=== PATIENT | male | born 1940 | race Caucasian/White ===

== ENCOUNTER 2016-04-08 10:52 | Day surgery (SDC) | payer MEDICARE ==
[2016-04-07 09:04] VITALS: BMI 27.1
[2016-04-08] MEDS: SODIUM CHLORIDE 0.9% 1,000 ML IV SCH (11:17)
[2016-04-08 11:42] LABS: Anion Gap 12 mmol/L; Blood Urea Nitrogen 20 mg/dL (9-20); Calcium 9.4 mg/dL (8.4-10.2); Carbon Dioxide 27 mmol/L (22-30); Chloride 107 mmol/L (98-107); Glucose 91 mg/dL (74-99); Non-African American GFR(MDRD) >60 (>60 ml/min/1.73 sqM); Potassium 3.7 mmol/L (3.5-5.1); Sodium 146 mmol/L (137-145)
[2016-04-08] MEDS ORDERED: BENZOCAINE SPRAY 100 APPLIC/CAN MUCOUS MEM ONE ×2 (12:12→12:15)
[2016-04-08] MEDS ORDERED: PROPOFOL 10 MG/ML 20 ML VIAL IV ONE (12:16)
[2016-04-08] MEDS ORDERED: LIDOCAINE 1% INJ 10MG/ML (20 ML MDV) ONE (12:16)
[2016-04-08] MEDS ORDERED: FLECAINIDE 50 MG TAB PO STA (12:31)
[2016-04-08 12:41] VITALS: RESP 16
--- NOTE | 2016-04-08 12:54 | ECHOT ---
DATE OF SERVICE: PREOPERATIVE DIAGNOSIS: Persistent atrial fibrillation. POSTOPERATIVE DIAGNOSIS: Persistent atrial fibrillation. Patient was given intravenous sedation with propofol by nurse hotel maintenance engineer and transesophageal echocardiogram was performed without any complications. FINDINGS: Left ventricular chamber is normal in size with normal left ventricular systolic function. Left atrium is mildly enlarged. There is evidence of smoke in the left ventricle and left atrium. There is no evidence of thrombus in the left atrial appendage. Mitral and tricuspid valve morphology was normal. Aortic valve is tricuspid. There is some mild mitral and tricuspid regurgitation noted. Left ventricular systolic function is normal. Interatrial septum is intact. There is no evidence of any PFO. There is mild atherosclerotic plaque noted in the descending thoracic aorta. FINAL IMPRESSION: 1. There is no evidence of thrombus in the left atrium or atrial appendage. There is evidence of smoke in the left atrium. 2. Left ventricular systolic function is normal. 3. Mitral, aortic and tricuspid valve morphology is normal. 4. There is a mild degree of mitral, tricuspid and aortic regurgitation. 5. Interatrial septum is intact. 6. There is evidence of mild atherosclerotic plaque noted in the descending thoracic aorta. RECOMMENDATIONS: Proceed with cardioversion.
--- NOTE | 2016-04-08 12:58 | CE ---
DATE OF SERVICE: CARDIOVERSION PREOPERATIVE DIAGNOSIS: Persistent atrial fibrillation. POSTOPERATIVE DIAGNOSIS: Persistent atrial fibrillation. Patient was given intravenous sedation with propofol. Initially transesophageal echocardiogram was performed and there was no evidence of any clot and subsequently patient initial attempt was made to cardiovert the patient with 200 joules, which was unsuccessful. Subsequently patient was cardioverted with 300 joules to the normal sinus rhythm. Patient tolerated the procedure well. We will start the patient on flecainide to prevent the reoccurrence of the atrial fibrillation and patient will be observed on the telemetry unit for 24 overnight and will be discharged home tomorrow.
[2016-04-08] MEDS: CEVIMELINE 30 MG CAP PO SCH ×2 (19:06→21:00)
[2016-04-08] MEDS: POTASSIUM CHLORIDE ER 10 MEQ TAB.ER.PRT PO SCH ×2 (19:06→21:00)
[2016-04-08] MEDS ORDERED: FLECAINIDE 50 MG TAB PO SCH (21:00)
[2016-04-08] MEDS ORDERED: TAMSULOSIN 0.4 MG CAP.ER.24H PO SCH (21:00)
[2016-04-08] MEDS ORDERED: ATENOLOL 50 MG TAB PO SCH (21:00)
[2016-04-08] MEDS: FLECAINIDE 50 MG TAB PO SCH (21:00)
[2016-04-08] MEDS: amLODIPine 5 MG TAB PO SCH (21:00)
[2016-04-08] MEDS: APIXABAN 5 MG TAB PO SCH (21:01)
[2016-04-09] MEDS: SODIUM CHLORIDE 0.9% 1,000 ML IV SCH (06:26)
[2016-04-09] MEDS: amLODIPine 5 MG TAB PO SCH (08:10)
[2016-04-09] MEDS: POTASSIUM CHLORIDE ER 10 MEQ TAB.ER.PRT PO SCH (08:10)
[2016-04-09] MEDS: CEVIMELINE 30 MG CAP PO SCH (08:10)
[2016-04-09] MEDS: FLECAINIDE 50 MG TAB PO SCH (08:10)
[2016-04-09] MEDS: APIXABAN 5 MG TAB PO SCH (08:10)
[2016-04-09 08:35] VITALS: BP 159/98; PULSE 65; TEMP 98
[2016-04-09] MEDS ORDERED: LOSARTAN 50 MG TAB PO SCH (09:00)
[2016-04-09] MEDS ORDERED: HYDROCHLOROTHIAZIDE 25 MG TAB PO SCH (09:00)
[2016-04-09] MEDS ORDERED: NON-FORMULARY DRUG (Olmesartan/Hydrochlorothiazide [Benicar Hct 40-25 Mg Tablet] 1 TAB) PO SCH (09:00)
[2016-04-09] MEDS ORDERED: APIXABAN 5 MG TAB PO SCH (09:00)
--- NOTE | 2016-04-09 10:27 | PN ---
This patient underwent cardioversion yesterday. It required 360 joules to convert to the normal sinus rhythm. Patient tolerated the procedure well. Patient was started on flecainide. Patient tolerating the medications well. Monitor strips are reviewed. Patient has occasional block PACs. We will discharge the patient on flecainide 50 mg b.i.d. He is advised to take atenolol only 50 mg daily and continue Eliquis 5 mg b.i.d. and the rest of the medications. I will see the patient in 2 weeks.
== END 2016-04-09 10:49 | disposition home or self-care (01) ==
LOC: CATHCVL 10:52 → 3OBS 12:30 → CATHCVL 04-09 10:49
PROVIDERS: ATTEND Internal Medicine Cardiovascular Disease
DX: I48.1 Persistent atrial fibrillation (principal); I08.3 Combined rheumatic disorders of mitral, aortic and tricuspid valves; I70.0 Atherosclerosis of aorta; I49.1 Atrial premature depolarization; I10 Essential (primary) hypertension; Z79.02 Long term (current) use of antithrombotics/antiplatelets; Z79.82 Long term (current) use of aspirin; Z79.899 Other long term (current) drug therapy
CPT/HCPCS: 93312; 93320; 93325; 92960; 80048; J2001; J2704

== ENCOUNTER 2017-03-02 11:21 | Day surgery (SDC) | payer MEDICARE ==
[2017-03-01 09:38] VITALS: BMI 25.7
[~2017-03-02 11:21] MED LIST: LACTATED RINGERS 1,000 ML IV SCH; LIDOCAINE 1% 20 ML VIAL (10MG/ML) FOR IV START INTRADERMA PRN; ONDANSETRON 4 MG/2 ML VIAL IVP ONE
[2017-03-02 12:59] VITALS: RESP 18
[2017-03-02] MEDS: FLURBIPROFEN 0.03% OPHTH DROPS 2.5 ML BTL OP ONE ×3 (13:06→13:26)
[2017-03-02] MEDS: PHENYLEPHRINE 10% OPHTH DROPS 5 ML BTL OP ONE ×3 (13:09→13:29)
[2017-03-02] MEDS ORDERED: BALANCED SALT IRRIG SOLN COMB2 15 ML IRRIG.SOLN INTRAOCULA ONE ×3 (13:21)
[2017-03-02] MEDS ORDERED: HYALURONATE SODIUM INTRAOCULAR 1 EACH SYRINGE (10MG/ML) INTRAOCULA ONE (13:22)
[2017-03-02] MEDS ORDERED: PROPOFOL 10 MG/ML 20 ML VIAL IV ONE (13:29)
[2017-03-02] MEDS ORDERED: EPINEPHrine (PF) 0.5 ML in BALANCED SALT IRRIG SOLN COMB2 500 ML IRRIGATION ONE (13:38)
--- NOTE | 2017-03-02 13:50 | P.OP ---
Date of Procedure: 03/02/17 Procedure(s) Performed: PREOPERATIVE DIAGNOSIS: Cataract, right eye. POSTOPERATIVE DIAGNOSIS: Cataract, right eye. OPERATION: Phacoemulsification cataract, right eye. DESCRIPTION OF PROCEDURE: The patient was taken to the preoperative holding area. Intravenous Propofol was given so as to bring about adequate sedation. The following mixture was given for local anesthesia: 5 mL of 2% lidocaine, 5 mL of 0.75% Marcaine, and 1 mL of Wydase. Approximately 4 mL was injected in the retrobulbar space of the surgical eye. Additional 1 mL was then directed to the temporal area of the surgical eye. This was performed to allow adequate neurological block of the facial muscles. The patient was revived and then taken into the operative room. The patient was prepped and draped in the usual sterile manner for the operative eye. A lid speculum was put into position. The conjunctiva was resected back from the limbus in the 12 o'clock position. Bleeding was controlled with electrocautery. A #69 blade was then used and a half-thickness scleral incision approximately 1-mm posterior to the limbus was made on bare sclera. This was shelved in the clear cornea using a crescent knife. Next a 15-degree blade was used to make a stab incision at the 3 o' clock position at the corneolimbal interface. Keratome blade was then used and the superior wound was extended into the anterior chamber. Viscoelastic was injected into the anterior chamber and to maintain its form. Next, a cystotome was used and a continuous anterior capsulotomy was made without difficulty. Hydrodissection using a blunt cannula and BSS was performed. Phaco probe was then employed and a groove extending from 12 to 6 o'clock in the lens was created. A Denis wand was used through the stab incision so as to perform a divide and conquer technique. Next an irrigation aspiration probe was utilized and any residual cortex was removed from the eye. Again, viscoelastic was injected into the anterior chamber. An Alex posterior chamber lens implant was placed in the cartridge and injected into the anterior chamber without difficulty. The SinCheckpoint Surgicaley hook was utilized to spin the lens into position and this was again performed without any difficulty. The irrigation and aspiration probe was again employed and any residual viscoelastic was removed from the eye. Then BSS was injected into the limbal stab incision and the anterior chamber re-inflated. The conjunctiva was reapproximated using electrocautery. One drop of 0.25% Timoptic was placed over the corneal along with TobraDex ophthalmic ointment. Two sterile patches and a Ramsay eye shield were taped into position. The patient was transported to the recovery room in stable condition. Pathology: none sent Condition: stable Disposition: same day
[2017-03-02 14:12] VITALS: BP 155/98; PULSE 65
[2017-03-02] MEDS ORDERED: GENTAMICIN/PREDNISOL AC OPHTH OINT 3.5GM OPHTHALMIC ONE (23:00)
[2017-03-02] MEDS ORDERED: CYCLOPENTOLATE 1% OPHTH SOLN 2 ML BTL OP ONE (23:00)
[2017-03-02] MEDS ORDERED: TIMOLOL 0.5% OPHTH SOLN (PF) 0.2 ML DROPERETTE OP ONE (23:00)
[2017-03-02] MEDS ORDERED: BUPIVACAINE (PF) 0.75% 5 ML, HYALURONIDASE, HUMAN RECOMB 150 UNIT, LIDOCAINE 2% (PF) 10... MISCELLANE ONE ×3 (23:00)
== END 2017-03-02 14:36 | disposition home or self-care (01) ==
LOC: OR 11:21
PROVIDERS: ATTEND Ophthalmology
DX: H26.9 Unspecified cataract (principal); I10 Essential (primary) hypertension; M35.00 Sjogren syndrome, unspecified; I48.91 Unspecified atrial fibrillation; Z79.01 Long term (current) use of anticoagulants; E78.5 Hyperlipidemia, unspecified; Z79.899 Other long term (current) drug therapy
CPT/HCPCS: 66984; V2632; J3470; J2001; J2405; J0171; J2704

== ENCOUNTER 2020-07-15 17:03 | Emergency (ER) | payer MEDICARE ==
[2020-07-15] MEDS ORDERED: SODIUM CHLORIDE 0.9% 1,000 ML IV ONE (17:11)
[2020-07-15] MEDS ORDERED: SODIUM CHLORIDE 0.9% 1,000 ML IV STA (17:13)
[2020-07-15 17:27] LABS: Glucose,Whole Blood 118 mg/dL (75-99)
[2020-07-15 17:32] LABS: Basophils # (A) 0.1 k/uL (0-0.2); Basophils % (A) 1 %; Eosinophils # (A) 0.3 k/uL (0-0.7); Eosinophils % (A) 6 %; HCT 37.1 % (39.0-53.0); HGB 13.4 gm/dL (13.0-17.5); Lymphocytes # (A) 1.1 k/uL (1.0-4.8); Lymphocytes % (A) 21 %; MCH 33.3 pg (25.0-35.0); MCV 92.4 fL (80.0-100.0); Mean Platelet Volume 7.7; Monocytes # (A) 0.5 k/uL (0-1.0); Monocytes % (A) 9 %; Neutrophils # (A) 3.4 k/uL (1.3-7.7); Neutrophils % (A) 62 %; Platelet Count 206 k/uL (150-450); RBC 4.02 m/uL (4.30-5.90); RDW 13.3 % (11.5-15.5); WBC 5.4 k/uL (3.8-10.6)
--- NOTE | 2020-07-15 17:32 | CT ---
EXAMINATION TYPE: CT brain wo con for TPA DATE OF EXAM: 07/15/2020 COMPARISON: None HISTORY: Aphasia. CT DLP: 1079.8 mGycm Automated exposure control for dose reduction was used. There is cerebral cortical atrophy. There is no mass effect nor midline shift. There is no sign of in tracranial hemorrhage. There is atherosclerotic vascular calcification. Calvarium is intact. IMPRESSION: Mild atrophy. No acute intracranial abnormality.
[2020-07-15] MEDS ORDERED: ASPIRIN 300 MG SUPP RECTAL STA (17:36)
[2020-07-15 17:42] LABS: Albumin 4.1 g/dL (3.5-5.0); Calcium 9.1 mg/dL (8.4-10.2); Potassium 4.2 mmol/L (3.5-5.1); Total Bilirubin 0.2 mg/dL (0.2-1.3); Total Protein 7.7 g/dL (6.3-8.2)
--- NOTE | 2020-07-15 17:47 | ED ---
General Adult HPI - General Chief complaint: Neuro Symptoms/Deficit Stated complaint: possible stroke Time Seen by Provider: 07/15/20 17:10 Source: patient, RN notes reviewed, old records reviewed Mode of arrival: ambulatory Limitations: no limitations - History of Present Illness Initial comments: 79-year-old male history of A. fib on Eliquis presenting with sudden onset slurred speech which began approximately 1600. History is obtained from the pat chacha's . During transport to the emergency department he became weak on the right. The time of arrival he has an NIH of 20. Taken immediately to computed tomography scan. - Related Data Home Medications Medication Instructions Recorded Confirmed Olmesartan/Hydrochlorothiazide 1 tab PO QAM 01/11/14 03/01/17 [Benicar Hct 40-25 mg Tablet] Potassium Chloride [Klor-Con M10] 20 meq PO BID 01/11/14 03/01/17 amLODIPine [Norvasc] 5 mg PO QAM 01/11/14 03/02/17 atenoloL [Atenolol] 50 mg PO QAM 01/11/14 03/01/17 Apixaban [Eliquis] 5 mg PO BID 04/07/16 03/01/17 Cevimeline [Evoxac] 30 mg PO TID 04/07/16 03/01/17 Tamsulosin [Flomax] 0.4 mg PO HS 04/07/16 03/01/17 Flecainide [Tambocor] 75 mg PO BID 04/09/16 03/01/17 Allergies Allergy/AdvReac Type Severity Reaction Status Date / Time No Known Allergies Allergy Verified 03/02/17 13:01 Review of Systems ROS Statement: Those systems with pertinent positive or pertinent negative responses have been documented in the HPI. ROS Other: All systems not noted in ROS Statement are negative. 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 History of Any Multi-Drug Resistant Organisms: None Reported Past Surgical History: Hernia Repair Past Anesthesia/Blood Transfusion Reactions: No Reported Reaction Past Psychological History: No Psychological Hx Reported Smoking Status: Never smoker Past Alcohol Use History: None Reported Past Drug Use History: None Reported - Past Family History Sister(s) Family Medical History: Cancer General Exam Limitations: no limitations General appearance: alert, in no apparent distress Head exam: Present: atraumatic, normocephalic Eye exam: Present: normal appearance, PERRL ENT exam: Present: normal exam Neck exam: Present: normal inspection. Absent: tenderness, meningismus Respiratory exam: Present: normal lung sounds bilaterally. Absent: respiratory distress, wheezes Cardiovascular Exam: Present: regular rate, normal rhythm GI/Abdominal exam: Present: soft. Absent: distended, tenderness Extremities exam: Present: normal inspection, normal capillary refill. Absent: pedal edema Neurological exam: Present: alert, motor sensory deficit (Initial NIH, right- sided hemiplegia, right facial droop, neglect, dysarthria, NIH of 20.). Absent: oriented X3, CN II-XII intact Psychiatric exam: Present: normal affect, normal mood Skin exam: Present: warm, dry, intact. Absent: cyanosis, diaphoretic Course Vital Signs 07/15/20 17:05 Temperature 98.0 F Pulse Rate 66 Respiratory 18 Rate Blood Pressure 122/80 O2 Sat by Pulse 98 Oximetry - Reevaluation(s) Reevaluation #1: 07/15/20 17:48 Repeat NIH is 13 EKG Findings - EKG Comments: EKG Findings:: EKG: Sinus rhythm with first-degree AV block, rate of 68, VA interval 278, QRS duration 106, QTC [address] segment elevation. Medical Decision Making - Medical Decision Making 79-year-old male who had presented with signs concerning for CVA. 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 He is currently anticoagulated with a history of atrial fibrillation. His care was coordinated with the stroke neurologist Dr. Benitez. He will be transferred to [facility] for urgent thrombectomy. Laboratory studies are pending. - Lab Data Result diagrams: 07/15/20 17:22 07/15/20 17:22 Lab Results 07/15/20 07/15/20 07/15/20 Range/Units 17: 17:22 17:22 WBC 5.4 (3.8-10.6) k/uL RBC 4.02 L (4.30-5.90) m/uL Hgb 13.4 (13.0-17.5) gm/dL Hct 37.1 L (39.0-53.0) % MCV 92.4 (80.0-100.0) fL MCH 33.3 (25.0-35.0) pg MCHC 36.0 (31.0-37.0) g/dL RDW 13.3 (11.5-15.5) % Plt Count 206 (150-450) k/uL MPV 7.7 Neutrophils % 62 % Lymphocytes % 21 % Monocytes % 9 % Eosinophils % 6 % Basophils % 1 % Neutrophils # 3.4 (1.3-7.7) k/uL Lymphocytes # 1.1 (1.0-4.8) k/uL Monocytes # 0.5 (0-1.0) k/uL Eosinophils # 0.3 (0-0.7) k/uL Basophils # 0.1 (0-0.2) k/uL Sodium 141 (137-145) mmol/L Potassium 4.2 (3.5-5.1) mmol/L Chloride 106 (98-107) mmol/L Carbon Dioxide 26 (22-30) mmol/L Anion Gap 9 mmol/L BUN 26 H (9-20) mg/dL Creatinine 1.21 (0.66-1.25) mg/dL Est GFR (CKD-EPI)AfAm 67 (>60 ml/min/1.73 sqM) Est GFR (CKD-EPI)NonAf 58 (>60 ml/min/1.73 sqM) Glucose 98 (74-99) mg/dL POC Glucose (mg/dL) 118 H (75-99) mg/dL POC Glu Game Operator ID Jose Gupta Calcium 9.1 (8.4-10.2) mg/dL Total Bilirubin 0.2 (0.2-1.3) mg/dL AST 26 (17-59) U/L ALT 13 (4-49) U/L Alkaline Phosphatase 66 (38-126) U/L Total Protein 7.7 (6.3-8.2) g/dL Albumin 4.1 (3.5-5.0) g/dL Critical Care Time Critical Care Time: Yes Total Critical Care Time: 35 Disposition Clinical Impression: Cerebrovascular accident (CVA) Disposition: OTHER INSTITUTION NOT DEFINED Condition: Serious Is patient prescribed a controlled substance at d/c from ED?: No Referrals: Get Wright DO [Primary Care Provider] - 1-2 days Time of Disposition: 17:43 - Out of Hospital Transfer - Req. Specs Out of Hospital Transfer - Requested Specifics: Neurological ICU (Vinod Cornelius)
--- NOTE | 2020-07-15 17:59 | XR ---
EXAMINATION TYPE: XR chest 1V portable DATE OF EXAM: 07/15/2020 COMPARISON: NONE HISTORY: Weakness TECHNIQUE: Single view FINDINGS: There is some interstitial infiltrates and atelectasis at the lung bases. There is no defin ite heart failure. Thoracic aorta is atheromatous. There are chest leads. IMPRESSION: Atheromatous aorta. Interstitial pulmonary fibrotic changes and mild atelectasis at the l gisella bases.
--- NOTE | 2020-07-15 18:05 | CT ---
EXAMINATION TYPE: CT angio head neck DATE OF EXAM: 07/15/2020 COMPARISON: None HISTORY: Aphasia. CT DLP: 556.6 mGycm Automated exposure control for dose reduction was used. CONTRAST: Performed with IV Contrast, patient injected with 65 mL of Isovue 370. Images obtained from the aortic arch to the vertex of the brain with IV contrast. There are 3-D post processed images. There is normal branching pattern of the great vessels on the aortic arch. There is bilateral arteria l flow in the subclavian arteries. There is arterial flow in the common internal and external carotid arteries bilaterally. There is mild plaque formation at the carotid artery bifurcations. There is le ss than 10% stenosis. There is plaque at the origin of the right external carotid artery with 25% elizabeth rowing. There is arterial flow in both vertebral arteries. Left vertebral artery is larger than the r ight. There is arterial flow in the vertebrobasilar artery system. The basilar artery fills mostly fr om the left side. There is no evidence of carotid or vertebral artery aneurysm or dissection. There is arterial flow in the anterior middle and posterior cerebral arteries. There is no mass effec t. There is significant truncation of the proximal left middle cerebral artery. There are distal left middle cerebral artery branches opacified in the sylvian fissure. This could be collateral flow. There is no mass effect. There is no evidence of intracranial aneurysm. There is no neovascularity. T here is normal enhancement of the venous sinuses. IMPRESSION: No significant angiographic abnormality of the neck. There is occlusion of the proximal left middle cerebral artery with apparent collateral vessels filli ng the distal branches of the left middle cerebral artery. There is relative decreased vascular enhan cement in the left posterior temporal lobe compared to the right.
[2020-07-15 18:17] LABS: Prothrombin Time 10.4 sec (9.0-12.0)
[2020-07-15 19:15] VITALS: BP 140/89; PULSE 78; RESP 17; TEMP 98.6
== END 2020-07-15 18:09 | disposition other institution (70) ==
LOC: EC 17:03
DX: I63.9 Cerebral infarction, unspecified (principal); I10 Essential (primary) hypertension; I48.91 Unspecified atrial fibrillation; Z79.01 Long term (current) use of anticoagulants
CPT/HCPCS: 99291 ×2; 36415; 93005; 80053; 84484; 85025; 85610; 85730; 71045; 70496; 70450; 70498; Q9967

== ENCOUNTER → 2021-09-05 | Outpatient (CLI) | payer MEDICARE ==
--- NOTE | 2021-09-05 13:44 | US ---
EXAMINATION TYPE: US pelvic limited DATE OF EXAM: 09/05/2021 COMPARISON: EXAMINATION TYPE: US pelvic limited DATE OF EXAM: 09/05/2021 COMPARISON: NONE CLINICAL HISTORY: N40.1 PROSTATIC HYPERPLASIA WITH LOWER URINARY TRACT SYMPTOM. BPH post void. Bladder: 6.6 x 8.4 x 8.6 cm =Vol 249.64 ml Post Void: 5.6 x 7.4 x 8.0 cm = Vol 173.58 ml Didn't empty bladder. IMPRESSION: 1. Prominent postvoid residual. 2. Prostate hypertrophy
== END | disposition home or self-care (01) ==
LOC: RADUSWWP 12:06
PROVIDERS: ATTEND Family Medicine
DX: N40.1 Benign prostatic hyperplasia with lower urinary tract symptoms (principal)
CPT/HCPCS: 76857

== ENCOUNTER 2022-08-26 23:39 | Emergency (ER) | payer MEDICARE ==
[2022-08-26] MEDS ORDERED: SODIUM CHLORIDE 0.9% 500 ML 500 ML IV STA (23:50)
[2022-08-26 23:52] VITALS: TEMP 99.7
--- NOTE | 2022-08-26 23:52 | ED ---
General Adult HPI - General Stated complaint: Stroke Symptoms Time Seen by Provider: 08/26/22 23:41 - History of Present Illness Initial comments: Dictation was produced using [employer] dictation software. please excuse any grammatical, word or spelling errors. Chief Complaint: 81-year-old male presents to the emergency department for al tered mental status History of Present Illness: Is a 81-year-old male who has past medical history of A. fib and hypertension. Presents to emergency Department from home via EMS for altered mental status. Patient was allegedly last on normal at 7:00 PM. Patient denies any complaints. According to nurse her sit report from EMS patient had episodes of bizarre behavior. His bizarre behavior were described as urinating in the sink and having hallucinations. Patient denies any of those symptoms. Patient has no pain complaints he feels at baseline currently. The ROS documented in this emergency department record has been reviewed and confirmed by me. Those systems with pertinent positive or negative responses have been documented in the HPI. All other systems are other negative and/or noncontributory. - Related Data Home Medications Medication Instructions Recorded Confirmed Olmesartan/Hydrochlorothiazide 1 tab PO QAM 01/11/14 03/01/17 [Benicar Hct 40-25 mg Tablet] Potassium Chloride [Klor-Con M10] 20 meq PO BID 01/11/14 03/01/17 amLODIPine [Norvasc] 5 mg PO QAM 01/11/14 03/02/17 atenoloL 50 mg PO QAM 01/11/14 03/01/17 Apixaban [Eliquis] 5 mg PO BID 04/07/16 03/01/17 Cevimeline [Evoxac] 30 mg PO TID 04/07/16 03/01/17 Tamsulosin [Flomax] 0.4 mg PO HS 04/07/16 03/01/17 Flecainide [Tambocor] 75 mg PO BID 04/09/16 03/01/17 Allergies Allergy/AdvReac Type Severity Reaction Status Date / Time No Known Allergies Allergy Verified 09/28/21 23:34 Review of Systems ROS Statement: Those systems with pertinent positive or pertinent negative responses have been documented in the HPI. ROS Other: All systems not noted in ROS Statement are negative. 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 History of Any Multi-Drug Resistant Organisms: None Reported Past Surgical History: Hernia Repair Past Anesthesia/Blood Transfusion Reactions: No Reported Reaction Past Psychological History: No Psychological Hx Reported Smoking Status: Never smoker Past Alcohol Use History: None Reported Past Drug Use History: None Reported - Past Family History Sister(s) Family Medical History: Cancer General Exam - General Exam Comments Initial Comments: PHYSICAL EXAM: General Impression: Alert and oriented x3, not in acute distress HEENT: Normocephalic atraumatic, extra-ocular movements intact, pupils equal and reactive to light bilaterally, mucous membranes moist. Cardiovascular: Heart regular rate and rhythm Chest: Able to complete full sentences, no retractions, no tachypnea Abdomen: abdomen soft, non-tender, non-distended, no organomegaly Musculoskeletal: Pulses present and equal in all extremities, no peripheral edema Motor: no focal deficits noted Neurological: CN II-XII grossly intact, mild right lower extremity drift, mild dysarthria. NIH score of 2 Skin: Intact with no visualized rashes Psych: Normal affect and mood Course Vital Signs 08/26/22 08/27/22 08/27/22 23:42 00:05 00:35 Temperature 99.7 F H Pulse Rate 84 80 78 Respiratory 18 16 16 Rate Blood Pressure 150/102 146/110 149/101 O2 Sat by Pulse 94 L 94 L 94 L Oximetry 08/27/22 08/27/22 01:05 01:20 Temperature Pulse Rate 77 76 Respiratory 18 18 Rate Blood Pressure 144/99 156/103 O2 Sat by Pulse 94 L 96 Oximetry - Reevaluation(s) Reevaluation #1: 08/26/22 23:52 Patient 81-year-old male presents to the emergency part for acute mental status changes. According to EMS last low-normal 7:00 PM. He is outside of the window alteplase. Patient not a candidate for aggressive treatment due to low NIH score and risk outweighed the benefits. EKG Findings - EKG Comments: EKG Findings:: My EKG interpretation: Ventricular rate 82, sinus rhythm,. Interval to 32, QRS 114, QTc 435. No [place] prolongation, no QTC prolongation, no ST or T-wave changes noted. Overall, this EKG is unremarkable Medical Decision Making - Medical Decision Making Was pt. sent in by a medical professional or institution (, [facility], [facility] [employer]ADER, urgent care, hospital, or halfway...) When possible be specific @ -No Did you speak to anyone other than the patient for history (EMS, parent, family, police, friend...)? What history was obtained from this source @ -No Did you review nursing and triage notes (agree or disagree)? Why? @ -I reviewed and agree with nursing and triage notes Were old charts reviewed (outside hosp., previous admission, EMS record, old EKG, old radiological studies, urgent care reports/EKG's, halfway records)? Report findings @ -No old charts were reviewed Differential Diagnosis (chest pain, altered mental status, abdominal pain women, abdominal pain men, vaginal bleeding, musculoskeletal, weakness, fever, dyspnea, syncope, headache, dizziness, GI bleed, back pain, seizure, CVA, palpatations, mental health)? @ - Differential CVA: Ischemic stroke, hemorrhagic stroke, brain tumor, atypical migraine, Wernicke's encephalopathy, seizure, multiple sclerosis, meningitis, encephalitis, hypoglycemia, Guillain-Hatch, electrolytes disturbance, myasthenia gravis.... This is not meant to be an all-inclusive list EKG interpreted by me (3pts min.). @ -See above X-rays interpreted by me (1pt min.). @ -Chest x-ray is nonacute CT interpreted by me (1pt min.). @ -T scan of brain and CT angiography head and neck shows no acute processes U/S interpreted by me (1pt. min.). @ -None done What testing was considered but not performed or refused? (CT, X-rays, U/S, labs)? Why? @ -None What meds were considered but not given or refused? Why? @ -None Did you discuss the management of the patient with other professionals (professionals i.e. USMAN Cartwright, [employer]ADER, lab, RT, psych nurse, professor of social work, edge roller, teacher, textile technical officer, patient case coordinator)? Give summary @ -No Was smoking cessation discussed for >3mins.? @ -No Was critical care preformed (if so, how long)? @ -No Were there social determinants of health that impacted care today? How? (Homelessness, low income, unemployed, alcoholism, drug addiction, transportation, low edu. Level, literacy, decrease access to med. care, half-way, rehab)? @ -No Was there de-escalation of care discussed even if they declined (Discuss DNR or withdrawal of care, Hospice)? DNR status @ -No What co-morbidities impacted this encounter? (DM, HTN, Smoking, COPD, CAD, Cancer, CVA, ARF, Chemo, Hep., AIDS, mental health diagnosis, sleep apnea, morbid obesity)? @ -None Was patient admitted / discharged? Hospital course, mention meds given and route, prescriptions, significant lab abnormalities, going to OR and other pertinent info. @ -81-year-old male presents emergency department for altered mental status. He does have a appreciable NIH score. Vital signs are stable. Labs all within acceptable limits. Imaging is nonacute. Recommended the patient to be admitted for concerns of CVA patient refused. He is told that his symptoms get worse leading to permanent neurologic disability and possibly even . Patient understands the risk and still prefer to be discharge. Repeat neurologic exam is NIH of 0. Patient given aspirin. Patient dc'd AGAINST MEDICAL ADVICE Risks, Benefits, and Treatment alternatives were discussed in detail with the patient. The patient is alert and oriented X 3 and has the capacity to make an informed decision. The risks of increased morbidity including the possibly of were explained to and understood by the patient who is choosing to leave against medical advice. The patient is encouraged to return any time should they want further treatment and diagnostic investigation. Undiagnosed new problem with uncertain prognosis? @ -No Drug Therapy requiring intensive monitoring for toxicity (Heparin, Nitro, Insulin, Cardizem)? @ -No Were any procedures done? @ -No Diagnosis/symptom? Acute, or Chronic, or Acute on Chronic? Uncomplicated (without systemic symptoms) or Complicated (systemic symptoms)? @ -1. TIA Side effects of treatment? @ -No Exacerbation, Progression, or Severe Exacerbation? @ -No Poses a threat to life or bodily function? How? (Chest pain, [place], PR, pneumonia, PE, COPD, DKA, ARF, appy, cholecystitis, CVA, Diverticulitis, Homicidal, Suicidal, threat to staff... and all critical care pts) @ -yes - Lab Data Result diagrams: 08/26/22 23:50 08/26/22 23:50 Lab Results 08/26/22 08/26/22 08/26/22 Range/Units 23:50 23:50 23:50 WBC 9.2 (3.8-10.6) k/uL RBC 3.88 L (4.30-5.90) m/uL Hgb 12.4 L (13.0-17.5) gm/dL Hct 36.9 L (39.0-53.0) % MCV 95.1 (80.0-100.0) fL MCH 31.9 (25.0-35.0) pg MCHC 33.6 (31.0-37.0) g/dL RDW 13.6 (11.5-15.5) % Plt Count 183 (150-450) k/uL MPV 8.5 Neutrophils % 86 % Lymphocytes % 7 % Monocytes % 4 % Eosinophils % 2 % Basophils % 0 % Neutrophils # 7.9 H (1.3-7.7) k/uL Lymphocytes # 0.6 L (1.0-4.8) k/uL Monocytes # 0.4 (0-1.0) k/uL Eosinophils # 0.2 (0-0.7) k/uL Basophils # 0.0 (0-0.2) k/uL PT 10.8 (9.0-12.0) sec INR 1.0 (<1.2) APTT 24.4 (22.0-30.0) sec Sodium 137 (137-145) mmol/L Potassium 3.3 L (3.5-5.1) mmol/L Chloride 105 (98-107) mmol/L Carbon Dioxide 23 (22-30) mmol/L Anion Gap 9 mmol/L BUN 21 H (9-20) mg/dL Creatinine 0.92 (0.66-1.25) mg/dL Est GFR (CKD-EPI)AfAm >90 (>60 ml/min/1.73 sqM) Est GFR (CKD-EPI)NonAf 79 (>60 ml/min/1.73 sqM) Glucose 113 H (74-99) mg/dL Calcium 8.3 L (8.4-10.2) mg/dL Total Bilirubin 0.9 (0.2-1.3) mg/dL AST 28 (17-59) U/L ALT 21 (4-49) U/L Alkaline Phosphatase 63 (38-126) U/L Creatine Kinase 151 (55-170) U/L Troponin I (0.000-0.034) ng/mL Total Protein 7.9 (6.3-8.2) g/dL Albumin 3.9 (3.5-5.0) g/dL 08/26/22 Range/Units 23:50 WBC (3.8-10.6) k/uL RBC (4.30-5.90) m/uL Hgb (13.0-17.5) gm/dL Hct (39.0-53.0) % MCV (80.0-100.0) fL MCH (25.0-35.0) pg MCHC (31.0-37.0) g/dL RDW (11.5-15.5) % Plt Count (150-450) k/uL MPV Neutrophils % % Lymphocytes % % Monocytes % % Eosinophils % % Basophils % % Neutrophils # (1.3-7.7) k/uL Lymphocytes # (1.0-4.8) k/uL Monocytes # (0-1.0) k/uL Eosinophils # (0-0.7) k/uL Basophils # (0-0.2) k/uL PT (9.0-12.0) sec INR (<1.2) APTT (22.0-30.0) sec Sodium (137-145) mmol/L Potassium (3.5-5.1) mmol/L Chloride (98-107) mmol/L Carbon Dioxide (22-30) mmol/L Anion Gap mmol/L BUN (9-20) mg/dL Creatinine (0.66-1.25) mg/dL Est GFR (CKD-EPI)AfAm (>60 ml/min/1.73 sqM) Est GFR (CKD-EPI)NonAf (>60 ml/min/1.73 sqM) Glucose (74-99) mg/dL Calcium (8.4-10.2) mg/dL Total Bilirubin (0.2-1.3) mg/dL AST (17-59) U/L ALT (4-49) U/L Alkaline Phosphatase (38-126) U/L Creatine Kinase (55-170) U/L Troponin I <0.012 (0.000-0.034) ng/mL Total Protein (6.3-8.2) g/dL Albumin (3.5-5.0) g/dL Disposition Clinical Impression: CVA (cerebral vascular accident) Disposition: LEFT AGAINST MEDICAL ADVICE Condition: Fair Instructions (If sedation given, give patient instructions): Altered Mental Status (ED) Referrals: Get Wright DO [Primary Care Provider] - 1-2 days Time of Disposition: 01:36
[2022-08-27 00:11] LABS: Basophils % (A) 0 %; Eosinophils # (A) 0.2 k/uL (0-0.7); Eosinophils % (A) 2 %; HCT 36.9 % (39.0-53.0); HGB 12.4 gm/dL (13.0-17.5); Lymphocytes # (A) 0.6 k/uL (1.0-4.8); Lymphocytes % (A) 7 %; MCH 31.9 pg (25.0-35.0); MCHC 33.6 g/dL (31.0-37.0); MCV 95.1 fL (80.0-100.0); Mean Platelet Volume 8.5; Monocytes # (A) 0.4 k/uL (0-1.0); Monocytes % (A) 4 %; Neutrophils # (A) 7.9 k/uL (1.3-7.7); Neutrophils % (A) 86 %; Platelet Count 183 k/uL (150-450); RBC 3.88 m/uL (4.30-5.90); RDW 13.6 % (11.5-15.5); WBC 9.2 k/uL (3.8-10.6)
[2022-08-27 00:22] LABS: Partial Thromboplastin Time 24.4 sec (22.0-30.0); Prothrombin Time 10.8 sec (9.0-12.0)
[2022-08-27 00:36] LABS: ALT 21 U/L (4-49); AST 28 U/L (17-59); African American GFR (CKD) >90 (>60 ml/min/1.73 sqM); Albumin 3.9 g/dL (3.5-5.0); Alkaline Phosphatase 63 U/L (38-126); Anion Gap 9 mmol/L; Blood Urea Nitrogen 21 mg/dL (9-20); Calcium 8.3 mg/dL (8.4-10.2); Carbon Dioxide 23 mmol/L (22-30); Chloride 105 mmol/L (98-107); Creatine Kinase 151 U/L (55-170); Glucose 113 mg/dL (74-99); Non-African American GFR(CKD) 79 (>60 ml/min/1.73 sqM); Potassium 3.3 mmol/L (3.5-5.1); Sodium 137 mmol/L (137-145); Total Bilirubin 0.9 mg/dL (0.2-1.3); Total Protein 7.9 g/dL (6.3-8.2)
--- NOTE | 2022-08-27 00:48 | XR ---
EXAMINATION TYPE: XR chest 2V DATE OF EXAM: 08/27/2022 COMPARISON: 07/15/2020 INDICATION: Altered mental status TECHNIQUE: Frontal and lateral views of the chest are obtained. FINDINGS: The heart size is normal. There appears to be some prominence of the aortic arch, similar to compari son. The pulmonary vasculature is normal. No suspicious focal consolidation is evident.. IMPRESSION: 1. No acute pulmonary process.
--- NOTE | 2022-08-27 00:57 | CT ---
EXAMINATION TYPE: CT angio head neck DATE OF EXAM: 08/27/2022 HISTORY: STROKE LIKE SYMPTOMS COMPARISON: 07/15/2020 CT DLP: 1658.4 mGycm. Automated Exposure Control for Dose Reduction was Utilized. TECHNIQUE: CTA scan of the neck is performed with IV Contrast, patient injected with 65 mL of Isovue 370, axial images are obtained, coronal and sagittal reformatted images are reviewed. Three-D recons tructed images are created on an independent workstation and reviewed. Source images are reviewed. FINDINGS: Carotid/Vascular Structures: There is a three-vessel arch. Left vertebral artery is dominant. Common carotid arteries bifurcate into internal and external carotid arteries without focal stenosis. There is tortuosity of the bilateral internal carotid arteries. Internal carotid arteries are patent to the skull base. Cervical of [place]: Vertebral basilar system appears normal. Posterior cerebral vasculature is unrema rkable. Internal carotid arteries bifurcate normally into A1 and M1 segments. The A2 segments is visu alized appear normal. Middle cerebral artery branches appear normal and may be some narrowing of the distal left M1 segment. However, no occlusion is evident. The right M1 segment appears normal. The an terior communicating artery is patent. Small posterior communicating arteries may be patent. IMPRESSION: 1. No flow-limiting stenosis bilateral carotid bifurcations. 2. The superior curvature of the left M1 segment appears somewhat smaller caliber than elsewhere appr oximately and distally on the left side. Some narrowing through this region without occlusion could b e considered. 3. [place] otherwise appears within normal limits. NASCET criteria was used in interpretation of this exam?
--- NOTE | 2022-08-27 00:59 | CT ---
EXAMINATION TYPE: CT brain wo con DATE OF EXAM: 08/27/2022 COMPARISON: 07/15/2020 INDICATION: STROKE LIKE SYMPTOMS DLP: 1658.4 mGycm, Automated exposure control for dose reduction was used. CONTRAST: None CT of the brain is performed utilizing 3 mm thick sections through the posterior fossa and 3 mm thick sections through the remaining calvarium. Study is performed within 24 hours of arrival to the hosp ital. No abnormal hyperdensity is present to suggest an acute intracranial hemorrhage. No mass lesion is evident. No acute infarcts are evident. Periventricular white matter hypodensity is present, likely on the bas is of chronic white matter ischemic changes. Note is made of vascular calcification within the distal internal carotid arteries and within the bilateral M1 segments. Ventricles and sulci are prominent for the patient age. Paranasal sinuses and mastoid air cells within the oowpy-de-hhar are clear. IMPRESSIONS: 1. Periventricular white matter hypodensity likely on the basis of chronic white matter ischemic ch anges. Findings are similar to comparison. 2. No acute intracranial process. Follow-up MRI can be performed as clinically indicated.
[2022-08-27 01:12] VITALS: RESP 18
[2022-08-27 01:28] VITALS: BP 156/103; PULSE 76
[2022-08-27] MEDS ORDERED: ASPIRIN 81 MG PO STA (01:35)
== END 2022-08-27 01:30 | disposition left against medical advice (07) ==
LOC: EC 23:39
DX: I63.9 Cerebral infarction, unspecified (principal); I10 Essential (primary) hypertension; I48.91 Unspecified atrial fibrillation; Z79.01 Long term (current) use of anticoagulants
CPT/HCPCS: 36415; 70450; 70496; 70498; 71046; 80053; 82550; 84484; 85025; 85610; 85730; 93005; 96360; 99285

== ENCOUNTER 2022-09-14 17:15 | Inpatient (IN) | payer MEDICARE ==
--- NOTE | 2022-09-14 17:29 | ED ---
General Adult HPI - General Chief complaint: Neuro Symptoms/Deficit Stated complaint: Neuro deficits Time Seen by Provider: 09/14/22 17:20 Source: patient, EMS Mode of arrival: EMS Limitations: altered mental status - History of Present Illness Initial comments: Patient is an 82-year-old man who reportedly had a ground-level fall last night when he had gotten up to urinate. This morning he told his about the fall. Reportedly not acting like his usual self since that time. When I interview the patient, he states he is here because "my thinks I'm going loonie." Patient denies pain anywhere. He does not have any complaints. Onset/Timin -: hour(s) Location: head Improves with: none Worsens with: none Associated Symptoms: confusion Treatments Prior to Arrival: none - Related Data Home Medications Medication Instructions Recorded Confirmed Olmesartan/Hydrochlorothiazide 1 tab PO DAILY 01/11/14 09/14/22 [Benicar Hct 40-25 mg Tablet] Potassium Chloride [Klor-Con M10] 20 meq PO BID 01/11/14 09/14/22 amLODIPine [Norvasc] 5 mg PO DAILY PRN 01/11/14 09/14/22 Apixaban [Eliquis] 5 mg PO BID 04/07/16 09/14/22 Cevimeline [Evoxac] 30 mg PO TID 04/07/16 09/14/22 Aspirin EC [Ecotrin Low Dose] 81 mg PO DAILY 09/14/22 09/14/22 Atorvastatin [Lipitor] 10 mg PO HS 09/14/22 09/14/22 Flecainide Acetate [Tambocor] 100 mg PO BID 09/14/22 09/14/22 Triamcinolone 0.1% Cream [Kenalog 1 applicatio TOPICAL BID PRN 09/14/22 09/14/22 0.1% Cream] atenoloL [Tenormin] 50 mg PO HS 09/14/22 09/14/22 Allergies Allergy/AdvReac Type Severity Reaction Status Date / Time No Known Allergies Allergy Verified 09/14/22 18:50 Review of Systems ROS Statement: Those systems with pertinent positive or pertinent negative responses have been documented in the HPI. ROS Other: All systems not noted in ROS Statement are negative. 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 Absent: scleral icterus, conjunctival injection ENT exam: Present: normal oropharynx Neck exam: Present: normal inspection, full ROM Respiratory exam: Present: normal lung sounds bilaterally. Absent: respiratory distress, wheezes, rales, rhonchi, stridor Cardiovascular Exam: Present: normal rhythm, irregular rhythm, normal heart sounds. Absent: systolic murmur, diastolic murmur, rubs, gallop GI/Abdominal exam: Present: soft. Absent: distended, tenderness, guarding, rebound, rigid, mass Extremities exam: Present: normal inspection, normal capillary refill. Absent: pedal edema, calf tenderness Back exam: Present: normal inspection. Absent: CVA tenderness (R), CVA tenderness (L), vertebral tenderness Neurological exam: Present: alert, CN II-XII intact. Absent: oriented X3 (Patient oriented only to person), motor sensory deficit Expanded Neurological exam: Present: memory loss-remote event, expressive aphasia Patient oriented to: Present: person Speech: Present: expressive aphasia Cranial nerves: EOM's Intact: Normal, Gag Reflex: Normal, Facial Palsy with Forehead Movement: Normal Cerebellar function: Finger to Nose: Normal Upper motor neuron: Rodrigo Neglect: Normal Sensory exam: Upper Extremity Light Touch: Normal, Lower Extremity Light Touch: Normal Motor strength exam: RUE: 5, LUE: 5, RLE: 5, LLE: 5 Eye Response: (4) open spontaneously Motor Response: (6) obeys commands Verbal Response: (4) confused conversation Skin exam: Present: warm, dry, intact, normal color. Absent: rash Course Vital Signs 09/14/22 09/14/22 09/14/22 17:16 18:34 22:00 Temperature 99.2 F Pulse Rate 82 73 73 Respiratory 18 18 16 Rate Blood Pressure 140/94 135/99 133/93 O2 Sat by Pulse 97 Oximetry 09/14/22 09/15/22 09/15/22 23:00 01:42 06:00 Temperature Pulse Rate 69 68 62 Respiratory 16 16 18 Rate Blood Pressure 115/91 129/72 134/81 O2 Sat by Pulse 98 94 L 95 Oximetry 09/15/22 09/15/22 09/15/22 08:57 10:00 11:47 Temperature 97.8 F Pulse Rate 60 70 72 Respiratory 18 18 18 Rate Blood Pressure 131/90 129/81 123/88 O2 Sat by Pulse 94 L 94 L 97 Oximetry 09/15/22 11:50 Temperature 98.7 F Pulse Rate Respiratory Rate Blood Pressure O2 Sat by Pulse Oximetry EKG Findings - EKG Results: EKG: interpreted by ERMD, normal axis EKG shows: atrial fibrillation (Rate 85 bpm) Medical Decision Making - Medical Decision Making This patient is an 82-year-old man here to have evaluation for altered mental status. The patient is subsequently arrived and related that he had had a ground-level fall sometime during the night last night. On reevaluation after the patient's workup, his orientation seems to have improved and his speech is somewhat better. He does appear to have possible delirium versus dementia, although TIA affecting language and speech also considered. Review of the records reveals similar presentation in August, and at that time they wanted to go home, given the second episode of this will admit to have neurology consultation. This patient is an 82-year-old man presenting to have evaluation related to change in mental status, possible stroke or possible head injury based on fall. The patient has workup which shows what appears to be critical area of stenosis in the M1 MCA. Patient is outside of the TPA window with symptoms starting in the morning or last night. The patient admitted to have further urology workup. Case was discussed with vascular surgery and they state no acute intervention The patient had chest x-ray which I interpreted as negative for acute infilt rate, pneumothorax, congestive heart failure Was pt. sent in by a medical professional or institution (, PA, HR SPECIALIST, urgent care, hospital, or intermediate...) When possible be specific @ -[No] Did you speak to anyone other than the patient for history (EMS, parent, family, police, friend...)? What history was obtained from this source @ -[The patient's did provide some history after the initial evaluation Did you review nursing and triage notes (agree or disagree)? Why? @ -[I reviewed and agree with nursing and triage notes] Were old charts reviewed (outside hosp., previous admission, EMS record, old EKG, old radiological studies, urgent care reports/EKG's, intermediate records)? Report findings @ -old charts were reviewed] Differential Diagnosis (chest pain, altered mental status, abdominal pain women, abdominal pain men, vaginal bleeding, weakness, fever, dyspnea, syncope, headache, dizziness, GI bleed, back pain, seizure, CVA, palpatations, mental health, musculoskeletal)? @ -[Differential CVA Ischemic stroke, hemorrhagic stroke, brain tumor, atypical migraine, Wernicke's encephalopathy, seizure, multiple sclerosis, meningitis, encephalitis, hypoglycemia, Guillain-Hatch, electrolytes disturbance, myasthenia gravis.... This is not meant to be an all-inclusive list EKG interpreted by me (3pts min.). @ -[As above] X-rays interpreted by me (1pt min.). @ -[As above CT interpreted by me (1pt min.). @ -[Plain CT scan interpreted myself as not showing acute bony injury or acute intracranial hemorrhage. CT angiogram interpreted by radiologist U/S interpreted by me (1pt. min.). @ -[None done] What testing was considered but not performed or refused? (CT, X-rays, U/S, labs)? Why? @ -[None] What meds were considered but not given or refused? Why? @ -[None] Did you discuss the management of the patient with other professionals (belle hankins i.e. , PA, HR SPECIALIST, lab, RT, psych nurse, outreach and education social worker, club room attendant, teacher, airfield services officer, telephonic case manager)? Give summary @ -[Case is discussed with admitting physician and with vascular surgery Was smoking cessation discussed for >3mins.? @ -[No] Was critical care preformed (if so, how long)? @ -[Yes 35 minutes Were there social determinants of health that impacted care today? How? (Homelessness, low income, unemployed, alcoholism, drug addiction, transportation, low edu. Level, literacy, decrease access to med. care, residential, rehab)? @ -[No] Was there de-escalation of care discussed even if they declined (Discuss DNR or withdrawal of care, Hospice)? DNR status @ -[No] What co-morbidities impacted this encounter? (DM, HTN, Smoking, COPD, CAD, Cancer, CVA, ARF, Chemo, Hep., AIDS, mental health diagnosis, sleep apnea, morbid obesity)? @ -[None] Was patient admitted / discharged? Hospital course, mention meds given and route, prescriptions, significant lab abnormalities, going to OR and other pertinent info. @ -[The patient will be admitted for further neurology evaluation and treatment. Undiagnosed new problem with uncertain prognosis? @ -[No] Drug Therapy requiring intensive monitoring for toxicity (Heparin, Nitro, Insulin, Cardizem)? @ -[No] Were any procedures done? @ -[No] Diagnosis/symptom? @ -[Acute ischemic stroke/TIA Stenosis of the M1 branch MCA Acute, or Chronic, or Acute on Chronic? @ -[Acute Uncomplicated (without systemic symptoms) or Complicated (systemic symptoms)? @ -[Uncomplicated Side effects of treatment? @ -[No] Exacerbation, Progression, or Severe Exacerbation? @ -[No] Poses a threat to life or bodily function? How? (Chest pain, USA, PA, pneumonia, PE, COPD, DKA, ARF, appy, cholecystitis, CVA, Diverticulitis, Homicidal, Suicidal, threat to staff... and all critical care pts) @ -[Yes with acute stroke there is work risk of progression and - Lab Data Result diagrams: 09/23/22 06:42 09/23/22 06:42 Lab Results 09/14/22 09/14/22 09/14/22 Range/Units 17:44 17:44 17:44 WBC 7.2 (3.8-10.6) k/uL RBC 3.96 L (4.30-5.90) m/uL Hgb 13.1 (13.0-17.5) gm/dL Hct 37.6 L (39.0-53.0) % MCV 95.0 (80.0-100.0) fL MCH 33.2 (25.0-35.0) pg MCHC 34.9 (31.0-37.0) g/dL RDW 13.1 (11.5-15.5) % Plt Count 174 (150-450) k/uL MPV 8.5 Neutrophils % 75 % Lymphocytes % 14 % Monocytes % 9 % Eosinophils % 1 % Basophils % 1 % Neutrophils # 5.4 (1.3-7.7) k/uL Lymphocytes # 1.0 (1.0-4.8) k/uL Monocytes # 0.7 (0-1.0) k/uL Eosinophils # 0.0 (0-0.7) k/uL Basophils # 0.0 (0-0.2) k/uL PT 10.9 (9.0-12.0) sec INR 1.0 (<1.2) APTT 27.2 (22.0-30.0) sec Sodium 134 L (137-145) mmol/L Potassium 3.8 (3.5-5.1) mmol/L Chloride 100 (98-107) mmol/L Carbon Dioxide 23 (22-30) mmol/L Anion Gap 11 mmol/L BUN 17 (9-20) mg/dL Creatinine 0.96 (0.66-1.25) mg/dL Est GFR (CKD-EPI)AfAm 87 (>60 ml/min/1.73 sqM) Est GFR (CKD-EPI)NonAf 75 (>60 ml/min/1.73 sqM) Glucose 108 H (74-99) mg/dL Estimated Ave Glu mg/dL mg/dL Hemoglobin A1c (<=6.0) % Calcium 8.8 (8.4-10.2) mg/dL Total Bilirubin 0.8 (0.2-1.3) mg/dL AST 24 (17-59) U/L ALT 19 (4-49) U/L Alkaline Phosphatase 68 (38-126) U/L Creatine Kinase 68 (55-170) U/L Troponin I (0.000-0.034) ng/mL Total Protein 8.2 (6.3-8.2) g/dL Albumin 4.1 (3.5-5.0) g/dL Serum Alcohol <10 mg/dL 09/14/22 09/14/22 Range/Units 17:44 17:48 WBC (3.8-10.6) k/uL RBC (4.30-5.90) m/uL Hgb (13.0-17.5) gm/dL Hct (39.0-53.0) % MCV (80.0-100.0) fL MCH (25.0-35.0) pg MCHC (31.0-37.0) g/dL RDW (11.5-15.5) % Plt Count (150-450) k/uL MPV Neutrophils % % Lymphocytes % % Monocytes % % Eosinophils % % Basophils % % Neutrophils # (1.3-7.7) k/uL Lymphocytes # (1.0-4.8) k/uL Monocytes # (0-1.0) k/uL Eosinophils # (0-0.7) k/uL Basophils # (0-0.2) k/uL PT (9.0-12.0) sec INR (<1.2) APTT (22.0-30.0) sec Sodium (137-145) mmol/L Potassium (3.5-5.1) mmol/L Chloride (98-107) mmol/L Carbon Dioxide (22-30) mmol/L Anion Gap mmol/L BUN (9-20) mg/dL Creatinine (0.66-1.25) mg/dL Est GFR (CKD-EPI)AfAm (>60 ml/min/1.73 sqM) Est GFR (CKD-EPI)NonAf (>60 ml/min/1.73 sqM) Glucose (74-99) mg/dL Estimated Ave Glu mg/dL 120 mg/dL Hemoglobin A1c 5.8 (<=6.0) % Calcium (8.4-10.2) mg/dL Total Bilirubin (0.2-1.3) mg/dL AST (17-59) U/L ALT (4-49) U/L Alkaline Phosphatase (38-126) U/L Creatine Kinase (55-170) U/L Troponin I <0.012 (0.000-0.034) ng/mL Total Protein (6.3-8.2) g/dL Albumin (3.5-5.0) g/dL Serum Alcohol mg/dL Disposition Clinical Impression: Aphasia Disposition: ADMITTED IP TO THIS HOSP Condition: Fair Is patient prescribed a controlled substance at d/c from ED?: No
[2022-09-14 17:53] LABS: Basophils % (A) 1 %; Eosinophils % (A) 1 %; HCT 37.6 % (39.0-53.0); HGB 13.1 gm/dL (13.0-17.5); Lymphocytes % (A) 14 %; MCH 33.2 pg (25.0-35.0); MCHC 34.9 g/dL (31.0-37.0); Mean Platelet Volume 8.5; Monocytes # (A) 0.7 k/uL (0-1.0); Monocytes % (A) 9 %; Neutrophils # (A) 5.4 k/uL (1.3-7.7); Neutrophils % (A) 75 %; Platelet Count 174 k/uL (150-450); RBC 3.96 m/uL (4.30-5.90); RDW 13.1 % (11.5-15.5); WBC 7.2 k/uL (3.8-10.6)
[2022-09-14 18:02] LABS: Partial Thromboplastin Time 27.2 sec (22.0-30.0); Prothrombin Time 10.9 sec (9.0-12.0)
[2022-09-14 18:07] LABS: ALT 19 U/L (4-49); AST 24 U/L (17-59); African American GFR (CKD) 87 (>60 ml/min/1.73 sqM); Albumin 4.1 g/dL (3.5-5.0); Alcohol <10 mg/dL; Alkaline Phosphatase 68 U/L (38-126); Anion Gap 11 mmol/L; Blood Urea Nitrogen 17 mg/dL (9-20); Calcium 8.8 mg/dL (8.4-10.2); Carbon Dioxide 23 mmol/L (22-30); Chloride 100 mmol/L (98-107); Creatine Kinase 68 U/L (55-170); Glucose 108 mg/dL (74-99); Non-African American GFR(CKD) 75 (>60 ml/min/1.73 sqM); Potassium 3.8 mmol/L (3.5-5.1); Sodium 134 mmol/L (137-145); Total Bilirubin 0.8 mg/dL (0.2-1.3); Total Protein 8.2 g/dL (6.3-8.2)
--- NOTE | 2022-09-14 18:17 | CT ---
EXAMINATION TYPE: CT brain wo con for TPA CT DLP: 1072.8 mGycm, Automated exposure control for dose reduction was used. DATE OF EXAM: 09/14/2022 6:00 PM COMPARISON: 08/27/2022. CLINICAL INDICATION:Male, 82 years old with history of Neuro deficit, acute, stroke suspected, cva, a ms TECHNIQUE: Brain: Axial CT images of the brain were obtained with coronal and sagittal reformats created and rev iewed. Contrast used: None. Oral contrast used: None. FINDINGS: Brain: Extra-axial spaces: No abnormal extra-axial fluid collections. Ventricular system: Within normal limits Cerebral parenchyma: No acute intraparenchymal hemorrhage or mass effect. The jara-white junction is well differentiated. Scattered hypoattenuating areas are seen within the white matter. Cerebellum: Unremarkable. Mass effect: No evidence of midline shift. Intracranial vasculature: Atherosclerotic calcifications of the intracranial vessels. Soft tissues: Normal. Calvarium/osseous structures: No depressed skull fracture. Paranasal sinuses and mastoid air cells: Mild scattered paranasal sinus disease. Visualized orbits: Right aphakia. IMPRESSION: 1. No acute intracranial process. 2. Nonspecific white matter changes, likely secondary to chronic small vessel ischemic disease.
--- NOTE | 2022-09-14 19:19 | CT ---
EXAMINATION TYPE: CT angio head neck CT DLP: 576 mGycm, Automated exposure control for dose reduction was used. DATE OF EXAM: 09/14/2022 7:13 PM COMPARISON: CT head same day.. CLINICAL INDICATION:Male, 82 years old with history of Neuro deficit, acute, stroke suspected; PHH, c va TECHNIQUE: Axially acquired helical CT angiogram of the head and neck was obtained with contrast. Axi al images are supplemented with 3D reconstructions which were [facility] NASCET criteria used. Contrast used:65cc mL of Isovue 370 with IV Contrast, Oral contrast used: None. FINDINGS: CTA HEAD: No evidence of acute intracranial hemorrhage, mass effect, or midline shift. The ventricles, sulci, a nd cisterns are unremarkable. There is a short segment of high-grade stenosis of the left M1 segment measuring at least 6 mm in jailene gth. Series 4010 image 33 The visualized portions of the internal carotid arteries, middle cerebral arteries, anterior cerebral arteries, and posterior cerebral arteries are patent. Diminutive A1 segment on the left. The basilar and vertebral arteries are patent. CTA NECK: Right Carotid System: The common carotid and external carotid arteries are patent. There is less than 25% stenosis at the c arotid bifurcation secondary to calcified/noncalcified plaque. The rest of the internal carotid arter y is patent. Left Carotid System: The common carotid and external carotid arteries are patent. There is less than 25% stenosis at the c arotid bifurcation secondary to calcified/noncalcified plaque. The rest of the internal carotid arter y is patent. Calcifications at the origin of the left vertebral artery with less than 25% stenosis. This left denisa nant vertebral artery the right vertebral artery is more smaller in caliber. There is a three-vessel aortic arch. The origins of the great vessels are patent. No evidence of hemo dynamically significant stenosis. Upper thorax: IMPRESSION: 1. 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 2. No evidence of dissection of the cervical internal carotid arteries or vertebral arteries or any evidence of significant stenosis at the carotid bifurcations. 3. No evidence of intracranial aneurysm. 4. Dominant left vertebral artery.
--- NOTE | 2022-09-14 20:04 | XR ---
EXAMINATION TYPE: XR chest 2V DATE OF EXAM: 09/14/2022 7:54 PM COMPARISON: Chest radiographs from 08/27/2022 TECHNIQUE: XR chest 2V Frontal and lateral views of the chest. CLINICAL INDICATION:Male, 82 years old with history of altered mental status; FINDINGS: Lungs/Pleura: There is no evidence of pleural effusion, focal consolidation, or pneumothorax. Pulmonary vascularity: Unremarkable. Heart/mediastinum: Cardiomediastinal silhouette is unremarkable. Musculoskeletal: No acute osseous pathology. IMPRESSION: Low lung volumes with a generalized hazy appearance which could represent atelectasis versus pulmonar y edema correlate with serum BNP.
[2022-09-14] MEDS ORDERED: NALOXONE 0.4 MG/ML 1 ML VIAL IV PRN (20:39)
[2022-09-14] MEDS ORDERED: ACETAMINOPHEN TAB 325 MG TAB PO PRN (20:39)
[2022-09-14] MEDS ORDERED: ATORVASTATIN 10 MG TAB PO SCH (21:00)
[2022-09-14] MEDS: SODIUM CHLORIDE 0.9% 1,000 ML IV SCH (21:03)
[2022-09-14] MEDS: APIXABAN 5 MG TAB PO SCH (21:26)
[2022-09-14] MEDS: FLECAINIDE 50 MG TAB PO SCH (21:26)
[2022-09-14] MEDS: atenoloL 50 MG TAB PO SCH (21:26)
[2022-09-14] MEDS: POTASSIUM CHLORIDE ER 10 MEQ TAB.ER.PRT PO SCH (21:28)
[2022-09-14] MEDS: CEVIMELINE 30 MG CAP PO SCH (21:29)
[2022-09-14 23:25] LABS: Appearance,Urine Clear (Clear); Bilirubin,Urine Negative (Negative); Blood,Urine Negative (Negative); Color,Urine Light Yellow; Glucose,Urine (UA) Negative (Negative); Ketones,Urine Negative (Negative); Leukocyte Esterase,Urine Negative (Negative); Nitrite,Urine Negative (Negative); Protein,Urine Negative (Negative); Specific Gravity,Urine 1.035 (1.001-1.035); Urobilinogen,Urine <2.0 mg/dL (<2.0)
[2022-09-15] MEDS: hydroCHLOROthiazide 25 MG TAB PO SCH ×2 (08:59→09:00)
[2022-09-15] MEDS: APIXABAN 5 MG TAB PO SCH ×2 (08:59→20:50)
[2022-09-15] MEDS: POTASSIUM CHLORIDE ER 10 MEQ TAB.ER.PRT PO SCH ×2 (09:00→20:50)
[2022-09-15] MEDS: LOSARTAN 50 MG TAB PO SCH (09:00)
[2022-09-15] MEDS: ASPIRIN 81 MG PO SCH (09:00)
[2022-09-15] MEDS: FLECAINIDE 50 MG TAB PO SCH ×2 (09:01→20:50)
[2022-09-15] MEDS: CEVIMELINE 30 MG CAP PO SCH ×3 (09:01→20:50)
--- NOTE | 2022-09-15 14:24 | P.HPIM ---
History of Present Illness H&P Date: 09/15/22 Chief Complaint: Acute confusion Pleasant 82-year-old patient, follows Dr. Wright. Patient was doing well up to yesterday morning when he woke up. As the day went along he started getting confused. Feeling weak. Started walking with support. Holding onto the kitchen table for example. When he went to urinate he did miss the band. He was finding it difficult to finishing sentences. He stated that Her most of the day. Which is very unusual as the patient is very active. No change in vision. No change in swallowing. Does feel better this morning. Patient had a similar episode about 3 weeks ago that was short-lived. Patient did have a stroke about 3 years ago with no residual. Underlying history of atrial flutter fibrillation. Review of systems: GEN.: None EYES: None HEENT: None NECK: None RESPIRATORY: None CARDIOVASCULAR: None GASTROINTESTINAL: None GENITOURINARY: None MUSCULOSKELETAL: Some joint pains LYMPHATICS: None HEMATOLOGICAL: None PSYCHIATRY: None NEUROLOGICAL: As above Past medical history to include: Atrial flutter fibrillation, stroke, hypertension, Sjogren's, cardioversion Social history: . No smoking and no alcohol. Crop carroll Physical examination: VITAL SIGNS: 97.8, 60, 18, 131/90, 94% room air GENERAL: BMI 22.7, sitting up, eating. EYES: Pupils equal. Conjunctiva normal. HEENT: External appearance of nose and ears normal, oral cavity grossly normal. NECK: JVD not raised; masses not palpable. HEART: First and second heart sounds are normal; no edema. LUNGS: Respiratory rate normal; clear to auscultation. ABDOMEN: Soft, nontender, liver spleen not palpable, no masses palpable. PSYCH: Alert and oriented x3; mood and affect normal. MUSCULOSKELETAL:No Clubbing/cyanosis;muscles-grossly intact. OA NEUROLOGICAL: Cranial nerves grossly intact; no facial asymmetry, power and sensation grossly intact. LYMPHATICS: No lymph nodes palpable in the axilla and neck INVESTIGATIONS, reviewed in the clinical context: White count 7.2 hemoglobin 13.1 platelets 174 sodium 134 potassium 3.8 creatinine 0.96 UA: Negative EKG tracing personally reviewed by me-sahra hopkins. Conduction rate 3:1. Chest x-ray film personally reviewed by me-lung kenney clear. Some unfolding of the aorta Computed tomography scan of the brain: Nonspecific white matter changes. CT of the angiogram of the head and neck: Short segment of high-grade stenosis of the left MCA M1 segment about 6 mm in length with at least 90% stenosis. Assessment and plan: -Episode of patient getting progressively confused yesterday. Unsteady gait. Some trouble finding words. No change in vision or speech. Possible TIA. Patient had a similar episode 3 weeks ago. MRI of the brain with and without contrast. EEG. 2-D echo. Neurology consulted Aspirin. Lipitor. Patient eliquis. -Persistent atrial flutter with controlled rate conduction 3:1. Continue on eliquis. Tenormin. Flecainide. -Essential hypertension Cozaar. Hydrochlorothiazide. Tenormin. -Primary osteoarthritis Tylenol as needed -Sjogren's syndrome. -Full code Discussed with patient and . Follow with neurology. 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 History of Any Multi-Drug Resistant Organisms: None Reported Past Surgical History: Hernia Repair Past Anesthesia/Blood Transfusion Reactions: No Reported Reaction Past Psychological History: No Psychological Hx Reported Smoking Status: Never smoker Past Alcohol Use History: None Reported Past Drug Use History: None Reported - Past Family History Sister(s) Family Medical History: Cancer Medications and Allergies Home Medications Medication Instructions Recorded Confirmed Type Olmesartan/Hydrochlorothiazide 1 tab PO DAILY 01/11/14 09/14/22 History [Benicar Hct 40-25 mg Tablet] Potassium Chloride [Klor-Con M10] 20 meq PO BID 01/11/14 09/14/22 History amLODIPine [Norvasc] 5 mg PO DAILY PRN 01/11/14 09/14/22 History Apixaban [Eliquis] 5 mg PO BID 04/07/16 09/14/22 History Cevimeline [Evoxac] 30 mg PO TID 04/07/16 09/14/22 History Aspirin EC [Ecotrin Low Dose] 81 mg PO DAILY 09/14/22 09/14/22 History Atorvastatin [Lipitor] 10 mg PO HS 09/14/22 09/14/22 History Flecainide Acetate [Tambocor] 100 mg PO BID 09/14/22 09/14/22 History Triamcinolone 0.1% Cream [Kenalog 1 applicatio TOPICAL BID PRN 09/14/22 09/14/22 History 0.1% Cream] atenoloL [Tenormin] 50 mg PO HS 09/14/22 09/14/22 History Allergies Allergy/AdvReac Type Severity Reaction Status Date / Time No Known Allergies Allergy Verified 09/14/22 18:50 Physical Exam Vitals: Vital Signs Temp Pulse Resp BP Pulse Ox 09/15/22 08:57 97.8 F 60 18 131/90 94 L 09/15/22 06:00 62 18 134/81 95 09/15/22 01:42 68 16 129/72 94 L 09/14/22 23:00 69 16 115/91 98 09/14/22 22:00 73 16 133/93 09/14/22 18:34 73 18 135/99 09/14/22 17:16 99.2 F 82 18 140/94 97 Intake and Output 09/14/22 09/15/22 09/15/22 22:59 06:59 14:59 Other: Weight 81.647 kg Results CBC & Chem 7: 09/14/22 17:44 09/14/22 17:44 Labs: Abnormal Lab Results - Last 24 Hours (Table) 09/14/22 09/14/22 Range/Units 17:44 17:44 RBC 3.96 L (4.30-5.90) m/uL Hct 37.6 L (39.0-53.0) % Sodium 134 L (137-145) mmol/L Glucose 108 H (74-99) mg/dL
[2022-09-15] MEDS: SODIUM CHLORIDE 0.9% 1,000 ML IV SCH (14:25)
--- NOTE | 2022-09-15 14:51 | P.CNNES ---
History of Present Illness Consult date: 09/15/22 Requesting physician: Fam Danielle Reason for Consult: Altered mental status. Possible TIA. History of Present Illness: Patient is a 82-year-old right-handed male with history of hypertension, atrial fibrillation, came to the hospital by ambulance yesterday at 5:15 PM for episode of confusion. Patient states that he came to the hospital because he will could not talk right and had blurred vision. I spoke to patient's , who provided with more detailed history. She says that he was acting confused, generalized weak, doing things around home not like himself. He had trouble walking, couldn't move his legs. In the afternoon she prepared the dinner and he tried to get up from the recliner and he fell back 5 times. He needed help and he was not steady on his feet. This episode lasted for about 45-60 minutes. They called the ambulance and was brought to the hospital. As per EMS flow sheet, when they arrived, patient was alert and oriented. Family mentioned that patient fell last night and is currently taking blood thinners. Assessment of the head revealed no obvious injuries. Pupils are equal, reactive. Patient was alert and oriented 4, blood sugar was 419. Stroke assessment showed slurred speech, negative facial droop or arm drift. Patient also had unsteady gait when attempted to stand. Patient was last seen normal was 8 AM earlier in the morning. Cardiac monitoring showed atrial fibrillation. Patient's blood pressure was 146/86, pulse rate 86, respirations 16, saturation 93%. Blood test shows normal CBC, PT/PTT, CMP with borderline sodium 134. Troponin negative, CK normal, UA negative, blood alcohol level negative. CT of the head was negative for any acute process. Nonspecific white matter changes, likely secondary to chronic small vessel ischemic disease. I personally reviewed CT head, agree with the findings. EKG shows atrial flutter/tachycardia. Chest x- ray revealed low lung volumes with a generalized hazy appearance which could represent atelectasis versus pulmonary edema. Correlate with serum BNP. Patient's mentions that on 08/26/2022 he had another episode of "awful confusion". She states that he came from work, took bath and as usual, she c hecked his blood pressure, was 178/114. After some time she rechecked it was further up to 187. He started shivering for about an hour and he put heating pad for an hour. Right after he became confused, as he wanted to put the blood pressure cuff around the coffee cup instead of his arm. She wanted to give him some his usual medication supplements and he picked up the cup of coffee, and went to the oven instead of refrigerator to get the water from the dispenser. Then he started stacking up all the bottles and was somewhat agitated, and this whole episode lasted for an hour. She notices that he wanted to use the urine in the sink instead of the commode. They brought him to the hospital but he did not want to stay. Patient's denies any slurred speech, facial droop, any numbness or tingling or any focal weakness although he just felt generalized weak with this current episode. Patient has history of a stroke 2 years ago on 07/15/2020, which affected right side of the body. He was found to have left MCA occlusion. He was not a candidate for TPA because he was on Eliquis at that time. He was urgently transferred to [facility], but did not require any thrombectomy. He recovered very well, although has slight word finding problem at times. Patient states he has never smoked, does not drink alcohol. Has hypertension but no diabetes. He has suffered from injury to the right shoulder from a steel beam about 15 years ago. Home medications include amlodipine 5 mg, potassium, Benicar/HCTZ, Eliquis 5 mg twice a day, atenolol, aspirin 81 mg, Lipitor 10 mg, Tambocor and Evoxac. Review of Systems Constitutional: Reports chills, Denies fever (felt cold) Eyes: denies blurred vision, denies diplopia, denies pain Ears: bilateral: decreased hearing, deny: earache, tinnitus Ears, nose, mouth and throat: Reports headache (Occasional brief headache), Denies sore throat Cardiovascular: Denies chest pain, Denies shortness of breath Respiratory: Denies cough, Denies excessive sputum Gastrointestinal: Denies abdominal pain, Denies diarrhea, Denies nausea, Denies vomiting Genitourinary: Denies dysuria, Denies incontinence Musculoskeletal: Denies low back pain, Denies myalgias, Denies neck pain Integumentary: Denies pruritus, Denies rash Neurological: Reports as per HPI Psychiatric: Denies anxiety, Denies depression Endocrine: Denies fatigue, Denies weight change Hematologic/Lymphatic: Reports easy bruising, Denies easy bleeding 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 History of Any Multi-Drug Resistant Organisms: None Reported Past Surgical History: Hernia Repair Past Anesthesia/Blood Transfusion Reactions: No Reported Reaction Past Psychological History: No Psychological Hx Reported Smoking Status: Never smoker Past Alcohol Use History: None Reported Past Drug Use History: None Reported - Past Family History Sister(s) Family Medical History: Cancer Medications and Allergies Home Medications Medication Instructions Recorded Confirmed Type Olmesartan/Hydrochlorothiazide 1 tab PO DAILY 01/11/14 09/14/22 History [Benicar Hct 40-25 mg Tablet] RX: Potassium Chloride [Klor-Con 20 meq PO BID 01/11/14 09/14/22 History M10] amLODIPine [Norvasc] 5 mg PO DAILY PRN 01/11/14 09/14/22 History Apixaban [Eliquis] 5 mg PO BID 04/07/16 09/14/22 History Cevimeline [Evoxac] 30 mg PO TID 04/07/16 09/14/22 History Aspirin EC [Ecotrin Low Dose] 81 mg PO DAILY 09/14/22 09/14/22 History Atorvastatin [Lipitor] 10 mg PO HS 09/14/22 09/14/22 History Flecainide Acetate [Tambocor] 100 mg PO BID 09/14/22 09/14/22 History Triamcinolone 0.1% Cream [Kenalog 1 applicatio TOPICAL BID PRN 09/14/22 09/14/22 History 0.1% Cream] atenoloL [Tenormin] 50 mg PO HS 09/14/22 09/14/22 History Allergies Allergy/AdvReac Type Severity Reaction Status Date / Time No Known Allergies Allergy Verified 09/14/22 18:50 Physical Examination - Vital Signs Vital Signs: Vital Signs Temp Pulse Pulse Resp BP BP Pulse Ox 09/15/22 12:02 98.2 F 71 131/81 95 09/15/22 11:50 98.7 F 09/15/22 11:47 72 18 123/88 97 09/15/22 10:00 70 18 129/81 94 L 09/15/22 08:57 97.8 F 60 18 131/90 94 L 09/15/22 06:00 62 18 134/81 95 09/15/22 01:42 68 16 129/72 94 L 09/14/22 23:00 69 16 115/91 98 09/14/22 22:00 73 16 133/93 09/14/22 18:34 73 18 135/99 09/14/22 17:16 99.2 F 82 18 140/94 97 Intake and Output 09/14/22 09/15/22 09/15/22 22:59 06:59 14:59 Other: Weight 81.647 kg Patient is an elderly male, very pleasant, in no acute distress. Patient is alert awake oriented to time place and person. He knows it is September and states the year is 1922 and that he is in [facility] and knows name of the current president. Speech and language functions are normal. Patient can name and repeat very well. No aphasia or dysarthria. Patient was able to name ink pen, knuckles, ear lobe without difficulty. Attention, concentration and fund of knowledge is adequate. Detail cognitive function testing deferred. On cranial nerve examination, pupils are equal, round and reacting to light, visual kenney are full on confrontation, with no neglect on double simultaneous stimulation. Extraocular muscles are intact with no nystagmus. Face is symmetric, tongue protrudes to the midline. Palatal elevation and sensation normal, hearing is moderately decreased and shoulder shrug normal, facial sensation normal. On muscle strength testing, there is right pronator drift and the strength is normal in arms and legs distally and proximally except shoulders, which is weak bilaterally, 3 on the right, 5-left. He has chronic right shoulder injury 15 years ago. Deep tendon reflexes are symmetric 1+ at the biceps, 1+ brachioradialis, trace at the knees, plantars are flat bilaterally. Sensory to touch is equal with no neglect on double simultaneous stimulation. Cerebellar function showed no ataxia for [id number] testing. No dysdiadochokinesia. No ataxia for npxr-mq-[id number] testing on either side. Tone and bulk of muscles normal. Gait deferred.. On general examination, there is no carotid bruit or murmur, S1-S2 audible. Chest is clear on consultation. Abdomen is soft nontender. No organomegaly, bowel sounds present. Peripheral pulses are present. No edema. Results - Laboratory Findings CBC and BMP: 09/14/22 17:44 09/14/22 17:44 Abnormal Lab Findings: Abnormal Labs 09/14/22 09/14/22 17:44 17:44 RBC 3.96 L Hct 37.6 L Sodium 134 L Glucose 108 H Assessment and Plan Assessment: * Altered mental status, rule out TIA, rule out focal seizure. * Left MCA stenosis * History of CVA, with left MCA occlusion 07/15/2020, did not require thrombectomy. Patient has very minimal residual deficits with some word finding problems at times. * Atrial fibrillation, on long-term treatment with Eliquis * Hypertension Plan: * Patient has presented with possible TIA, versus seizure. Need further workup. * Agree with checking MRI of the brain to evaluate for an acute stroke. We will also check MRA of the brain to follow up on left MCA stenosis * 2-D echo, evaluate for embolic source. * EEG rule out epileptiform activity. * CTA of head and neck reveals short segment of high-grade stenosis of the left MCA M1 segment measuring approximately 6 mm in length with at least 90% st enosis. No evidence of dissection of the cervical internal carotid arteries or vertebral arteries or any evidence of significant stenosis of the carotid bifurcation. No evidence of intracranial aneurysm. Dominant left vertebral artery. * Patient may need outpatient follow-up with neuro intervention for left MCA stenosis. * Continue Eliquis 5 mg twice a day for atrial fibrillation. * Continue aspirin 81 mg daily. * Hemoglobin A1c, fasting lipid panel. * Telemetry monitoring. * Neurology will follow. Thank you for the consult.
[2022-09-15] MEDS: ATORVASTATIN 40 MG TAB PO SCH (20:50)
[2022-09-15] MEDS: atenoloL 50 MG TAB PO SCH (20:50)
[2022-09-16] MEDS: LOSARTAN 50 MG TAB PO SCH (08:23)
[2022-09-16] MEDS: ASPIRIN 81 MG PO SCH (08:23)
[2022-09-16] MEDS: POTASSIUM CHLORIDE ER 10 MEQ TAB.ER.PRT PO SCH ×2 (08:24→23:06)
[2022-09-16] MEDS: APIXABAN 5 MG TAB PO SCH ×2 (08:24→23:06)
[2022-09-16] MEDS: hydroCHLOROthiazide 25 MG TAB PO SCH (08:24)
[2022-09-16] MEDS: CEVIMELINE 30 MG CAP PO SCH ×3 (08:24→23:15)
[2022-09-16] MEDS: FLECAINIDE 50 MG TAB PO SCH ×2 (08:24→23:06)
--- NOTE | 2022-09-16 09:49 | CA ---
Transthoracic Echo Report Name: Feliberto Milner Age: 82 Gender: M : 1940 Exam Date: 09/15/2022 14:17 Exam Location: [facility] Ht (in): 73 Wt (lb): 180 Ordering Physician: Deshaun Earl MD Attending/Referring Phys: [employer] Willy Freeman Procedure CPT: Indications: Rule out thrombus, Cardiac Hx: Technical Quality: Fair Contrast 1: Total Dose (mL): Contrast 2: Total Dose (mL): MEASUREMENTS (Male / Female) Normal Values 2D ECHO LV Diastolic Diameter PLAX 4.9 cm 4.2 - 5.9 / 3.9 - 5.3 cm LV Systolic Diameter PLAX 3.8 cm IVS Diastolic Thickness 1.3 cm 0.6 - 1.0 / 0.6 - 0.9 cm LVPW Diastolic Thickness 1.2 cm 0.6 - 1.0 / 0.6 - 0.9 cm LV Relative Wall Thickness 0.5 RV Internal Dim ED PLAX 3.9 cm LVOT Diameter 2.8 cm Aortic Root Diameter 4.5 cm LV Diastolic Volume MOD BP 84.9 cm??? 67 - 155 / 56 - 104 cm??? LV Systolic Volume MOD BP 32.2 cm??? 22 - 58 / 19 - 49 cm??? LV Ejection Fraction MOD BP 62.0 % >= 55 % LV Diastolic Volume MOD 4C 102.4 cm??? LV Systolic Volume MOD 4C 35.2 cm??? LV Ejection Fraction MOD 4C 65.6 % LV Diastolic Length 4C 8.1 cm LV Systolic Length 4C 6.3 cm LV Diastolic Volume MOD 2C 68.9 cm??? LV Systolic Volume MOD 2C 28.3 cm??? LV Ejection Fraction MOD 2C 58.9 % LV Diastolic Length 2C 7.9 cm LV Systolic Length 2C 6.5 cm Ascending Aorta Diameter 3.7 cm DOPPLER AV Peak Velocity 131.2 cm/s AV Peak Gradient 6.9 mmHg AI Peak Velocity 407.8 cm/s AI Peak Gradient 66.5 mmHg AI Pressure Half Time 912.8 ms LVOT Peak Velocity 85.2 cm/s LVOT Peak Gradient 2.9 mmHg AV Area Cont Eq pk 3.9 cm??? MV Peak Velocity 88.1 cm/s MV Peak Gradient 3.1 mmHg MV Mean Velocity 45.3 cm/s MV Mean Gradient 1.0 mmHg MV Velocity Time Integral 18.5 cm MR Peak Velocity 267.5 cm/s MR Peak Gradient 28.6 mmHg Mitral E Point Velocity 84.7 cm/s Mitral A Point Velocity 40.3 cm/s Mitral E to A Ratio 2.1 MV Deceleration Time 231.0 ms MV E' Velocity 6.7 cm/s Mitral E to MV E' Ratio 12.7 TR Peak Velocity 219.4 cm/s TR Peak Gradient 19.2 mmHg Right Ventricular Systolic Press 24.3 mmHg PV Peak Velocity 116.5 cm/s PV Peak Gradient 5.4 mmHg FINDINGS Left Ventricle Normal LV size. Mild concentric LVH. Left ventricular ejection fraction is estimated at 55 %. Right Ventricle Mild right ventricular dilatation. VSP= 26mmhg. Right Atrium Normal right atrial size. Left Atrium Normal left atrial size. Mitral Valve Structurally normal mitral valve. Mild MR. Aortic Valve Trileaflet aortic valve. Moderate AI. Tricuspid Valve Tricuspid valve not well visualized. Pulmonic Valve Pulmonic valve not well visualized. Mild PI. Pericardium Normal pericardium. Aorta AO root puneet= 4.6cm. CONCLUSIONS Normal LV size and systolic function with mild concentric LVH. Mild mitral and tricuspid regurgitation. Moderate aortic insufficiency enlarged aortic root of 4.6 cm. No pericardial effusion. Right-sided pressures are in the normal range Previewed by: Dr. Manju Vora MD (Electronically Signed) Final Date: 16 September 2022 09:48
--- NOTE | 2022-09-16 11:13 | MR ---
EXAMINATION TYPE: MR angio head wo con, MR brain wo/w con DATE OF EXAM: 09/16/2022 10:56 AM COMPARISON: CTA 09/14/2022 HISTORY: Episode of confusion, difficulty walking. FINDINGS: The ventricles, basal cisterns and sulci overlying the cerebral convexities are mildly enlarged. There is evidence of mild periventricular white matter ischemic demyelination. Remote deep white matter insults are also noted. 1 cm focus of increased signal within the posterior right parietal cortical region on diffusion weigh bhavik data set felt to reflect acute embolic process. No evidence of pathologic enhancement or mass enh ancement. There is no evidence for midline shift or mass effect. Acute intracranial hemorrhage or extra-axial collection is not evident. The paranasal sinuses and mastoid air cells are well-aerated. IMPRESSION: 1. Acute 1 cm focus of increased signal within the posterior right parietal cortical region on diffus ion weighted data set felt to reflect acute embolic process. 2. Age-related atrophic and chronic small vessel ischemic change. EXAMINATION TYPE: MR angio head wo con, MR brain wo/w con DATE OF EXAM: 09/16/2022 10:56 AM COMPARISON: NONE HISTORY: Episode of confusion, difficulty walking. Three-dimensional [id number] intracranial MRA was performed with multiple intensity projection im ages submitted and source data reviewed at the workstation. The vertebrobasilar system as well as intracranial portions of the internal carotid arteries are sargent nt. There is high-grade stenosis noted left MCA M1 segment measuring approximately 5.4 mm in length. Estimated stenosis at its most critical point is greater than 95%. Right MCA, ZHEN branches and SIGN [employer]ER b ranches are patent. I do not see evidence for sizable aneurysm or vascular malformation. IMPRESSION: There is high-grade stenosis noted left MCA M1 segment measuring approximately 5.4 mm in length. Madalyn mated stenosis at its most critical point is greater than 95%.
[2022-09-16] MEDS ORDERED: VANCOMYCIN IV PER PHARMACY 1 EACH MISC MISCELLANE PRN (13:10)
[2022-09-16 13:40] LABS: Chol/HDL Ratio 2.48 Ratio; LDL Cholesterol,Calculated 37.3 mg/dL (0.0-131.0); VLDL Calculation 12.22 mg/dL (5.00-40.00)
[2022-09-16 13:47] LABS: Basophils % (A) 0 %; Eosinophils # (A) 0.1 k/uL (0-0.7); Eosinophils % (A) 2 %; HCT 35.1 % (39.0-53.0); Lymphocytes # (A) 0.9 k/uL (1.0-4.8); Lymphocytes % (A) 13 %; MCHC 34.1 g/dL (31.0-37.0); MCV 96.8 fL (80.0-100.0); Mean Platelet Volume 8.9; Monocytes # (A) 0.5 k/uL (0-1.0); Monocytes % (A) 8 %; Neutrophils # (A) 4.9 k/uL (1.3-7.7); Neutrophils % (A) 76 %; Platelet Count 138 k/uL (150-450); RBC 3.63 m/uL (4.30-5.90); WBC 6.4 k/uL (3.8-10.6)
[2022-09-16] MEDS ORDERED: CEFEPIME 2 GM in SODIUM CHLORIDE 0.9% 100 ML IVPB SCH (14:00)
[2022-09-16 14:01] LABS: ALT 17 U/L (4-49); AST 23 U/L (17-59); African American GFR (CKD) >90 (>60 ml/min/1.73 sqM); Albumin 3.4 g/dL (3.5-5.0); Albumin/Globulin Ratio 0.9; Alkaline Phosphatase 45 U/L (38-126); Anion Gap 11 mmol/L; Blood Urea Nitrogen 16 mg/dL (9-20); C Reactive Protein 8.5 mg/dL (<1.0); Calcium 7.9 mg/dL (8.4-10.2); Carbon Dioxide 20 mmol/L (22-30); Chloride 102 mmol/L (98-107); Glucose 91 mg/dL (74-99); Non-African American GFR(CKD) 85 (>60 ml/min/1.73 sqM); Potassium 3.7 mmol/L (3.5-5.1); Sodium 133 mmol/L (137-145); Total Bilirubin 0.7 mg/dL (0.2-1.3); Total Protein 7.4 g/dL (6.3-8.2)
[2022-09-16 14:48] LABS: Erythrocyte Sedimentation Rate 80 mm/hr (0-15)
[2022-09-16] MEDS: VANCOMYCIN 1,500 MG in SODIUM CHLORIDE 0.9% 500 ML 500 ML IVPB SCH (14:52)
--- NOTE | 2022-09-16 17:15 | P.PN ---
Subjective Progress Note Date: 09/16/22 Patient was seen for a follow-up. Patient's and their daughter was present today. Patient's and patient's daughter were present today. Patient apparently had high grade temperature last night. Blood cultures has been done. White cells are normal. Exact cause of fever is uncertain. Patient denies any focal symptoms. He still off balance. Objective - Vital Signs Vital signs: Vital Signs Temp 99.8 F H 09/16/22 15:00 Pulse 71 09/16/22 15:00 Resp 18 09/16/22 15:00 BP 152/87 09/16/22 15:00 Pulse Ox 94 L 09/16/22 15:00 FiO2 Intake & Output 09/15/22 09/16/22 09/16/22 18:59 06:59 18:59 Intake Total 120 Output Total 100 750 400 Balance -100 -750 -280 Weight 81.647 kg Intake: Oral 120 Output: Urine 100 750 400 Stool 0 Other: Voiding Method External Catheter Toilet Urinal # Voids 200 - Exam Patient's mental status, speech and language functions are normal. Cranial nerves are normal. On muscle strength testing, there is left upward pronation drift. The strength is normal in the arms. In the legs, the strength is normal in the ankle dorsiflexion, but hip flexion is weak 5-on the left. Sensations are equal. No ataxia. - Labs CBC & Chem 7: 09/16/22 13:31 09/16/22 13:31 Labs: Abnormal Lab Results - Last 24 Hours (Table) 09/16/22 09/16/22 09/16/22 Range/Units 07:16 13:31 13:31 RBC 3.63 L (4.30-5.90) m/uL Hgb 12.0 L (13.0-17.5) gm/dL Hct 35.1 L (39.0-53.0) % Plt Count 138 L (150-450) k/uL Lymphocytes # 0.9 L (1.0-4.8) k/uL ESR 80 H (0-15) mm/hr Sodium 133 L (137-145) mmol/L Carbon Dioxide 20 L (22-30) mmol/L Calcium 7.9 L (8.4-10.2) mg/dL C-Reactive Protein 8.5 H (<1.0) mg/dL Albumin 3.4 L (3.5-5.0) g/dL HDL Cholesterol 33.50 L (40.00-60.00) mg/dL Assessment and Plan Assessment: * Acute ischemic CVA, right parietal cortical region, small size. CVA is embolic in nature. * Left MCA stenosis, severe, but asymptomatic, as the stroke is on the contralateral side. 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 Patient has very minimal residual deficits with some word finding problems at times. * Atrial fibrillation, on long-term treatment with Eliquis * Hypertension Plan: * Patient has presented with an acute stroke, involving the right parietal cortical region. However MRA of the brain revealed left MCA stenosis, which is asymptomatic at this time. * Patient is already on Eliquis 5 mg twice a day and aspirin 81 mg daily. * Patient has developed new onset fever. Patient undergoing transesophageal echocardiogram to rule out bacterial endocarditis. Blood cultures pending. ID consult on board. * MRI of the brain revealed acute 1 cm focus of increased signal within the posterior right parietal cortical region on diffusion-weighted images suggestive of acute embolic process. I personally reviewed MRI, agree with the findings. * MRA of the brain revealed high-grade stenosis noted left MCA M1 segment measuring approximately 5.4 mm in length. Estimated stenosis at its most critical point is greater than 95%. I personally reviewed MRA agree with the findings. * 2-D echo revealed normal left-ventricular size and systolic function with mild concentric LVH. EF is 55%. Left atrial size is normal. Moderate aortic insufficiency, enlarged aortic root of 4.6 cm. * EEG was abnormal due to the ground slowing of mild degree, suggestive of encephalopathy. No epileptiform activity was seen. * CTA of head and neck reveals short segment of high-grade stenosis of the left MCA M1 segment measuring approximately 6 mm in length with at least 90% stenosis. No evidence of dissection of the cervical internal carotid arteries or vertebral arteries or any evidence of significant stenosis of the carotid bifurcation. No evidence of intracranial aneurysm. Dominant left vertebral artery. * Patient may need outpatient follow-up with neuro intervention for left MCA stenosis. * Hemoglobin A1c 5.8, fasting lipid panel cholesterol 83, LDL 37, HDL 33 and triglycerides 61. Continue Lipitor 40 mg daily. * Telemetry monitoring. * Discussed with patient's family in detail, reviewed MRI results. Also discussed with primary physician.
--- NOTE | 2022-09-16 20:59 | EEG ---
DATE OF SERVICE: 09/16/2022 ELECTROENCEPHALOGRAM REPORT DATE OF SERVICE: 09/16/2022. PREAMBLE: This is an 82-year-old male with episode of confusion, fall, rule out any seizure activity. EEG FINDINGS: This is a 21-channel digital EEG recorded with video component, utilizing 10/20 international system with referential and bipolar montages. Background consists of well-developed, moderately well-regulated, predominantly 7 hertz theta seen in the posterior head region, which is reactive to eye opening and closing. Intermittent delta slowing was also seen. Different stages of sleep were not seen. Photic driving response was not seen. No focal or generalized epileptiform activity was seen. IMPRESSION: This is an abnormal EEG due to background slowing of mild degree, suggestive of encephalopathy. No epileptiform activity was seen. MMODL / IJN: [id number] / MTDD
--- NOTE | 2022-09-16 22:23 | P.CONS ---
History of Present Illness - Reason for Consult Consult date: 09/16/22 Fever Requesting physician: Deshaun Earl - Chief Complaint Fall and mental status changes x one day - History of Present Illness Patient is a 82-year-old male with a past medical history significant for hypertension atrial fibrillation CVA TIA who was brought into the hospital for evaluation of ground-level fall and the patient that he was not acting like his usual self since that time patient presented to the hospital denies having any headache or URI symptoms no chest pain shortness of the cough and abdominal pain or any diarrhea patient on presentation to hospital did have a low-grade fever of 99.2 and subsequently he did spike a fever last night of 102.9 F and had at least 400 this morning that has prompted this infection at this consultation patient is currently not tachycardic hypotensive or hypoxic patient did have a normal white count with no left shift kidney function has been normal liver enzymes are normal urine has been negative serum alcohol was less than 10 patient did have a chest x-ray low lung volumes with generalized hazy appearance could represent atelectasis versus pulmonary edema patient did have a MRI of the brain 1 cm focus of increased signal within the posterior right parietal cortical lesion concerning for acute embolic process with a fever and concern for possible septic emboli infectious he was consulted for further management of antibiotic therapy patient did have an echocardiogram moderate aortic insufficiency enlarged aortic root of 4.6 cm no effusion Review of Systems Positive point and negatives has been mentioned in the HPI, complete review of systems was performed and all other systems are negative 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 History of Any Multi-Drug Resistant Organisms: None Reported Past Surgical History: Hernia Repair Past Anesthesia/Blood Transfusion Reactions: No Reported Reaction Past Psychological History: No Psychological Hx Reported Smoking Status: Never smoker Past Alcohol Use History: None Reported Past Drug Use History: None Reported - Past Family History Sister(s) Family Medical History: Cancer Medications and Allergies Home Medications Medication Instructions Recorded Confirmed Type Olmesartan/Hydrochlorothiazide 1 tab PO DAILY 01/11/14 09/14/22 History [Benicar Hct 40-25 mg Tablet] Potassium Chloride [Klor-Con M10] 20 meq PO BID 01/11/14 09/14/22 History amLODIPine [Norvasc] 5 mg PO DAILY PRN 01/11/14 09/14/22 History Apixaban [Eliquis] 5 mg PO BID 04/07/16 09/14/22 History Cevimeline [Evoxac] 30 mg PO TID 04/07/16 09/14/22 History Flecainide Acetate [Tambocor] 100 mg PO BID 09/14/22 09/14/22 History Triamcinolone 0.1% Cream [Kenalog 1 applicatio TOPICAL BID PRN 09/14/22 09/14/22 History 0.1% Cream] atenoloL [Tenormin] 50 mg PO HS 09/14/22 09/14/22 History Atorvastatin [Lipitor] 40 mg PO HS #30 tab 09/26/22 Rx Clopidogrel [Plavix] 75 mg PO DAILY #30 tab 09/26/22 Rx Doxycycline Hyclate 100 mg PO BID 14 Days #28 tab 09/26/22 Rx Allergies Allergy/AdvReac Type Severity Reaction Status Date / Time No Known Allergies Allergy Verified 09/14/22 18:50 Physical Exam Vitals: Vital Signs Temp Pulse Pulse Resp BP Pulse Ox 09/16/22 07:00 100 F H 68 18 153/90 94 L 09/16/22 00:40 98.2 F 63 17 146/87 97 09/15/22 20:50 99.5 F 09/15/22 19:25 102.9 F H 76 17 141/88 93 L 09/15/22 14:40 97.7 F 74 16 125/70 98 Intake and Output 09/15/22 09/16/22 09/16/22 22:59 06:59 14:59 Output Total 350 400 Balance -350 -400 Output: Urine 350 400 Other: Voiding Method Toilet Urinal GENERAL DESCRIPTION: Elderly male lying in bed, no distress. No tachypnea or accessory muscle of respiration use. HEENT: Shows Pallor , no scleral icterus. Oral mucous membrane is dry. No pharyngeal erythema or thrush NECK: Trachea central, no thyromegaly. LUNGS: Unlabored breathing. Clear to auscultation anteriorly. No wheeze or crackle. HEART: S1, S2, regular rate and rhythm. No loud murmur ABDOMEN: Soft, no tenderness , guarding or rigidity, no organomegaly EXTREMITIES: No edema of feet. SKIN: No rash, no masses palpable. NEUROLOGICAL: The patient is awake, alert, oriented x3, mood and affect normal. Results CBC & Chem 7: 09/26/22 08:57 09/26/22 08:57 Assessment and Plan (1) Fever Status: Acute Code(s): R50.9 - FEVER, UNSPECIFIED SNOMED Code(s): 798002197 Plan: 1patient with a fever and this patient presented to hospital with a fall now with evidence of abnormal MRI head with 1 cm focus of cortical lesion embolic phenomena with question of possible septic versus nonseptic emboli and also have abnormality of the aorta on echocardiogram 2-we will repeat a blood culture check a CRP and procalcitonin 3-we will check COVID PCR to complete the workup 4-await DON 5-empirically on cefepime and vancomycin while waiting for the workup to be comp leted at the bedside multiple question concern answered We will follow on clinical condition and cultures to further adjust medication if needed Thank you for this consultation we will follow the patient along with you Dictation was produced using [employer] dictation software. please excuse any gr ammatical, word or spelling errors. Time with Patient: Greater than 30
--- NOTE | 2022-09-16 22:40 | P.PN ---
Progress Note - Text Progress Note Date: 09/16/22 Chief Complaint: Acute confusion Pleasant 82-year-old patient, follows Dr. Wright. Patient was doing well up to yesterday morning when he woke up. As the day went along he started getting confused. Feeling weak. Started walking with support. Holding onto the kitchen table for example. When he went to urinate he did miss the band. He was finding it difficult to finishing sentences. He stated that Her most of the day. Which is very unusual as the patient is very active. No change in vision. No change in swallowing. Does feel better this morning. Patient had a similar episode about 3 weeks ago that was short-lived. Patient did have a stroke about 3 years ago with no residual. Underlying history of atrial flutter fibrillation. 09/26/2022: Patient spiked a fever of 102 last admin including rectal. Blood cultures were done. Concerns about infective endocarditis. ID and neurology on the case. Discussed with ID concern for infective endocarditis. Started on IV vancomycin and cefepime. MRI of the brain is showing the lesion on the right parietal. Patient's symptoms were rather generalized when she came in. Not focal. Hence D has been ordered to rule out endocarditis. This was discussed the patient and in the morning. Also discussed with ID and Dr. Pearl from neurology. Patient is being changed to inpatient. Active Medications Acetaminophen (Acetaminophen Tab 500 Mg Tab) 500 mg PO Q4HR PRN PRN Reason: Fever and/ or Pain Amlodipine Besylate (Amlodipine 5 Mg Tab) 5 mg PO DAILY PRN PRN Reason: Blood Pressure - High Apixaban (Apixaban 5 Mg Tab) 5 mg PO BID [facility]; Protocol Last Admin: 09/16/22 08:24 Dose: 5 mg Aspirin (Aspirin 81 Mg) 81 mg PO DAILY [facility] Last Admin: 09/16/22 08:23 Dose: 81 mg Atenolol (Atenolol 50 Mg Tab) 50 mg PO [facility] Last Admin: 09/15/22 20:50 Dose: 50 mg Atorvastatin Calcium (Atorvastatin 40 Mg Tab) 40 mg PO HS [facility] Last Admin: 09/15/22 20:50 Dose: 40 mg Cevimeline HCl (Cevimeline 30 Mg Cap) 30 mg PO TID [facility] Last Admin: 09/16/22 14:51 Dose: 30 mg Flecainide Acetate (Flecainide 50 Mg Tab) 100 mg PO BID [facility] Last Admin: 09/16/22 08:24 Dose: 100 mg Hydrochlorothiazide (Hydrochlorothiazide 25 Mg Tab) 25 mg PO DAILY [facility] Last Admin: 09/16/22 08:24 Dose: 25 mg Vancomycin HCl 1,500 mg/ (Sodium Chloride) 500 mls @ 167 mls/hr IVPB Q12H [facility] Last Admin: 09/16/22 14:52 Dose: 167 mls/hr Cefepime HCl 2 gm/ Sodium (Chloride) 100 mls @ 25 mls/hr IVPB Q8HR [facility]; Protocol Losartan Potassium (Losartan 50 Mg Tab) 150 mg PO DAILY [facility] Last Admin: 09/16/22 08:23 Dose: 150 mg Naloxone HCl (Naloxone 0.4 Mg/Ml 1 Ml Vial) 0.2 mg IV Q2M PRN PRN Reason: Opioid Reversal Potassium Chloride (Potassium Chloride Er 10 Meq Tab.Er.Prt) 20 meq PO BID [facility] Last Admin: 09/16/22 08:24 Dose: 20 meq Past medical history to include: Atrial flutter fibrillation, stroke, hypertension, Sjogren's, cardioversion Social history: . No smoking and no alcohol. Crop carroll Physical examination: VITAL SIGNS: T-max 102.9, 68, 18, 153.90, 94% room air GENERAL: Up in a recliner. EYES: Pupils equal. Conjunctiva normal. HEENT: External appearance of nose and ears normal, oral cavity grossly normal. NECK: JVD not raised; masses not palpable. HEART: First and second heart sounds are normal; no edema. LUNGS: Respiratory rate normal; clear to auscultation. ABDOMEN: Soft, nontender, liver spleen not palpable, no masses palpable. PSYCH: Alert and oriented x3; mood and affect normal. MUSCULOSKELETAL:No Clubbing/cyanosis;muscles-grossly intact. OA NEUROLOGICAL: Cranial nerves grossly intact; no facial asymmetry, power and sensation grossly intact. INVESTIGATIONS, reviewed in the clinical context: MR angiogram without contrast, MRA brain with and without contrast: 1 cm focus of increased signal within the posterior right parietal cortical region felt to reflect acute embolic process. Age related changes. 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 S2 is stenosis at the most critical point is greater than 95%. 2-D echocardiogram: Mild mitral and tricuspid regurgitation. Moderate aortic insufficiency, enlarged aortic root of 4.6 cm. EEG: Findings suggestive of encephalopathy. No epileptiform activity. White count 7.2 hemoglobin 13.1 platelets 174 sodium 134 potassium 3.8 creatinine 0.96 UA: Negative EKG tracing personally reviewed by me-atrial flutter. Conduction rate 3:1. Chest x-ray film personally reviewed by me-lung kenney clear. Some unfolding of the aorta Computed tomography scan of the brain: Nonspecific white matter changes. CT of the angiogram of the head and neck: Short segment of high-grade stenosis of the left MCA M1 segment about 6 mm in length with at least 90% stenosis. Assessment and plan: -Episode of patient getting progressively confused yesterday. Unsteady gait. Some trouble finding words. No change in vision or speech. Patient spiked a fever 102 yesterday evening. This could be from infective endocarditis.: Acute metabolic encephalopathy. MRI of the brain -showing embolic stroke in the right parietal area. DON ordered. His started on IV vancomycin and cefepime by ID. -Possible acute infective pneumonitis. Patient has underlying aortic regurgitation. Dilated aortic root. DON ordered. Blood cultures pending. -Acute stroke in the right parietal area on the right side. Could be septic emboli. -Persistent atrial flutter with controlled rate conduction 3:1. Continue on eliquis. Tenormin. Flecainide. -Essential hypertension Cozaar. Hydrochlorothiazide. Tenormin. -Primary osteoarthritis Tylenol as needed -Sjogren's syndrome. -Full code Discussed with ID and neurology. IV vancomycin and IV cefepime. Discussed with patient and . Time spent about an hour today with over 35 minutes of discussion.
[2022-09-16] MEDS: atenoloL 50 MG TAB PO SCH (23:05)
[2022-09-16] MEDS: ATORVASTATIN 40 MG TAB PO SCH (23:06)
[2022-09-17] MEDS: CEFEPIME 2 GM in SODIUM CHLORIDE 0.9% 100 ML IVPB SCH ×3 (00:29→16:51)
[2022-09-17] MEDS: ACETAMINOPHEN TAB 500 MG TAB PO PRN ×4 (00:45→21:55)
[2022-09-17] MEDS: VANCOMYCIN 1,500 MG in SODIUM CHLORIDE 0.9% 500 ML 500 ML IVPB SCH ×2 (01:10→14:54)
[2022-09-17 08:31] LABS: Basophils % (A) 1 %; Eosinophils # (A) 0.1 k/uL (0-0.7); Eosinophils % (A) 1 %; HCT 34.1 % (39.0-53.0); HGB 11.8 gm/dL (13.0-17.5); Lymphocytes # (A) 0.9 k/uL (1.0-4.8); Lymphocytes % (A) 15 %; MCH 32.7 pg (25.0-35.0); MCHC 34.7 g/dL (31.0-37.0); MCV 94.4 fL (80.0-100.0); Mean Platelet Volume 9.8; Monocytes # (A) 0.7 k/uL (0-1.0); Monocytes % (A) 12 %; Neutrophils % (A) 68 %; Platelet Count 133 k/uL (150-450); RBC 3.61 m/uL (4.30-5.90); RDW 13.1 % (11.5-15.5); WBC 5.8 k/uL (3.8-10.6)
[2022-09-17 08:43] LABS: ALT 16 U/L (4-49); AST 33 U/L (17-59); African American GFR (CKD) >90 (>60 ml/min/1.73 sqM); Albumin 3.2 g/dL (3.5-5.0); Alkaline Phosphatase 42 U/L (38-126); Anion Gap 9 mmol/L; Blood Urea Nitrogen 13 mg/dL (9-20); Calcium 7.7 mg/dL (8.4-10.2); Carbon Dioxide 18 mmol/L (22-30); Chloride 106 mmol/L (98-107); Glucose 99 mg/dL (74-99); Non-African American GFR(CKD) 90 (>60 ml/min/1.73 sqM); Potassium 4.3 mmol/L (3.5-5.1); Sodium 133 mmol/L (137-145); Total Bilirubin 1.2 mg/dL (0.2-1.3)
[2022-09-17] MEDS: APIXABAN 5 MG TAB PO SCH ×2 (09:45→21:55)
[2022-09-17] MEDS: ASPIRIN 81 MG PO SCH (09:45)
[2022-09-17] MEDS: POTASSIUM CHLORIDE ER 10 MEQ TAB.ER.PRT PO SCH ×2 (09:45→21:55)
[2022-09-17] MEDS: LOSARTAN 50 MG TAB PO SCH (09:45)
[2022-09-17] MEDS: FLECAINIDE 50 MG TAB PO SCH ×2 (09:45→21:55)
[2022-09-17] MEDS: CEVIMELINE 30 MG CAP PO SCH ×3 (09:51→22:03)
--- NOTE | 2022-09-17 11:46 | P.CRDCN ---
History of Present Illness History of present illness: HISTORY OF PRESENT ILLNESS: This is a 82-year-old male with a past medical history significant for paroxysmal atrial fibrillation, hypertension, hyperlipidemia, and valvular heart disease. Patient follows in the office with Dr. Medley. We have been asked to see the patient in consultation for DON. Patient examined at the bedside. Patient presented to the hospital with a chief complaint of weakness and confusion. Patient has been febrile during hospitalization. He has been receiving antibiotics per infectious disease. DON was requested to rule out infective e ndocarditis. * EKG reveals atrial fibrillation with controlled ventricular rate * Chest xray low lung volumes with generalized hazy appearance which could represent atelectasis versus pulmonary edema * Laboratory data: WBC 5.8. Hemoglobin 11.8. Platelet count 133. Sodium 133. Potassium 4.3. BUN 13. Creatinine 0.69. * Current home cardiac medications include atenolol 50 mg at night, amlodipine 5 mg daily as needed, aspirin 81 mg daily, Lipitor 10 mg at night, flecainide 100 mg twice a day, and Eliquis 5mg BID * Echocardiogram obtained revealing ejection fraction 55%, mild mitral and tricuspid regurgitation, moderate aortic insufficiency. Enlarged aortic root measuring 4.6 cm. REVIEW OF SYSTEMS: At the time of my exam: CONSTITUTIONAL: Denies fever or chills. HEENT: Denies blurred vision, vision changes, or eye pain. Denies hemoptysis CARDIOVASCULAR: Denies chest pain. Denies orthopnea. Denies PND. Denies palpitations RESPIRATORY: Denies shortness of breath. GASTROINTESTINAL: Denies abdominal pain. Denies nausea or vomiting. HEMATOLOGIC: Denies bleeding disorders. GENITOURINARY: Denies any blood in urine. SKIN: Denies pruitis. Denies rash. PHYSICAL EXAM: VITAL SIGNS: Reviewed. GENERAL: Well-developed in no acute distress. HEENT: Head is normocephalic. Pupils are equal, round. Sclerae anicteric. Mucous membranes of the mouth are moist. Neck supple. No JVD or thyromegaly LUNGS: Respirations even and unlabored. Lungs essentially clear to auscultation bilaterally. HEART: Irregular rate and rhythm. S1 and S2 heard. Systolic murmur noted. ABDOMEN: Soft. Nondistended. Nontender. EXTREMITIES: Normal range of motion. No clubbing or cyanosis. Peripheral pulses intact. No lower extremity edema NEUROLOGIC: Awake and alert. Oriented x 3. ASSESSMENT: Altered mental status Febrile illness, rule out infective endocarditis Acute CVA right parietal lobe Paroxysmal atrial fibrillation Hypertension Hyperlipidemia Valvular heart disease PLAN: Continue current cardiac medications Nothing by mouth midnight Patient to undergo DON tomorrow with Dr. Medley Further recommendations pending patient's course Nurse practitioner note has been reviewed by physician. Signing provider agrees with the documented findings, assessment, and plan of care. Past Medical History Past Medical History: Atrial Fibrillation, CVA/TIA, Hypertension Additional Past Medical History / Comment(s): ANA LUISA SYN. 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 History of Any Multi-Drug Resistant Organisms: None Reported Past Surgical History: Hernia Repair Past Anesthesia/Blood Transfusion Reactions: No Reported Reaction Past Psychological History: No Psychological Hx Reported Smoking Status: Never smoker Past Alcohol Use History: None Reported Past Drug Use History: None Reported - Past Family History Sister(s) Family Medical History: Cancer Medications and Allergies Home Medications Medication Instructions Recorded Confirmed Type Olmesartan/Hydrochlorothiazide 1 tab PO DAILY 01/11/14 09/14/22 History [Benicar Hct 40-25 mg Tablet] Potassium Chloride [Klor-Con M10] 20 meq PO BID 01/11/14 09/14/22 History amLODIPine [Norvasc] 5 mg PO DAILY PRN 01/11/14 09/14/22 History Apixaban [Eliquis] 5 mg PO BID 04/07/16 09/14/22 History Cevimeline [Evoxac] 30 mg PO TID 04/07/16 09/14/22 History Aspirin EC [Ecotrin Low Dose] 81 mg PO DAILY 09/14/22 09/14/22 History Atorvastatin [Lipitor] 10 mg PO HS 09/14/22 09/14/22 History Flecainide Acetate [Tambocor] 100 mg PO BID 09/14/22 09/14/22 History Triamcinolone 0.1% Cream [Kenalog 1 applicatio TOPICAL BID PRN 09/14/22 09/14/22 History 0.1% Cream] atenoloL [Tenormin] 50 mg PO HS 09/14/22 09/14/22 History Allergies Allergy/AdvReac Type Severity Reaction Status Date / Time No Known Allergies Allergy Verified 09/14/22 18:50 Physical Exam Vitals: Vital Signs Temp Pulse Resp BP Pulse Ox 09/17/22 10:52 67 16 09/17/22 09:40 99.7 F H 67 16 144/83 92 L 09/17/22 04:26 98.1 F 68 16 120/80 96 09/17/22 02:00 82 16 09/17/22 00:40 100.3 F H 82 16 145/86 93 L 09/16/22 21:00 99.6 F 86 18 170/93 97 09/16/22 20:30 18 09/16/22 15:00 99.8 F H 71 18 152/87 94 L Intake and Output 09/16/22 09/17/22 09/17/22 22:59 06:59 14:59 Intake Total 120 Output Total 200 0 Balance -80 0 Intake: Oral 120 Output: Urine 200 0 Stool 0 0 Other: Voiding Method Urinal Urinal Urinal # Voids 3 Results 09/17/22 07:53 09/17/22 07:53 Cardiac Enzymes 09/16/22 09/17/22 Range/Units 13:31 07:53 AST 23 33 (17-59) U/L Lipids 09/16/22 Range/Units 07:16 Triglycerides 61.10 (0.00-149.00) mg/dL Cholesterol 83.00 (0.00-200.00) mg/dL HDL Cholesterol 33.50 L (40.00-60.00) mg/dL Cholesterol/HDL Ratio 2.48 Ratio CBC 09/16/22 09/17/22 Range/Units 13:31 07:53 WBC 6.4 5.8 (3.8-10.6) k/uL RBC 3.63 L 3.61 L (4.30-5.90) m/uL Hgb 12.0 L 11.8 L (13.0-17.5) gm/dL Hct 35.1 L 34.1 L (39.0-53.0) % Plt Count 138 L 133 L (150-450) k/uL Comprehensive Metabolic Panel 09/16/22 09/17/22 Range/Units 13:31 07:53 Sodium 133 L 133 L (137-145) mmol/L Potassium 3.7 4.3 (3.5-5.1) mmol/L Chloride 102 106 (98-107) mmol/L Carbon Dioxide 20 L 18 L (22-30) mmol/L BUN 16 13 (9-20) mg/dL Creatinine 0.79 0.69 (0.66-1.25) mg/dL Glucose 91 99 (74-99) mg/dL Calcium 7.9 L 7.7 L (8.4-10.2) mg/dL AST 23 33 (17-59) U/L ALT 17 16 (4-49) U/L Alkaline Phosphatase 45 42 (38-126) U/L Total Protein 7.4 7.0 (6.3-8.2) g/dL Albumin 3.4 L 3.2 L (3.5-5.0) g/dL Current Medications Generic Name Dose Route Start Last Admin Trade Name Freq PRN Reason Stop Dose Admin Acetaminophen 500 mg 09/15/22 19:54 09/17/22 00:45 Acetaminophen Tab 500 Mg Tab PO 500 mg Q4HR PRN Administration Fever and/ or Pain Amlodipine Besylate 5 mg 09/14/22 20:42 Amlodipine 5 Mg Tab PO DAILY PRN Blood Pressure - High Apixaban 5 mg 09/14/22 21:00 09/17/22 09:45 Apixaban 5 Mg Tab PO 5 mg BID [facility] Administration Protocol Aspirin 81 mg 09/15/22 09:00 09/17/22 09:45 Aspirin 81 Mg PO 81 mg DAILY [facility] Administration Atenolol 50 mg 09/14/22 21:00 09/16/22 23:05 Atenolol 50 Mg Tab PO 50 mg HS [facility] Administration Atorvastatin Calcium 40 mg 09/15/22 21:00 09/16/22 23:06 Atorvastatin 40 Mg Tab PO 40 mg HS [facility] Administration Cevimeline HCl 30 mg 09/14/22 22:00 09/17/22 09:51 Cevimeline 30 Mg Cap PO 30 mg TID [facility] Administration Flecainide Acetate 100 mg 09/14/22 21:00 09/17/22 09:45 Flecainide 50 Mg Tab PO 100 mg BID [facility] Administration Hydrochlorothiazide 25 mg 09/15/22 09:00 09/16/22 08:24 Hydrochlorothiazide 25 Mg Tab PO 25 mg DAILY [facility] Administration Vancomycin HCl 1,500 mg/ 500 mls @ 167 mls/hr 09/16/22 14:00 09/17/22 01:10 Sodium Chloride IVPB 167 mls/hr Q12H [facility] Administration Cefepime HCl 2 gm/ Sodium 100 mls @ 25 mls/hr 09/17/22 00:00 09/17/22 09:46 Chloride IVPB 25 mls/hr Q8HR [facility] Administration Protocol Losartan Potassium 150 mg 09/15/22 09:00 09/17/22 09:45 Losartan 50 Mg Tab PO 150 mg DAILY [facility] Administration Miscellaneous Information 1 each 09/18/22 13:00 Vancomycin Trough Due 1 Each Misc MISCELLANE 09/18/22 13:01 ONCE ONE Naloxone HCl 0.2 mg 09/14/22 20:39 Naloxone 0.4 Mg/Ml 1 Ml Vial IV Q2M PRN Opioid Reversal Potassium Chloride 20 meq 09/14/22 21:00 09/17/22 09:45 Potassium Chloride Er 10 Meq Tab.Er.Prt PO 20 meq BID [facility] Administration Intake and Output 09/16/22 09/17/22 09/17/22 22:59 06:59 14:59 Intake Total 120 Output Total 200 0 Balance -80 0 Intake: Oral 120 Output: Urine 200 0 Stool 0 0 Other: Voiding Method Urinal Urinal Urinal # Voids 3 09/17/22 07:53 09/17/22 07:53
[2022-09-17] MEDS: IOPAMIDOL CONTRAST (ORAL USE) VIAL PO PRN ×2 (13:09→14:30)
--- NOTE | 2022-09-17 14:58 | P.PN ---
Subjective Progress Note Date: 09/17/22 Principal diagnosis: Fever Patient is a 82-year-old male with a past medical history significant for hypertension atrial fibrillation CVA TIA who was brought into the hospital for evaluation of ground-level fall and the patient that he was not acting like his usual self, patient did have a fever and abnormalities seen on the echocardiogram as well as MRI of the brain concerning for embolic phenomena. On today's evaluation that is 09/17/2022, the patient is spike a fever of 102.4F this morning, patient is currently breathing comfortably on room air, patient denies having any chest pain or shortness of breath or cough. Denies any abdominal pain no nausea no vomiting no diarrhea Patient did have a white count of 5.8 hemoglobin is 11.8 creatinine 0.69, CRP was 8.5, pro-calcitonin is 0.05, calabrese virus was negative Objective - Vital Signs Vital signs: Vital Signs Temp 99.7 F H 09/17/22 09:40 Pulse 67 09/17/22 10:52 Resp 16 09/17/22 10:52 BP 144/83 09/17/22 09:40 Pulse Ox 92 L 09/17/22 09:40 FiO2 Intake & Output 09/16/22 09/17/22 09/17/22 18:59 06:59 18:59 Intake Total 240 Output Total 600 0 Balance -360 0 Intake: Oral 240 Output: Urine 600 0 Stool 0 0 Other: Voiding Method Urinal Urinal # Voids 200 3 - Exam GENERAL DESCRIPTION: An elderly male lying in bed in no distress RESPIRATORY SYSTEM: Unlabored breathing , decreased breath sounds at bases HEART: S1 S2 regular rate and rhythm , ABDOMEN: Soft , no tenderness EXTREMITIES: No edema feet - Labs CBC & Chem 7: 09/17/22 07:53 09/17/22 07:53 Labs: Abnormal Lab Results - Last 24 Hours (Table) 09/16/22 09/16/22 09/16/22 Range/Units 07:16 13:31 13:31 RBC 3.63 L (4.30-5.90) m/uL Hgb 12.0 L (13.0-17.5) gm/dL Hct 35.1 L (39.0-53.0) % Plt Count 138 L (150-450) k/uL Lymphocytes # 0.9 L (1.0-4.8) k/uL ESR 80 H (0-15) mm/hr Sodium 133 L (137-145) mmol/L Carbon Dioxide 20 L (22-30) mmol/L Calcium 7.9 L (8.4-10.2) mg/dL C-Reactive Protein 8.5 H (<1.0) mg/dL Albumin 3.4 L (3.5-5.0) g/dL HDL Cholesterol 33.50 L (40.00-60.00) mg/dL 09/17/22 09/17/22 Range/Units 07:53 07:53 RBC 3.61 L (4.30-5.90) m/uL Hgb 11.8 L (13.0-17.5) gm/dL Hct 34.1 L (39.0-53.0) % Plt Count 133 L (150-450) k/uL Lymphocytes # 0.9 L (1.0-4.8) k/uL ESR (0-15) mm/hr Sodium 133 L (137-145) mmol/L Carbon Dioxide 18 L (22-30) mmol/L Calcium 7.7 L (8.4-10.2) mg/dL C-Reactive Protein (<1.0) mg/dL Albumin 3.2 L (3.5-5.0) g/dL HDL Cholesterol (40.00-60.00) mg/dL Microbiology - Last 24 Hours (Table) 09/15/22 20:35 Blood Culture - Preliminary Blood 09/15/22 20:36 Blood Culture - Preliminary Blood Assessment and Plan (1) Fever Current Visit: Yes Status: Acute Code(s): R50.9 - FEVER, UNSPECIFIED SNOMED Code(s): 796391605 Plan: 1patient with a fever and this patient presented to hospital with a fall now with evidence of abnormal MRI head with 1 cm focus of cortical lesion embolic phenomena with question of possible septic versus nonseptic emboli and also have abnormality of the aorta on echocardiogram 2- blood culture are currently pending, patient did have elevated CRP however procalcitonin is normal, COVID PCR is negative 4- cardiology has been consulted for DON, we will check a CT of abdominal pelvis to complete the workup 5Patient to continue with cefepime and vancomycin while waiting for the workup to be completed at the bedside multiple question concern answered Dictation was produced using [employer] software. please excuse any grammatical, word or spelling errors. Time with Patient: Less than 30
--- NOTE | 2022-09-17 16:04 | CT ---
EXAMINATION TYPE: CT abdomen pelvis w con DATE OF EXAM: 09/17/2022 COMPARISON: None INDICATION: fever DLP: 1436.4 mGycm, Automated exposure control for dose reduction was used. CONTRAST: 100 mL of Isovue 300. Study performed with Oral Contrast TECHNIQUE: Axial images were obtained from above the diaphragm to the pubic rami in the axial plane a t 5 mm thick sections. Reconstructed images are reviewed on the computer in the coronal plane. FINDINGS: Limited CT sections are obtained the lung bases. Some minimal compressive atelectasis within the dep endent portions of the lung bases bilaterally.. CT ABDOMEN: Liver: Normal Spleen: Normal Pancreas: Normal Adrenal glands: The adrenal glands are normal. Gallbladder: Normal Kidneys: No masses are evident. No hydronephrosis is present. There is a 5.5 cm cyst at the superio r pole right kidney. There is a 1.0 cm cyst at the mid right kidney. There is a cortical renal cyst left kidney measuring 1.2 cm. Delayed images were obtained through the kidneys, which remain unrema rkable. Aorta: Vascular calcification is within the aorta. Inferior vena cava: Normal. CT PELVIS: Loops of bowel within the abdomen and pelvis are normal. There are loops of bowel which are incom pletely distended or lack oral contrast limiting their evaluation. Appendix: Not identified. No dilated tubular structure or inflammatory changes are evident. Urinary bladder: Normal. Genitourinary structures: Prostate is prominent Osseous structures: No suspicious lytic or sclerotic lesions. IMPRESSIONS: 1. Minimal compressive atelectasis bilateral lung bases. 2. Prostate hypertrophy 3. Cortical renal cysts
[2022-09-17] MEDS: metroNIDAZOLE 500 MG TAB PO SCH ×2 (16:52→21:55)
--- NOTE | 2022-09-17 19:34 | P.PN ---
Progress Note - Text Progress Note Date: 09/17/22 Chief Complaint: Acute confusion Pleasant 82-year-old patient, follows Dr. Wright. Patient was doing well up to yesterday morning when he woke up. As the day went along he started getting confused. Feeling weak. Started walking with support. Holding onto the kitchen table for example. When he went to urinate he did miss the band. He was finding it difficult to finishing sentences. He stated that Her most of the day. Which is very unusual as the patient is very active. No change in vision. No change in swallowing. Does feel better this morning. Patient had a similar episode about 3 weeks ago that was short-lived. Patient did have a stroke about 3 years ago with no residual. Underlying history of atrial flutter fibrillation. 09/16/2022: Patient spiked a fever of 102 last admin including rectal. Blood cultures were done. Concerns about infective endocarditis. ID and neurology on the case. Discussed with ID concern for infective endocarditis. Started on IV vancomycin and cefepime. MRI of the brain is showing the lesion on the right parietal. Patient's symptoms were rather generalized when she came in. Not focal. Hence D has been ordered to rule out endocarditis. This was discussed the patient and in the morning. Also discussed with ID and Dr. Pearl from neurology. Patient is being changed to inpatient. 09/17/2022: In his recliner. Patient was spending DON, tomorrow. Remains on IV cefepime and vancomycin. Cultures be negative to now. Discussed with cardiology Dr. Boubacar Sosa-concern about septic emboli from cardiac vegetation.. CT abdomen pelvis unremarkable. Spiked fever this afternoon. Active Medications Acetaminophen (Acetaminophen Tab 500 Mg Tab) 500 mg PO Q4HR PRN PRN Reason: Fever and/ or Pain Last Admin: 09/17/22 17:31 Dose: 500 mg Amlodipine Besylate (Amlodipine 5 Mg Tab) 5 mg PO DAILY PRN PRN Reason: Blood Pressure - High Apixaban (Apixaban 5 Mg Tab) 5 mg PO BID [facility]; Protocol Last Admin: 09/17/22 09:45 Dose: 5 mg Aspirin (Aspirin 81 Mg) 81 mg PO DAILY [facility] Last Admin: 09/17/22 09:45 Dose: 81 mg Atenolol (Atenolol 50 Mg Tab) 50 mg PO HS [facility] Last Admin: 09/16/22 23:05 Dose: 50 mg Atorvastatin Calcium (Atorvastatin 40 Mg Tab) 40 mg PO HS [facility] Last Admin: 09/16/22 23:06 Dose: 40 mg Cevimeline HCl (Cevimeline 30 Mg Cap) 30 mg PO TID [facility] Last Admin: 09/17/22 16:54 Dose: 30 mg Flecainide Acetate (Flecainide 50 Mg Tab) 100 mg PO BID [facility] Last Admin: 09/17/22 09:45 Dose: 100 mg Hydrochlorothiazide (Hydrochlorothiazide 25 Mg Tab) 25 mg PO DAILY [facility] Last Admin: 09/16/22 08:24 Dose: 25 mg Vancomycin HCl 1,500 mg/ (Sodium Chloride) 500 mls @ 167 mls/hr IVPB Q12H [facility] Last Admin: 09/17/22 14:54 Dose: 167 mls/hr Cefepime HCl 2 gm/ Sodium (Chloride) 100 mls @ 25 mls/hr IVPB Q8HR [facility]; Protocol Last Admin: 09/17/22 16:51 Dose: 25 mls/hr Losartan Potassium (Losartan 50 Mg Tab) 150 mg PO DAILY [facility] Last Admin: 09/17/22 09:45 Dose: 150 mg Metronidazole (Metronidazole 500 Mg Tab) 500 mg PO TID [facility]; Protocol Last Admin: 09/17/22 16:52 Dose: 500 mg Miscellaneous Information (Vancomycin Trough Due 1 Each Misc) 1 each MISCELLANE ONCE ONE Stop: 09/18/22 13:01 Naloxone HCl (Naloxone 0.4 Mg/Ml 1 Ml Vial) 0.2 mg IV Q2M PRN PRN Reason: Opioid Reversal Potassium Chloride (Potassium Chloride Er 10 Meq Tab.Er.Prt) 20 meq PO BID [facility] Last Admin: 09/17/22 09:45 Dose: 20 meq Past medical history to include: Atrial flutter fibrillation, stroke, hypertension, Sjogren's, cardioversion Social history: . 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 EYES: Pupils equal. Conjunctiva normal. HEENT: External appearance of nose and ears normal, oral cavity grossly normal. NECK: JVD not raised; masses not palpable. HEART: First and second heart sounds are normal; no edema. LUNGS: Respiratory rate normal; clear to auscultation. ABDOMEN: Soft, nontender, liver spleen not palpable, no masses palpable. PSYCH: Alert and oriented x3; mood and affect normal. MUSCULOSKELETAL:No Clubbing/cyanosis;muscles-grossly intact. OA NEUROLOGICAL: Cranial nerves grossly intact; no facial asymmetry, power and sensation grossly intact. INVESTIGATIONS, reviewed in the clinical context: CT abdomen pelvis: Unremarkable MR angiogram without contrast, MRA brain with and without contrast: 1 cm focus of increased signal within the posterior right parietal cortical region felt to reflect acute embolic process. Age related changes. 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 S2 is stenosis at the most critical point is greater than 95%. 2-D echocardiogram: Mild mitral and tricuspid regurgitation. Moderate aortic insufficiency, enlarged aortic root of 4.6 cm. EEG: Findings suggestive of encephalopathy. No epileptiform activity. White count 7.2 hemoglobin 13.1 platelets 174 sodium 134 potassium 3.8 creatinine 0.96 UA: Negative EKG tracing personally reviewed by me-atrial flutter. Conduction rate 3:1. Chest x-ray film personally reviewed by me-lung kenney clear. Some unfolding of the aorta Computed tomography scan of the brain: Nonspecific white matter changes. CT of the angiogram of the head and neck: Short segment of high-grade stenosis of the left MCA M1 segment about 6 mm in length with at least 90% stenosis. Assessment and plan: -Episode of patient getting progressively confused the day prior to presentation.. Unsteady gait. Some trouble finding words. No change in vision or speech. Spiking fevers.. Possible infective endocarditis.: Acute metabolic encephalopathy. MRI of the brain -showing embolic stroke in the right parietal area. DON ordered. IV vancomycin and cefepime by ID. -Possible acute infective endocarditis. Patient has underlying aortic regurgitation. Dilated aortic root.: Slow to respond DON ordered. Blood cultures pending. -Sepsis IV antibiotics. Fluids -Acute stroke in the right parietal area on the right side. Could be septic emboli. -Persistent atrial flutter with controlled rate conduction 3:1. Continue on eliquis. Tenormin. Flecainide. -Essential hypertension Cozaar. Hydrochlorothiazide. Tenormin. -Primary osteoarthritis Tylenol as needed -Sjogren's syndrome. -Full code Discussed with cardiology. IV vancomycin and IV cefepime. Continue to spike fevers. Pending DON.
[2022-09-17] MEDS: ATORVASTATIN 40 MG TAB PO SCH (21:55)
[2022-09-17] MEDS: atenoloL 50 MG TAB PO SCH (21:55)
[2022-09-17] MEDS: SODIUM CHLORIDE 0.9% 1,000 ML IV SCH (21:56)
[2022-09-18] MEDS: CEFEPIME 2 GM in SODIUM CHLORIDE 0.9% 100 ML IVPB SCH ×4 (00:18→23:47)
[2022-09-18] MEDS: VANCOMYCIN 1,500 MG in SODIUM CHLORIDE 0.9% 500 ML 500 ML IVPB SCH (03:03)
[2022-09-18] MEDS: SODIUM CHLORIDE 0.9% 1,000 ML IV SCH ×2 (06:24→19:47)
[2022-09-18] MEDS: ACETAMINOPHEN TAB 500 MG TAB PO PRN (06:29)
[2022-09-18] MEDS: BENZOCAINE SPRAY 1 CAN MUCOUS MEM ONE ×2 (07:40→09:44)
[2022-09-18] MEDS ORDERED: IV FLUID CONTINUATION 1,000 ML IV ONE (07:40)
[2022-09-18] MEDS ORDERED: fentaNYL (PF) 50 MCG/1 ML VIAL IVP ONE (07:44)
[2022-09-18] MEDS ORDERED: MIDAZOLAM 2 MG/2 ML VIAL IVP ONE (07:44)
[2022-09-18] MEDS: metroNIDAZOLE 500 MG TAB PO SCH ×3 (08:30→20:13)
[2022-09-18] MEDS: POTASSIUM CHLORIDE ER 10 MEQ TAB.ER.PRT PO SCH ×2 (08:30→20:13)
[2022-09-18] MEDS: ASPIRIN 81 MG PO SCH (08:30)
[2022-09-18] MEDS: APIXABAN 5 MG TAB PO SCH ×2 (08:30→20:13)
[2022-09-18] MEDS: FLECAINIDE 50 MG TAB PO SCH ×2 (08:30→20:13)
[2022-09-18] MEDS: CEVIMELINE 30 MG CAP PO SCH ×3 (08:30→20:13)
[2022-09-18] MEDS: LOSARTAN 50 MG TAB PO SCH (08:30)
[2022-09-18] MEDS: hydroCHLOROthiazide 25 MG TAB PO SCH (08:31)
[2022-09-18] MEDS ORDERED: fentaNYL (PF) 50 MCG/ML 2 ML AMP ONE (09:30)
--- NOTE | 2022-09-18 09:55 | P.PCN ---
Date of Procedure: 09/18/22 Operative Findings: TRANSESOPHAGEAL ECHOCARDIOGRAM OTOLARYNGOLOGIST: YONATHAN PIZANO MD, RPVI INDICATION: Rule out infective endocarditis SEDATION: Conscious sedation COMPLICATION: None LEVEL OF SEDATION Moderate to sedation length of 15 minutes PROCEDURE DESCRIPTION: After obtaining an informed consent, the patient was brought to transesophageal echocardiogram room. Pulse oximetry and heart monitors were attached to the patient. The patient throat was sprayed using lidocaine. The patient was turned into left lateral position. After that a bite guard was placed. After an appropriate conscious sedation was initiated, the transesophageal echocardiogram was advanced through a bite guard into the mid esophagus. A 2-D echocardiogram images, color Doppler images, continuous wave images, pulse-wave images, of various cardiac structure were performed. After that the transesophageal echocardiogram probe was advanced into the stomach and fixed to obtain transgastric view was. The probe was brought into the mid esophagus. Inter-atrial septum was interrogated using 2D images, color Doppler images, and then contrast study. After that transesophageal echocardiogram was withdrawn out and upon withdrawing the descending thoracic aorta all the way up to the arch was evaluated. FINDING: The left ventricular dimension appeared to be within normal limits. The left ventricular ejection fraction appears to be within normal limits. The right ventricle appeared to be within normal limits as well. The left atrium and right atrium are dilated. The aortic root is dilated. The aortic valve is trileaflet valve with no stenosis with mild insufficiency. The mitral valve appeared to be mildly thickened with mild MR only. Poorly visualized tricuspid valve and pulmonic valve. No evidence of any infective endocarditis identified on the right or left valves. There is a small circumferential pericardial effusion was identified. CONCLUSION: 1. No evidence of infective endocarditis identified 2. Normal LV systolic function 3. Dilated aortic root 4. Small circumferential pericardial effusion
[2022-09-18] MEDS ORDERED: VANCOMYCIN TROUGH DUE 1 EACH MISC MISCELLANE ONE (13:00)
[2022-09-18 13:56] LABS: African American GFR (CKD) >90 (>60 ml/min/1.73 sqM); Non-African American GFR(CKD) >90 (>60 ml/min/1.73 sqM)
--- NOTE | 2022-09-18 16:00 | P.PN ---
Subjective Progress Note Date: 09/18/22 Principal diagnosis: Fever Patient is a 82-year-old male with a past medical history significant for hypertension atrial fibrillation CVA TIA who was brought into the hospital for evaluation of ground-level fall and the patient that he was not acting like his usual self, patient did have a fever and abnormalities seen on the echocardiogram as well as MRI of the brain concerning for embolic phenomena. Patient did have a DON completed on 09/18/2022 didn't mention any vegetation On today's evaluation that is 09/18/2022, the patient is spike a fever of 101 degrees Fahrenheit around 6 AM, the patient is afebrile since then, patient is breathing comfortably on 2 L nasal cannula oxygen, patient denies having any chest pain or shortness of breath or cough. Denies any abdominal pain no nausea no vomiting no diarrhea Patient did have a white count of 5.8 hemoglobin is 11.8 as of yesterday, no CBC was done today, the patient creatinine is 0.67 , CRP was 8.5, pro-calcitonin is 0.05, calabrese virus was negative Objective - Vital Signs Vital signs: Vital Signs Temp 100.3 F H 09/18/22 08:00 Pulse 74 09/18/22 09:48 Resp 16 09/18/22 09:50 BP 124/80 09/18/22 09:50 Pulse Ox 93 L 09/18/22 09:50 FiO2 Intake & Output 09/17/22 09/18/22 09/18/22 18:59 06:59 18:59 Intake Total 50 Output Total 650 1200 500 Balance -650 -1200 -450 Intake: IV 50 Output: Urine 650 1200 500 Stool 0 Other: Voiding Method Urinal Urinal External Catheter - Exam GENERAL DESCRIPTION: An elderly male lying in bed in no distress RESPIRATORY SYSTEM: Unlabored breathing , decreased breath sounds at bases HEART: S1 S2 regular rate and rhythm , ABDOMEN: Soft , no tenderness EXTREMITIES: No edema feet - Labs CBC & Chem 7: 09/17/22 07:53 09/18/22 13:03 Labs: Microbiology - Last 24 Hours (Table) 09/15/22 20:35 Blood Culture - Preliminary Blood 09/15/22 20:36 Blood Culture - Preliminary Blood 09/16/22 13:31 Blood Culture - Preliminary Blood Assessment and Plan (1) Fever Current Visit: Yes Status: Acute Code(s): R50.9 - FEVER, UNSPECIFIED SNOMED Code(s): 851904893 Plan: 1patient with a fever and this patient presented to hospital with a fall now w ith evidence of abnormal MRI head with 1 cm focus of cortical lesion embolic phenomena with question of possible septic versus nonseptic emboli and also have abnormality of the aorta on echocardiogram 2- blood culture are so far negative, patient did have elevated CRP however procalcitonin is normal, COVID PCR is negative 3-patient did have DON that was negative for any vegetation, the patient CT of abdominal pelvis was negative for any acute intra-abdominal process 4-we will obtain a WBC scan to complete the workup 5Patient to continue with cefepime and vancomycin while waiting for the workup to be completed at the bedside multiple question concern answered in Layman terms Dictation was produced using [employer] dictation software. please excuse any grammatical, word or spelling errors. Time with Patient: Less than 30
[2022-09-18] MEDS: VANCOMYCIN 1,750 MG in SODIUM CHLORIDE 0.9% 500 ML 500 ML IVPB SCH (17:16)
--- NOTE | 2022-09-18 19:03 | P.PN ---
Progress Note - Text Progress Note Date: 09/18/22 Chief Complaint: Acute confusion Pleasant 82-year-old patient, follows Dr. Wright. Patient was doing well up to yesterday morning when he woke up. As the day went along he started getting confused. Feeling weak. Started walking with support. Holding onto the kitchen table for example. When he went to urinate he did miss the band. He was finding it difficult to finishing sentences. He stated that Her most of the day. Which is very unusual as the patient is very active. No change in vision. No change in swallowing. Does feel better this morning. Patient had a similar episode about 3 weeks ago that was short-lived. Patient did have a stroke about 3 years ago with no residual. Underlying history of atrial flutter fibrillation. 09/16/2022: Patient spiked a fever of 102 last admin including rectal. Blood cultures were done. Concerns about infective endocarditis. ID and neurology on the case. Discussed with ID concern for infective endocarditis. Started on IV vancomycin and cefepime. MRI of the brain is showing the lesion on the right parietal. Patient's symptoms were rather generalized when she came in. Not focal. Hence D has been ordered to rule out endocarditis. This was discussed the patient and in the morning. Also discussed with ID and Dr. Pearl from neurology. Patient is being changed to inpatient. 09/17/2022: In his recliner. Patient was spending DON, tomorrow. Remains on IV cefepime and vancomycin. Cultures be negative to now. Discussed with cardiology Dr. Boubacar Sosa-concern about septic emboli from cardiac vegetation.. CT abdomen pelvis unremarkable. Spiked fever this afternoon. 09/18/2022: Still spiking fevers. DON revealed no vegetation. Blood cultures remain negative to low. CT abdomen pelvis unremarkable. Patient tired. Discussed with at the bedside. WBC scan ordered. Active Medications Acetaminophen (Acetaminophen Tab 500 Mg Tab) 500 mg PO Q4HR PRN PRN Reason: Fever and/ or Pain Last Admin: 09/18/22 06:29 Dose: 500 mg Amlodipine Besylate (Amlodipine 5 Mg Tab) 5 mg PO DAILY PRN PRN Reason: Blood Pressure - High Apixaban (Apixaban 5 Mg Tab) 5 mg PO BID [facility]; Protocol Last Admin: 09/18/22 08:30 Dose: 5 mg Aspirin (Aspirin 81 Mg) 81 mg PO DAILY [facility] Last Admin: 09/18/22 08:30 Dose: 81 mg Atenolol (Atenolol 50 Mg Tab) 50 mg PO [facility] Last Admin: 09/17/22 21:55 Dose: 50 mg Atorvastatin Calcium (Atorvastatin 40 Mg Tab) 40 mg PO HS [facility] Last Admin: 09/17/22 21:55 Dose: 40 mg Cevimeline HCl (Cevimeline 30 Mg Cap) 30 mg PO TID [facility] Last Admin: 09/18/22 17:16 Dose: 30 mg Flecainide Acetate (Flecainide 50 Mg Tab) 100 mg PO BID [facility] Last Admin: 09/18/22 08:30 Dose: 100 mg Hydrochlorothiazide (Hydrochlorothiazide 25 Mg Tab) 25 mg PO DAILY [facility] Last Admin: 09/18/22 08:31 Dose: 25 mg Cefepime HCl 2 gm/ Sodium (Chloride) 100 mls @ 25 mls/hr IVPB Q8HR [facility]; Protocol Last Admin: 09/18/22 17:16 Dose: 25 mls/hr Sodium Chloride (Saline 0.9%) 1,000 mls @ 100 mls/hr IV .Q10H [facility] Last Admin: 09/18/22 06:24 Dose: 100 mls/hr Vancomycin HCl 1,750 mg/ (Sodium Chloride) 500 mls @ 167 mls/hr IVPB Q12H [facility] Last Admin: 09/18/22 17:16 Dose: 167 mls/hr Losartan Potassium (Losartan 50 Mg Tab) 150 mg PO DAILY [facility] Last Admin: 09/18/22 08:30 Dose: 150 mg Metronidazole (Metronidazole 500 Mg Tab) 500 mg PO TID [facility]; Protocol Last Admin: 09/18/22 17:16 Dose: 500 mg Naloxone HCl (Naloxone 0.4 Mg/Ml 1 Ml Vial) 0.2 mg IV Q2M PRN PRN Reason: Opioid Reversal Potassium Chloride (Potassium Chloride Er 10 Meq Tab.Er.Prt) 20 meq PO BID [facility] Last Admin: 09/18/22 08:30 Dose: 20 meq Past medical history to include: Atrial flutter fibrillation, stroke, hypertension, Sjogren's, cardioversion Social history: . 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 Conjunctiva normal. HEENT: External appearance of nose and ears normal, oral cavity grossly normal. NECK: JVD not raised; masses not palpable. HEART: First and second heart sounds are normal; no edema. LUNGS: Respiratory rate normal; clear to auscultation. ABDOMEN: Soft, nontender, liver spleen not palpable, no masses palpable. PSYCH: Alert and oriented x3; mood and affect normal. MUSCULOSKELETAL:No Clubbing/cyanosis;muscles-grossly intact. OA NEUROLOGICAL: Cranial nerves grossly intact; no facial asymmetry, power and sensation grossly intact. INVESTIGATIONS, reviewed in the clinical context: DON: Dilated aortic root. No evidence of infective endocarditis. Normal LV function. September 18: Creatinine 0.67 CT abdomen pelvis: Unremarkable MR angiogram without contrast, MRA brain with and without contrast: 1 cm focus of increased signal within the posterior right parietal cortical region felt to reflect acute embolic process. Age related changes. 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 S2 is stenosis at the most critical point is greater than 95%. 2-D echocardiogram: Mild mitral and tricuspid regurgitation. Moderate aortic insufficiency, enlarged aortic root of 4.6 cm. EEG: Findings suggestive of encephalopathy. No epileptiform activity. White count 7.2 hemoglobin 13.1 platelets 174 sodium 134 potassium 3.8 creatinine 0.96 UA: Negative EKG tracing personally reviewed by me-atrial flutter. Conduction rate 3:1. Chest x-ray film personally reviewed by me-lung kenney clear. Some unfolding of the aorta Computed tomography scan of the brain: Nonspecific white matter changes. CT of the angiogram of the head and neck: Short segment of high-grade stenosis of the left MCA M1 segment about 6 mm in length with at least 90% stenosis. Assessment and plan: -Episode of patient getting progressively confused the day prior to presentation.. Unsteady gait. Some trouble finding words. No change in vision or speech. Spiking fevers.. Possible infective endocarditis.: Acute metabolic encephalopathy. MRI of the brain -showing embolic stroke in the right parietal area. DON - unremarkable. Computed tomography scan abdomen pelvis: Unremarkable. Blood cultures negative to now. IV vancomycin and cefepime by ID. -Possible acute infective endocarditis. Patient has underlying aortic regurgitation. Dilated aortic root.: Slow to respond DON unremarkable. Blood cultures pending. -Sepsis: Slow to respond IV cefepime and vancomycin. Fluids -Acute stroke in the right parietal area on the right side. Could be septic emboli. -Persistent atrial flutter with controlled rate conduction 3:1. Continue on eliquis. Tenormin. Flecainide. -Essential hypertension Cozaar. Hydrochlorothiazide. Tenormin. -Primary osteoarthritis Tylenol as needed -Sjogren's syndrome. -Full code IV vancomycin and IV cefepime. WBC scan ordered. Discussed with .
[2022-09-18] MEDS: atenoloL 50 MG TAB PO SCH (20:13)
[2022-09-18] MEDS: ATORVASTATIN 40 MG TAB PO SCH (20:13)
[2022-09-18] MEDS ORDERED: HALOPERIDOL LACTATE 5 MG/ML 1 ML VIAL IM STA (20:36)
[2022-09-18] MEDS: amLODIPine 5 MG TAB PO PRN (23:53)
--- NOTE | 2022-09-19 02:20 | P.PN ---
Subjective Progress Note Date: 09/17/22 Patient was seen for a follow-up. Patient's was present today. Patient clinically unchanged. Patient denies headache. Patient states he feels better. No new symptoms. Patient continues to have high fever. Telemetry monitoring showing atrial flutter, with heart rate of 120 with some PVC. Objective - Vital Signs Vital signs: Vital Signs Temp 101.5 F H 09/17/22 16:45 Pulse 69 09/17/22 16:45 Resp 18 09/17/22 16:45 BP 157/99 09/17/22 16:45 Pulse Ox 97 09/17/22 16:45 FiO2 Intake & Output 09/16/22 09/17/22 09/17/22 18:59 06:59 18:59 Intake Total 240 Output Total 600 0 Balance -360 0 Intake: Oral 240 Output: Urine 600 0 Stool 0 0 Other: Voiding Method Urinal Urinal # Voids 200 3 - Exam Patient's mental status, speech and language functions are normal. Cranial nerves are normal. On muscle strength testing, there is left upward pronation drift. The strength is normal in the arms. In the legs, the strength is normal in the ankle dorsiflexion, but hip flexion is weak 5-on the left. Sensations a re equal. No ataxia. - Labs CBC & Chem 7: 09/17/22 07:53 09/18/22 13:03 Labs: Abnormal Lab Results - Last 24 Hours (Table) 09/17/22 09/17/22 Range/Units 07:53 07:53 RBC 3.61 L (4.30-5.90) m/uL Hgb 11.8 L (13.0-17.5) gm/dL Hct 34.1 L (39.0-53.0) % Plt Count 133 L (150-450) k/uL Lymphocytes # 0.9 L (1.0-4.8) k/uL Sodium 133 L (137-145) mmol/L Carbon Dioxide 18 L (22-30) mmol/L Calcium 7.7 L (8.4-10.2) mg/dL Albumin 3.2 L (3.5-5.0) g/dL Microbiology - Last 24 Hours (Table) 09/15/22 20:35 Blood Culture - Preliminary Blood 09/15/22 20:36 Blood Culture - Preliminary Blood Assessment and Plan Assessment: * Acute ischemic CVA, right parietal cortical region, small size. CVA is em bolic in nature. * Left MCA stenosis, severe, but asymptomatic, as the stroke is on the contralateral side. 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 Patient has very minimal residual deficits with some word finding problems at times. * Atrial fibrillation, on long-term treatment with Eliquis * Hypertension * New onset fevers, unclear cause. No obvious source identified. Plan: * Patient has presented with an acute stroke, involving the right parietal cortical region. However MRA of the brain revealed left MCA stenosis, which is asymptomatic at this time. * Patient is already on Eliquis 5 mg twice a day and aspirin 81 mg daily. * Patient has developed new onset fever. Patient to undergo transesophageal echocardiogram in the morning to rule out bacterial endocarditis. Blood cultures so far negative. ID consult on board. * CT abdomen and pelvis showed minimal compressive atelectasis, bilateral lung bases. Prostate hypertrophy. * MRI of the brain revealed acute 1 cm focus of increased signal within the posterior right parietal cortical region on diffusion-weighted images suggestive of acute embolic process. I personally reviewed MRI, agree with the findings. * MRA of the brain revealed high-grade stenosis noted left MCA M1 segment measuring approximately 5.4 mm in length. Estimated stenosis at its most critical point is greater than 95%. I personally reviewed MRA agree with the findings. * 2-D echo revealed normal left-ventricular size and systolic function with mild concentric LVH. EF is 55%. Left atrial size is normal. Moderate aortic insufficiency, enlarged aortic root of 4.6 cm. * EEG was abnormal due to the ground slowing of mild degree, suggestive of encephalopathy. No epileptiform activity was seen. * CTA of head and neck reveals short segment of high-grade stenosis of the left MCA M1 segment measuring approximately 6 mm in length with at least 90% stenosis. No evidence of dissection of the cervical internal carotid arteries or vertebral arteries or any evidence of significant stenosis of the carotid bifurcation. No evidence of intracranial aneurysm. Dominant left vertebral artery. * Patient may need outpatient follow-up with neuro intervention for left MCA stenosis. * Hemoglobin A1c 5.8, fasting lipid panel cholesterol 83, LDL 37, HDL 33 and triglycerides 61. Continue Lipitor 40 mg daily. * Telemetry monitoring showing atrial flutter in 120 with PVCs.
--- NOTE | 2022-09-19 02:25 | P.PN ---
Subjective Progress Note Date: 09/18/22 Patient was seen for a follow-up. Patient's was present today. Patient denies headache at all. Denies any focal symptoms. Patient continues to have fever. Objective - Vital Signs Vital signs: Vital Signs Temp 100.3 F H 09/18/22 08:00 Pulse 74 09/18/22 09:48 Resp 16 09/18/22 09:50 BP 124/80 09/18/22 09:50 Pulse Ox 93 L 09/18/22 09:50 FiO2 Intake & Output 09/17/22 09/18/22 09/18/22 18:59 06:59 18:59 Intake Total 50 Output Total 650 1200 500 Balance -650 -1200 -450 Intake: IV 50 Output: Urine 650 1200 500 Stool 0 Other: Voiding Method Urinal Urinal External Catheter - Exam Patient's mental status, speech and language functions are normal. Patient knows that he is in [facility] in [place] and name of the current president. He knows it is September, but could not tell the year. Cranial nerves are normal. On muscle strength testing, there is left upward pronation drift. The strength is normal in the arms. In the legs, the strength is normal in the ankle dorsiflexion, but hip flexion is weak 5-on the left. Sensations are equal. No ataxia. - Labs CBC & Chem 7: 09/17/22 07:53 09/18/22 13:03 Labs: Microbiology - Last 24 Hours (Table) 09/15/22 20:35 Blood Culture - Preliminary Blood 09/15/22 20:36 Blood Culture - Preliminary Blood 09/16/22 13:31 Blood Culture - Preliminary Blood Assessment and Plan Assessment: * Acute ischemic CVA, small size, right parietal cortical region. CVA is embolic in nature. * Left MCA stenosis, severe, but asymptomatic, as the stroke is on the contralateral side. 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 Patient has very minimal residual deficits with some word finding problems at times. * Atrial fibrillation, on long-term treatment with Eliquis * Hypertension * New onset fevers, unclear cause. No obvious source identified. Plan: * Patient has presented with an acute stroke, involving the right parietal cortical region. However MRA of the brain revealed left MCA stenosis, which is asymptomatic at this time. * Patient is already on Eliquis 5 mg twice a day and aspirin 81 mg daily. * Patient has developed new onset fever. Patient to undergo transesophageal echocardiogram in the morning to rule out bacterial endocarditis. Blood cult ures so far negative. ID consult on board. * CT abdomen and pelvis showed minimal compressive atelectasis, bilateral lung bases. Prostate hypertrophy. * DON 09/18/2022 showed no evidence of infective endocarditis identified. Normal left-ventricular systolic function. Dilated aortic root. Small ci rcumferential pericardial effusion. * Patient to undergo WBC scan. ID following. * MRI of the brain revealed acute 1 cm focus of increased signal within the posterior right parietal cortical region on diffusion-weighted images suggestive of acute embolic process. I personally reviewed MRI, agree with the findings. * MRA of the brain revealed high-grade stenosis noted left MCA M1 segment measuring approximately 5.4 mm in length. Estimated stenosis at its most critical point is greater than 95%. I personally reviewed MRA agree with the findings. * 2-D echo revealed normal left-ventricular size and systolic function with mild concentric LVH. EF is 55%. Left atrial size is normal. Moderate aortic insufficiency, enlarged aortic root of 4.6 cm. * EEG was abnormal due to background slowing of mild degree, suggestive of encephalopathy. No epileptiform activity was seen. * CTA of head and neck reveals short segment of high-grade stenosis of the left MCA M1 segment measuring approximately 6 mm in length with at least 90% stenosis. No evidence of dissection of the cervical internal carotid arteries or vertebral arteries or any evidence of significant stenosis of the carotid bifurcation. No evidence of intracranial aneurysm. Dominant left vertebral artery. * Recommend patient follow up outpatient follow-up with neuro intervention for left MCA stenosis. * Hemoglobin A1c 5.8, fasting lipid panel cholesterol 83, LDL 37, HDL 33 and triglycerides 61. Continue Lipitor 40 mg daily. * Telemetry monitoring showing atrial flutter in 120 with PVCs. * Dr. Khan to cover neurology service over the weekend, Dr. Toñito Blount starting on Wednesday.
[2022-09-19] MEDS: SODIUM CHLORIDE 0.9% 1,000 ML IV SCH ×3 (05:11→23:50)
[2022-09-19] MEDS: VANCOMYCIN 1,750 MG in SODIUM CHLORIDE 0.9% 500 ML 500 ML IVPB SCH ×2 (05:20→15:36)
[2022-09-19 08:54] LABS: African American GFR (CKD) >90 (>60 ml/min/1.73 sqM); Non-African American GFR(CKD) >90 (>60 ml/min/1.73 sqM)
[2022-09-19] MEDS: metroNIDAZOLE 500 MG TAB PO SCH ×3 (08:57→20:52)
[2022-09-19] MEDS: hydroCHLOROthiazide 25 MG TAB PO SCH (08:57)
[2022-09-19] MEDS: LOSARTAN 50 MG TAB PO SCH (08:57)
[2022-09-19] MEDS: ASPIRIN 81 MG PO SCH (08:57)
[2022-09-19] MEDS: APIXABAN 5 MG TAB PO SCH ×2 (08:57→20:52)
[2022-09-19] MEDS: POTASSIUM CHLORIDE ER 10 MEQ TAB.ER.PRT PO SCH ×2 (08:57→20:53)
[2022-09-19] MEDS: FLECAINIDE 50 MG TAB PO SCH ×2 (08:57→20:53)
[2022-09-19] MEDS: CEVIMELINE 30 MG CAP PO SCH ×3 (08:58→20:57)
[2022-09-19] MEDS: CEFEPIME 2 GM in SODIUM CHLORIDE 0.9% 100 ML IVPB SCH ×2 (08:58→15:35)
[2022-09-19] MEDS: ACETAMINOPHEN TAB 500 MG TAB PO PRN (09:48)
--- NOTE | 2022-09-19 13:32 | P.PN ---
Subjective Progress Note Date: 09/19/22 The patient is an 82-year-old male who is seen in neurologic follow-up on September 19, 2022, in collaboration with Juliet Alcala, via teleneurology. The patient's chart has been reviewed. According to the nurse, who is present at the bedside. She reports that the patient continues to have episodes of fever. His white blood cell count is normal. He is scheduled for a WBC scan on Wednesday. The patient's workup for infection as an etiology of fever, has been negative to this point. The patient's is present at the bedside at the time of the evaluation. She reports that her was very confused yesterday. He was apparently agitated and angry. The patient is unable to tell me why he came into the hospital. He denies pain. He reports that he slept "off and on" through the night. Objective - Vital Signs Vital signs: Vital Signs Temp 98.0 F 09/19/22 11:16 Pulse 70 09/19/22 11:16 Resp 18 09/19/22 11:16 BP 129/84 09/19/22 11:16 Pulse Ox 96 09/19/22 11:16 FiO2 Intake & Output 09/18/22 09/19/22 09/19/22 18:59 06:59 18:59 Intake Total 410 118 Output Total 1000 1700 Balance -590 -1700 118 Intake: IV 50 Oral 360 118 Output: Urine 1000 1700 Stool 0 Other: Voiding Method Indwelling Catheter Indwelling Catheter External Catheter External Catheter # Bowel Movements 1 1 2 - Exam Gen.: The patient is reclining in the bed. He is in no acute distress. He appears somewhat restless, with frequent repositioning of himself in the bed. The patient is in no acute distress. He is a thin man. HEENT: Head is atraumatic, normocephalic. Fundus not visualized. There is no scleral icterus. Mucous membranes are moist. Neurological examination Mental status: The patient is awake, alert and oriented to his name, date of , current month and Pres. of [place]. When asked to report the year, the patient repeats "September". There is no right/left confusion. The patient is able to accurately follow two-step commands. Cranial nerves: 2-12 grossly intact Motor: Strength is 5/5 throughout Sensation: Reported decreased sensation to light touch involving the left leg. - Labs CBC & Chem 7: 09/17/22 07:53 09/19/22 08:16 Labs: Microbiology - Last 24 Hours (Table) 09/15/22 20:35 Blood Culture - Preliminary Blood 09/15/22 20:36 Blood Culture - Preliminary Blood 09/16/22 13:31 Blood Culture - Preliminary Blood Assessment and Plan Assessment: * Acute ischemic CVA, small size, right parietal cortical region. CVA is embolic in nature. * Left MCA stenosis, severe, but asymptomatic, as the stroke is on the contralateral side. 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 Patient has very minimal residual deficits with some word finding problems at times. * Atrial fibrillation, on long-term treatment with Eliquis * Hypertension * New onset fevers, unclear cause. No obvious source identified. Plan: 1. Continue to investigate cause of fevers-ID is on the case, WBC scan scheduled for Wednesday 2. Outpatient follow-up regarding left MCA stenosis 3. Continue Eliquis and aspirin 4. Consider lumbar puncture if WBC scan is negative and ID agrees Time with Patient: Less than 30 (20 minutes were spent caring for this patient today including obtaining a history, examining the patient, reviewing imaging, chart documentation, labs and creating this note)
--- NOTE | 2022-09-19 17:05 | P.PN ---
Progress Note - Text Progress Note Date: 09/19/22 Chief Complaint: Acute confusion Pleasant 82-year-old patient, follows Dr. Wright. Patient was doing well up to yesterday morning when he woke up. As the day went along he started getting confused. Feeling weak. Started walking with support. Holding onto the kitchen table for example. When he went to urinate he did miss the band. He was finding it difficult to finishing sentences. He stated that Her most of the day. Which is very unusual as the patient is very active. No change in vision. No change in swallowing. Does feel better this morning. Patient had a similar episode about 3 weeks ago that was short-lived. Patient did have a stroke about 3 years ago with no residual. Underlying history of atrial flutter fibrillation. 09/16/2022: Patient spiked a fever of 102 last admin including rectal. Blood cultures were done. Concerns about infective endocarditis. ID and neurology on the case. Discussed with ID concern for infective endocarditis. Started on IV vancomycin and cefepime. MRI of the brain is showing the lesion on the right parietal. Patient's symptoms were rather generalized when she came in. Not focal. Hence D has been ordered to rule out endocarditis. This was discussed the patient and in the morning. Also discussed with ID and Dr. Pearl from neurology. Patient is being changed to inpatient. 09/17/2022: In his recliner. Patient was spending DON, tomorrow. Remains on IV cefepime and vancomycin. Cultures be negative to now. Discussed with cardiology Dr. Boubacar Sosa-concern about septic emboli from cardiac vegetation.. CT abdomen pelvis unremarkable. Spiked fever this afternoon. 09/18/2022: Still spiking fevers. DON revealed no vegetation. Blood cultures remain negative to low. CT abdomen pelvis unremarkable. Patient tired. Discussed with at the bedside. WBC scan ordered. 09/19/2022: Patient has been spiking fevers. Blood cultures have been negative. DON was negative. Discussed ID. He will check intoHACEK organisms. We will also order MRI of the chest to look into the aortic root received is an abscess present there. Patient does feel rather tired. Discussed with the at the bedside. Antibiotic changed to IV Unasyn per ID. And by mouth Flagyl. Active Medications Acetaminophen (Acetaminophen Tab 500 Mg Tab) 500 mg PO Q4HR PRN PRN Reason: Fever and/ or Pain Last Admin: 09/19/22 09:48 Dose: 500 mg Amlodipine Besylate (Amlodipine 5 Mg Tab) 5 mg PO DAILY PRN PRN Reason: Blood Pressure - High Last Admin: 09/18/22 23:53 Dose: 5 mg Apixaban (Apixaban 5 Mg Tab) 5 mg PO BID [facility]; Protocol Last Admin: 09/19/22 08:57 Dose: 5 mg Aspirin (Aspirin 81 Mg) 81 mg PO DAILY [facility] Last Admin: 09/19/22 08:57 Dose: 81 mg Atenolol (Atenolol 50 Mg Tab) 50 mg PO HS [facility] Last Admin: 09/18/22 20:13 Dose: 50 mg Atorvastatin Calcium (Atorvastatin 40 Mg Tab) 40 mg PO HS [facility] Last Admin: 09/18/22 20:13 Dose: 40 mg Cevimeline HCl (Cevimeline 30 Mg Cap) 30 mg PO TID [facility] Last Admin: 09/19/22 15:36 Dose: 30 mg Flecainide Acetate (Flecainide 50 Mg Tab) 100 mg PO BID [facility] Last Admin: 09/19/22 08:57 Dose: 100 mg Hydrochlorothiazide (Hydrochlorothiazide 25 Mg Tab) 25 mg PO DAILY [facility] Last Admin: 09/19/22 08:57 Dose: 25 mg Sodium Chloride (Saline 0.9%) 1,000 mls @ 100 mls/hr IV .Q10H [facility] Last Admin: 09/19/22 15:44 Dose: 100 mls/hr Ampicillin Sodium/Sulbactam (Sodium 3 gm/ Sodium Chloride) 100 mls @ 200 mls/hr IVPB Q6HR [facility]; Protocol Losartan Potassium (Losartan 50 Mg Tab) 150 mg PO DAILY [facility] Last Admin: 09/19/22 08:57 Dose: 150 mg Metronidazole (Metronidazole 500 Mg Tab) 500 mg PO TID [facility]; Protocol Last Admin: 09/19/22 15:36 Dose: 500 mg Miscellaneous Information (Vancomycin Trough Due 1 Each Misc) 1 each MISCELLANE ONCE ONE Stop: 09/20/22 15:01 Naloxone HCl (Naloxone 0.4 Mg/Ml 1 Ml Vial) 0.2 mg IV Q2M PRN PRN Reason: Opioid Reversal Potassium Chloride (Potassium Chloride Er 10 Meq Tab.Er.Prt) 20 meq PO BID [facility] Last Admin: 09/19/22 08:57 Dose: 20 meq Past medical history to include: Atrial flutter fibrillation, stroke, hypertension, Sjogren's, cardioversion Social history: . No smoking and no alcohol. Crop carroll Physical examination: VITAL SIGNS: 100.5, 73, 18, 133 with 84, 96% on room air GENERAL: Laying in bed, awake, tired EYES: Pupils equal. Conjunctiva normal. HEENT: External appearance of nose and ears normal, oral cavity grossly normal. NECK: JVD not raised; masses not palpable. HEART: First and second heart sounds are normal; no edema. LUNGS: Respiratory rate normal; clear to auscultation. ABDOMEN: Soft, nontender, liver spleen not palpable, no masses palpable. PSYCH: Alert and oriented x3; mood and affect tired MUSCULOSKELETAL:No Clubbing/cyanosis;muscles-grossly intact. OA NEUROLOGICAL: Cranial nerves grossly intact; no facial asymmetry, power and sensation grossly intact. INVESTIGATIONS, reviewed in the clinical context: DON: Dilated aortic root. No evidence of infective endocarditis. Normal LV function. September 18: Creatinine 0.67 CT abdomen pelvis: Unremarkable MR angiogram without contrast, MRA brain with and without contrast: 1 cm focus of increased signal within the posterior right parietal cortical region felt to reflect acute embolic process. Age related changes. 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 S2 is stenosis at the most critical point is greater than 95%. 2-D echocardiogram: Mild mitral and tricuspid regurgitation. Moderate aortic insufficiency, enlarged aortic root of 4.6 cm. EEG: Findings suggestive of encephalopathy. No epileptiform activity. White count 7.2 hemoglobin 13.1 platelets 174 sodium 134 potassium 3.8 creatinine 0.96 UA: Negative EKG tracing personally reviewed by me-atrial flutter. Conduction rate 3:1. Chest x-ray film personally reviewed by me-lung kenney clear. Some unfolding of the aorta Computed tomography scan of the brain: Nonspecific white matter changes. CT of the angiogram of the head and neck: Short segment of high-grade stenosis of the left MCA M1 segment about 6 mm in length with at least 90% stenosis. Assessment and plan: -Episode of patient getting progressively confused the day prior to pres entation.. Unsteady gait. Some trouble finding words. No change in vision or speech. Spiking fevers.. Possible infective endocarditis.: Acute metabolic encephalopathy. MRI of the brain -showing embolic stroke in the right parietal area. DON - unremarkable. Computed tomography scan abdomen pelvis: Unremarkable. Blood cultures negative to now. IV vancomycin and cefepime changed over to IV Unasyn per ID. -Sepsis: Slow to respond IV cefepime and vancomycin. -Changed over to IV Unasyn. -Acute stroke in the right parietal area on the right side. Could be septic emboli. -Persistent atrial flutter with controlled rate conduction 3:1. Continue on eliquis. Tenormin. Flecainide. -Essential hypertension Cozaar. Hydrochlorothiazide. Tenormin. -Primary osteoarthritis Tylenol as needed -Sjogren's syndrome. -Full code IV Unasyn.. WBC scan ordered. MRI of the chest to look at aortic root rule out abscess. Discussed with ID. Discussed with .
[2022-09-19] MEDS: AMPICILLIN-SULBACTAM 3 GM in SODIUM CHLORIDE 0.9% 100 ML IVPB SCH ×2 (17:36→23:51)
[2022-09-19] MEDS: atenoloL 50 MG TAB PO SCH (20:53)
[2022-09-19] MEDS: ATORVASTATIN 40 MG TAB PO SCH (20:53)
[2022-09-20] MEDS: AMPICILLIN-SULBACTAM 3 GM in SODIUM CHLORIDE 0.9% 100 ML IVPB SCH ×3 (06:14→17:46)
[2022-09-20] MEDS: SODIUM CHLORIDE 0.9% 1,000 ML IV SCH ×2 (08:29→18:03)
[2022-09-20] MEDS: FLECAINIDE 50 MG TAB PO SCH ×2 (08:40→21:25)
[2022-09-20] MEDS: CEVIMELINE 30 MG CAP PO SCH ×3 (08:40→22:30)
[2022-09-20] MEDS: hydroCHLOROthiazide 25 MG TAB PO SCH (08:40)
[2022-09-20] MEDS: POTASSIUM CHLORIDE ER 10 MEQ TAB.ER.PRT PO SCH ×2 (08:40→21:25)
[2022-09-20] MEDS: ASPIRIN 81 MG PO SCH (08:41)
[2022-09-20] MEDS: LOSARTAN 50 MG TAB PO SCH (08:41)
[2022-09-20] MEDS: APIXABAN 5 MG TAB PO SCH ×2 (08:41→21:25)
[2022-09-20] MEDS: metroNIDAZOLE 500 MG TAB PO SCH ×3 (08:41→21:25)
--- NOTE | 2022-09-20 09:56 | P.PN ---
Subjective Progress Note Date: 09/19/22 Principal diagnosis: Fever Patient is a 82-year-old male with a past medical history significant for hypertension atrial fibrillation CVA TIA who was brought into the hospital for evaluation of ground-level fall and the patient that he was not acting like his usual self, patient did have a fever and abnormalities seen on the echocardiogram as well as MRI of the brain concerning for embolic phenomena. Patient did have a DON completed on 09/18/2022 didn't mention any vegetation On today's evaluation that is 09/19/2022 patient did spike a low-grade fever 100.5 this morning the patient is afebrile since then patient is breathing comfortably on room air the patient is feeling better today denies any headache no chest pain no shortness of breath or cough no abdominal pain no diarrhea. Patient did have a normal creatinine 0.68 no CBC was done today Vanco trough was 12 multiple blood culture has been negative so far Objective - Vital Signs Vital signs: Vital Signs Temp 100.5 F H 09/19/22 08:55 Pulse 73 09/19/22 08:55 Resp 18 09/19/22 08:55 BP 133/84 09/19/22 08:55 Pulse Ox 98 09/19/22 08:55 FiO2 Intake & Output 09/18/22 09/19/22 09/19/22 18:59 06:59 18:59 Intake Total 410 118 Output Total 1000 1700 Balance -590 -1700 118 Intake: IV 50 Oral 360 118 Output: Urine 1000 1700 Stool 0 Other: Voiding Method Indwelling Catheter Indwelling Catheter External Catheter External Catheter # Bowel Movements 1 1 2 - Exam GENERAL DESCRIPTION: An elderly male lying in bed in no distress RESPIRATORY SYSTEM: Unlabored breathing , decreased breath sounds at bases HEART: S1 S2 regular rate and rhythm , ABDOMEN: Soft , no tenderness EXTREMITIES: No edema feet - Labs CBC & Chem 7: 09/17/22 07:53 09/19/22 08:16 Labs: Microbiology - Last 24 Hours (Table) 09/15/22 20:35 Blood Culture - Preliminary Blood 09/15/22 20:36 Blood Culture - Preliminary Blood 09/16/22 13:31 Blood Culture - Preliminary Blood Assessment and Plan (1) Fever Current Visit: Yes Status: Acute Code(s): R50.9 - FEVER, UNSPECIFIED SNOMED Code(s): 958200413 Plan: 1patient with a fever and this patient presented to hospital with a fall now with evidence of abnormal MRI head with 1 cm focus of cortical lesion embolic phenomena with question of possible septic versus nonseptic emboli and also have abnormality of the aorta on echocardiogram 2- blood culture are so far negative, patient did have elevated CRP however procalcitonin is normal, COVID PCR is negative 3-patient did have DON that was negative for any vegetation, the patient CT of a bdominal pelvis was negative for any acute intra-abdominal process 4WBC scan is currently pending. Micro lab has been instructed to keep the blood cultures for longer time to rule out infection with HASEk pathogen 5with a culture negative for any resistant pathogen and no evidence of any vegetation we will discontinue vancomycin and cefepime start the patient on Unasyn. at the bedside she did have multiple questions concerns those has been answered in layman term. Dictation was produced using [employer] dictation software. please excuse any grammatical, word or spelling errors. Time with Patient: Less than 30
--- NOTE | 2022-09-20 14:14 | P.PN ---
Progress Note - Text Progress Note Date: 09/20/22 Chief Complaint: Acute confusion Pleasant 82-year-old patient, follows Dr. Wright. Patient was doing well up to yesterday morning when he woke up. As the day went along he started getting confused. Feeling weak. Started walking with support. Holding onto the kitchen table for example. When he went to urinate he did miss the band. He was finding it difficult to finishing sentences. He stated that Her most of the day. Which is very unusual as the patient is very active. No change in vision. No change in swallowing. Does feel better this morning. Patient had a similar episode about 3 weeks ago that was short-lived. Patient did have a stroke about 3 years ago with no residual. Underlying history of atrial flutter fibrillation. 09/16/2022: Patient spiked a fever of 102 last admin including rectal. Blood cultures were done. Concerns about infective endocarditis. ID and neurology on the case. Discussed with ID concern for infective endocarditis. Started on IV vancomycin and cefepime. MRI of the brain is showing the lesion on the right parietal. Patient's symptoms were rather generalized when she came in. Not focal. Hence D has been ordered to rule out endocarditis. This was discussed the patient and in the morning. Also discussed with ID and Dr. Pearl from neurology. Patient is being changed to inpatient. 09/17/2022: In his recliner. Patient was spending DON, tomorrow. Remains on IV cefepime and vancomycin. Cultures be negative to now. Discussed with cardiology Dr. Boubacar Sosa-concern about septic emboli from cardiac vegetation.. CT abdomen pelvis unremarkable. Spiked fever this afternoon. 09/18/2022: Still spiking fevers. DON revealed no vegetation. Blood cultures remain negative to low. CT abdomen pelvis unremarkable. Patient tired. Discussed with at the bedside. WBC scan ordered. 09/19/2022: Patient has been spiking fevers. Blood cultures have been negative. DON was negative. Discussed ID. He will check intoHACEK organisms. We will also order MRI of the chest to look into the aortic root received is an abscess present there. Patient does feel rather tired. Discussed with the at the bedside. Antibiotic changed to IV Unasyn per ID. And by mouth Flagyl. 09/20/2022: Continues with low-grade fever. On IV Unasyn and Flagyl. Sitting up in chair. Eating. Discussed with . Pending WBC whole body scan and MRI angiogram chest with and without contrast to rule out any aortic valve abscess. Active Medications Acetaminophen (Acetaminophen Tab 500 Mg Tab) 500 mg PO Q4HR PRN PRN Reason: Fever and/ or Pain Last Admin: 09/19/22 09:48 Dose: 500 mg Amlodipine Besylate (Amlodipine 5 Mg Tab) 5 mg PO DAILY PRN PRN Reason: Blood Pressure - High Last Admin: 09/18/22 23:53 Dose: 5 mg Apixaban (Apixaban 5 Mg Tab) 5 mg PO BID [facility]; Protocol Last Admin: 09/20/22 08:41 Dose: 5 mg Aspirin (Aspirin 81 Mg) 81 mg PO DAILY [facility] Last Admin: 09/20/22 08:41 Dose: 81 mg Atenolol (Atenolol 50 Mg Tab) 50 mg PO HS [facility] Last Admin: 09/19/22 20:53 Dose: 50 mg Atorvastatin Calcium (Atorvastatin 40 Mg Tab) 40 mg PO HS [facility] Last Admin: 09/19/22 20:53 Dose: 40 mg Cevimeline HCl (Cevimeline 30 Mg Cap) 30 mg PO TID [facility] Last Admin: 09/20/22 08:40 Dose: 30 mg Flecainide Acetate (Flecainide 50 Mg Tab) 100 mg PO BID [facility] Last Admin: 09/20/22 08:40 Dose: 100 mg Hydrochlorothiazide (Hydrochlorothiazide 25 Mg Tab) 25 mg PO DAILY [facility] Last Admin: 09/20/22 08:40 Dose: 25 mg Sodium Chloride (Saline 0.9%) 1,000 mls @ 100 mls/hr IV .Q10H [facility] Last Admin: 09/20/22 08:29 Dose: Not Given Ampicillin Sodium/Sulbactam (Sodium 3 gm/ Sodium Chloride) 100 mls @ 200 mls/hr IVPB Q6HR [facility]; Protocol Last Admin: 09/20/22 11:50 Dose: 200 mls/hr Losartan Potassium (Losartan 50 Mg Tab) 150 mg PO DAILY [facility] Last Admin: 09/20/22 08:41 Dose: 150 mg Metronidazole (Metronidazole 500 Mg Tab) 500 mg PO TID [facility]; Protocol Last Admin: 09/20/22 08:41 Dose: 500 mg Naloxone HCl (Naloxone 0.4 Mg/Ml 1 Ml Vial) 0.2 mg IV Q2M PRN PRN Reason: Opioid Reversal Potassium Chloride (Potassium Chloride Er 10 Meq Tab.Er.Prt) 20 meq PO BID [facility] Last Admin: 09/20/22 08:40 Dose: 20 meq Past medical history to include: Atrial flutter fibrillation, stroke, hypertension, Sjogren's, cardioversion Social history: . No smoking and no alcohol. Crop carroll Physical examination: VITAL SIGNS: 100.9, 72, 18, 1 3786, 95% room air GENERAL: Up in chair, eating lunch EYES: Pupils equal. Conjunctiva normal. HEENT: External appearance of nose and ears normal, oral cavity grossly normal. NECK: JVD not raised; masses not palpable. HEART: First and second heart sounds are normal; no edema. LUNGS: Respiratory rate normal; clear to auscultation. ABDOMEN: Soft, nontender, liver spleen not palpable, no masses palpable. PSYCH: Alert and oriented x3; mood and affect tired MUSCULOSKELETAL:No Clubbing/cyanosis;muscles-grossly intact. OA NEUROLOGICAL: Cranial nerves grossly intact; no facial asymmetry, power and sensation grossly intact. INVESTIGATIONS, reviewed in the clinical context: DON: Dilated aortic root. No evidence of infective endocarditis. Normal LV function. September 18: Creatinine 0.67 CT abdomen pelvis: Unremarkable MR angiogram without contrast, MRA brain with and without contrast: 1 cm focus of increased signal within the posterior right parietal cortical region felt to reflect acute embolic process. Age related changes. 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 S2 is stenosis at the most critical point is greater than 95%. 2-D echocardiogram: Mild mitral and tricuspid regurgitation. Moderate aortic insufficiency, enlarged aortic root of 4.6 cm. EEG: Findings suggestive of encephalopathy. No epileptiform activity. White count 7.2 hemoglobin 13.1 platelets 174 sodium 134 potassium 3.8 creatinine 0.96 UA: Negative EKG tracing personally reviewed by me-atrial fluttalvarez. Conduction rate 3:1. Chest x-ray film personally reviewed by me-lung kenney clear. Some unfolding of the aorta Computed tomography scan of the brain: Nonspecific white matter changes. CT of the angiogram of the head and neck: Short segment of high-grade stenosis of the left MCA M1 segment about 6 mm in length with at least 90% stenosis. Assessment and plan: -Episode of patient getting progressively confused the day prior to presentation.. Unsteady gait. Some trouble finding words. No change in vision or speech. Spiking fevers.. : Acute metabolic encephalopathy. MRI of the brain -showing embolic stroke in the right parietal area. DON - unremarkable. Computed tomography scan abdomen pelvis: Unremarkable. Blood cultures negative to now. IV Unasyn per ID. -Sepsis: Slow to respond IV Unasyn. Pending whole-body DrShashi VC scan and MRA of the chest to rule out aortic valve abscess. -Acute stroke in the right parietal area on the right side. -Persistent atrial flutter with controlled rate conduction 3:1. Continue on eliquis. Tenormin. Flecainide. -Essential hypertension Cozaar. Hydrochlorothiazide. Tenormin. -Primary osteoarthritis Tylenol as needed -Sjogren's syndrome. -Full code Pending WBC scan and MRI of the chest to look at aortic root rule out abscess. Also pendingHACEK, SOME BEING FOLLOWED BY DR. MOURA FROM ID. Discussed
[2022-09-20] MEDS ORDERED: VANCOMYCIN TROUGH DUE 1 EACH MISC MISCELLANE ONE (15:00)
[2022-09-20 15:55] LABS: African American GFR (CKD) >90 (>60 ml/min/1.73 sqM); Non-African American GFR(CKD) 84 (>60 ml/min/1.73 sqM)
--- NOTE | 2022-09-20 16:06 | P.PN ---
Subjective Progress Note Date: 09/20/22 Principal diagnosis: Fever Patient is a 82-year-old male with a past medical history significant for hypertension atrial fibrillation CVA TIA who was brought into the hospital for evaluation of ground-level fall and the patient that he was not acting like his usual self, patient did have a fever and abnormalities seen on the echocardiogram as well as MRI of the brain concerning for embolic phenomena. Patient did have a DON completed on 09/18/2022 didn't mention any vegetation On today's evaluation that is 09/20/2022 patient did spike a low-grade fever 100.9 degrees Fahrenheit at midnight, the patient is afebrile since then patient is breathing comfortably on room air the patient denies any headache no chest pain no shortness of breath or cough no abdominal pain no diarrhea. Patient did have a normal creatinine 0.81 no CBC was done today , multiple blood culture has been negative so far Objective - Vital Signs Vital signs: Vital Signs Temp 98.4 F 09/20/22 12:00 Pulse 72 09/20/22 14:00 Resp 18 09/20/22 14:00 BP 137/86 09/20/22 12:00 Pulse Ox 95 09/20/22 12:00 FiO2 Intake & Output 09/19/22 09/20/22 09/20/22 18:59 06:59 18:59 Intake Total 236 1300 Output Total 2150 1600 700 Balance -1914 -300 -700 Intake: Intake, IV Titration 1300 Amount Ampicillin-Sulbactam 3 gm 200 In Sodium Chloride 0.9% 100 ml @ 200 mls/hr IVPB Q6HR [facility] Rx#:[id number] Sodium Chloride 0.9% 1, 1100 000 ml @ 100 mls/hr IV . Q10H [facility] Rx#:[id number] Oral 236 Output: Urine 2150 1600 700 Stool 0 Other: Voiding Method Indwelling Catheter Indwelling Catheter Indwelling Catheter External Catheter # Bowel Movements 2 - Exam GENERAL DESCRIPTION: An elderly male lying in bed in no distress RESPIRATORY SYSTEM: Unlabored breathing , decreased breath sounds at bases HEART: S1 S2 regular rate and rhythm , ABDOMEN: Soft , no tenderness EXTREMITIES: No edema feet - Labs CBC & Chem 7: 09/17/22 07:53 09/20/22 15:28 Labs: Microbiology - Last 24 Hours (Table) 09/16/22 13:31 Blood Culture - Preliminary Blood Assessment and Plan (1) Fever Current Visit: Yes Status: Acute Code(s): R50.9 - FEVER, UNSPECIFIED SNOMED Code(s): 280518816 Plan: 1patient with a fever and this patient presented to hospital with a fall now with evidence of abnormal MRI head with 1 cm focus of cortical lesion embolic phenomena with question of possible septic versus nonseptic emboli and also have abnormality of the aorta on echocardiogram 2- patient did have elevated CRP however procalcitonin is normal, COVID PCR is negative 3-patient did have DON that was negative for any vegetation, the patient CT of abdominal pelvis was negative for any acute intra-abdominal process 4blood culture has been negative so far. Micro lab has been instructed to keep the blood cultures for longer time to rule out infection with HASEk pathogen 5we will can do the patient on Unasyn patient seemed to have show some clinical improvement, we will wait for the WBC scan to be finalized tomorrow further workup on the basis of results of the WBC scan at the bedside she did have multiple questions concerns those has been answered in layman term. Dictation was produced using [employer] dictation software. please excuse any grammatical, word or spelling errors. Time with Patient: Less than 30
[2022-09-20] MEDS: ACETAMINOPHEN TAB 500 MG TAB PO PRN (16:48)
[2022-09-20] MEDS: ATORVASTATIN 40 MG TAB PO SCH (21:25)
[2022-09-20] MEDS: atenoloL 50 MG TAB PO SCH (21:25)
[2022-09-21] MEDS: AMPICILLIN-SULBACTAM 3 GM in SODIUM CHLORIDE 0.9% 100 ML IVPB SCH ×4 (00:15→17:13)
[2022-09-21 08:33] LABS: Basophils % (A) 0 %; Eosinophils # (A) 0.3 k/uL (0-0.7); Eosinophils % (A) 5 %; HCT 28.7 % (39.0-53.0); Lymphocytes # (A) 0.7 k/uL (1.0-4.8); Lymphocytes % (A) 11 %; MCHC 34.5 g/dL (31.0-37.0); MCV 95.7 fL (80.0-100.0); Mean Platelet Volume 9.5; Monocytes # (A) 0.6 k/uL (0-1.0); Monocytes % (A) 10 %; Neutrophils # (A) 4.2 k/uL (1.3-7.7); Neutrophils % (A) 73 %; Platelet Count 168 k/uL (150-450); RDW 13.1 % (11.5-15.5); WBC 5.8 k/uL (3.8-10.6)
[2022-09-21 08:39] LABS: ALT 18 U/L (4-49); AST 24 U/L (17-59); African American GFR (CKD) >90 (>60 ml/min/1.73 sqM); Albumin 2.7 g/dL (3.5-5.0); Alkaline Phosphatase 42 U/L (38-126); Anion Gap 5 mmol/L; Blood Urea Nitrogen 11 mg/dL (9-20); Calcium 7.2 mg/dL (8.4-10.2); Carbon Dioxide 22 mmol/L (22-30); Chloride 108 mmol/L (98-107); Glucose 91 mg/dL (74-99); Non-African American GFR(CKD) >90 (>60 ml/min/1.73 sqM); Potassium 3.4 mmol/L (3.5-5.1); Sodium 135 mmol/L (137-145); Total Bilirubin 0.4 mg/dL (0.2-1.3)
[2022-09-21] MEDS: SODIUM CHLORIDE 0.9% 1,000 ML IV SCH ×2 (08:41→08:50)
[2022-09-21 08:42] LABS: HGB 9.9 gm/dL (13.0-17.5)
[2022-09-21] MEDS: POTASSIUM CHLORIDE ER 10 MEQ TAB.ER.PRT PO SCH ×2 (08:49→20:27)
[2022-09-21] MEDS: ASPIRIN 81 MG PO SCH (08:49)
[2022-09-21] MEDS: metroNIDAZOLE 500 MG TAB PO SCH ×3 (08:49→20:23)
[2022-09-21] MEDS: FLECAINIDE 50 MG TAB PO SCH ×2 (08:49→20:23)
[2022-09-21] MEDS: hydroCHLOROthiazide 25 MG TAB PO SCH (08:49)
[2022-09-21] MEDS: APIXABAN 5 MG TAB PO SCH ×2 (08:49→20:23)
[2022-09-21] MEDS: LOSARTAN 50 MG TAB PO SCH (08:49)
[2022-09-21] MEDS: CEVIMELINE 30 MG CAP PO SCH ×3 (08:50→20:23)
[2022-09-21 11:56] VITALS: BMI 23.7
--- NOTE | 2022-09-21 14:31 | P.PN ---
Subjective Progress Note Date: 09/21/22 Patient was doing well up to yesterday morning when he woke up. As the day went along he started getting confused. Feeling weak. Started walking with support. Holding onto the kitchen table for example. When he went to urinate he did miss the band. He was finding it difficult to finishing sentences. He stated that Her most of the day. Which is very unusual as the patient is very active. No change in vision. No change in swallowing. Does feel better this morning. Patient had a similar episode about 3 weeks ago that was short-lived. Patient did have a stroke about 3 years ago with no residual. Underlying history of atrial flutter fibrillation. 09/16/2022: Patient spiked a fever of 102 last admin including rectal. Blood cultures were done. Concerns about infective endocarditis. ID and neurology on the case. Discussed with ID concern for infective endocarditis. Started on IV vancomycin and cefepime. MRI of the brain is showing the lesion on the right parietal. Patient's symptoms were rather generalized when she came in. Not focal. Hence D has been ordered to rule out endocarditis. This was discussed the patient and in the morning. Also discussed with ID and Dr. Pearl from neurology. Patient is being changed to inpatient. 09/17/2022: In his recliner. Patient was spending DON, tomorrow. Remains on IV cefepime and vancomycin. Cultures be negative to now. Discussed with cardiology Dr. Boubacar Sosa-concern about septic emboli from cardiac vegetation.. CT abdomen pelvis unremarkable. Spiked fever this afternoon. 09/18/2022: Still spiking fevers. DON revealed no vegetation. Blood cultures remain negative to low. CT abdomen pelvis unremarkable. Patient tired. Discussed with at the bedside. WBC scan ordered. 09/19/2022: Patient has been spiking fevers. Blood cultures have been negative. DON was negative. Discussed ID. He will check intoHACEK organisms. We will also order MRI of the chest to look into the aortic root received is an abscess present there. Patient does feel rather tired. Discussed with the at the bedside. Antibiotic changed to IV Unasyn per ID. And by mouth Flagyl. 09/20/2022: Continues with low-grade fever. On IV Unasyn and Flagyl. Sitting up in chair. Eating. Discussed with . Pending WBC whole body scan and MRI angiogram chest with and without contrast to rule out any aortic valve abscess. 09/21. Patient seen and examined. Patient had fever overnight of 100.3 to 100.5. at the bedside REVIEW OF SYSTEMS: CONSTITUTIONAL: Fevers overnight. CARDIOVASCULAR: No chest pain, no palpitations, no syncope. PULMONARY: No shortness of breath, no cough, GASTROINTESTINAL: No diarrhea, no nausea, no vomiting, no abdominal pain. NEUROLOGICAL: No headaches, no weakness, PHYSICAL EXAMINATION: GENERAL: The patient is alert and oriented x3, not in any acute distress. Well developed, well nourished. HEENT: Pupils are round and equally reacting to light. EOMI. No scleral icterus. No conjunctival pallor. Normocephalic, atraumatic. No pharyngeal erythema. No thyromegaly. CARDIOVASCULAR: S1 and S2 present. No murmurs, rubs, or gallops. PULMONARY: Chest is clear to auscultation, no wheezing or crackles. ABDOMEN: Soft, nontender, nondistended, normoactive bowel sounds. No palpable organomegaly. MUSCULOSKELETAL: No joint swelling or deformity. EXTREMITIES: No cyanosis, clubbing, or pedal edema. NEUROLOGICAL: Gross neurological examination did not reveal any focal deficits. SKIN: No rashes. Assessment and plan Acute metabolic encephalopathy. MRI of the brain -showing embolic stroke in the right parietal area. DON - unremarkable. Computed tomography scan abdomen pelvis: Unremarkable. Blood cultures negative to now. Whole body WBC scan ordered MRA chest ordered IV Unasyn per ID. -Sepsis: Slow to respond IV Unasyn. Pending whole-body DrShashi VC scan and MRA of the chest to rule out aortic valve abscess. -Acute stroke in the right parietal area on the right side. -Persistent atrial flutter with controlled rate conduction 3:1. Continue on eliquis. Tenormin. Flecainide. -Essential hypertension Cozaar. Hydrochlorothiazide. Tenormin. -Primary osteoarthritis Tylenol as needed -Sjogren's syndrome. Labs and medication were reviewed.. Continue same treatment. Continue with symptomatic treatment. Resume home medication. Monitor labs and vitals. DVT and GI prophylaxis. Further recommendations as per clinical course of the patient Dictation was produced using [employer] dictation software. please excuse any grammatical, word or spelling errors. Objective - Vital Signs Vital signs: Vital Signs Temp 100.3 F H 09/21/22 08:42 Pulse 70 09/21/22 08:42 Resp 18 09/21/22 08:42 BP 157/93 09/21/22 08:42 Pulse Ox 95 09/21/22 08:42 FiO2 Intake & Output 09/20/22 09/21/22 09/21/22 18:59 06:59 18:59 Intake Total 240 Output Total 1200 1900 1200 Balance -960 -1900 -1200 Intake: Oral 240 Output: Urine 1200 1900 1200 Stool 0 0 Other: Voiding Method Indwelling Catheter Indwelling Catheter - Labs CBC & Chem 7: 09/21/22 07:19 09/21/22 07:19 Labs: Abnormal Lab Results - Last 24 Hours (Table) 09/21/22 09/21/22 Range/Units 07:19 07:19 RBC 3.00 L (4.30-5.90) m/uL Hgb 9.9 L D (13.0-17.5) gm/dL Hct 28.7 L (39.0-53.0) % Lymphocytes # 0.7 L (1.0-4.8) k/uL Sodium 135 L (137-145) mmol/L Potassium 3.4 L (3.5-5.1) mmol/L Chloride 108 H (98-107) mmol/L Calcium 7.2 L (8.4-10.2) mg/dL Total Protein 6.0 L (6.3-8.2) g/dL Albumin 2.7 L (3.5-5.0) g/dL Microbiology - Last 24 Hours (Table) 09/15/22 20:35 Blood Culture - Final Blood 09/15/22 20:36 Blood Culture - Final Blood
[2022-09-21] MEDS: amLODIPine 5 MG TAB PO PRN (15:10)
--- NOTE | 2022-09-21 16:01 | US ---
EXAMINATION TYPE: US scrotum with doppler. Grayscale and color Doppler Duplex imaging performed of t he scrotum. Exam done portable DATE OF EXAM: 09/21/2022 COMPARISON: CT 2022 CLINICAL INDICATION: Male, 82 years old with history of abnormal CT right scrotum; EXAM MEASUREMENTS: TESTICLES: Right Testicle: 4.3 x 2.1 x 3.6 cm Left Testicle: 4.4 x 2.0 x 3.1 cm EPIDIDYMIS HEAD: Right Epididymis: 1.4 cm Left Epididymis: 1.3 cm Doppler performed to assess for testicular vascularity; good bilateral color flow and waveforms are s een. There is no evidence of testicular torsion. Both testicles are within normal position within t he scrotal sac. Presence of hydroceles: right - 3.7cm, left 3.3cm Presence of varicoceles: no IMPRESSION: 1. No evidence for testicular torsion or intratesticular mass. 2. Small bilateral hydroceles with right greater than left.
--- NOTE | 2022-09-21 17:38 | NM ---
EXAMINATION TYPE: NM WBC whole body DATE OF EXAM: 09/21/2022 COMPARISON: 09/17/2022 CLINICAL INDICATION: Male, 82 years old with history of bacteremia , source; TECHNIQUE: Following administration of 16.3 mCi Tc99m Ceretec. Images obtained 4 hours post injecti on. FINDINGS: Normal physiological tracer activity is noted in the liver and spleen and in the bone marrow of the a xial and appendicular skeleton. IMPRESSION: Normal white blood cell scan. No evidence for abnormal tracer activity.
[2022-09-21] MEDS: ACETAMINOPHEN TAB 500 MG TAB PO PRN (20:22)
[2022-09-21] MEDS: ATORVASTATIN 40 MG TAB PO SCH (20:23)
[2022-09-21] MEDS: atenoloL 50 MG TAB PO SCH (20:23)
[2022-09-21 23:20] LABS: Appearance,Urine Clear (Clear); Bilirubin,Urine Negative (Negative); Blood,Urine Small (Negative); Color,Urine Light Yellow; Glucose,Urine (UA) Negative (Negative); Ketones,Urine Negative (Negative); Leukocyte Esterase,Urine Negative (Negative); Nitrite,Urine Negative (Negative); Protein,Urine Negative (Negative); RBC,Urine 23 /hpf (0-5); Specific Gravity,Urine 1.009 (1.001-1.035); WBC,Urine 1 /hpf (0-5)
[2022-09-22] MEDS: AMPICILLIN-SULBACTAM 3 GM in SODIUM CHLORIDE 0.9% 100 ML IVPB SCH ×3 (02:19→11:05)
[2022-09-22] MEDS: ACETAMINOPHEN TAB 500 MG TAB PO PRN ×2 (03:28→20:58)
[2022-09-22] MEDS: SODIUM CHLORIDE 0.9% 1,000 ML IV SCH ×2 (05:09→10:06)
[2022-09-22] MEDS: metroNIDAZOLE 500 MG TAB PO SCH ×3 (09:20→20:58)
[2022-09-22] MEDS: CEVIMELINE 30 MG CAP PO SCH ×3 (09:20→21:01)
[2022-09-22] MEDS: LOSARTAN 50 MG TAB PO SCH (09:20)
[2022-09-22] MEDS: FLECAINIDE 50 MG TAB PO SCH ×2 (09:20→20:58)
[2022-09-22] MEDS: APIXABAN 5 MG TAB PO SCH (09:20)
[2022-09-22] MEDS: hydroCHLOROthiazide 25 MG TAB PO SCH (09:20)
[2022-09-22] MEDS: POTASSIUM CHLORIDE ER 10 MEQ TAB.ER.PRT PO SCH ×2 (09:20→20:58)
[2022-09-22] MEDS: ASPIRIN 81 MG PO SCH (09:22)
[2022-09-22 09:24] LABS: Basophils % (A) 0 %; Eosinophils # (A) 0.3 k/uL (0-0.7); Eosinophils % (A) 4 %; HCT 33.7 % (39.0-53.0); HGB 11.3 gm/dL (13.0-17.5); Lymphocytes # (A) 0.7 k/uL (1.0-4.8); Lymphocytes % (A) 11 %; MCH 32.1 pg (25.0-35.0); MCHC 33.5 g/dL (31.0-37.0); MCV 95.8 fL (80.0-100.0); Monocytes # (A) 0.5 k/uL (0-1.0); Monocytes % (A) 7 %; Neutrophils # (A) 4.9 k/uL (1.3-7.7); Neutrophils % (A) 76 %; Platelet Count 222 k/uL (150-450); RBC 3.52 m/uL (4.30-5.90); WBC 6.5 k/uL (3.8-10.6)
[2022-09-22 09:57] LABS: ALT 23 U/L (4-49); AST 35 U/L (17-59); African American GFR (CKD) >90 (>60 ml/min/1.73 sqM); Albumin 3.1 g/dL (3.5-5.0); Alkaline Phosphatase 49 U/L (38-126); Anion Gap 9 mmol/L; Blood Urea Nitrogen 9 mg/dL (9-20); C Reactive Protein 5.8 mg/dL (<1.0); Carbon Dioxide 25 mmol/L (22-30); Chloride 104 mmol/L (98-107); Glucose 100 mg/dL (74-99); Non-African American GFR(CKD) >90 (>60 ml/min/1.73 sqM); Potassium 3.3 mmol/L (3.5-5.1); Sodium 138 mmol/L (137-145); Total Bilirubin 0.5 mg/dL (0.2-1.3); Total Protein 6.8 g/dL (6.3-8.2)
[2022-09-22] MEDS ORDERED: RX INFO: IV CONTRAST WAS GIVEN 1 EACH MISC MISCELLANE PRN (11:15)
[2022-09-22] MEDS: POTASSIUM CHLORIDE ER 20 MEQ TAB.ER PO SCH ×2 (12:59→15:14)
[2022-09-22] MEDS: DOXYCYCLINE 100 MG CAP PO SCH ×2 (12:59→21:00)
--- NOTE | 2022-09-22 13:10 | CT ---
EXAMINATION TYPE: CT chest w con CT DLP: 419 mGycm, Automated exposure control for dose reduction was used. DATE OF EXAM: 09/22/2022 12:50 PM COMPARISON: White blood cell count 09/21/2022, CT chest 09/22/2022. CLINICAL INDICATION:Male, 82 years old with history of fever , abnormal aortic root on echo; PHH, fev er, abnormal aortic root on echo TECHNIQUE: Multiple axial images were obtained through the chest. Sagittal and coronal reformats were created for review. Contrast used:100 mL of Isovue 300 with IV Contrast (None if empty) Oral contrast used: (None if empty) FINDINGS: LUNGS/ PLEURA: Trace pleural effusions bilaterally. No evidence for focal consolidation, pneumothorax or pleural effusion. No suspicious pulmonary nodules. AIRWAY: Patent and unremarkable. HEART: The heart is mildly enlarged for size.. Simple fluid density seen around the aortic root and i n the pericardial recesses. Trace pericardial effusion. There is no evidence for abscess. Coronary ar brenda cusp patient's are present. Aortic trunk measures up to 3.9 cm. MEDIASTINUM: No gross evidence of adenopathy. VASCULATURE: The ascending thoracic aorta is ectatic measuring up to 4.3 cm. MUSCULOSKELETAL: Remote injury to the sternum which is not fused. On. SOFT TISSUES/LYMPH NODES: Unremarkable. LOWER NECK: No significant findings. UPPER ABDOMEN: Bilateral renal cysts appear present and similar prior. Gallstone present in the gallb ladder lumen. IMPRESSION: 1. Small amount of fluid in the pericardial recesses and a trace pericardial effusion which are simp le fluid density. No evidence for abscess within the mediastinum. 2. Standing thoracic aorta ectasia up to 4.3 cm. 3. No evidence for pneumonia or other source of infection compatible with nuclear medicine white blo od cell scan. 4. Pulmonary hypertension. 5. Cholelithiasis. 6. Trace bilateral pleural effusions.
--- NOTE | 2022-09-22 13:58 | P.PN ---
Subjective Progress Note Date: 09/22/22 Patient was doing well up to yesterday morning when he woke up. As the day went along he started getting confused. Feeling weak. Started walking with support. Holding onto the kitchen table for example. When he went to urinate he did miss the band. He was finding it difficult to finishing sentences. He stated that Her most of the day. Which is very unusual as the patient is very active. No change in vision. No change in swallowing. Does feel better this morning. Patient had a similar episode about 3 weeks ago that was short-lived. Patient did have a stroke about 3 years ago with no residual. Underlying history of atrial flutter fibrillation. 09/16/2022: Patient spiked a fever of 102 last admin including rectal. Blood cultures were done. Concerns about infective endocarditis. ID and neurology on the case. Discussed with ID concern for infective endocarditis. Started on IV vancomycin and cefepime. MRI of the brain is showing the lesion on the right parietal. Patient's symptoms were rather generalized when she came in. Not focal. Hence D has been ordered to rule out endocarditis. This was discussed the patient and in the morning. Also discussed with ID and Dr. Pearl from neurology. Patient is being changed to inpatient. 09/17/2022: In his recliner. Patient was spending DON, tomorrow. Remains on IV cefepime and vancomycin. Cultures be negative to now. Discussed with cardiology Dr. Boubacar Sosa-concern about septic emboli from cardiac vegetation.. CT abdomen pelvis unremarkable. Spiked fever this afternoon. 09/18/2022: Still spiking fevers. DON revealed no vegetation. Blood cultures remain negative to low. CT abdomen pelvis unremarkable. Patient tired. Discussed with at the bedside. WBC scan ordered. 09/19/2022: Patient has been spiking fevers. Blood cultures have been negative. DON was negative. Discussed ID. He will check intoHACEK organisms. We will also order MRI of the chest to look into the aortic root received is an abscess present there. Patient does feel rather tired. Discussed with the at the bedside. Antibiotic changed to IV Unasyn per ID. And by mouth Flagyl. 09/20/2022: Continues with low-grade fever. On IV Unasyn and Flagyl. Sitting up in chair. Eating. Discussed with . Pending WBC whole body scan and MRI angiogram chest with and without contrast to rule out any aortic valve abscess. 09/21. Patient seen and examined. Patient had fever overnight of 100.3 to 100.5. at the bedside 09/22. Patient seen and examined. Still having low-grade fevers. Discussed with ID, they recommended doing a repeat CT chest REVIEW OF SYSTEMS: CONSTITUTIONAL: Fevers overnight. CARDIOVASCULAR: No chest pain, no palpitations, no syncope. PULMONARY: No shortness of breath, no cough, GASTROINTESTINAL: No diarrhea, no nausea, no vomiting, no abdominal pain. NEUROLOGICAL: No headaches, no weakness, PHYSICAL EXAMINATION: GENERAL: The patient is alert and oriented x3, not in any acute distress. Well developed, well nourished. HEENT: Pupils are round and equally reacting to light. EOMI. No scleral icterus. No conjunctival pallor. Normocephalic, atraumatic. No pharyngeal erythema. No thyromegaly. CARDIOVASCULAR: S1 and S2 present. No murmurs, rubs, or gallops. PULMONARY: Chest is clear to auscultation, no wheezing or crackles. ABDOMEN: Soft, nontender, nondistended, normoactive bowel sounds. No palpable organomegaly. MUSCULOSKELETAL: No joint swelling or deformity. EXTREMITIES: No cyanosis, clubbing, or pedal edema. NEUROLOGICAL: Gross neurological examination did not reveal any focal deficits. SKIN: No rashes. Assessment and plan Acute metabolic encephalopathy. Sepsis MRI of the brain -showing embolic stroke in the right parietal area. DON - unremarkable. Computed tomography scan abdomen pelvis: Unremarkable. Blood cultures negative to now. Whole body WBC scan ordered CT chest ordered Continue IV antibiotics in the form of Rocephin Follow-up in ID recommendations -Acute stroke in the right parietal area on the right side. Continue aspirin and Eliquis Continue Lipitor Neurology following -Persistent atrial flutter with controlled rate conduction 3:1. Continue on eliquis. Tenormin. Flecainide. -Essential hypertension Cozaar. Hydrochlorothiazide. Tenormin. -Primary osteoarthritis Tylenol as needed -Sjogren's syndrome. Labs and medication were reviewed.. Continue same treatment. Continue with symptomatic treatment. Resume home medication. Monitor labs and vitals. DVT and GI prophylaxis. Further recommendations as per clinical course of the patient Dictation was produced using [id number] software. please excuse any grammatical, word or spelling errors. Objective - Vital Signs Vital signs: Vital Signs Temp 100.6 F H 09/22/22 11:01 Pulse 71 09/22/22 13:34 Resp 20 09/22/22 11:01 BP 143/87 09/22/22 11:01 Pulse Ox 93 L 09/22/22 11:01 FiO2 Intake & Output 09/21/22 09/22/22 09/22/22 18:59 06:59 18:59 Intake Total 120 300 Output Total 3050 2500 1050 Balance -2930 2500 -750 Weight 81.647 kg Intake: Oral 120 300 Output: Urine 3050 2500 1050 Other: Voiding Method Indwelling Catheter Indwelling Catheter Indwelling Catheter - Labs CBC & Chem 7: 09/22/22 08:35 09/22/22 08:35 Labs: Abnormal Lab Results - Last 24 Hours (Table) 09/21/22 09/22/22 09/22/22 Range/Units 22:43 08:35 08:35 RBC 3.52 L (4.30-5.90) m/uL Hgb 11.3 L (13.0-17.5) gm/dL Hct 33.7 L (39.0-53.0) % Lymphocytes # 0.7 L (1.0-4.8) k/uL Potassium 3.3 L (3.5-5.1) mmol/L Glucose 100 H (74-99) mg/dL Calcium 8.0 L (8.4-10.2) mg/dL C-Reactive Protein 5.8 H (<1.0) mg/dL Albumin 3.1 L (3.5-5.0) g/dL Urine Blood Small H (Negative) Urine RBC 23 H (0-5) /hpf Microbiology - Last 24 Hours (Table) 09/16/22 13:31 Blood Culture - Final Blood
--- NOTE | 2022-09-22 15:28 | P.PN ---
Subjective Progress Note Date: 09/21/22 Principal diagnosis: Fever Patient is a 82-year-old male with a past medical history significant for hypertension atrial fibrillation CVA TIA who was brought into the hospital for evaluation of ground-level fall and the patient that he was not acting like his usual self, patient did have a fever and abnormalities seen on the echocardiogram as well as MRI of the brain concerning for embolic phenomena. Patient did have a DON completed on 09/18/2022 didn't mention any vegetation On today's evaluation that is 09/21/2022 patient did spike a low-grade fever 100.3 degrees Fahrenheit this morning, the patient is breathing comfortably on room air the patient denies any headache no chest pain no shortness of breath or cough no abdominal pain no diarrhea. Patient did have a hemoglobin of 9.9, white count is 5.8 and creatinine is 0.68 Objective - Vital Signs Vital signs: Vital Signs Temp 100.3 F H 09/21/22 08:42 Pulse 70 09/21/22 08:42 Resp 18 09/21/22 08:42 BP 157/93 09/21/22 08:42 Pulse Ox 95 09/21/22 08:42 FiO2 Intake & Output 09/20/22 09/21/22 09/21/22 18:59 06:59 18:59 Intake Total 240 Output Total 1200 1900 1200 Balance -960 -1900 -1200 Intake: Oral 240 Output: Urine 1200 1900 1200 Stool 0 0 Other: Voiding Method Indwelling Catheter Indwelling Catheter Indwelling Catheter - Exam GENERAL DESCRIPTION: An elderly male lying in bed in no distress RESPIRATORY SYSTEM: Unlabored breathing , decreased breath sounds at bases HEART: S1 S2 regular rate and rhythm , ABDOMEN: Soft , no tenderness : No scrotal erythema or tenderness was noticed EXTREMITIES: No edema feet - Labs CBC & Chem 7: 09/22/22 08:35 09/22/22 08:35 Labs: Abnormal Lab Results - Last 24 Hours (Table) 09/21/22 09/21/22 Range/Units 07:19 07:19 RBC 3.00 L (4.30-5.90) m/uL Hgb 9.9 L D (13.0-17.5) gm/dL Hct 28.7 L (39.0-53.0) % Lymphocytes # 0.7 L (1.0-4.8) k/uL Sodium 135 L (137-145) mmol/L Potassium 3.4 L (3.5-5.1) mmol/L Chloride 108 H (98-107) mmol/L Calcium 7.2 L (8.4-10.2) mg/dL Total Protein 6.0 L (6.3-8.2) g/dL Albumin 2.7 L (3.5-5.0) g/dL Microbiology - Last 24 Hours (Table) 09/15/22 20:35 Blood Culture - Final Blood 09/15/22 20:36 Blood Culture - Final Blood Assessment and Plan (1) Fever Current Visit: Yes Status: Acute Code(s): R50.9 - FEVER, UNSPECIFIED SNOMED Code(s): 148249047 Plan: 1patient with a fever and this patient presented to hospital with a fall now with evidence of abnormal MRI head with 1 cm focus of cortical lesion embolic phenomena with question of possible septic versus nonseptic emboli and also have abnormality of the aorta on echocardiogram 2- patient did have elevated CRP however procalcitonin is normal, COVID PCR is negative 3-patient did have DON that was negative for any vegetation, the patient CT of abdominal pelvis was negative for any acute intra-abdominal process, CT was reviewed with the radiologist and he was concern for possible right-sided hydrocele and some inflammatory changes 4blood culture has been negative so far. Micro lab has been instructed to keep the blood cultures for longer time to rule out infection with HASEk pathogen 5patient WBC scan came back negative as per discussion with the radiologist will order ultrasound of the scrotal area, would also repeat his UA and repeat his Covid testing and check influenza PCR at the bedside and multiple questions concerned Dictation was produced using [employer] dictation software. please excuse any grammatical, word or spelling errors. Time with Patient: Greater than 30
--- NOTE | 2022-09-22 15:31 | P.PN ---
Subjective Progress Note Date: 09/22/22 Principal diagnosis: Fever Patient is a 82-year-old male with a past medical history significant for hypertension atrial fibrillation CVA TIA who was brought into the hospital for evaluation of ground-level fall and the patient that he was not acting like his usual self, patient did have a fever and abnormalities seen on the echocardiogram as well as MRI of the brain concerning for embolic phenomena. Patient did have a DON completed on 09/18/2022 didn't mention any vegetation On today's evaluation that is 09/22/2022 patient has been febrile, he did have a fever 100.6 this morning patient overall is feeling better he denies any headache patient is aware that he is in the hospital and is breathing comfortably on room air no chest pain or shortness of breath or cough no abdominal pain and no diarrhea Patient did have a hemoglobin of 11.3, white count is 6.5 and creatinine is 0.68 Objective - Vital Signs Vital signs: Vital Signs Temp 99.1 F 09/22/22 09:13 Pulse 70 09/22/22 09:13 Resp 20 09/22/22 09:13 BP 120/77 09/22/22 09:13 Pulse Ox 97 09/22/22 09:13 FiO2 Intake & Output 09/21/22 09/22/22 09/22/22 18:59 06:59 18:59 Intake Total 120 180 Output Total 3050 2500 Balance -2930 -2500 180 Weight 81.647 kg Intake: Oral 120 180 Output: Urine 3050 2500 Other: Voiding Method Indwelling Catheter Indwelling Catheter Indwelling Catheter - Exam GENERAL DESCRIPTION: An elderly male lying in bed in no distress RESPIRATORY SYSTEM: Unlabored breathing , decreased breath sounds at bases HEART: S1 S2 regular rate and rhythm , ABDOMEN: Soft , no tenderness : No scrotal erythema or tenderness was noticed EXTREMITIES: No edema feet - Labs CBC & Chem 7: 09/22/22 08:35 09/22/22 08:35 Labs: Abnormal Lab Results - Last 24 Hours (Table) 09/21/22 09/22/22 09/22/22 Range/Units 22:43 08:35 08:35 RBC 3.52 L (4.30-5.90) m/uL Hgb 11.3 L (13.0-17.5) gm/dL Hct 33.7 L (39.0-53.0) % Lymphocytes # 0.7 L (1.0-4.8) k/uL Potassium 3.3 L (3.5-5.1) mmol/L Glucose 100 H (74-99) mg/dL Calcium 8.0 L (8.4-10.2) mg/dL C-Reactive Protein 5.8 H (<1.0) mg/dL Albumin 3.1 L (3.5-5.0) g/dL Urine Blood Small H (Negative) Urine RBC 23 H (0-5) /hpf Microbiology - Last 24 Hours (Table) 09/16/22 13:31 Blood Culture - Final Blood Assessment and Plan (1) Fever Current Visit: Yes Status: Acute Code(s): R50.9 - FEVER, UNSPECIFIED SNOMED Code(s): 910761126 Plan: 1patient with a fever and this patient presented to hospital with a fall now with evidence of abnormal MRI head with 1 cm focus of cortical lesion embolic phenomena with question of possible septic however did have DON that was negative for any vegetation, the patient CT of abdominal pelvis was negative for any acute intra-abdominal process, CT was reviewed with the radiologist and he was concern for possible right-sided hydrocele and some inflammatory changes, ultrasound reported negative patient did have multiple blood culture those has been negative, patient did have a normal white count throughout his hospital stay concerning for possible noninfectious source for this fever possible central this was discussed with the neurologist to reevaluate the patient, CT of the chest will be done for better definition of aortic root to complete the workup and may need an LP to rule out possible encephalitis if neurologist agrees this has been explained to the patient in Layman terms 2-we will adjust his antibiotic to Rocephin and doxycycline and see clinical response Dictation was produced using [employer] dictation software. please excuse any grammatical, word or spelling errors. Time with Patient: Greater than 30
[2022-09-22] MEDS: amLODIPine 5 MG TAB PO PRN (20:58)
[2022-09-22] MEDS: atenoloL 50 MG TAB PO SCH (20:58)
[2022-09-22] MEDS: ATORVASTATIN 40 MG TAB PO SCH (20:58)
[2022-09-23 06:59] LABS: HCT 32.2 % (39.0-53.0); HGB 10.9 gm/dL (13.0-17.5); MCH 32.4 pg (25.0-35.0); MCV 95.4 fL (80.0-100.0); Mean Platelet Volume 8.8; Platelet Count 244 k/uL (150-450); RBC 3.38 m/uL (4.30-5.90); RDW 12.8 % (11.5-15.5); WBC 5.3 k/uL (3.8-10.6)
[2022-09-23 07:36] LABS: Albumin 3.1 g/dL (3.5-5.0); Glucose 95 mg/dL (74-99); Potassium 3.8 mmol/L (3.5-5.1); Sodium 138 mmol/L (137-145); Total Protein 6.8 g/dL (6.3-8.2)
[2022-09-23 07:38] LABS: ALT 35 U/L (4-49); AST 50 U/L (17-59); African American GFR (CKD) >90 (>60 ml/min/1.73 sqM); Alkaline Phosphatase 50 U/L (38-126); Blood Urea Nitrogen 10 mg/dL (9-20); Calcium 8.2 mg/dL (8.4-10.2); Carbon Dioxide 26 mmol/L (22-30); Non-African American GFR(CKD) 87 (>60 ml/min/1.73 sqM); Total Bilirubin 0.4 mg/dL (0.2-1.3)
[2022-09-23] MEDS: POTASSIUM CHLORIDE ER 10 MEQ TAB.ER.PRT PO SCH ×2 (08:28→20:41)
[2022-09-23] MEDS: LOSARTAN 50 MG TAB PO SCH (08:29)
[2022-09-23] MEDS: FLECAINIDE 50 MG TAB PO SCH ×2 (08:29→20:40)
[2022-09-23] MEDS: hydroCHLOROthiazide 25 MG TAB PO SCH (08:29)
[2022-09-23] MEDS: ASPIRIN 81 MG PO SCH (08:29)
[2022-09-23] MEDS: DOXYCYCLINE 100 MG CAP PO SCH ×2 (08:34→20:41)
[2022-09-23] MEDS: CEVIMELINE 30 MG CAP PO SCH ×3 (08:34→22:06)
[2022-09-23 08:41] LABS: Anion Gap 6 mmol/L; Chloride 106 mmol/L (98-107)
[2022-09-23 14:10] LABS: HSV I IgG Interp POSITIVE; HSV II IgG Interp Negative (Negative)
--- NOTE | 2022-09-23 14:22 | P.PN ---
Subjective Progress Note Date: 09/23/22 Patient was doing well up to yesterday morning when he woke up. As the day went along he started getting confused. Feeling weak. Started walking with support. Holding onto the kitchen table for example. When he went to urinate he did miss the band. He was finding it difficult to finishing sentences. He stated that Her most of the day. Which is very unusual as the patient is very active. No change in vision. No change in swallowing. Does feel better this morning. Patient had a similar episode about 3 weeks ago that was short-lived. Patient did have a stroke about 3 years ago with no residual. Underlying history of atrial flutter fibrillation. 09/16/2022: Patient spiked a fever of 102 last admin including rectal. Blood cultures were done. Concerns about infective endocarditis. ID and neurology on the case. Discussed with ID concern for infective endocarditis. Started on IV vancomycin and cefepime. MRI of the brain is showing the lesion on the right parietal. Patient's symptoms were rather generalized when she came in. Not focal. Hence D has been ordered to rule out endocarditis. This was discussed the patient and in the morning. Also discussed with ID and Dr. Pearl from neurology. Patient is being changed to inpatient. 09/17/2022: In his recliner. Patient was spending DON, tomorrow. Remains on IV cefepime and vancomycin. Cultures be negative to now. Discussed with cardiology Dr. Boubacar Sosa-concern about septic emboli from cardiac vegetation.. CT abdomen pelvis unremarkable. Spiked fever this afternoon. 09/18/2022: Still spiking fevers. DON revealed no vegetation. Blood cultures remain negative to low. CT abdomen pelvis unremarkable. Patient tired. Discussed with at the bedside. WBC scan ordered. 09/19/2022: Patient has been spiking fevers. Blood cultures have been negative. DON was negative. Discussed ID. He will check intoHACEK organisms. We will also order MRI of the chest to look into the aortic root received is an abscess present there. Patient does feel rather tired. Discussed with the at the bedside. Antibiotic changed to IV Unasyn per ID. And by mouth Flagyl. 09/20/2022: Continues with low-grade fever. On IV Unasyn and Flagyl. Sitting up in chair. Eating. Discussed with . Pending WBC whole body scan and MRI angiogram chest with and without contrast to rule out any aortic valve abscess. 09/21. Patient seen and examined. Patient had fever overnight of 100.3 to 100.5. at the bedside 09/22. Patient seen and examined. Still having low-grade fevers. Discussed with ID, they recommended doing a repeat CT chest 09/23. Patient seen and examined. No fevers overnight. ID recommended doing LP REVIEW OF SYSTEMS: CONSTITUTIONAL: Fevers overnight. CARDIOVASCULAR: No chest pain, no palpitations, no syncope. PULMONARY: No shortness of breath, no cough, GASTROINTESTINAL: No diarrhea, no nausea, no vomiting, no abdominal pain. NEUROLOGICAL: No headaches, no weakness, PHYSICAL EXAMINATION: GENERAL: The patient is alert and oriented x3, not in any acute distress. Well developed, well nourished. HEENT: Pupils are round and equally reacting to light. EOMI. No scleral icterus. No conjunctival pallor. Normocephalic, atraumatic. No pharyngeal erythema. No thyromegaly. CARDIOVASCULAR: S1 and S2 present. No murmurs, rubs, or gallops. PULMONARY: Chest is clear to auscultation, no wheezing or crackles. ABDOMEN: Soft, nontender, nondistended, normoactive bowel sounds. No palpable organomegaly. MUSCULOSKELETAL: No joint swelling or deformity. EXTREMITIES: No cyanosis, clubbing, or pedal edema. NEUROLOGICAL: Gross neurological examination did not reveal any focal deficits. SKIN: No rashes. Assessment and plan Acute metabolic encephalopathy. Sepsis MRI of the brain -showing embolic stroke in the right parietal area. DON - unremarkable. Computed tomography scan abdomen pelvis: Unremarkable. Blood cultures negative to now. CT chest done showed small amount of fluid in the pericardial recess and a trace pericardial effusion, no evidence for abscess within the mediastinum . No evidence OF pneumonia or the source of infection Continue IV antibiotics in the form of Rocephin and doxycycline LP ordered Follow-up in ID recommendations -Acute stroke in the right parietal area on the right side. Continue aspirin and Eliquis Continue Lipitor Neurology following -Persistent atrial flutter with controlled rate conduction 3:1. Continue on eliquis. Tenormin. Flecainide. -Essential hypertension Cozaar. Hydrochlorothiazide. Tenormin. -Primary osteoarthritis Tylenol as needed -Sjogren's syndrome. Labs and medication were reviewed.. Continue same treatment. Continue with symptomatic treatment. Resume home medication. Monitor labs and vitals. DVT and GI prophylaxis. Further recommendations as per clinical course of the patient Dictation was produced using [employer] dictation software. please excuse any grammatical, word or spelling errors. Objective - Vital Signs Vital signs: Vital Signs Temp 98.3 F 09/23/22 12:00 Pulse 59 L 09/23/22 12:00 Resp 16 09/23/22 12:00 BP 167/86 09/23/22 12:00 Pulse Ox 94 L 09/23/22 04:00 FiO2 Intake & Output 09/22/22 09/23/22 09/23/22 18:59 06:59 18:59 Intake Total 420 170 Output Total 1650 2375 700 Balance -1230 -2205 -700 Intake: Oral 420 170 Output: Urine 1650 2375 700 Uretheral (Peters) 1800 Stool 0 Other: Voiding Method Indwelling Catheter Indwelling Catheter Indwelling Catheter # Bowel Movements 1 - Labs CBC & Chem 7: 09/23/22 06:42 09/23/22 06:42 Labs: Abnormal Lab Results - Last 24 Hours (Table) 09/23/22 09/23/22 Range/Units 06:42 06:42 RBC 3.38 L (4.30-5.90) m/uL Hgb 10.9 L (13.0-17.5) gm/dL Hct 32.2 L (39.0-53.0) % Calcium 8.2 L (8.4-10.2) mg/dL Albumin 3.1 L (3.5-5.0) g/dL
--- NOTE | 2022-09-23 15:24 | FL ---
EXAMINATION TYPE: FL guided lumbar puncture LP DATE OF EXAM: 09/23/2022 COMPARISON: NONE HISTORY: Fever TECHNIQUE: Fluoroscopy. FINDINGS: Fluoroscopic guidance was provided during procedure performed by Dr. Carrera. A total of 59 seconds of fluoroscopic time was utilized during the procedure and 1 spot images was acquired. To yeni dose area product (DAP) in uGy*m?, mGy*cm? (or similar): . IMPRESSION: As Above.
[2022-09-23] MEDS: ACYCLOVIR SODIUM 800 MG in SODIUM CHLORIDE 0.9% 100 ML IVPB SCH ×2 (16:23→23:04)
--- NOTE | 2022-09-23 17:18 | P.PN ---
Subjective Progress Note Date: 09/23/22 The patient for the first time during this admission. Please refer to Dr. Dailey and Dr. Khan's note for further details. Per the patient she stated that the patient had the episode of confusion on 09/14/2022 as well as he had an episode of the confusion on 08/26/2022 but at on August he refused to get a detailed the neurologist workup and did not follow up with a neurologist as an outpatient. Per the patient's and he had a stroke about 2 years ago so this time around he had a confusion on 09/14/2022 he doesn't have any confusion. Patient denies of any headache currently, nausea vomiting. Patient no fevers recently that she recalls that. He is a former and the he has a rash dealing with plans but nothing unusual. Unsure if he had any tick bite animal bites at. No recent travel a. Patient denies of any focal weakness, numbness, visual disturbance, difficulty swallowing. Per the patient his mentation has improved. According to the and as stated earlier the patient is a former and was working on machines repairing them. No recent sick contacts. She had the stroke workup and it shows that he has a left MCA significant stenosis as well as as small stroke that's very small in size over the right parietal region. It seems that the patient continues to have fevers during this admission and the T-max during this admission of 102.9 no fever since midnight. He is on ceftriaxone 2 g every 24 hours. ID is on board and she had a lumbar puncture and pending results Objective - Vital Signs Vital signs: Vital Signs Temp 98.3 F 09/23/22 12:00 Pulse 67 09/23/22 15:05 Resp 16 09/23/22 14:45 BP 162/96 09/23/22 15:05 Pulse Ox 96 09/23/22 15:05 FiO2 Intake & Output 09/22/22 09/23/22 09/23/22 18:59 06:59 18:59 Intake Total 420 170 Output Total 1650 2375 700 Balance -9283 -5161 -700 Intake: Oral 420 170 Output: Urine 1650 2375 700 Uretheral (Peters) 1800 Stool 0 Other: Voiding Method Indwelling Catheter Indwelling Catheter Indwelling Catheter # Bowel Movements 1 - Exam General: Is lying in bed and is not in acute distress. Neuro: He is awake alert oriented to self place and time. The patient is following simple commands. No aphasia and no neglect. Pupils are round equal reactive to light. Visual kenney are full to consultation. Intraocular movement is intact. No facial weakness. No dysarthria. Motor strength is limited as since the patient's just had a lumbar puncture but is moving all upper extremity above gravity without any focality. Sensation is normal to touch throughout. 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 According to the he also had a similar episode of confusion on 08/26/2022 but refused detailed neurological evaluation. It seems that he had a small right parietal stroke but continues to have fever * Pyrexia with encephalopathy and elevated ESR: possible due to underlying meningoencephalitis. On MRI I felt the patient has a right meningeal enhancement--confusion resolved * Acute ischemic CVA, small size, right parietal cortical region. * Left MCA stenosis, severe, but asymptomatic, as the stroke is on the contralateral side. 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 Patient has very minimal residual deficits with some word finding problems at times. * Atrial fibrillation, on long-term treatment with Eliquis * Hypertension * New onset fevers, unclear cause. No obvious source identified. Plan: * Patient has developed new onset fever. Blood cultures so far negative. She had extensive workup and so far negative. I personally reviewed the MRI and I felt the patient had right meningeal enhancement. I attempted to contact radiology further second opinion no response and we'll attempt more. Patient had a lumbar puncture today and pending result. Patient is on ceftriaxone 2 g every 24 hours and I changed it to every 12 hours. I also started the patient on acyclovir 10mcg/kg every 8 hours. ID consult on board and has him on Doxycylcine 100mg bid. Defer medication modification to the ID team. * I ordered a repeat ESR, CRP. Ordered Herpes HSV1/2 IgM PCR, Lyme testing, [place], syphilis. * Patient has presented with an acute stroke, involving the right parietal cortical region. However MRA of the brain revealed left MCA stenosis, which is asymptomatic at this time. * Patient is already on Eliquis 5 mg twice a day and aspirin 81 mg daily. Eliquis held for LP. Please resume Eliquis once its safe. * CT abdomen and pelvis showed minimal compressive atelectasis, bilateral lung bases. Prostate hypertrophy. * Herpes HSV 2 IgG is negative. 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 Segura virus is not detected * DON 09/18/2022 showed no evidence of infective endocarditis identified. Normal left-ventricular systolic function. Dilated aortic root. Small circumferential pericardial effusion. * MRI of the brain revealed acute 1 cm focus of increased signal within the posterior right parietal cortical region on diffusion-weighted images suggestive of acute embolic process. * MRA of the brain revealed high-grade stenosis noted left MCA M1 segment alondra uring approximately 5.4 mm in length. Estimated stenosis at its most critical point is greater than 95%. * 2-D echo revealed normal left-ventricular size and systolic function with mild concentric LVH. EF is 55%. Left atrial size is normal. Moderate aortic insufficiency, enlarged aortic root of 4.6 cm. * EEG was abnormal due to background slowing of mild degree, suggestive of encephalopathy. No epileptiform activity was seen. * CTA of head and neck reveals short segment of high-grade stenosis of the left MCA M1 segment measuring approximately 6 mm in length with at least 90% stenosis. No evidence of dissection of the cervical internal carotid arteries or vertebral arteries or any evidence of significant stenosis of the carotid bifurcation. No evidence of intracranial aneurysm. Dominant left vertebral artery. * Agree with Dr. Dailey, to follow up outpatient with neuro intervention for left MCA stenosis. * Hemoglobin A1c 5.8, fasting lipid panel cholesterol 83, LDL 37, HDL 33 and triglycerides 61. Continue Lipitor 40 mg daily. The plan is discussed with patient, his who is at bedside, I.D. team and primary team. Time with Patient: Less than 30
[2022-09-23 18:40] LABS: Glucose,CSF 44 mg/dL (40-70); Total Protein,CSF 114 mg/dL (12-60)
[2022-09-23] MEDS: atenoloL 50 MG TAB PO SCH (20:40)
[2022-09-23] MEDS: ATORVASTATIN 40 MG TAB PO SCH (20:40)
--- NOTE | 2022-09-23 22:02 | P.PN ---
Subjective Progress Note Date: 09/23/22 Principal diagnosis: Fever Patient is a 82-year-old male with a past medical history significant for hypertension atrial fibrillation CVA TIA who was brought into the hospital for evaluation of ground-level fall and the patient that he was not acting like his usual self, patient did have a fever and abnormalities seen on the echocardiogram as well as MRI of the brain concerning for embolic phenomena. Patient did have a DON completed on 09/18/2022 didn't mention any vegetation On today's evaluation that is 09/23/2022 the patient is afebrile today last temperature was 100 degrees forearm height 8 PM last night no fever since then had the patient is breathing comfortably on room air denies any chest pain shortness of breath or cough no abdominal pain or diarrhea. 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 currently waiting for the LP Objective - Vital Signs Vital signs: Vital Signs Temp 98.2 F 09/23/22 08:00 Pulse 60 09/23/22 08:00 Resp 16 09/23/22 08:00 BP 169/92 09/23/22 08:00 Pulse Ox 94 L 09/23/22 04:00 FiO2 Intake & Output 09/22/22 09/23/22 09/23/22 18:59 06:59 18:59 Intake Total 420 170 Output Total 1650 2375 Balance -1230 -2205 Intake: Oral 420 170 Output: Urine 1650 2375 Uretheral (Peters) 1800 Other: Voiding Method Indwelling Catheter Indwelling Catheter # Bowel Movements 1 - Exam GENERAL DESCRIPTION: An elderly male lying in bed in no distress RESPIRATORY SYSTEM: Unlabored breathing , decreased breath sounds at bases HEART: S1 S2 regular rate and rhythm , ABDOMEN: Soft , no tenderness : No scrotal erythema or tenderness was noticed EXTREMITIES: No edema feet - Labs CBC & Chem 7: 09/23/22 06:42 09/23/22 06:42 Labs: Abnormal Lab Results - Last 24 Hours (Table) 09/23/22 09/23/22 Range/Units 06:42 06:42 RBC 3.38 L (4.30-5.90) m/uL Hgb 10.9 L (13.0-17.5) gm/dL Hct 32.2 L (39.0-53.0) % Calcium 8.2 L (8.4-10.2) mg/dL Albumin 3.1 L (3.5-5.0) g/dL Assessment and Plan (1) Fever Current Visit: Yes Status: Acute Code(s): R50.9 - FEVER, UNSPECIFIED SNOMED Code(s): 506384730 Plan: 1patient with a fever and this patient presented to hospital with a fall now with evidence of abnormal MRI head with 1 cm focus of cortical lesion embolic phenomena with question of possible septic however did have DON that was negative for any vegetation, the patient CT of abdominal pelvis was negative for any acute intra-abdominal process, CT was reviewed with the radiologist and he was concern for possible right-sided hydrocele and some inflammatory changes, ultrasound reported negative patient did have multiple blood culture those has been negative, patient did have a normal white count throughout his hospital stay concerning for possible noninfectious source for this fever possible central , the patient, CT of the chest Did not show any pneumonia or mycotic aneurysm to the aortic root patient is currently waiting for the LP. 2continue patient on Rocephin and doxycycline and monitor clinical response at the bedside multiple questions were answered Dictation was produced using [employer] dictation software. please excuse any grammatical, word or spelling errors. Time with Patient: Greater than 30
[2022-09-23 22:27] LABS: Appearance,CSF Clear; CSF Tube Number 4; Nucleated Cells, CSF 1 u/L (0-5); Red Blood Cell,CSF 1 u/L (0-10)
[2022-09-24] MEDS: ACYCLOVIR SODIUM 800 MG in SODIUM CHLORIDE 0.9% 100 ML IVPB SCH ×3 (08:33→23:29)
[2022-09-24] MEDS: LOSARTAN 50 MG TAB PO SCH (08:34)
[2022-09-24] MEDS: ASPIRIN 81 MG PO SCH (08:34)
[2022-09-24] MEDS: hydroCHLOROthiazide 25 MG TAB PO SCH (08:35)
[2022-09-24] MEDS: FLECAINIDE 50 MG TAB PO SCH ×2 (08:35→20:54)
[2022-09-24] MEDS: POTASSIUM CHLORIDE ER 10 MEQ TAB.ER.PRT PO SCH ×2 (08:35→20:54)
[2022-09-24] MEDS: DOXYCYCLINE 100 MG CAP PO SCH ×2 (08:36→20:55)
[2022-09-24] MEDS: CEVIMELINE 30 MG CAP PO SCH ×3 (08:36→20:55)
--- NOTE | 2022-09-24 14:09 | P.PN ---
Subjective Progress Note Date: 09/24/22 Patient was doing well up to yesterday morning when he woke up. As the day went along he started getting confused. Feeling weak. Started walking with support. Holding onto the kitchen table for example. When he went to urinate he did miss the band. He was finding it difficult to finishing sentences. He stated that Her most of the day. Which is very unusual as the patient is very active. No change in vision. No change in swallowing. Does feel better this morning. Patient had a similar episode about 3 weeks ago that was short-lived. Patient did have a stroke about 3 years ago with no residual. Underlying history of atrial flutter fibrillation. 09/16/2022: Patient spiked a fever of 102 last admin including rectal. Blood cultures were done. Concerns about infective endocarditis. ID and neurology on the case. Discussed with ID concern for infective endocarditis. Started on IV vancomycin and cefepime. MRI of the brain is showing the lesion on the right parietal. Patient's symptoms were rather generalized when she came in. Not focal. Hence D has been ordered to rule out endocarditis. This was discussed the patient and in the morning. Also discussed with ID and Dr. Pearl from neurology. Patient is being changed to inpatient. 09/17/2022: In his recliner. Patient was spending DON, tomorrow. Remains on IV cefepime and vancomycin. Cultures be negative to now. Discussed with cardiology Dr. Boubacar Sosa-concern about septic emboli from cardiac vegetation.. CT abdomen pelvis unremarkable. Spiked fever this afternoon. 09/18/2022: Still spiking fevers. DON revealed no vegetation. Blood cultures remain negative to low. CT abdomen pelvis unremarkable. Patient tired. Discussed with at the bedside. WBC scan ordered. 09/19/2022: Patient has been spiking fevers. Blood cultures have been negative. DON was negative. Discussed ID. He will check intoHACEK organisms. We will also order MRI of the chest to look into the aortic root received is an abscess present there. Patient does feel rather tired. Discussed with the at the bedside. Antibiotic changed to IV Unasyn per ID. And by mouth Flagyl. 09/20/2022: Continues with low-grade fever. On IV Unasyn and Flagyl. Sitting up in chair. Eating. Discussed with . Pending WBC whole body scan and MRI angiogram chest with and without contrast to rule out any aortic valve abscess. 09/21. Patient seen and examined. Patient had fever overnight of 100.3 to 100.5. at the bedside 09/22. Patient seen and examined. Still having low-grade fevers. Discussed with ID, they recommended doing a repeat CT chest 09/23. Patient seen and examined. No fevers overnight. ID recommended doing LP 09/24. Patient seen and examined. Fevers have improved REVIEW OF SYSTEMS: CONSTITUTIONAL: As mentioned above CARDIOVASCULAR: No chest pain, no palpitations, no syncope. PULMONARY: No shortness of breath, no cough, GASTROINTESTINAL: No diarrhea, no nausea, no vomiting, no abdominal pain. NEUROLOGICAL: No headaches, no weakness, PHYSICAL EXAMINATION: GENERAL: The patient is alert and oriented x3, not in any acute distress. Well developed, well nourished. HEENT: Pupils are round and equally reacting to light. EOMI. No scleral icterus. No conjunctival pallor. Normocephalic, atraumatic. No pharyngeal erythema. No thyromegaly. CARDIOVASCULAR: S1 and S2 present. No murmurs, rubs, or gallops. PULMONARY: Chest is clear to auscultation, no wheezing or crackles. ABDOMEN: Soft, nontender, nondistended, normoactive bowel sounds. No palpable organomegaly. MUSCULOSKELETAL: No joint swelling or deformity. EXTREMITIES: No cyanosis, clubbing, or pedal edema. NEUROLOGICAL: Gross neurological examination did not reveal any focal deficits. SKIN: No rashes. Assessment and plan Acute metabolic encephalopathy. Sepsis MRI of the brain -showing embolic stroke in the right parietal area. DON - unremarkable. Computed tomography scan abdomen pelvis: Unremarkable. Blood cultures negative to now. CT chest done showed small amount of fluid in the pericardial recess and a trace pericardial effusion, no evidence for abscess within the mediastinum . No evidence OF pneumonia or the source of infection Continue IV antibiotics in the form of Rocephin and doxycycline LP results reviewed, no evidence of any meningitis Neurology Ordered Herpes HSV1/2 IgM PCR, Lyme testing, [place], syphilis. Follow-up in ID recommendations -Acute stroke in the right parietal area on the right side. Continue aspirin and Eliquis Continue Lipitor Neurology following -Persistent atrial flutter with controlled rate conduction 3:1. Continue on eliquis. Tenormin. Flecainide. -Essential hypertension Cozaar. Hydrochlorothiazide. Tenormin. -Primary osteoarthritis Tylenol as needed -Sjogren's syndrome. Labs and medication were reviewed.. Continue same treatment. Continue with symptomatic treatment. Resume home medication. Monitor labs and vitals. DVT and GI prophylaxis. Further recommendations as per clinical course of the patient Dictation was produced using [employer] dictation software. please excuse any grammatical, word or spelling errors. Objective - Vital Signs Vital signs: Vital Signs Temp 98.4 F 09/24/22 12:00 Pulse 67 09/24/22 12:00 Resp 16 09/24/22 12:00 BP 146/81 09/24/22 12:00 Pulse Ox 95 09/24/22 08:00 FiO2 Intake & Output 09/23/22 09/24/22 09/24/22 18:59 06:59 18:59 Intake Total 0 740 Output Total 700 1550 0 Balance -700 -1550 740 Intake: Intake, IV Titration 150 Amount Acyclovir Sodium 800 mg 100 In Sodium Chloride 0.9% 100 ml @ 100 mls/hr IVPB Q8HR [facility] Rx#:[id number] cefTRIAXone 2 gm In 50 Sodium Chloride 0.9% 50 ml @ 100 mls/hr IVPB Q24HR [facility] Rx#:[id number] Oral 0 590 Output: Urine 700 1550 Stool 0 0 0 Other: Voiding Method Indwelling Catheter Indwelling Catheter Indwelling Catheter # Bowel Movements 1 - Labs CBC & Chem 7: 09/23/22 06:42 09/23/22 06:42 Labs: Abnormal Lab Results - Last 24 Hours (Table) 09/22/22 09/23/22 09/23/22 Range/Units 15:01 06:42 07:00 ESR 97 H (0-15) mm/hr C-Reactive Protein 5.5 H (<1.0) mg/dL CSF Total Protein 114 H (12-60) mg/dL Microbiology - Last 24 Hours (Table) 09/22/22 08:35 Blood Culture - Preliminary Blood
--- NOTE | 2022-09-24 15:01 | P.PN ---
Subjective Progress Note Date: 09/24/22 Patient seen at bedside and he is accompanied with his . The patient states he is doing well and denies of any headache, nausea, neck pain any focal weakness or numbness or any difficulty swallowing. No further confusion. Patient continues not to have any further fevers Objective - Vital Signs Vital signs: Vital Signs Temp 98.4 F 09/24/22 12:00 Pulse 67 09/24/22 12:00 Resp 16 09/24/22 12:00 BP 146/81 09/24/22 12:00 Pulse Ox 95 09/24/22 08:00 FiO2 Intake & Output 09/23/22 09/24/22 09/24/22 18:59 06:59 18:59 Intake Total 0 740 Output Total 700 1550 0 Balance -700 -1550 740 Intake: Intake, IV Titration 150 Amount Acyclovir Sodium 800 mg 100 In Sodium Chloride 0.9% 100 ml @ 100 mls/hr IVPB Q8HR [facility] Rx#:[id number] cefTRIAXone 2 gm In 50 Sodium Chloride 0.9% 50 ml @ 100 mls/hr IVPB Q24HR [facility] Rx#:[id number] Oral 0 590 Output: Urine 700 1550 Stool 0 0 0 Other: Voiding Method Indwelling Catheter Indwelling Catheter Indwelling Catheter # Bowel Movements 1 - Exam General: Is lying in bed and is not in acute distress. Neuro: He is awake alert oriented to self place and time. The patient is following simple commands. No aphasia and no neglect. Pupils are round equal reactive to light. Visual kenney are full to consultation. Intraocular movement is intact. No facial weakness. No dysarthria. Motor strength is less than all extremities above gravity and no focality. Sensation is normal to touch throughout. Cerebellar: Is normal finger to nose and there is no ataxia or dysmetria. 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 According to the he also had a similar episode of confusion on 08/26/2022 but refused detailed neurological evaluation. It seems that he had a small right parietal stroke but continues to have fever * Pyrexia with encephalopathy and elevated ESR: ?encephalitis. Does not appear meningitis. On MRI I felt the patient has a right meningeal enhancement--confusion resolved. CSF study is nulceated cells is 1, clear, colorless. Clinically no further confusion, headaches or any focal deficits. * Acute ischemic CVA, small size, right parietal cortical region. * Left MCA stenosis, severe, but asymptomatic, as the stroke is on the contralateral side. 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 Patient has very minimal residual deficits with some word finding problems at times. * Atrial fibrillation, on long-term treatment with Eliquis * Hypertension * New onset fevers, unclear cause. No obvious source identified. Plan: * Patient has developed new onset fever. Blood cultures so far negative. She had extensive workup and so far negative. I personally reviewed the MRI and I felt the patient had right meningeal enhancement. I attempted to contact radiology today again and no response. Patient is on ceftriaxone 2 g every 24 hours aand acyclovir 10mcg/kg every 8 hours. ID consult on board and has him on Doxycylcine 100mg bid. Defer medication modification to the ID team. * Pending Herpes HSV1/2 IgM PCR, Lyme testing, [place], syphilis. * ESR is trending up from 80 to 97. CRP is 5.5--5.8. Recommend in a couple days to trend ESR and CRP. * Patient has presented with an acute stroke, involving the right parietal cortical region. However MRA of the brain revealed left MCA stenosis, which is asymptomatic at this time. * Patient home Eliquis 5 mg twice a day for his A-fib was resumed by primary. Per , other neurologist on our team recommended switching his home ASA to Plavix. I stopped his home ASA and will start Plavix 75mg daily since had stroke while on ASA and Eliquis. * CT abdomen and pelvis showed minimal compressive atelectasis, bilateral lung bases. Prostate hypertrophy. * Herpes HSV 2 IgG is negative. 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 Segura virus is not detected * DON 09/18/2022 showed no evidence of infective endocarditis identified. Normal left-ventricular systolic function. Dilated aortic root. Small circumferential pericardial effusion. * MRI of the brain revealed acute 1 cm focus of increased signal within the posterior right parietal cortical region on diffusion-weighted images suggestive of acute embolic process. * MRA of the brain revealed high-grade stenosis noted left MCA M1 segment measuring approximately 5.4 mm in length. Estimated stenosis at its most critical point is greater than 95%. * 2-D echo revealed normal left-ventricular size and systolic function with mild concentric LVH. EF is 55%. Left atrial size is normal. Moderate aortic insufficiency, enlarged aortic root of 4.6 cm. * EEG was abnormal due to background slowing of mild degree, suggestive of encephalopathy. No epileptiform activity was seen. * CTA of head and neck reveals short segment of high-grade stenosis of the left MCA M1 segment measuring approximately 6 mm in length with at least 90% stenosis. No evidence of dissection of the cervical internal carotid arteries or vertebral arteries or any evidence of significant stenosis of the carotid bifurcation. No evidence of intracranial aneurysm. Dominant left vertebral artery. * Agree with Dr. Dailey, to follow up outpatient with neuro intervention for left MCA stenosis. * Hemoglobin A1c 5.8, fasting lipid panel cholesterol 83, LDL 37, HDL 33 and triglycerides 61. Continue Lipitor 40 mg daily. * For DVT prophylaxis: On eliquis. The plan is discussed with patient, his who is at bedside, I.D. team and primary team. Time with Patient: Less than 30
[2022-09-24] MEDS: ATORVASTATIN 40 MG TAB PO SCH (20:54)
[2022-09-24] MEDS: APIXABAN 5 MG TAB PO SCH (20:54)
[2022-09-24] MEDS: atenoloL 50 MG TAB PO SCH (20:54)
[2022-09-25] MEDS: ACYCLOVIR SODIUM 800 MG in SODIUM CHLORIDE 0.9% 100 ML IVPB SCH (08:22)
[2022-09-25] MEDS: CLOPIDOGREL 75 MG TAB PO SCH (08:23)
[2022-09-25] MEDS: LOSARTAN 50 MG TAB PO SCH (08:23)
[2022-09-25] MEDS: APIXABAN 5 MG TAB PO SCH ×2 (08:24→20:50)
[2022-09-25] MEDS: hydroCHLOROthiazide 25 MG TAB PO SCH (08:24)
[2022-09-25] MEDS: CEVIMELINE 30 MG CAP PO SCH ×3 (08:24→20:51)
[2022-09-25] MEDS: DOXYCYCLINE 100 MG CAP PO SCH ×2 (08:24→20:51)
[2022-09-25] MEDS: FLECAINIDE 50 MG TAB PO SCH ×2 (08:24→20:50)
[2022-09-25] MEDS: POTASSIUM CHLORIDE ER 10 MEQ TAB.ER.PRT PO SCH ×2 (08:24→20:50)
--- NOTE | 2022-09-25 08:51 | P.PN ---
Subjective Progress Note Date: 09/24/22 Principal diagnosis: Fever Patient is a 82-year-old male with a past medical history significant for hypertension atrial fibrillation CVA TIA who was brought into the hospital for evaluation of ground-level fall and the patient that he was not acting like his usual self, patient did have a fever and abnormalities seen on the echocardiogram as well as MRI of the brain concerning for embolic phenomena. Patient did have a DON completed on 09/18/2022 didn't mention any vegetation On today's evaluation that is 09/24/2022, the patient remains to be afebrile, the patient is breathing comfortably no chest pain no shortness of breath or cough no abdominal pain no diarrhea. No blood work has been done today CBC was completed yesterday did have a normal white count glucose was 44 protein was mild elevated 114 rest of the CSF studies are currently pending Objective - Vital Signs Vital signs: Vital Signs Temp 98.4 F 09/24/22 08:00 Pulse 65 09/24/22 08:00 Resp 16 09/24/22 08:00 BP 143/91 09/24/22 08:00 Pulse Ox 95 09/24/22 08:00 FiO2 Intake & Output 09/23/22 09/24/22 09/24/22 18:59 06:59 18:59 Intake Total 0 110 Output Total 700 1550 Balance -700 -1550 110 Intake: Oral 0 110 Output: Urine 700 1550 Stool 0 0 Other: Voiding Method Indwelling Catheter Indwelling Catheter # Bowel Movements 1 - Exam GENERAL DESCRIPTION: An elderly male lying in bed in no distress RESPIRATORY SYSTEM: Unlabored breathing , decreased breath sounds at bases HEART: S1 S2 regular rate and rhythm , ABDOMEN: Soft , no tenderness : No scrotal erythema or tenderness was noticed EXTREMITIES: No edema feet - Labs CBC & Chem 7: 09/23/22 06:42 09/23/22 06:42 Labs: Abnormal Lab Results - Last 24 Hours (Table) 09/22/22 09/23/22 09/23/22 Range/Units 15:01 06:42 07:00 ESR 97 H (0-15) mm/hr C-Reactive Protein 5.5 H (<1.0) mg/dL CSF Total Protein 114 H (12-60) mg/dL Microbiology - Last 24 Hours (Table) 09/22/22 08:35 Blood Culture - Preliminary Blood Assessment and Plan (1) Fever Current Visit: Yes Status: Acute Code(s): R50.9 - FEVER, UNSPECIFIED SNOMED Code(s): 464186620 Plan: 1patient with a fever and this patient presented to hospital with a fall now with evidence of abnormal MRI head with 1 cm focus of cortical lesion embolic phenomena with question of possible septic however did have DON that was negative for any vegetation, the patient CT of abdominal pelvis was negative for any acute intra-abdominal process, CT was reviewed with the radiologist and he was concern for possible right-sided hydrocele and some inflammatory changes, ultrasound reported negative patient did have multiple blood culture those has been negative, patient did have a normal white count throughout his hospital stay concerning for possible noninfectious source for this fever possible central , the patient, CT of the chest Did not show any pneumonia or mycotic aneurysm to the aortic root , Patient did have LP only mild elevated protein rest of the studies has been normal some of the studies are currently pending. 2we will continue patient on Rocephin and doxycycline acyclovir added by neurology to continue while waiting for the work-up to be completed and monitor clinical course closely Dictation was produced using [employer] dictation software. please excuse any grammatical, word or spelling errors. Time with Patient: Less than 30
[2022-09-25] MEDS: ACETAMINOPHEN TAB 500 MG TAB PO PRN (12:28)
[2022-09-25 12:41] LABS: VDRL, Qualitative CSF Nonreactive (Nonreactive)
--- NOTE | 2022-09-25 13:02 | P.PN ---
Subjective Progress Note Date: 09/25/22 Patient was doing well up to yesterday morning when he woke up. As the day went along he started getting confused. Feeling weak. Started walking with support. Holding onto the kitchen table for example. When he went to urinate he did miss the band. He was finding it difficult to finishing sentences. He stated that Her most of the day. Which is very unusual as the patient is very active. No change in vision. No change in swallowing. Does feel better this morning. Patient had a similar episode about 3 weeks ago that was short-lived. Patient did have a stroke about 3 years ago with no residual. Underlying history of atrial flutter fibrillation. 09/16/2022: Patient spiked a fever of 102 last admin including rectal. Blood cultures were done. Concerns about infective endocarditis. ID and neurology on the case. Discussed with ID concern for infective endocarditis. Started on IV vancomycin and cefepime. MRI of the brain is showing the lesion on the right parietal. Patient's symptoms were rather generalized when she came in. Not focal. Hence D has been ordered to rule out endocarditis. This was discussed the patient and in the morning. Also discussed with ID and Dr. Pearl from neurology. Patient is being changed to inpatient. 09/17/2022: In his recliner. Patient was spending DON, tomorrow. Remains on IV cefepime and vancomycin. Cultures be negative to now. Discussed with cardiology Dr. Boubacar Sosa-concern about septic emboli from cardiac vegetation.. CT abdomen pelvis unremarkable. Spiked fever this afternoon. 09/18/2022: Still spiking fevers. DON revealed no vegetation. Blood cultures remain negative to low. CT abdomen pelvis unremarkable. Patient tired. Discussed with at the bedside. WBC scan ordered. 09/19/2022: Patient has been spiking fevers. Blood cultures have been negative. DON was negative. Discussed ID. He will check intoHACEK organisms. We will also order MRI of the chest to look into the aortic root received is an abscess present there. Patient does feel rather tired. Discussed with the at the bedside. Antibiotic changed to IV Unasyn per ID. And by mouth Flagyl. 09/20/2022: Continues with low-grade fever. On IV Unasyn and Flagyl. Sitting up in chair. Eating. Discussed with . Pending WBC whole body scan and MRI angiogram chest with and without contrast to rule out any aortic valve abscess. 09/21. Patient seen and examined. Patient had fever overnight of 100.3 to 100.5. at the bedside 09/22. Patient seen and examined. Still having low-grade fevers. Discussed with ID, they recommended doing a repeat CT chest 09/23. Patient seen and examined. No fevers overnight. ID recommended doing LP 09/24. Patient seen and examined. Fevers have improved 09/25. Patient seen and examined. No acute issues overnight. Vital signs stable REVIEW OF SYSTEMS: CONSTITUTIONAL: As mentioned above CARDIOVASCULAR: No chest pain, no palpitations, no syncope. PULMONARY: No shortness of breath, no cough, GASTROINTESTINAL: No diarrhea, no nausea, no vomiting, no abdominal pain. NEUROLOGICAL: No headaches, no weakness, PHYSICAL EXAMINATION: GENERAL: The patient is alert and oriented x3, not in any acute distress. Well developed, well nourished. HEENT: Pupils are round and equally reacting to light. EOMI. No scleral icterus. No conjunctival pallor. Normocephalic, atraumatic. No pharyngeal erythema. No thyromegaly. CARDIOVASCULAR: S1 and S2 present. No murmurs, rubs, or gallops. PULMONARY: Chest is clear to auscultation, no wheezing or crackles. ABDOMEN: Soft, nontender, nondistended, normoactive bowel sounds. No palpable organomegaly. MUSCULOSKELETAL: No joint swelling or deformity. EXTREMITIES: No cyanosis, clubbing, or pedal edema. NEUROLOGICAL: Gross neurological examination did not reveal any focal deficits. SKIN: No rashes. Assessment and plan Acute metabolic encephalopathy. Sepsis MRI of the brain -showing embolic stroke in the right parietal area. DON - unremarkable. Computed tomography scan abdomen pelvis: Unremarkable. Blood cultures negative to now. CT chest done showed small amount of fluid in the pericardial recess and a trace pericardial effusion, no evidence for abscess within the mediastinum . No evidence OF pneumonia or the source of infection Continue IV antibiotics in the form of Rocephin and doxycycline, acyclovir LP results reviewed, no evidence of any meningitis Neurology Ordered Herpes HSV1/2 IgM PCR, Lyme testing, [place], syphilis. Follow-up in ID recommendations -Acute stroke in the right parietal area on the right side. Continue Plavix and Eliquis Continue Lipitor Neurology following -Persistent atrial flutter with controlled rate conduction 3:1. Continue on eliquis. Tenormin. Flecainide. -Essential hypertension Cozaar. Hydrochlorothiazide. Tenormin. -Primary osteoarthritis Tylenol as needed -Sjogren's syndrome. Labs and medication were reviewed.. Continue same treatment. Continue with symptomatic treatment. Resume home medication. Monitor labs and vitals. DVT and GI prophylaxis. Further recommendations as per clinical course of the patient Dictation was produced using [employer] dictation software. please excuse any grammatical, word or spelling errors. Objective - Vital Signs Vital signs: Vital Signs Temp 98.1 F 09/24/22 20:00 Pulse 78 09/25/22 12:00 Resp 16 09/25/22 12:00 BP 159/98 09/25/22 12:00 Pulse Ox 97 09/25/22 12:00 FiO2 Intake & Output 09/24/22 09/25/22 09/25/22 18:59 06:59 18:59 Intake Total 850 780 360 Output Total 0 2075 0 Balance 850 -1295 360 Intake: Intake, IV Titration 150 Amount Acyclovir Sodium 800 mg 100 In Sodium Chloride 0.9% 100 ml @ 100 mls/hr IVPB Q8HR [facility] Rx#:[id number] cefTRIAXone 2 gm In 50 Sodium Chloride 0.9% 50 ml @ 100 mls/hr IVPB Q24HR [facility] Rx#:[id number] Oral 700 780 360 Output: Urine 2075 Stool 0 0 Other: Voiding Method Indwelling Catheter Indwelling Catheter Indwelling Catheter # Bowel Movements 1 - Labs CBC & Chem 7: 09/23/22 06:42 09/23/22 06:42 Labs: Microbiology - Last 24 Hours (Table) 09/22/22 15:01 CSF Gram Stain - Preliminary Cerebral Spinal Fluid CSF Culture - Preliminary 09/22/22 08:35 Blood Culture - Preliminary Blood
--- NOTE | 2022-09-25 15:56 | P.PN ---
Subjective Progress Note Date: 09/25/22 Principal diagnosis: Fever Patient is a 82-year-old male with a past medical history significant for hypertension atrial fibrillation CVA TIA who was brought into the hospital for evaluation of ground-level fall and the patient that he was not acting like his usual self, patient did have a fever and abnormalities seen on the echocardiogram as well as MRI of the brain concerning for embolic phenomena. Patient did have a DON completed on 09/18/2022 didn't mention any vegetation On today's evaluation that is 09/25/2022, the patient remains to be afebrile, the patient is breathing comfortably on room air. Denies having any headache no chest pain or shortness of breath or cough no abdominal pain and no diarrhea. Patient did not have any blood draw today, culture has been negative, CSF PCR came back negative for viruses Objective - Vital Signs Vital signs: Vital Signs Temp 98.1 F 09/24/22 20:00 Pulse 78 09/25/22 12:00 Resp 16 09/25/22 12:00 BP 159/98 09/25/22 12:00 Pulse Ox 97 09/25/22 12:00 FiO2 Intake & Output 09/24/22 09/25/22 09/25/22 18:59 06:59 18:59 Intake Total 850 780 360 Output Total 0 2075 0 Balance 850 -1295 360 Intake: Intake, IV Titration 150 Amount Acyclovir Sodium 800 mg 100 In Sodium Chloride 0.9% 100 ml @ 100 mls/hr IVPB Q8HR [facility] Rx#:[id number] cefTRIAXone 2 gm In 50 Sodium Chloride 0.9% 50 ml @ 100 mls/hr IVPB Q24HR [facility] Rx#:[id number] Oral 700 780 360 Output: Urine 2075 Stool 0 0 Other: Voiding Method Indwelling Catheter Indwelling Catheter Indwelling Catheter # Bowel Movements 1 - Exam GENERAL DESCRIPTION: An elderly male lying in bed in no distress RESPIRATORY SYSTEM: Unlabored breathing , decreased breath sounds at bases HEART: S1 S2 regular rate and rhythm , ABDOMEN: Soft , no tenderness : No scrotal erythema or tenderness was noticed EXTREMITIES: No edema feet - Labs CBC & Chem 7: 09/23/22 06:42 09/23/22 06:42 Labs: Microbiology - Last 24 Hours (Table) 09/22/22 15:01 CSF Gram Stain - Preliminary Cerebral Spinal Fluid CSF Culture - Preliminary 09/22/22 08:35 Blood Culture - Preliminary Blood Assessment and Plan (1) Fever Current Visit: Yes Status: Acute Code(s): R50.9 - FEVER, UNSPECIFIED SNOMED Code(s): 670499994 Plan: 1patient with a fever and this patient presented to hospital with a fall now with evidence of abnormal MRI head with 1 cm focus of cortical lesion embolic phenomena with question of possible septic however did have DON that was negative for any vegetation, the patient CT of abdominal pelvis was negative for any acute intra-abdominal process, CT was reviewed with the radiologist and he was concern for possible right-sided hydrocele and some inflammatory changes, ultrasound reported negative patient did have multiple blood culture those has been negative, patient did have a normal white count throughout his hospital stay concerning for possible noninfectious source for this fever possible central , the patient, CT of the chest Did not show any pneumonia or mycotic an eurysm to the aortic root , Patient did have LP only mild elevated protein rest of the studies has been normal , CSF PCR came back negative for viruses 2we will continue patient on Rocephin and doxycycline however we'll discontinue acyclovir, possible plan for oral doxycycline on discharge and close out patient follow-up Dictation was produced using [employer] dictation software. please excuse any gr ammatical, word or spelling errors. Time with Patient: Less than 30
--- NOTE | 2022-09-25 17:27 | P.PN ---
Subjective Progress Note Date: 09/25/22 The patient seen at bedside in he's in a recliner chair a computer with his he is having these states very mild headache but would not localize them but stated mild and improved with Tylenol. Otherwise denies of any new neurological issues. Objective - Vital Signs Vital signs: Vital Signs Temp 98.9 F 09/25/22 16:00 Pulse 69 09/25/22 16:00 Resp 16 09/25/22 16:00 BP 152/91 09/25/22 16:00 Pulse Ox 97 09/25/22 12:00 FiO2 Intake & Output 09/24/22 09/25/22 09/25/22 18:59 06:59 18:59 Intake Total 850 780 600 Output Total 0 2075 0 Balance 850 -1295 600 Intake: Intake, IV Titration 150 Amount Acyclovir Sodium 800 mg 100 In Sodium Chloride 0.9% 100 ml @ 100 mls/hr IVPB Q8HR [facility] Rx#:[id number] cefTRIAXone 2 gm In 50 Sodium Chloride 0.9% 50 ml @ 100 mls/hr IVPB Q24HR [facility] Rx#:[id number] Oral 700 780 600 Output: Urine 2075 Stool 0 0 Other: Voiding Method Indwelling Catheter Indwelling Catheter Indwelling Catheter # Bowel Movements 1 - Exam General: Is sitting in a recliner chair and is not in acute distress. Neuro: He is awake alert oriented to self place and time. The patient is following simple commands. No aphasia and no neglect. Pupils are round equal reactive to light. Visual kenney are full to consultation. Intraocular movement is intact. No facial weakness. No dysarthria. Motor strength is less than all extremities above gravity and no focality. Sensation is normal to touch throughout. Cerebellar: Is normal finger to nose and there is no ataxia or dysmetria. 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 According to the he also had a similar episode of confusion on 08/26/2022 but refused detailed neurological evaluation. It seems that he had a small right parietal stroke but continues to have fever * Pyrexia with encephalopathy and elevated ESR: ?encephalitis. Cannot rule out ?vasculitis. Does not appear meningitis. On MRI I felt the patient has a right meningeal enhancement--confusion resolved. CSF study is nulceated cells is 1, clear, colorless. Clinically no further confusion or any focal deficits. Fevers has resolved for the past two days. * Acute ischemic CVA, small size, right parietal cortical region. * Left MCA stenosis, severe, but asymptomatic, as the stroke is on the contralateral side. 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 Patient has very minimal residual deficits with some word finding problems at times. * Atrial fibrillation, on long-term treatment with Eliquis * Hypertension * New onset fevers, unclear cause. No obvious source identified. Plan: * Patient has developed new onset fever. Blood cultures so far negative. She had extensive workup and so far negative. I personally reviewed the MRI and I felt the patient had right meningeal enhancement. I spoke with reading radiologist today and initially he felt no then later stated he was unsure and had to get his colleagues opinoin and if they do feel there is enhancement will make an addendum. * CSF: Clear, colorless, glucose is 44, protein is 144, 1 nucleated cells. The protein slightly elevated and that can happen from underlying infection or inflammation. * Patient is on ceftriaxone 2 g every 24 hours and doscycline 100mg bid. Acycl ovir 10mcg/kg every 8 hours was discontinued by I.D. team. Defer medication modification to the ID team. * Herpes HSV1/2 IgM PCR is negative, Lyme testing: negative. [place] is pending, syphilis is negative. Viral test CSF is negative. * ESR is trending up from 80 to 97. CRP is 5.5--5.8. I will get repeat ESR and CRP. * Patient has presented with an acute stroke, involving the right parietal cortical region. However MRA of the brain revealed left MCA stenosis, which is asymptomatic at this time. * Patient home Eliquis 5 mg twice a day for his A-fib was resumed by primary. Per , other neurologist on our team recommended switching his home ASA to Plavix. I stopped his home ASA and will start Plavix 75mg daily since had stroke while on ASA and Eliquis. * CT abdomen and pelvis showed minimal compressive atelectasis, bilateral lung bases. Prostate hypertrophy. * Herpes HSV 2 IgG is negative. 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 Segura virus is not detected * DON 09/18/2022 showed no evidence of infective endocarditis identified. Normal left-ventricular systolic function. Dilated aortic root. Small cir cumferential pericardial effusion. * MRI of the brain revealed acute 1 cm focus of increased signal within the posterior right parietal cortical region on diffusion-weighted images suggestive of acute embolic process. * MRA of the brain revealed high-grade stenosis noted left MCA M1 segment measuring approximately 5.4 mm in length. Estimated stenosis at its most critical point is greater than 95%. * 2-D echo revealed normal left-ventricular size and systolic function with mild concentric LVH. EF is 55%. Left atrial size is normal. Moderate aortic insufficiency, enlarged aortic root of 4.6 cm. * EEG was abnormal due to background slowing of mild degree, suggestive of encephalopathy. No epileptiform activity was seen. * CTA of head and neck reveals short segment of high-grade stenosis of the left MCA M1 segment measuring approximately 6 mm in length with at least 90% stenosis. No evidence of dissection of the cervical internal carotid arteries or vertebral arteries or any evidence of significant stenosis of the carotid bifurcation. No evidence of intracranial aneurysm. Dominant left vertebral artery. * Agree with Dr. Dailey, to follow up outpatient with neuro intervention for left MCA stenosis. I placed Dr. Mark (neuro-interventionalist) on discharge order. * Hemoglobin A1c 5.8, fasting lipid panel cholesterol 83, LDL 37, HDL 33 and triglycerides 61. Continue Lipitor 40 mg daily. * For DVT prophylaxis: On eliquis. The plan is discussed with patient, his who is at bedside, I.D. team and primary team. Dr. Dailey will start neurology service tomorrow A.M. Time with Patient: Less than 30
[2022-09-25] MEDS: atenoloL 50 MG TAB PO SCH (20:50)
[2022-09-25] MEDS: ATORVASTATIN 40 MG TAB PO SCH (20:50)
[2022-09-26] MEDS: amLODIPine 5 MG TAB PO PRN (04:11)
[2022-09-26 08:35] VITALS: RESP 18; TEMP 98.9
[2022-09-26] MEDS: APIXABAN 5 MG TAB PO SCH (08:37)
[2022-09-26] MEDS: hydroCHLOROthiazide 25 MG TAB PO SCH (08:37)
[2022-09-26] MEDS: CLOPIDOGREL 75 MG TAB PO SCH (08:38)
[2022-09-26] MEDS: DOXYCYCLINE 100 MG CAP PO SCH (08:38)
[2022-09-26] MEDS: ACETAMINOPHEN TAB 500 MG TAB PO PRN (08:38)
[2022-09-26] MEDS: FLECAINIDE 50 MG TAB PO SCH (08:38)
[2022-09-26] MEDS: LOSARTAN 50 MG TAB PO SCH (08:39)
[2022-09-26] MEDS: CEVIMELINE 30 MG CAP PO SCH (08:39)
[2022-09-26] MEDS: POTASSIUM CHLORIDE ER 10 MEQ TAB.ER.PRT PO SCH (08:40)
[2022-09-26 09:31] LABS: HGB 11.1 gm/dL (13.0-17.5); MCH 32.2 pg (25.0-35.0); MCHC 33.6 g/dL (31.0-37.0); MCV 95.7 fL (80.0-100.0); Mean Platelet Volume 8.3; Platelet Count 320 k/uL (150-450); RBC 3.44 m/uL (4.30-5.90); WBC 8.3 k/uL (3.8-10.6)
[2022-09-26 09:50] LABS: ALT 37 U/L (4-49); AST 36 U/L (17-59); African American GFR (CKD) >90 (>60 ml/min/1.73 sqM); Albumin 3.1 g/dL (3.5-5.0); Alkaline Phosphatase 52 U/L (38-126); Anion Gap 9 mmol/L; Blood Urea Nitrogen 13 mg/dL (9-20); C Reactive Protein 2.4 mg/dL (<1.0); Calcium 8.5 mg/dL (8.4-10.2); Carbon Dioxide 23 mmol/L (22-30); Chloride 104 mmol/L (98-107); Glucose 95 mg/dL (74-99); Non-African American GFR(CKD) 87 (>60 ml/min/1.73 sqM); Potassium 3.7 mmol/L (3.5-5.1); Sodium 136 mmol/L (137-145); Total Bilirubin 0.4 mg/dL (0.2-1.3); Total Protein 6.9 g/dL (6.3-8.2)
[2022-09-26 11:41] VITALS: BP 156/66; PULSE 59
--- NOTE | 2022-09-27 00:04 | P.PN ---
Subjective Progress Note Date: 09/26/22 Principal diagnosis: Fever Patient is a 82-year-old male with a past medical history significant for hypertension atrial fibrillation CVA TIA who was brought into the hospital for evaluation of ground-level fall and the patient that he was not acting like his usual self, patient did have a fever and abnormalities seen on the echocardiogram as well as MRI of the brain concerning for embolic phenomena. Patient did have a DON completed on 09/18/2022 didn't mention any vegetation On today's evaluation that is 09/26/2022 patient remains to be afebrile, the patient is breathing comfortably on room air no chest pain no shortness of the cough no abdominal pain patient was noticed to have a rash to bilateral gluteal area patient complaining of some itching there is no open wound or any drainage. Patient did have vital of 8.3 creatinine 0.74 Objective - Vital Signs Vital signs: Vital Signs Temp 98.9 F 09/26/22 08:31 Pulse 73 09/26/22 08:31 Resp 18 09/26/22 08:31 BP 154/91 09/26/22 08:31 Pulse Ox 97 09/26/22 08:31 FiO2 Intake & Output 09/25/22 09/26/22 09/26/22 18:59 06:59 18:59 Intake Total 600 540 120 Output Total 1999 1775 Balance -1400 -1235 120 Intake: Oral 600 540 120 Output: Urine 19995 Stool 0 Other: Voiding Method Indwelling Catheter Indwelling Catheter - Exam GENERAL DESCRIPTION: An elderly male lying in bed in no distress RESPIRATORY SYSTEM: Unlabored breathing , decreased breath sounds at bases HEART: S1 S2 regular rate and rhythm , ABDOMEN: Soft , no tenderness : No scrotal erythema or tenderness was noticed EXTREMITIES: No edema feet - Labs CBC & Chem 7: 09/26/22 08:57 09/26/22 08:57 Labs: Abnormal Lab Results - Last 24 Hours (Table) 09/25/22 09/25/22 Range/Units 17:30 17:30 ESR 94 H (0-15) mm/hr C-Reactive Protein 2.9 H (<1.0) mg/dL Microbiology - Last 24 Hours (Table) 09/22/22 08:35 Blood Culture - Preliminary Blood 09/22/22 15:01 CSF Gram Stain - Preliminary Cerebral Spinal Fluid CSF Culture - Preliminary Assessment and Plan (1) Fever Status: Acute Code(s): R50.9 - FEVER, UNSPECIFIED SNOMED Code(s): 566407463 Plan: 1patient with a fever and this patient presented to hospital with a fall now with evidence of abnormal MRI head with 1 cm focus of cortical lesion embolic phenomena with question of possible septic however did have DON that was negative for any vegetation, the patient CT of abdominal pelvis was negative for any acute intra-abdominal process, CT was reviewed with the radiologist and he was concern for possible right-sided hydrocele and some inflammatory changes, ultrasound reported negative patient did have multiple blood culture those has been negative, patient did have a normal white count throughout his hospital stay concerning for possible noninfectious source for this fever possible central , the patient, CT of the chest Did not show any pneumonia or mycotic aneurysm to the aortic root , Patient did have LP only mild elevated protein rest of the studies has been normal , CSF PCR came back negative for viruses 2patient with a rash to bilateral gluteal area more likely contact dermatitis we will apply a low-dose steroid cream keep the area dry and of the pressure discussed in detail with the . 3patient with adequate switch to the oral doxycycline 100 mg twice a day for 2 weeks and close outpatient follow-up. at the bedside multiple questions concerns were answered Dictation was produced using [employer] dictation software. please excuse any grammatical, word or spelling errors. Time with Patient: Less than 30
--- NOTE | 2022-09-29 08:31 | CDI ---
Documentation Clarification Form Date: From: Jenise Ann Admit Date: 09/14/2022 08:40:00 PM Patient Name: Feliberto Milner Visit Number: [id number] Discharge Date: 09/26/2022 01:35:00 PM ATTENTION: The Clinical Documentation Specialists (CDI) and [facility] Coding Staff appreciate your assistance in clarifying documentation. Please respond to the clarification below the line at the bottom and electronically sign. The CDI & [facility] Coding staff will review the response and follow-up if needed. Please note: Queries are made part of the Legal Health Record. If you have any questions, please contact the author of this message via ITS. Dr. William Molina, Documented in 09/17 progress note is sepsis IV antibiotics. He developed high grade temperature the night of 09/15. Based on this information and the findings below, is there an additional diagnosis that is clinically appropriate for this patient? History/Risk Factors: hx of previous stroke, PAF, atrial flutter, pulmonary fibrosis, Sjogren syndrome Clinical Indicators: High fever, confused and unsteady gait. WBC: 09/16 - 6.4 Lactic acid: none Procalcitonin: 09/16 0.05 CRP: 09/16 8.5 Blood cultures: no growth 09/16 Vital signs: T-100, P-68, R-18, BP-153/90, O2 Sat-94 HSV I IgG- Positive Treatment: IV Vancomycin, IV Cefepime, Metronidazole po, IV Unasyn, IV Vibramycin, IV Acyclovir, IV Ceftriaxone, IV fluids Is there an additional diagnosis that is clinically appropriate for this patient? [ x] Sepsis, present on admission [ ] Sepsis, developed during stay, not present on admission [ ] Sepsis ruled out [ ] SIRS, without underlying infectious process [ ] Other, please specify [ ] Unable to determine SIRS Criteria: 2 or more of the following may indicate SIRS Temperature < 96.8F (36C) or > 101.0F (38.3C) Heart Rate > 90 bpm Respiratory Rate > 20 breaths/min or PaCO2 < 32 mmHg White Blood Cell Count > 12,000 or < 4,000 cells/mm3 or > 10% bands MTDD
[2022-10-01 13:55] LABS: West Nile Virus IgM Antibody 0.03 INDEX (<0.90)
--- NOTE | 2022-10-05 09:05 | P.DS ---
Providers Date of admission: 09/14/22 20:40 Expected date of discharge: 09/26/22 Attending physician: Deshaun Earl Consults: 09/14/22 20:39 Consult Physician Urgent Consulting Provider: Toñito Blount Consult Reason/Comments: Altered mental status. Possible TIA. Do you want consulting provider notified?: Yes 09/16/22 11:28 Consult Physician Routine Consulting Provider: Michell Carson Consult Reason/Comments: fever Do you want consulting provider notified?: Yes Primary care physician: [facility] Course: Discharge diagnoses; Acute metabolic encephalopathy. Sepsis MRI of the brain -showing embolic stroke in the right parietal area. DON - unremarkable. Computed tomography scan abdomen pelvis: Unremarkable. Blood cultures negative to now. CT chest done showed small amount of fluid in the pericardial recess and a trace pericardial effusion, no evidence for abscess within the mediastinum . No evidence OF pneumonia or the source of infection Continue IV antibiotics in the form of Rocephin and doxycycline, acyclovir LP results reviewed, no evidence of any meningitis Neurology Ordered Herpes HSV1/2 IgM PCR, Lyme testing, [place], syphilis. Results reviewed ID recommended discharging patient on Doxy for 2 weeks, outpatient follow-up with ID -Acute stroke in the right parietal area on the right side. Continue Plavix and Eliquis Continue Lipitor -Persistent atrial flutter with controlled rate conduction 3:1. Continue on eliquis. Tenormin. Flecainide. -Essential hypertension Cozaar. Hydrochlorothiazide. Tenormin. -Primary osteoarthritis Tylenol as needed -Sjogren's syndrome. Hospital course; Patient was doing well up to yesterday morning when he woke up. As the day went along he started getting confused. Feeling weak. Started walking with support. Holding onto the kitchen table for example. When he went to urinate he did miss the band. He was finding it difficult to finishing sentences. He stated that Her most of the day. Which is very unusual as the patient is very active. No change in vision. No change in swallowing. Does feel better this morning. Patient had a similar episode about 3 weeks ago that was short-lived. Patient did have a stroke about 3 years ago with no residual. Underlying history of atrial flutter fibrillation. 09/16/2022: Patient spiked a fever of 102 last admin including rectal. Blood cultures were done. Concerns about infective endocarditis. ID and neurology on the case. Discussed with ID concern for infective endocarditis. Started on IV vancomycin and cefepime. MRI of the brain is showing the lesion on the right parietal. Patient's symptoms were rather generalized when she came in. Not focal. Hence D has been ordered to rule out endocarditis. This was discussed the patient and in the morning. Also discussed with ID and Dr. Pearl from neurology. Patient is being changed to inpatient. 09/17/2022: In his recliner. Patient was spending DON, tomorrow. Remains on IV cefepime and vancomycin. Cultures be negative to now. Discussed with cardiology Dr. Boubacar Sosa-concern about septic emboli from cardiac vegetation.. CT abdomen pelvis unremarkable. Spiked fever this afternoon. 09/18/2022: Still spiking fevers. DON revealed no vegetation. Blood cultures remain negative to low. CT abdomen pelvis unremarkable. Patient tired. Discussed with at the bedside. WBC scan ordered. 09/19/2022: Patient has been spiking fevers. Blood cultures have been negative. DON was negative. Discussed ID. He will check intoHACEK organisms. We will also order MRI of the chest to look into the aortic root received is an abscess present there. Patient does feel rather tired. Discussed with the at the bedside. Antibiotic changed to IV Unasyn per ID. And by mouth Flagyl. 09/20/2022: Continues with low-grade fever. On IV Unasyn and Flagyl. Sitting up in chair. Eating. Discussed with . Pending WBC whole body scan and MRI angiogram chest with and without contrast to rule out any aortic valve abscess. 09/21. Patient seen and examined. Patient had fever overnight of 100.3 to 100.5. at the bedside 09/22. Patient seen and examined. Still having low-grade fevers. Discussed with ID, they recommended doing a repeat CT chest 09/23. Patient seen and examined. No fevers overnight. ID recommended doing LP 09/24. Patient seen and examined. Fevers have improved 09/25. Patient seen and examined. No acute issues overnight. Vital signs stable 09/26. Patient seen and examined. ID recommended discharging patient on oral Doxy for 2 weeks. Outpatient follow-up with neurology and ID PHYSICAL EXAMINATION: GENERAL: The patient is alert and oriented x3, not in any acute distress. Well developed, well nourished. HEENT: Pupils are round and equally reacting to light. EOMI. No scleral icterus. No conjunctival pallor. Normocephalic, atraumatic. No pharyngeal erythema. No thyromegaly. CARDIOVASCULAR: S1 and S2 present. No murmurs, rubs, or gallops. PULMONARY: Chest is clear to auscultation, no wheezing or crackles. ABDOMEN: Soft, nontender, nondistended, normoactive bowel sounds. No palpable organomegaly. MUSCULOSKELETAL: No joint swelling or deformity. EXTREMITIES: No cyanosis, clubbing, or pedal edema. NEUROLOGICAL: Gross neurological examination did not reveal any focal deficits. SKIN: No rashes. Dictation was produced using cisimple dictation software. please excuse any grammatical, word or spelling errors. Patient Condition at Discharge: Fair Plan - Discharge Summary New Discharge Prescriptions: New Atorvastatin [Lipitor] 40 mg PO HS #30 tab Doxycycline Hyclate 100 mg PO BID 14 Days #28 tab Clopidogrel [Plavix] 75 mg PO DAILY #30 tab Continue amLODIPine [Norvasc] 5 mg PO DAILY PRN PRN Reason: Blood Pressure - High Potassium Chloride [Klor-Con M10] 20 meq PO BID Olmesartan/Hydrochlorothiazide [Benicar Hct 40-25 mg Tablet] 1 tab PO DAILY Apixaban [Eliquis] 5 mg PO BID Cevimeline [Evoxac] 30 mg PO TID atenoloL [Tenormin] 50 mg PO HS Flecainide Acetate [Tambocor] 100 mg PO BID Triamcinolone 0.1% Cream [Kenalog 0.1% Cream] 1 applicatio TOPICAL BID PRN PRN Reason: Rash Discontinued Aspirin EC [Ecotrin Low Dose] 81 mg PO DAILY Atorvastatin [Lipitor] 10 mg PO HS Discharge Medication List Olmesartan/Hydrochlorothiazide [Benicar Hct 40-25 mg Tablet] 1 tab PO DAILY 01/11/14 [History] Potassium Chloride [Klor-Con M10] 20 meq PO BID 01/11/14 [History] amLODIPine [Norvasc] 5 mg PO DAILY PRN 01/11/14 [History] Apixaban [Eliquis] 5 mg PO BID 04/07/16 [History] Cevimeline [Evoxac] 30 mg PO TID 04/07/16 [History] Flecainide Acetate [Tambocor] 100 mg PO BID 09/14/22 [History] Triamcinolone 0.1% Cream [Kenalog 0.1% Cream] 1 applicatio TOPICAL BID PRN 09/14/22 [History] atenoloL [Tenormin] 50 mg PO HS 09/14/22 [History] Atorvastatin [Lipitor] 40 mg PO HS #30 tab 09/26/22 [Rx] Clopidogrel [Plavix] 75 mg PO DAILY #30 tab 09/26/22 [Rx] Doxycycline Hyclate 100 mg PO BID 14 Days #28 tab 09/26/22 [Rx] Follow up Appointment(s)/Referral(s): Get Wright DO [Primary Care Provider] - 1-2 days Astrid Mark MD [STAFF PHYSICIAN] - 2 Weeks (significant left MCA stenosis ) Michell Carson MD [STAFF PHYSICIAN] - 2 Weeks Discharge Disposition: TRANSFER TO SNF/ECF
== END 2022-09-26 13:35 | DRG 871 ==
LOC: EC 17:15 → 6NMEDSUR 20:39 → OBSVTOIN 20:40 → 6NMEDSUR 09-15 11:05 → 3SCARD 09-16 22:47
PROVIDERS: ADMIT Hospitalist; ATTEND Hospitalist
PROC: B24BZZ4 Ultrasonography of Heart with Aorta, Transesophageal (ICD-10-PCS; principal; 2022-09-18 09:00)
PROC: 009U3ZX Drainage of Spinal Canal, Percutaneous Approach, Diagnostic (ICD-10-PCS; 2022-09-22)
DX: A41.9 Sepsis, unspecified organism (principal); G93.41 Metabolic encephalopathy; I63.40 Cerebral infarction due to embolism of unspecified cerebral artery; I31.39 Other pericardial effusion (noninflammatory); R47.01 Aphasia; I48.92 Unspecified atrial flutter; I48.0 Paroxysmal atrial fibrillation; J84.10 Pulmonary fibrosis, unspecified; M35.00 Sjogren syndrome, unspecified; I77.810 Thoracic aortic ectasia; Z20.822 Contact with and (suspected) exposure to COVID-19; I10 Essential (primary) hypertension; E78.5 Hyperlipidemia, unspecified; R29.702 NIHSS score 2; I49.3 Ventricular premature depolarization; I35.1 Nonrheumatic aortic (valve) insufficiency; M19.91 Primary osteoarthritis, unspecified site; Z79.01 Long term (current) use of anticoagulants; Z79.82 Long term (current) use of aspirin; Z79.899 Other long term (current) drug therapy; Z86.73 Personal history of transient ischemic attack (TIA), and cerebral infarction without residual deficits; W18.30XA Fall on same level, unspecified, initial encounter
CPT/HCPCS: 36415; 62328; 70450; 70496; 70498; 70544; 70553; 71046; 71260; 74177; 76870; 78306; 80053; 80061; 80202; 80320; 81001; 81003; 82550; 82565; 82945; 83036; 83873; 84145; 84157; 84484; 85025; 85027; 85610; 85652; 85730; 86140; 86592; 86618; 86694; 86695; 86696; 86780; 86788; 86789; 87040; 87070; 87205; 87252; 87496; 87498; 87502; 87529; 87635; 87798; 89050; 93005; 93306; 93312; 93320; 93325; 93975; 94760; 95816; 96360; 96361; 99291

== ENCOUNTER 2022-10-08 13:25 | Emergency (ER) | payer MEDICARE ==
[2022-10-08] MEDS ORDERED: hydrALAZINE HCL 20 MG/ML 1 ML VIAL IVP STA ×2 (13:41→14:02)
[2022-10-08 13:43] VITALS: RESP 18
--- NOTE | 2022-10-08 13:45 | ED ---
General Adult HPI - General Stated complaint: HBP Time Seen by Provider: 10/08/22 13:40 Source: patient, RN notes reviewed, old records reviewed Mode of arrival: ambulatory Limitations: no limitations - History of Present Illness Initial comments: This is an 82-year-old male who presents emergency Department from a skilled nursing. Patient was there for stroke 3 weeks ago and was post be released today however his blood pressure was elevated so they sent to the emergency depart ment. Patient states she has no symptoms or complaints. Patient denies headache patient denies any numbness weakness per patient isn't blurred vision. Patient denies chest pain difficulty breathing first breath per patient denies any recent fevers chills or cough patient denies any abdominal pain patient denies nausea vomiting diarrhea. - Related Data Home Medications Medication Instructions Recorded Confirmed Potassium Chloride [Klor-Con M10] 20 meq PO BID 01/11/14 10/08/22 Apixaban [Eliquis] 5 mg PO BID 04/07/16 10/08/22 Cevimeline [Evoxac] 30 mg PO TID@0900,1300,2100 04/07/16 10/08/22 Flecainide Acetate [Tambocor] 100 mg PO BID 09/14/22 10/08/22 atenoloL [Tenormin] 50 mg PO HS 09/14/22 10/08/22 Clotrimazole/Betameth Cream 1 applic TOPICAL Q12H 10/08/22 10/08/22 [Lotrisone] Doxycycline Monohydrate 100 mg PO BID 10/08/22 10/08/22 Lactose-Reduced Food [Ensure Plus] 237 ml PO BID 10/08/22 10/08/22 Losartan/Hydrochlorothiazide 1 tab PO DAILY 10/08/22 10/08/22 [Hyzaar 100-25 Tablet] Previous Rx's Medication Instructions Recorded Atorvastatin [Lipitor] 40 mg PO HS #30 tab 09/26/22 Clopidogrel [Plavix] 75 mg PO DAILY #30 tab 09/26/22 Allergies Allergy/AdvReac Type Severity Reaction Status Date / Time No Known Allergies Allergy Verified 10/08/22 14:10 Review of Systems ROS Statement: Those systems with pertinent positive or pertinent negative responses have been documented in the HPI. ROS Other: All systems not noted in ROS Statement are negative. 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 History of Any Multi-Drug Resistant Organisms: None Reported Past Surgical History: Hernia Repair Past Anesthesia/Blood Transfusion Reactions: No Reported Reaction Past Psychological History: No Psychological Hx Reported Smoking Status: Never smoker Past Alcohol Use History: None Reported Past Drug Use History: None Reported - Past Family History Sister(s) Family Medical History: Cancer General Exam - General Exam Comments Initial Comments: GENERAL: Patient is well-developed and well-nourished. Patient is nontoxic and well- hydrated and is in no acute distress. ENT: Neck is soft and supple. No significant lymphadenopathy is noted. Oropharynx is clear. Moist mucous membranes. Neck has full range of motion without eliciting any pain. EYES: The sclera were anicteric and conjunctiva were pink and moist. Extraocular movements were intact and pupils were equal round and reactive to light. Eyelids were unremarkable. PULMONARY: Unlabored respirations. Good breath sounds bilaterally. No audible rales rhonchi or wheezing was noted. CARDIOVASCULAR: There is a regular rate and rhythm without any murmurs gallops or rubs. ABDOMEN: Soft and nontender with normal bowel sounds. SKIN: Skin is clear with no lesions or rashes and otherwise unremarkable. NEUROLOGIC: Patient is alert and oriented x3. Cranial nerves II through XII are grossly intact. Motor and sensory are also intact. Normal speech, volume and content. Symmetrical smile. MUSCULOSKELETAL: Normal extremities with adequate strength and full range of motion. No lower extremity swelling or edema. No calf tenderness. LYMPHATICS: No significant lymphadenopathy is noted PSYCHIATRIC: Normal psychiatric evaluation. Limitations: no limitations Course Vital Signs 10/08/22 10/08/22 10/08/22 13:39 14:17 14:25 Temperature 98 F Pulse Rate 90 69 Respiratory 18 18 18 Rate Blood Pressure 160/116 156/110 156/117 O2 Sat by Pulse 98 99 Oximetry 10/08/22 14:52 Temperature Pulse Rate 67 Respiratory 18 Rate Blood Pressure 151/108 O2 Sat by Pulse 98 Oximetry Medical Decision Making - Medical Decision Making EKG was interpreted by myself. EKG shows a sinus rhythm at 68 bpm OK interval is 221 QRS is 116 QT interval is 431 QTC is 449. Patient's EKG shows no ST segment elevation or depression Was pt. sent in by a medical professional or institution (USMAN Cartwright, SCHOOL SPEECH THERAPIST, urgent care, hospital, or skilled nursing...) When possible be specific @ -[facility] sent the patient in Did you speak to anyone other than the patient for history (EMS, parent, family, police, friend...)? What history was obtained from this source @ - gave some of the history. Did you review nursing and triage notes (agree or disagree)? Why? @ -I reviewed and agree with nursing and triage notes Were old charts reviewed (outside hosp., previous admission, EMS record, old EKG, old radiological studies, urgent care reports/EKG's, skilled nursing records)? Report findings @ -I reviewed prior charts prior lab work on this patient Differential Diagnosis (chest pain, altered mental status, abdominal pain women, abdominal pain men, vaginal bleeding, weakness, fever, dyspnea, syncope, headache, dizziness, GI bleed, back pain, seizure, CVA, palpatations, mental health, musculoskeletal)? @ -not applicable EKG interpreted by me (3pts min.). @ -As above X-rays interpreted by me (1pt min.). @ -X-ray showed no acute abnormality. CT interpreted by me (1pt min.). @ -CT of the brain showed no acute abnormality. U/S interpreted by me (1pt. min.). @ -None done What testing was considered but not performed or refused? (CT, X-rays, U/S, labs)? Why? @ -None What meds were considered but not given or refused? Why? @ -None Did you discuss the management of the patient with other professionals (professionals i.e. USMAN Cartwright, SCHOOL SPEECH THERAPIST, lab, RT, psych nurse, director social, mission support specialist, teacher, parking officer, caser shoe parts)? Give summary @ -No Was smoking cessation discussed for >3mins.? @ -No Was critical care preformed (if so, how long)? @ -No Were there social determinants of health that impacted care today? How? (Homelessness, low income, unemployed, alcoholism, drug addiction, transportation, low edu. Level, literacy, decrease access to med. care, nursing home, rehab)? @ -No Was there de-escalation of care discussed even if they declined (Discuss DNR or withdrawal of care, Hospice)? DNR status @ -No What co-morbidities impacted this encounter? (DM, HTN, Smoking, COPD, CAD, Cancer, CVA, ARF, Chemo, Hep., AIDS, mental health diagnosis, sleep apnea, morbid obesity)? @ -None Was patient admitted / discharged? Hospital course, mention meds given and route, prescriptions, significant lab abnormalities, going to OR and other pertinent info. @ -Patient had a CAT scan of the brain showed no acute abnormality. Patient lab work was within normal range except for the potassium was a little low. Patient was given 10 of hydralazine the blood pressure came down to a reasonable range of motion of the patient remained asymptomatic and will be going back to the skilled nursing Undiagnosed new problem with uncertain prognosis? @ -No Drug Therapy requiring intensive monitoring for toxicity (Heparin, Nitro, Insulin, Cardizem)? @ -No Were any procedures done? @ -No Diagnosis/symptom? @ -Hypertensive urgency Acute, or Chronic, or Acute on Chronic? @ -Acute Uncomplicated (without systemic symptoms) or Complicated (systemic symptoms)? @ -Complicated Side effects of treatment? @ -No Exacerbation, Progression, or Severe Exacerbation? @ -No Poses a threat to life or bodily function? How? (Chest pain, [place], [place], pneumonia, PE, COPD, DKA, ARF, appy, cholecystitis, CVA, Diverticulitis, Homicidal, Suicidal, threat to staff... and all critical care pts) @ -No - Lab Data Result diagrams: 10/08/22 14:00 10/08/22 14:00 Lab Results 10/08/22 10/08/22 10/08/22 Range/Units 14:00 14:00 14:00 WBC 5.7 (3.8-10.6) k/uL RBC 3.66 L (4.30-5.90) m/uL Hgb 11.6 L (13.0-17.5) gm/dL Hct 35.0 L (39.0-53.0) % MCV 95.4 (80.0-100.0) fL MCH 31.6 (25.0-35.0) pg MCHC 33.1 (31.0-37.0) g/dL RDW 13.5 (11.5-15.5) % Plt Count 263 (150-450) k/uL MPV 8.2 Neutrophils % 63 % Lymphocytes % 21 % Monocytes % 9 % Eosinophils % 5 % Basophils % 1 % Neutrophils # 3.6 (1.3-7.7) k/uL Lymphocytes # 1.2 (1.0-4.8) k/uL Monocytes # 0.5 (0-1.0) k/uL Eosinophils # 0.3 (0-0.7) k/uL Basophils # 0.0 (0-0.2) k/uL PT 10.6 (9.0-12.0) sec INR 1.0 (<1.2) APTT 25.4 (22.0-30.0) sec Sodium 142 (137-145) mmol/L Potassium 3.2 L (3.5-5.1) mmol/L Chloride 107 (98-107) mmol/L Carbon Dioxide 24 (22-30) mmol/L Anion Gap 11 mmol/L BUN 28 H (9-20) mg/dL Creatinine 1.01 (0.66-1.25) mg/dL Est GFR (CKD-EPI)AfAm 81 (>60 ml/min/1.73 sqM) Est GFR (CKD-EPI)NonAf 70 (>60 ml/min/1.73 sqM) Glucose 69 L (74-99) mg/dL Calcium 9.0 (8.4-10.2) mg/dL Magnesium 1.5 L (1.6-2.3) mg/dL Total Bilirubin 0.5 (0.2-1.3) mg/dL AST 29 (17-59) U/L ALT 28 (4-49) U/L Alkaline Phosphatase 77 (38-126) U/L Troponin I (0.000-0.034) ng/mL Total Protein 7.6 (6.3-8.2) g/dL Albumin 3.5 (3.5-5.0) g/dL 10/08/22 Range/Units 14:00 WBC (3.8-10.6) k/uL RBC (4.30-5.90) m/uL Hgb (13.0-17.5) gm/dL Hct (39.0-53.0) % MCV (80.0-100.0) fL MCH (25.0-35.0) pg MCHC (31.0-37.0) g/dL RDW (11.5-15.5) % Plt Count (150-450) k/uL MPV Neutrophils % % Lymphocytes % % Monocytes % % Eosinophils % % Basophils % % Neutrophils # (1.3-7.7) k/uL Lymphocytes # (1.0-4.8) k/uL Monocytes # (0-1.0) k/uL Eosinophils # (0-0.7) k/uL Basophils # (0-0.2) k/uL PT (9.0-12.0) sec INR (<1.2) APTT (22.0-30.0) sec Sodium (137-145) mmol/L Potassium (3.5-5.1) mmol/L Chloride (98-107) mmol/L Carbon Dioxide (22-30) mmol/L Anion Gap mmol/L BUN (9-20) mg/dL Creatinine (0.66-1.25) mg/dL Est GFR (CKD-EPI)AfAm (>60 ml/min/1.73 sqM) Est GFR (CKD-EPI)NonAf (>60 ml/min/1.73 sqM) Glucose (74-99) mg/dL Calcium (8.4-10.2) mg/dL Magnesium (1.6-2.3) mg/dL Total Bilirubin (0.2-1.3) mg/dL AST (17-59) U/L ALT (4-49) U/L Alkaline Phosphatase (38-126) U/L Troponin I <0.012 (0.000-0.034) ng/mL Total Protein (6.3-8.2) g/dL Albumin (3.5-5.0) g/dL Disposition Clinical Impression: Hypokalemia, Hypertensive urgency Disposition: HOME SELF-CARE Condition: Good Instructions (If sedation given, give patient instructions): Chronic Hypertension (ED) Is patient prescribed a controlled substance at d/c from ED?: No Referrals: Get Wright DO [Primary Care Provider] - 1-2 days Time of Disposition: 15:06
[2022-10-08] MEDS ORDERED: hydrALAZINE HCL 20 MG/ML 1 ML VIAL IM STA (14:01)
[2022-10-08 14:09] LABS: Basophils % (A) 1 %; Eosinophils # (A) 0.3 k/uL (0-0.7); Eosinophils % (A) 5 %; HGB 11.6 gm/dL (13.0-17.5); Lymphocytes # (A) 1.2 k/uL (1.0-4.8); Lymphocytes % (A) 21 %; MCH 31.6 pg (25.0-35.0); MCHC 33.1 g/dL (31.0-37.0); MCV 95.4 fL (80.0-100.0); Mean Platelet Volume 8.2; Monocytes # (A) 0.5 k/uL (0-1.0); Monocytes % (A) 9 %; Neutrophils # (A) 3.6 k/uL (1.3-7.7); Neutrophils % (A) 63 %; Platelet Count 263 k/uL (150-450); RBC 3.66 m/uL (4.30-5.90); RDW 13.5 % (11.5-15.5); WBC 5.7 k/uL (3.8-10.6)
[2022-10-08 14:21] LABS: Partial Thromboplastin Time 25.4 sec (22.0-30.0); Prothrombin Time 10.6 sec (9.0-12.0)
[2022-10-08 14:32] LABS: ALT 28 U/L (4-49); AST 29 U/L (17-59); African American GFR (CKD) 81 (>60 ml/min/1.73 sqM); Albumin 3.5 g/dL (3.5-5.0); Alkaline Phosphatase 77 U/L (38-126); Anion Gap 11 mmol/L; Blood Urea Nitrogen 28 mg/dL (9-20); Carbon Dioxide 24 mmol/L (22-30); Chloride 107 mmol/L (98-107); Glucose 69 mg/dL (74-99); Magnesium 1.5 mg/dL (1.6-2.3); Non-African American GFR(CKD) 70 (>60 ml/min/1.73 sqM); Potassium 3.2 mmol/L (3.5-5.1); Sodium 142 mmol/L (137-145); Total Bilirubin 0.5 mg/dL (0.2-1.3); Total Protein 7.6 g/dL (6.3-8.2)
--- NOTE | 2022-10-08 14:51 | CT ---
EXAMINATION TYPE: CT brain wo con DATE OF EXAM: 10/08/2022 COMPARISON: 09/14/2022 HISTORY: headache. Hx of HBP and stroke CT DLP: 1144.4 mGycm Automated exposure control for dose reduction was used. FINDINGS: There are intracranial atherosclerotic changes most marked involving the cavernous segment of bilater al distal ICA. Mild to moderate generalized degenerative change. Faint low-attenuation white matter m ost of remote microvascular ischemic change. Atherosclerotic change of the right MCA. Craniocervical junction maintained. Calvarium intact. Changes of chronic sinusitis. Orbits are symmet latha. Extensive vertebral artery atherosclerotic disease in the left extending into the basilar system . Prominent CSF spaces are seen bilaterally over the superior margin of the cerebral convexities stab le from prior exam. IMPRESSION: 1. NO ACUTE HEMORRHAGE OR MASS EFFECT. DEGENERATIVE AND REMOTE MICROVASCULAR ISCHEMIC CHANGE. 2. PROMINENT CSF SPACES ALONG THE UPPER CEREBRAL CONVEXITIES MAY RELATE TO ATROPHY. SMALL CHRONIC JARVIS BDURAL HYGROMA OR HEMATOMA IN THE DIFFERENTIAL DIAGNOSIS. NO MIDLINE SHIFT OR MASS EFFECT. FINDINGS S TABLE.
[2022-10-08] MEDS ORDERED: POTASSIUM CHLORIDE ER 20 MEQ TAB.ER PO STA (15:00)
--- NOTE | 2022-10-08 15:11 | XR ---
EXAMINATION TYPE: XR chest 2V DATE OF EXAM: 10/08/2022 2:53 PM COMPARISON: Chest radiographs from 09/14/2022 TECHNIQUE: XR chest 2V Frontal and lateral views of the chest. CLINICAL INDICATION:Male, 82 years old with history of Chest Pain; FINDINGS: Lungs/Pleura: There is flattening of the diaphragm with increased lucency of the lungs. No evidence o f pneumothorax, pleural effusion or focal consolidation. Pulmonary vascularity: Unremarkable. Heart/mediastinum: Cardiomediastinal silhouette is unremarkable. Musculoskeletal: No acute osseous pathology. IMPRESSION: 1. No acute cardiopulmonary disease process. 2. COPD changes.
[2022-10-08 15:26] VITALS: BP 161/100; PULSE 69; TEMP 98.3
== END 2022-10-08 15:33 | disposition home or self-care (01) ==
LOC: EC 13:25
DX: I16.0 Hypertensive urgency (principal); E87.6 Hypokalemia; I10 Essential (primary) hypertension; I48.91 Unspecified atrial fibrillation; Z79.01 Long term (current) use of anticoagulants; Z79.899 Other long term (current) drug therapy; Z86.73 Personal history of transient ischemic attack (TIA), and cerebral infarction without residual deficits
CPT/HCPCS: 36415; 93005; 80053; 83735; 84484; 85025; 85610; 85730; 71046; 70450; 99285; 96374; J0360

== ENCOUNTER 2022-11-24 11:39 | Emergency (ER) | payer MEDICARE ==
[2022-11-24 11:57] VITALS: TEMP 97.8
--- NOTE | 2022-11-24 12:14 | ED ---
General Adult HPI <Ruben Price - Last Filed: 11/24/22 13:22> - General Source: patient Mode of arrival: ambulatory Limitations: no limitations <Michell King - Last Filed: 11/24/22 13:38> - General Chief complaint: Head Injury Stated complaint: Fall, Head injury, on blood thinners Time Seen by Provider: 11/24/22 11:51 - History of Present Illness Initial comments: Patient is an 82-year-old male who presents to the emergency department for head injury. Patient was pulling on a machine at home when he gave out causing patient to fall. Patient hit his head on the dry wall on the way down. He denies loss of consciousness. He is on Eliquis and was started on Plavix in September. Patient denies headache, nausea, vomiting. He is alert and oriented. States he was told to come to the emergency department for evaluation anytime he hit his head on blood thinners. Patient otherwise has no concerns. Denies other injury. (Michell King) - Related Data Home Medications Medication Instructions Recorded Confirmed Potassium Chloride [Klor-Con M10] 20 meq PO BID 01/11/14 10/08/22 Apixaban [Eliquis] 5 mg PO BID 04/07/16 10/08/22 Cevimeline [Evoxac] 30 mg PO TID@0900,1300,2100 04/07/16 10/08/22 Flecainide Acetate [Tambocor] 100 mg PO BID 09/14/22 10/08/22 atenoloL [Tenormin] 50 mg PO HS 09/14/22 10/08/22 Clotrimazole/Betameth Cream 1 applic TOPICAL Q12H 10/08/22 10/08/22 [Lotrisone] Doxycycline Monohydrate 100 mg PO BID 10/08/22 10/08/22 Lactose-Reduced Food [Ensure Plus] 237 ml PO BID 10/08/22 10/08/22 Losartan/Hydrochlorothiazide 1 tab PO DAILY 10/08/22 10/08/22 [Hyzaar 100-25 Tablet] Previous Rx's Medication Instructions Recorded Atorvastatin [Lipitor] 40 mg PO HS #30 tab 09/26/22 Clopidogrel [Plavix] 75 mg PO DAILY #30 tab 08/19/23 Allergies Allergy/AdvReac Type Severity Reaction Status Date / Time No Known Allergies Allergy Verified 11/24/22 11:46 Review of Systems ROS Other: All systems not noted in ROS Statement are negative. <Ruben Price - Last Filed: 11/24/22 13:22> ROS Other: All systems not noted in ROS Statement are negative. <Michell King - Last Filed: 11/24/22 13:38> ROS Statement: Those systems with pertinent positive or pertinent negative responses have been documented in the HPI. 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 History of Any Multi-Drug Resistant Organisms: None Reported Past Surgical History: Hernia Repair Past Anesthesia/Blood Transfusion Reactions: No Reported Reaction Past Psychological History: No Psychological Hx Reported Smoking Status: Never smoker Past Alcohol Use History: None Reported Past Drug Use History: None Reported - Past Family History Sister(s) Family Medical History: Cancer <Michell King - Last Filed: 11/24/22 13:38> General Exam Limitations: no limitations General appearance: alert Head exam: Present: atraumatic, normocephalic, normal inspection Eye exam: Present: normal appearance, PERRL, EOMI. Absent: scleral icterus, conjunctival injection, periorbital swelling Respiratory exam: Present: normal lung sounds bilaterally. Absent: respiratory distress, wheezes, rales, rhonchi, stridor Cardiovascular Exam: Present: regular rate, normal rhythm, normal heart sounds. Absent: systolic murmur, diastolic murmur, rubs, gallop, clicks Neurological exam: Present: alert Psychiatric exam: Present: normal affect, normal mood Skin exam: Present: warm, dry, intact, normal color. Absent: rash <Ryan Kingna - Last Filed: 11/24/22 13:38> Course <Ruben Price - Last Filed: 11/24/22 13:22> Vital Signs 11/24/22 11/24/22 11:46 13:35 Temperature 97.8 F Pulse Rate 64 65 Respiratory 16 20 Rate Blood Pressure 167/100 153/97 O2 Sat by Pulse 95 93 L Oximetry - Reevaluation(s) Reevaluation #1: 11/24/22 13:22 Patient evaluated, resting comfortably, hemodynamically stable. Nonfocal neurologic exam. He has small subdural hematoma without midline shift on CT imaging. He is on Eliquis and is given a dose of Kcentra in the emergency department. He will be transferred to [facility], accepting physician Dr. beckham (Ruben Price) Medical Decision Making - Lab Data Result diagrams: 11/24/22 13:11 <Michell King - Last Filed: 11/24/22 13:38> - Medical Decision Making Was pt. sent in by a medical professional or institution (, PA, BACK HAND, urgent care, hospital, or custodial...) When possible be specific @ -No Did you speak to anyone other than the patient for history (EMS, parent, family, police, friend...)? What history was obtained from this source @ -No Did you review nursing and triage notes (agree or disagree)? Why? @ -I reviewed and agree with nursing and triage notes Were old charts reviewed (outside hosp., previous admission, EMS record, old EKG, old radiological studies, urgent care reports/EKG's, custodial records)? Report findings @ -No old charts were reviewed Differential Diagnosis (chest pain, altered mental status, abdominal pain women, abdominal pain men, vaginal bleeding, weakness, fever, dyspnea, syncope, hea dache, dizziness, GI bleed, back pain, seizure, CVA, palpatations, mental health)? @ -Differential Headache: Migraine, tension, cluster, carbon monoxide, central venous thrombosis, pension karma temporal arteritis, acute closure glaucoma, intercranial hemorrhage, mastoiditis, sinusitis, head injury, this is not meant to be an all-inclusive list. EKG interpreted by me (3pts min.). @ -As above X-rays interpreted by me (1pt min.). @ -None done CT interpreted by me (1pt min.). @ -Trace acute right subdural hematoma. No midline shift U/S interpreted by me (1pt. min.). @ -None done What testing was considered but not performed or refused? (CT, X-rays, U/S, labs)? Why? @ -None What meds were considered but not given or refused? Why? @ -None Did you discuss the management of the patient with other professionals (professionals i.e. DrShashi, PA, BACK HAND, lab, RT, psych nurse, pediatric social worker, calciner operator, teacher, personnel training officer, pillowcase cleaner)? Give summary @ -No Was smoking cessation discussed for >3mins.? @ -No Was critical care preformed (if so, how long)? @ -No Were there social determinants of health that impacted care today? How? (Homelessness, low income, unemployed, alcoholism, drug addiction, transportation, low edu. Level, literacy, decrease access to med. care, skilled nursing, rehab)? @ -No Was there de-escalation of care discussed even if they declined (Discuss DNR or withdrawal of care, Hospice)? DNR status @ -No What co-morbidities impacted this encounter? (DM, HTN, Smoking, COPD, CAD, Cancer, CVA, ARF, Chemo, Hep., AIDS, mental health diagnosis, sleep apnea, morbid obesity)? @ -None Was patient admitted / discharged? Hospital course, mention meds given and route, prescriptions, significant lab abnormalities, going to OR and other pertinent info. @ -82-year-old presenting for head injury. Patient well-appearing. No evidence of traumatic injury. No neurological deficit on exam. Due to multiple blood thinner use CT of the brain and C-spine was obtained and interpreted by myself showed a trace acute right subdural hematoma. No midline shift. Kcentra given. Patient will be transferred to [facility] for further evaluation and management Dr. Arreola accepts. Undiagnosed new problem with uncertain prognosis? @ -No Drug Therapy requiring intensive monitoring for toxicity (Heparin, Nitro, Insulin, Cardizem)? @ -No Were any procedures done? @ -No Diagnosis/symptom? @ -subdural hematoma Acute, or Chronic, or Acute on Chronic? @ -acute Uncomplicated (without systemic symptoms) or Complicated (systemic symptoms)? @ -uncomplicated Side effects of treatment? @ -[No] Exacerbation, Progression, or Severe Exacerbation? @ -[No] Poses a threat to life or bodily function? How? (Chest pain, USA, IA, pneumonia, PE, COPD, DKA, ARF, appy, cholecystitis, CVA, Diverticulitis, Homicidal, Suicidal, threat to staff... and all critical care pts) @ -yes Dr. Price is my attending (Michell King) - Lab Data Lab Results 11/24/22 Range/Units 13:11 WBC 4.6 (3.8-10.6) k/uL RBC 3.64 L (4.30-5.90) m/uL Hgb 12.1 L (13.0-17.5) gm/dL Hct 35.3 L (39.0-53.0) % MCV 96.9 (80.0-100.0) fL MCH 33.3 (25.0-35.0) pg MCHC 34.4 (31.0-37.0) g/dL RDW 14.4 (11.5-15.5) % Plt Count 201 (150-450) k/uL MPV 8.0 Neutrophils % 72 % Lymphocytes % 14 % Monocytes % 7 % Eosinophils % 4 % Basophils % 1 % Neutrophils # 3.3 (1.3-7.7) k/uL Lymphocytes # 0.7 L (1.0-4.8) k/uL Monocytes # 0.3 (0-1.0) k/uL Eosinophils # 0.2 (0-0.7) k/uL Basophils # 0.0 (0-0.2) k/uL Critical Care Time Critical Care Time: Yes Total Critical Care Time: 35 <Ruben Price - Last Filed: 11/24/22 13:22> Disposition <Ruben Price - Last Filed: 11/24/22 13:22> - Out of Hospital Transfer - Req. Specs Out of Hospital Transfer - Requested Specifics: Other Emergency Center ([facility]) <Michell King - Last Filed: 11/24/22 13:38> Clinical Impression: Subdural hematoma Disposition: OTHER INSTITUTION NOT DEFINED Condition: Good Referrals: Get Wright DO [Primary Care Provider] - 1-2 days
--- NOTE | 2022-11-24 12:33 | CT ---
EXAMINATION TYPE: CT brain cspine wo con CT DLP: 1440.6 mGycm, Automated exposure control for dose reduction was used. DATE OF EXAM: 11/24/2022 12:17 PM COMPARISON: CT brain 10/08/2022. CLINICAL INDICATION:Male, 82 years old with history of fall on thinners; fall TECHNIQUE: Brain: Multiple axial CT images of the brain were obtained without IV contrast. Cspine: Axial CT images from the skull base to the inferior aspect of T2 we obtained without intraven ous contrast. Coronal and sagittal reformatted images were also reviewed. FINDINGS: Brain: Extra-axial spaces: Hyperdense fluid collection along the right cerebral convexity measuring up to 3 mm in thickness. Ventricular system: Within normal limits Cerebral parenchyma: Cerebral atrophy. No acute intraparenchymal hemorrhage or mass effect. The jara -white junction is well differentiated. Scattered hypoattenuating areas are seen within the white mat ter. Cerebellum: Unremarkable. Mass effect: No evidence of midline shift. Intracranial vasculature: Atherosclerotic calcifications of the intracranial vessels. Soft tissues: Normal. Calvarium/osseous structures: No depressed skull fracture. Paranasal sinuses and mastoid air cells: Clear. Visualized orbits: Right aphakia Cervical spine: Fracture: None. Osseous structures: Multilevel degenerative disc disease changes with endplate spurring and disc oste ophyte complex's. Multilevel facet arthropathy. Vertebral alignment: Degenerative grade 1 anterolisthesis of C6 on C7. Spinal canal/Neural Foramina: No evidence of significant spinal canal narrowing. Facet joint uncovert ebral joint arthropathy scattered throughout the cervical spine with varying degrees of neural forami nal stenosis. Neck soft tissues: Prevertebral soft tissues are within normal limits. Other: The airway is patent. The lung apices are clear. IMPRESSION: 1. Trace acute right subdural hematoma. No midline shift. 2. Nonspecific white matter changes, likely secondary to chronic small vessel ischemic disease. 3. No evidence of cervical spine fracture. 4. Mild multilevel degenerative disc disease. Findings called to and discussed with ER physician at 12:30 PM on 11/24/2022.
[2022-11-24] MEDS ORDERED: Kcentra PER PHARMACY 1 EACH MISC MISCELLANE PRN (12:38)
[2022-11-24] MEDS ORDERED: HUMAN PROTHROMBIN COMPLX IV ONE (13:00)
[2022-11-24 13:34] LABS: Basophils % (A) 1 %; Eosinophils # (A) 0.2 k/uL (0-0.7); Eosinophils % (A) 4 %; HCT 35.3 % (39.0-53.0); HGB 12.1 gm/dL (13.0-17.5); Lymphocytes # (A) 0.7 k/uL (1.0-4.8); Lymphocytes % (A) 14 %; MCH 33.3 pg (25.0-35.0); MCHC 34.4 g/dL (31.0-37.0); MCV 96.9 fL (80.0-100.0); Monocytes # (A) 0.3 k/uL (0-1.0); Monocytes % (A) 7 %; Neutrophils # (A) 3.3 k/uL (1.3-7.7); Neutrophils % (A) 72 %; Platelet Count 201 k/uL (150-450); RBC 3.64 m/uL (4.30-5.90); RDW 14.4 % (11.5-15.5); WBC 4.6 k/uL (3.8-10.6)
[2022-11-24 13:46] LABS: ALT 28 U/L (4-49); AST 28 U/L (17-59); African American GFR (CKD) >90 (>60 ml/min/1.73 sqM); Alkaline Phosphatase 70 U/L (38-126); Anion Gap 10 mmol/L; Blood Urea Nitrogen 20 mg/dL (9-20); Calcium 8.8 mg/dL (8.4-10.2); Carbon Dioxide 24 mmol/L (22-30); Chloride 108 mmol/L (98-107); Glucose 93 mg/dL (74-99); Non-African American GFR(CKD) 82 (>60 ml/min/1.73 sqM); Potassium 4.1 mmol/L (3.5-5.1); Sodium 142 mmol/L (137-145); Total Bilirubin 0.4 mg/dL (0.2-1.3); Total Protein 7.9 g/dL (6.3-8.2)
[2022-11-24 13:50] LABS: Partial Thromboplastin Time 25.3 sec (22.0-30.0); Prothrombin Time 10.9 sec (10.0-12.5)
[2022-11-24 13:53] VITALS: RESP 20
[2022-11-24 14:14] VITALS: BP 180/99; PULSE 67
== END 2022-11-24 14:12 | disposition other institution (70) ==
LOC: EC 11:39
DX: S06.5XAA Traumatic subdural hemorrhage with loss of consciousness status unknown, initial encounter (principal); I10 Essential (primary) hypertension; I48.91 Unspecified atrial fibrillation; Z79.899 Other long term (current) drug therapy; W18.30XA Fall on same level, unspecified, initial encounter
CPT/HCPCS: 36415; 80053; 85025; 85610; 85730; 72125; 70450; 99285; 96374; J7168

== ENCOUNTER 2022-11-29 03:45 | Emergency (ER) | payer MEDICARE ==
[2022-11-29 04:06] LABS: Glucose,Whole Blood 108 mg/dL (70-110)
[2022-11-29 04:07] VITALS: TEMP 98.3
[2022-11-29 05:49] LABS: ALT 24 U/L (4-49); AST 27 U/L (17-59); African American GFR (CKD) >90 (>60 ml/min/1.73 sqM); Albumin 3.6 g/dL (3.5-5.0); Alcohol <10 mg/dL; Alkaline Phosphatase 71 U/L (38-126); Anion Gap 10 mmol/L; Blood Urea Nitrogen 14 mg/dL (9-20); Calcium 8.4 mg/dL (8.4-10.2); Carbon Dioxide 22 mmol/L (22-30); Chloride 107 mmol/L (98-107); Glucose 90 mg/dL (74-99); Non-African American GFR(CKD) >90 (>60 ml/min/1.73 sqM); Potassium 3.3 mmol/L (3.5-5.1); Sodium 139 mmol/L (137-145); Total Bilirubin 0.7 mg/dL (0.2-1.3); Total Protein 7.4 g/dL (6.3-8.2)
--- NOTE | 2022-11-29 06:03 | CT ---
EXAM: CT Head Without Intravenous Contrast CLINICAL HISTORY: ITS.REASON CT Reason: ams TECHNIQUE: Axial computed tomography images of the head/brain without intravenous contrast. CTDI is 45.2 mGy and DLP is 1022 mGy-cm. This CT exam was performed using one or more of the following dose reduction techniques: automated exposure control, adjustment of the mA and/or kV according to patient size, and/or use of iterative reconstruction technique. COMPARISON: CT Head dated 10/08/22, MRI dated 09/16/2022 FINDINGS: Brain: Focal 3 mm slightly dense right frontoparietal subdural hematoma may be acute on chronic or subacute. Coronal series 203 image 47. 6 mm left subdural collection is low to intermediate density. Chronic changes of volume loss and small vessel disease. Midline shift: No midline shift. Ventricles: Unremarkable. No ventriculomegaly. Bones/joints: Unremarkable. No acute fracture. Soft tissues: Unremarkable. Sinuses: Unremarkable as visualized. No acute sinusitis. Mastoid air cells: Unremarkable as visualized. No mastoid effusion. IMPRESSION: 1. Focal 3 mm slightly dense right frontoparietal subdural hematoma may be acute on chronic or subacute. 2. 6 mm left subdural collection is low to intermediate density. May be a chronic subdural hematoma/hygroma although new since the prior. EXAM: CT Cervical Spine Without Intravenous Contrast CLINICAL HISTORY: ITS.REASON CT Reason: ams TECHNIQUE: Axial computed tomography images of the cervical spine without intravenous contrast. CTDI is 11.1 mGy and DLP is 330.1 mGy-cm. This CT exam was performed using one or more of the following dose reduction techniques: automated exposure control, adjustment of the mA and/or kV according to patient size, and/or use of iterative reconstruction technique. COMPARISON: No relevant prior studies available. FINDINGS: Vertebrae: Minimal anterolisthesis of C6 on 7. No acute fracture. Discs/spinal canal/neural foramina: Multilevel degenerative changes. No spinal canal stenosis. Soft tissues: Unremarkable. IMPRESSION: No evidence of acute fracture or malalignment. <MYCVCSECTION> Communications: 11/29/22 06:14 Call Doctor Regarding Intracranial Hemorrhage, called Dr. Ang on 11/29 06:14 (-04:00)
--- NOTE | 2022-11-29 06:38 | ED ---
Altered Mental Status HPI - General Chief Complaint: Altered Mental Status Stated Complaint: Altered Mental Status Time Seen by Provider: 11/29/22 03:50 Source: patient, family, EMS Mode of arrival: EMS Limitations: no limitations - History of Present Illness Initial Comments: 82-year-old male with past medical history of CVA, A. fib who presents to the emergency room with altered mental status. Patient had originally sustained a fall on November 24. He was seen in our emergency department and diagnosed with a right-sided subdural hemorrhage. He was transferred down [facility]. states that he was started on Keppra for seizure prophylaxis. He was taken off of his Plavix and Eliquis. He was discharged home on . She reports that he was having some mood changes however his comprehension and speech was normal. Yesterday she noted that when the patient was attempting to use the remote for the TV that he was extremely confused and could not figure out how to change the channel. She then awoke around 2 AM and found that the patient was not in bed. He had gone out to the garage and stated that he was getting ready to go to work. EMS was called at this time. They deny any new trauma. Patient arrives and has some nonsensical speech. He demonstrates significant anger towards his . He is oriented to self and does realize that he is at the hospital. He denies any visual disturbance. No unilateral numbness or weakness. No other alleviating, precipitating or modifying factors - Related Data Home Medications Medication Instructions Recorded Confirmed Potassium Chloride [Klor-Con M10] 20 meq PO BID 01/11/14 10/08/22 Apixaban [Eliquis] 5 mg PO BID 04/07/16 10/08/22 Cevimeline [Evoxac] 30 mg PO TID@0900,1300,2100 04/07/16 10/08/22 Flecainide Acetate [Tambocor] 100 mg PO BID 09/14/22 10/08/22 atenoloL [Tenormin] 50 mg PO HS 09/14/22 10/08/22 Clotrimazole/Betameth Cream 1 applic TOPICAL Q12H 10/08/22 10/08/22 [Lotrisone] Doxycycline Monohydrate 100 mg PO BID 10/08/22 10/08/22 Lactose-Reduced Food [Ensure Plus] 237 ml PO BID 10/08/22 10/08/22 Losartan/Hydrochlorothiazide 1 tab PO DAILY 10/08/22 10/08/22 [Hyzaar 100-25 Tablet] Previous Rx's Medication Instructions Recorded Atorvastatin [Lipitor] 40 mg PO HS #30 tab 09/26/22 Clopidogrel [Plavix] 75 mg PO DAILY #30 tab 09/26/22 Allergies Allergy/AdvReac Type Severity Reaction Status Date / Time No Known Allergies Allergy Verified 11/24/22 11:46 Review of Systems ROS Statement: Those systems with pertinent positive or pertinent negative responses have been documented in the HPI. ROS Other: All systems not noted in ROS Statement are negative. 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 Absent: scleral icterus, conjunctival injection, periorbital swelling ENT exam: Present: normal exam, mucous membranes moist Respiratory exam: Present: normal lung sounds bilaterally. Absent: respiratory distress, wheezes, rales, rhonchi, stridor Cardiovascular Exam: Present: regular rate, normal rhythm, normal heart sounds. Absent: systolic murmur, diastolic murmur, rubs, gallop, clicks GI/Abdominal exam: Present: soft, normal bowel sounds. Absent: distended, tenderness, guarding, rebound, rigid Neurological exam: Present: alert, altered, CN II-XII intact, other (Oriented 2) Psychiatric exam: Present: agitated Course Vital Signs 11/29/22 11/29/22 11/29/22 03:48 04:56 05:36 Temperature 98.3 F Pulse Rate 65 76 73 Respiratory 16 18 18 Rate Blood Pressure 148/113 152/113 142/96 O2 Sat by Pulse 95 95 Oximetry Medical Decision Making - Medical Decision Making Was pt. sent in by a medical professional or institution (, PA, SENIOR INFRASTRUCTURE ENGINEER, urgent care, hospital, or skilled nursing...) When possible be specific @ -No Did you speak to anyone other than the patient for history (EMS, parent, family, police, friend...)? What history was obtained from this source @ -I spoke with EMS and the are history Did you review nursing and triage notes (agree or disagree)? Why? @ -I reviewed and agree with nursing and triage notes Were old charts reviewed (outside hosp., previous admission, EMS record, old EKG, old radiological studies, urgent care reports/EKG's, skilled nursing records)? Report findings @ -I reviewed the patient's ED visit from November 24 Differential Diagnosis (chest pain, altered mental status, abdominal pain women, abdominal pain men, vaginal bleeding, weakness, fever, dyspnea, syncope, headache, dizziness, GI bleed, back pain, seizure, CVA, palpatations, mental health, musculoskeletal)? @ -Differential Altered Mental Status: Hypoglycemia, DKA, hypercapnia, ETOH, overdose, CO poisoning, trauma, myxedema coma, HTN encephalopathy, infection, encephalitis, psychosis, intercranial hemorrhage, hepatic encephalopathy, meningitis, CVA, this is not meant to be an all-inclusive list EKG interpreted by me (3pts min.). @ -Yes and demonstrates a flutter with a rate of 68. QRS 113. QTC of 432 X-rays interpreted by me (1pt min.). @ -None done CT interpreted by me (1pt min.). @ -Yes and demonstrates a focal 3 mm slightly dense right frontoparietal subdural hematoma which may be acute on chronic or subacute. 6 mm left subdural collection low to intermediate density. U/S interpreted by me (1pt. min.). @ -None done What testing was considered but not performed or refused? (CT, X-rays, U/S, labs)? Why? @ -None What meds were considered but not given or refused? Why? @ -None Did you discuss the management of the patient with other professionals (professionals i.e. , USMAN, SENIOR INFRASTRUCTURE ENGINEER, lab, RT, psych nurse, high school social science teacher, stock counter, teacher, technology officer, pillowcase cleaner)? Give summary @ -I discussed the case with the radiologist who read the patient's CT. Also discussed the case with Dr. Forbes who is the ED physician at [facility] Was smoking cessation discussed for >3mins.? @ -No Was critical care preformed (if so, how long)? @ -Yes, 35 minutes for altered mental status with recent brain bleed - discussion with radiology, transfer to outside hospital Were there social determinants of health that impacted care today? How? (Homelessness, low income, unemployed, alcoholism, drug addiction, transportation, low edu. Level, literacy, decrease access to med. care, half-way, rehab)? @ -No Was there de-escalation of care discussed even if they declined (Discuss DNR or withdrawal of care, Hospice)? DNR status @ -No What co-morbidities impacted this encounter? (DM, HTN, Smoking, COPD, CAD, Cancer, CVA, ARF, Chemo, Hep., AIDS, mental health diagnosis, sleep apnea, morbi d obesity)? @ -afib, cva, recent subdural Was patient admitted / discharged? Hospital course, mention meds given and route, prescriptions, significant lab abnormalities, going to OR and other pertinent info. @ -Upon arrival patient was placed into room 8. Thorough history and physical exam was performed. Patient is agitated. He does have some nonsensical speech. Patient also has some expressive aphasia. states that symptoms have been present for 24 hours. IV is established and laboratory studies were conducted. I did repeat CT of the patient's brain. Continues to demonstrate focal right frontoparietal subdural hematoma. There is comment made of a 6 mm left subdural collection which was not previously noted on previous scans. As the patient does demonstrate altered mental status with recent subdural hemorrhage it is recommended that the patient be transferred back to [facility] for evaluation and treatment by his current care team. and patient were agreeable to transfer. Called and spoke with Dr. Forbes at [facility] who agreed to accept transfer the patient. [employer] forms were signed. Patient is transferred in stable condition Undiagnosed new problem with uncertain prognosis? @ -No Drug Therapy requiring intensive monitoring for toxicity (Heparin, Nitro, Insulin, Cardizem)? @ -No Were any procedures done? @ -No Diagnosis/symptom? @ -Acute encephalopathy, acute/subacute right frontoparietal subdural hematoma, left subdural collection Acute, or Chronic, or Acute on Chronic? @ -Acute on chronic Uncomplicated (without systemic symptoms) or Complicated (systemic symptoms)? @ -Complicated Side effects of treatment? @ -No Exacerbation, Progression, or Severe Exacerbation? @ -No Poses a threat to life or bodily function? How? (Chest pain, USA, AR, pneumonia, PE, COPD, DKA, ARF, appy, cholecystitis, CVA, Diverticulitis, Homicidal, Suicidal, threat to staff... and all critical care pts) @ -Yes patient demonstrates new encephalopathy with recent brain bleed - Lab Data Result diagrams: 11/29/22 05:10 Lab Results 11/29/22 11/29/22 11/29/22 Range/Units 04:00 04:04 05:10 Sodium 139 (137-145) mmol/L Potassium 3.3 L (3.5-5.1) mmol/L Chloride 107 (98-107) mmol/L Carbon Dioxide 22 (22-30) mmol/L Anion Gap 10 mmol/L BUN 14 (9-20) mg/dL Creatinine 0.66 (0.66-1.25) mg/dL Est GFR (CKD-EPI)AfAm >90 (>60 ml/min/1.73 sqM) Est GFR (CKD-EPI)NonAf >90 (>60 ml/min/1.73 sqM) Glucose 90 (74-99) mg/dL POC Glucose (mg/dL) 108 (70-110) mg/dL POC Glu Diaper Machine Tender ID Delia Benjamin Calcium 8.4 (8.4-10.2) mg/dL Total Bilirubin 0.7 (0.2-1.3) mg/dL AST 27 (17-59) U/L ALT 24 (4-49) U/L Alkaline Phosphatase 71 (38-126) U/L Troponin I 0.020 (0.000-0.034) ng/mL Total Protein 7.4 (6.3-8.2) g/dL Albumin 3.6 (3.5-5.0) g/dL Serum Alcohol <10 mg/dL Disposition Clinical Impression: Acute encephalopathy, Subdural hematoma, Agitation Disposition: OTHER INSTITUTION NOT DEFINED Condition: Serious Is patient prescribed a controlled substance at d/c from ED?: No Referrals: Get Wright DO [Primary Care Provider] - 1-2 days Time of Disposition: 06:40 - Out of Hospital Transfer - Req. Specs Out of Hospital Transfer - Requested Specifics: Other Emergency Center ([facility])
[2022-11-29 06:57] VITALS: BP 135/96; PULSE 80; RESP 16
[2022-11-29 07:12] LABS: Prothrombin Time 11.1 sec (10.0-12.5)
[2022-11-29 07:13] LABS: Appearance,Urine Clear (Clear); Bilirubin,Urine Negative (Negative); Blood,Urine Negative (Negative); Color,Urine Colorless; Glucose,Urine (UA) Negative (Negative); Ketones,Urine Negative (Negative); Leukocyte Esterase,Urine Negative (Negative); Nitrite,Urine Negative (Negative); PH, Urine 6.5 (5.0-8.0); Protein,Urine Negative (Negative); Urobilinogen,Urine <2.0 mg/dL (<2.0)
[2022-11-29 07:15] LABS: Partial Thromboplastin Time 20.3 sec (22.0-30.0)
[2022-11-29 07:21] LABS: Basophils % (A) 0 %; Eosinophils # (A) 0.1 k/uL (0-0.7); Eosinophils % (A) 2 %; HCT 34.5 % (39.0-53.0); HGB 11.9 gm/dL (13.0-17.5); Lymphocytes # (A) 0.7 k/uL (1.0-4.8); Lymphocytes % (A) 13 %; MCH 32.9 pg (25.0-35.0); MCHC 34.5 g/dL (31.0-37.0); MCV 95.4 fL (80.0-100.0); Mean Platelet Volume 10.5; Monocytes # (A) 0.6 k/uL (0-1.0); Monocytes % (A) 10 %; Neutrophils # (A) 4.2 k/uL (1.3-7.7); Neutrophils % (A) 73 %; Platelet Count 101 k/uL (150-450); RBC 3.62 m/uL (4.30-5.90); RDW 14.7 % (11.5-15.5); WBC 5.7 k/uL (3.8-10.6)
[2022-11-29 07:30] LABS: Amphetamine Screen,Urine Not Detected (NotDetected); Barbiturate Screen,Urine Not Detected (NotDetected); Benzodiazepines Screen,Urine Not Detected (NotDetected); Cocaine Screen,Urine Not Detected (NotDetected); Methadone Screen, Urine Not Detected (NotDetected); Opiate Screen,Urine Not Detected (NotDetected); Oxycodone Screen, Urine Not Detected (NotDetected); Phencyclidine Screen,Urine Not Detected (NotDetected); Tricyclic Antidepressant,Urine Not Detected (NotDetected); Urn Cannabinoid Scrn Not Detected (NotDetected)
== END 2022-11-29 06:57 | disposition other institution (70) ==
LOC: EC 03:45
DX: S06.5XAA Traumatic subdural hemorrhage with loss of consciousness status unknown, initial encounter (principal); I48.91 Unspecified atrial fibrillation; I48.92 Unspecified atrial flutter; I10 Essential (primary) hypertension; Z79.01 Long term (current) use of anticoagulants; Z79.899 Other long term (current) drug therapy; W19.XXXA Unspecified fall, initial encounter
CPT/HCPCS: 36415; 70450; 72125; 80053; 80306; 80320; 81003; 84484; 85025; 85610; 85730; 93005; 99291

== ENCOUNTER → 2023-01-04 | Outpatient (CLI) | payer MEDICARE ==
[2023-01-04 11:08] LABS: ALT 21 U/L (4-49); AST 22 U/L (17-59); African American GFR (CKD) 77 (>60 ml/min/1.73 sqM); Albumin 3.8 g/dL (3.5-5.0); Alkaline Phosphatase 68 U/L (38-126); Anion Gap 12 mmol/L; Blood Urea Nitrogen 23 mg/dL (9-20); Calcium 9.1 mg/dL (8.4-10.2); Carbon Dioxide 24 mmol/L (22-30); Chloride 106 mmol/L (98-107); Globulin 3.9 g/dL; Glucose 96 mg/dL (74-99); Non-African American GFR(CKD) 66 (>60 ml/min/1.73 sqM); Potassium 3.6 mmol/L (3.5-5.1); Sodium 142 mmol/L (137-145); Total Bilirubin 0.4 mg/dL (0.2-1.3); Total Protein 7.7 g/dL (6.3-8.2)
--- NOTE | 2023-01-04 11:58 | CT ---
EXAMINATION TYPE: CT brain wo con DATE OF EXAM: 01/04/2023 HISTORY: recent cva. CT DLP: 1116 mGycm. Automated Exposure Control for Dose Reduction was Utilized. TECHNIQUE: CT scan of the head is performed without contrast. COMPARISON: CT brain November 29, 2022. FINDINGS: Persistent left-sided extra-axial fluid collection measuring up to 6 mm in thickness axial image 39 is more hyperdense on current study no new midline shift. There is mild diffuse ventricular and sulcal prominence redemonstrated. There is mild to moderate low-attenuation in the periventricu lar white matter redemonstrated. The calvarium is intact. Right-sided aphakia redemonstrated. Partial opacification of the right sphenoid sinus and patchy secretions in left sphenoid sinus now seen. IMPRESSION: Persistent small left-sided extra-axial hemorrhage is more hyperdense suggesting acute co mponent. Size is stable. No new midline shift. Mild diffuse cerebral atrophy and mild/moderate chron ic small vessel ischemic change redemonstrated. New sphenoid sinus disease noted.
--- NOTE | 2023-01-04 12:31 | CT ---
EXAMINATION TYPE: CT angio head neck DATE OF EXAM: 01/04/2023 HISTORY: recent cva COMPARISON: Prior CTA September 14, 2022 CT DLP: 338.2 mGycm. Automated Exposure Control for Dose Reduction was Utilized. TECHNIQUE: CTA scan of the head and neck is performed with IV Contrast, patient injected with 65cc m L of Isovue 300, axial images are obtained, coronal and sagittal reformatted images are reviewed. 3D reconstructed images are created on an independent workstation and reviewed. FINDINGS: Carotid/Vascular Structures: Mild to moderate focal noncalcified plaque at origin of left common goodman tid artery without significant stenosis. Prominent left subclavian artery without significant stenosi s. Mild peripheral plaque. Mild to moderate peripheral plaque at right carotid bulb without significa nt stenosis. Similar findings on the left. Patent external carotid arteries bilaterally without signi ficant stenosis. There is hypoplastic or occluded distal right vertebral artery. There is dominant left vertebral eric ry patent to the basilar junction with moderate peripheral calcified plaque distally. Hypoplastic kaelyn ateral posterior communicating arteries. No large vessel occlusion or aneurysm in the posterior circu lation. Anterior circulation shows hypoplastic left A1 segment with patent A2 segment due to patent a nterior communicating artery. Short segment significant narrowing of the left M1 segment near axial i mage 23 series 15 is redemonstrated. No new large vessel occlusion or aneurysm in the anterior circul ation is seen. Other: Roughly 1.0 cm low dense right thyroid nodule axial image 48 is redemonstrated. Mild emphysema tous changes in the upper lungs is seen. 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 No si gnificant change from most recent prior CTA. NASCET criteria was used in interpretation of this exam?
== END | disposition home or self-care (01) ==
LOC: RADCTMAIN 10:10
PROVIDERS: ATTEND Psychiatry & Neurology Vascular Neurology
DX: I65.22 Occlusion and stenosis of left carotid artery (principal); I67.82 Cerebral ischemia; G31.9 Degenerative disease of nervous system, unspecified; I62.9 Nontraumatic intracranial hemorrhage, unspecified; J34.89 Other specified disorders of nose and nasal sinuses
CPT/HCPCS: 80053; 70496; 70450; 70498; 36415; Q9967

== ENCOUNTER → 2023-07-02 | Outpatient (CLI) | payer MEDICARE ==
[2023-07-02 11:19] LABS: African American GFR (CKD) 87 (>60 ml/min/1.73 sqM); Blood Urea Nitrogen 19 mg/dL (9-20); Non-African American GFR(CKD) 75 (>60 ml/min/1.73 sqM)
--- NOTE | 2023-07-02 12:08 | CT ---
EXAMINATION TYPE: CT angio head CT DLP: 1957.9 mGycm, Automated exposure control for dose reduction was used. DATE OF EXAM: 07/02/2023 11:54 AM COMPARISON: 01/04/2023,. CLINICAL INDICATION:Male, 82 years old with history of Z86.73 PRSNL HX OF TIA (TIA), AND CEREB INFRC W/O; PHH, tia follow up TECHNIQUE: CT angio head Axially acquired helical CT angiogram was obtained. Axial images are supplem ented with 3D reconstructions which were post-processed at an independent workstation. NASCET criteri a used. Contrast used:100 mL of Isovue 300 with IV Contrast, none Oral contrast used: none FINDINGS: Vertebral arteries: The vertebral arteries are patent. There is atherosclerosis of the intracranial p ortion of the left vertebral artery. The right vertebral artery extending to the basilic artery is no t definitively visualized and may terminate as a posterior inferior cerebellar artery. Vertebral artery dominance: Left dominant Basilar artery: The basilar artery is intact. The basilar artery bifurcation is normal. Internal Carotid arteries: The cervical, petrous, cavernous and supraclinoid segments are normal. ZHEN: Patent with no evidence of aneurysm. ACOM: Present without evidence of aneurysm. MCA: Patent with no evidence of aneurysm. Short segment left M1 segment stenosis is not significantly changed from 01/04/2023 ASSIGNMENT MANAGER: Patent with no evidence of aneurysm. PCOM: Hypoplastic bilaterally. Dural sinuses: Patent. Right aphakia. IMPRESSION: Similar short segment left M1 segment of high-grade stenosis. Nonvisualization of the right vertebral artery which may terminate as the posterior inferior cerebell ar artery.
== END | disposition home or self-care (01) ==
LOC: RADCTMAIN 10:11
PROVIDERS: ATTEND Neurological Surgery
DX: I66.02 Occlusion and stenosis of left middle cerebral artery (principal); Z86.73 Personal history of transient ischemic attack (TIA), and cerebral infarction without residual deficits
CPT/HCPCS: 82565; 84520; 70496; 36415; Q9967

== ENCOUNTER 2023-10-18 10:34 | Emergency (ER) | payer MEDICARE ==
[2023-10-18 10:39] VITALS: RESP 18; TEMP 97.5
[2023-10-18 11:10] VITALS: BP 145/99; PULSE 69
[2023-10-18 11:10] LABS: Glucose,Whole Blood 116 mg/dL (70-110)
--- NOTE | 2023-10-18 11:11 | XR ---
EXAMINATION TYPE: XR chest 1V portable DATE OF EXAM: 10/18/2023 11:04 AM CLINICAL INDICATION: Male, 83 years old with history of trauma; COMPARISON: None TECHNIQUE: XR chest 1V portable Frontal view of the chest. FINDINGS: Lungs/Pleura: There is no evidence of pleural effusion, focal consolidation, or pneumothorax. Pulmonary vascularity: Unremarkable. Heart/mediastinum: Cardiomediastinal silhouette is unremarkable. Musculoskeletal: No acute osseous pathology. Aorta is dilated but has similar ratio of mediastinum to chest compared to prior. IMPRESSION: Moderate mediastinum changes similar ratio compared to prior on 09/14/2022. There is concern for aortic pathology consider further evaluation with CT Angio chest. No other evidence for acute traumatic pro cess.
--- NOTE | 2023-10-18 11:22 | CT ---
EXAMINATION TYPE: CT brain cspine wo con CT DLP: 1378.8 mGycm, Automated exposure control for dose reduction was used. DATE OF EXAM: 10/18/2023 11:05 AM COMPARISON: Multiple priors most recent 01/04/2023. CLINICAL INDICATION: Male, 83 years old with history of trauma; Fall on thinners TECHNIQUE: Brain: Multiple axial CT images of the brain were obtained without IV contrast. Cspine: Axial CT images from the skull base to the inferior aspect of T2 we obtained without intraven ous contrast. Coronal and sagittal reformatted images were also reviewed. . FINDINGS: Brain: Extra-axial spaces: No abnormal extra-axial fluid collections. Ventricular system: High density blood products layering along the falx bilaterally and anterior aspe ct of the left frontal lobe measuring up to 4 mm on the left. Blood products also cross midline anter iorly series 2033 image 38 Cerebral parenchyma: No acute intraparenchymal hemorrhage or mass effect. The jara-white junction is well differentiated. Cerebellum: Unremarkable. Mass effect: No evidence of midline shift. Intracranial vasculature: Atherosclerotic calcifications of the intracranial vessels. Soft tissues: Normal. Calvarium/osseous structures: No depressed skull fracture. Paranasal sinuses and mastoid air cells: Clear. Visualized orbits: Orbital contents are intact. Cervical spine: Fracture: None. Osseous structures: Multilevel degenerative disc disease changes with endplate spurring and disc oste ophyte complex's. Vertebral alignment: Within normal limits. Spinal canal/Neural Foramina: No evidence of significant spinal canal narrowing. No evidence for sign ificant neural foraminal stenosis. Neck soft tissues: Prevertebral soft tissues are within normal limits. Other: The airway is patent. The lung apices are clear. IMPRESSION: 1. Acute intracranial hemorrhage with subdural hemorrhage layering along bilateral frontal lobes, le ft greater than right and and falx. No midline shift. 2. Soft tissue edema over the left frontal skull without evidence for fracture. 3. No evidence of cervical spine fracture. 4. Mild multilevel degenerative disc disease. Findings communicated to Dr. Cassandra Chaudhari DO on 10/18/2023 11:[address] Rbuen Oshea.
[2023-10-18 11:36] LABS: Basophils % (A) 0 %; Eosinophils # (A) 0.2 k/uL (0-0.7); Eosinophils % (A) 5 %; HCT 37.5 % (39.0-53.0); HGB 12.4 gm/dL (13.0-17.5); Lymphocytes # (A) 0.6 k/uL (1.0-4.8); Lymphocytes % (A) 15 %; MCH 32.5 pg (25.0-35.0); MCHC 33.1 g/dL (31.0-37.0); MCV 98.2 fL (80.0-100.0); Mean Platelet Volume 7.5; Monocytes # (A) 0.3 k/uL (0-1.0); Monocytes % (A) 8 %; Neutrophils % (A) 69 %; Platelet Count 227 k/uL (150-450); RBC 3.82 m/uL (4.30-5.90); WBC 4.3 k/uL (3.8-10.6)
[2023-10-18] MEDS ORDERED: Kcentra / Balfaxar PER PHARMACY 1 EACH MISC MISCELLANE PRN (11:40)
--- NOTE | 2023-10-18 11:44 | ED ---
Fall HPI - General Chief Complaint: Fall Stated Complaint: Fall/Head Source: patient, family Mode of arrival: wheelchair - History of Present Illness Initial Comments: 83-year-old male with past medical history of CVA, A-fib, hypertension, pulmonary embolism who takes Eliquis and Plavix who presents emergency criminal justice department chair injury. Patient was coming up the stairs. His noticed that he was having difficulties getting up the last step. She went to catch him and he fell backwards going down the entire flight of steps. They are wooden stairs with a hardwood floor at the bottom. The patient and the are unaware of how the patient fell but he has a noticeable abrasion above his left forehead. Patient denies losing consciousness. He denies any pain in his neck, chest or pelvis. No abdominal pain. No difficulty breathing. He does admit to pain at the site of where his head injury was. He was able to get up and ambulate on scene. denies any new neurologic changes. He does have some dysarthria due to his previous stroke. Patient moving all extremities appropri ately. No other alleviating, precipitating or modifying factors - Related Data Home Medications Medication Instructions Recorded Confirmed Cevimeline [Evoxac] 30 mg PO TID@07,13,19 04/07/16 11/06/23 Acetaminophen [Tylenol 8 Hour] 650 mg PO Q4H PRN 11/06/23 11/06/23 Clopidogrel [Plavix] 75 mg PO HS 11/06/23 11/06/23 Losartan Potassium 100 mg PO DAILY 11/06/23 11/06/23 NIFEdipine XL [Procardia XL] 90 mg PO DAILY 11/06/23 11/06/23 Pantoprazole [Protonix] 40 mg PO DAILY 11/06/23 11/06/23 Sennosides [Senokot] 8.6 mg PO BID 11/06/23 11/06/23 Spironolactone [Aldactone] 50 mg PO DAILY 11/06/23 11/06/23 bisacodyL [Dulcolax] 10 mg RECTAL DAILY PRN 11/06/23 11/06/23 carvediloL [Coreg] 6.25 mg PO BID 11/06/23 11/06/23 polyethylene glycoL 3350 [Miralax] 17 gm PO BID 11/06/23 11/06/23 Previous Rx's Medication Instructions Recorded Atorvastatin [Lipitor] 40 mg PO HS #30 tab 09/26/22 Cyanocobalamin [Vitamin B-12] 500 mcg PO DAILY tab 11/10/23 Nystatin 100,000 Unit/gm Powd 1 applic TOPICAL BID each 11/10/23 [Mycostatin Powder] Allergies Allergy/AdvReac Type Severity Reaction Status Date / Time No Known Allergies Allergy Verified 10/18/23 10:38 Review of Systems ROS Statement: Those systems with pertinent positive or pertinent negative responses have been documented in the HPI. ROS Other: All systems not noted in ROS Statement are negative. 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 Mild oozing at the site) Eye exam: Present: normal appearance, PERRL, EOMI. Absent: scleral icterus, conjunctival injection, periorbital swelling ENT exam: Present: normal exam, mucous membranes moist Neck exam: Present: normal inspection. Absent: tenderness, meningismus, lymphadenopathy Respiratory exam: Present: normal lung sounds bilaterally. Absent: respiratory distress, wheezes, rales, rhonchi, stridor Cardiovascular Exam: Present: regular rate, normal rhythm, normal heart sounds. Absent: systolic murmur, diastolic murmur, rubs, gallop, clicks GI/Abdominal exam: Present: soft, normal bowel sounds. Absent: distended, tenderness, guarding, rebound, rigid Extremities exam: Present: normal inspection, full ROM, normal capillary refill. Absent: tenderness, pedal edema, joint swelling, calf tenderness Back exam: Present: normal inspection Neurological exam: Present: alert, oriented X3, CN II-XII intact, other (mild dysarthria) Psychiatric exam: Present: normal affect, normal mood Skin exam: Present: warm, dry, intact, normal color. Absent: rash Course Vital Signs 10/18/23 10/18/23 10:35 10:50 Temperature 97.5 F L Pulse Rate 70 69 Respiratory 18 18 Rate Blood Pressure 139/95 145/99 O2 Sat by Pulse 95 97 Oximetry Medical Decision Making - Medical Decision Making Was pt. sent in by a medical professional or institution (, PA, FABRICATION AND LAYOUT CRAFTSMAN, urgent care, hospital, or custodial...) When possible be specific @ -No Did you speak to anyone other than the patient for history (EMS, parent, family, police, friend...)? What history was obtained from this source @ -Spoke with the patient's for transfer Did you review nursing and triage notes (agree or disagree)? Why? @ -I reviewed and agree with nursing and triage notes Were old charts reviewed (outside hosp., previous admission, EMS record, old EKG, old radiological studies, urgent care reports/EKG's, custodial records)? Report findings @ -I reviewed patient's previous CT from December 2022 where the patient had intracranial hemorrhage. He then had another CT performed in June 2023 where the bleed had reabsorbed Differential Diagnosis (chest pain, altered mental status, abdominal pain women, abdominal pain men, vaginal bleeding, weakness, fever, dyspnea, syncope, headache, dizziness, GI bleed, back pain, seizure, CVA, palpatations, mental health, musculoskeletal)? @ -Subdural, subarachnoid, skull fracture, cervical fracture EKG interpreted by me (3pts min.). @ -Yes and demonstrates sinus rhythm with rate of 71. RI interval 185. QRS 132. QTc of 445. No acute ST segment elevations or depressions X-rays interpreted by me (1pt min.). @ -Yes and demonstrates no acute process CT interpreted by me (1pt min.). @ -yes and demonstrates subdural hemorrhage of the bilateral frontal lobes U/S interpreted by me (1pt. min.). @ -None done What testing was considered but not performed or refused? (CT, X-rays, U/S, labs)? Why? @ -None What meds were considered but not given or refused? Why? @ -Reversal medications such as Kcentra and platelets were recommended to the family however the is adamant that he is going to have a stroke if we reversed him. She is aware of the risks of not giving these reversal medications. She is able to speak with her son and was agreeable to Kcentra. This is ordered and given to the patient Did you discuss the management of the patient with other professionals (professionals i.e. , USMAN, FABRICATION AND LAYOUT CRAFTSMAN, lab, RT, psych nurse, clinical social work therapist, emergency room doctor, teacher, credit risk officer, mattress spring encaser)? Give summary @ -yes, Dr. Machado - accepts the patient from [place] Was smoking cessation discussed for >3mins.? @ -No Was critical care preformed (if so, how long)? @ -yes, 45 minutes for intracranial bleed Were there social determinants of health that impacted care today? How? (Homelessness, low income, unemployed, alcoholism, drug addiction, emery sportation, low edu. Level, literacy, decrease access to med. care, care home, rehab)? @ -No Was there de-escalation of care discussed even if they declined (Discuss DNR or withdrawal of care, Hospice)? DNR status @ -No What co-morbidities impacted this encounter? (DM, HTN, Smoking, COPD, CAD, Cancer, CVA, ARF, Chemo, Hep., AIDS, mental health diagnosis, sleep apnea, morbid obesity)? @ -A-fib, stroke, pulmonary embolism Was patient admitted / discharged? Hospital course, mention meds given and rou te, prescriptions, significant lab abnormalities, going to OR and other pertinent info. @ -Upon arrival patient seen and evaluated in trauma 2. Thorough history and physical exam was performed. IV is established. Patient does go for CT of his head and cervical spine. CT does demonstrate subdural hemorrhage of the bilateral frontal lobes which was not seen on his last CT in June. I did speak w ith the radiologist in regards to this scan. I informed the patient of his diagnosis. He was agreeable to transfer down to [facility]. I did discuss reversing his antiplatelet and anticoagulant. Originally the was in a disagreement with the reversal medications however she does speak with her son and is agreeable. I did order Kcentra and TXA and these are administers. PLatelets not available in time for EMS transport. I did speak with Dr. Machado who accepts the patient as a transfer. Patient remained neurologically intact. Agreeable to transfer. COBRA forms are signed. Patient transferred in stable condition Undiagnosed new problem with uncertain prognosis? @ -No Drug Therapy requiring intensive monitoring for toxicity (Heparin, Nitro, Insulin, Cardizem)? @ -No Were any procedures done? @ -No Diagnosis/symptom? @ -Fall downstairs, acute subdural hemorrhage, Eliquis and Plavix coagulopathy Acute, or Chronic, or Acute on Chronic? @ -Acute Uncomplicated (without systemic symptoms) or Complicated (systemic symptoms)? @ -Complicated Side effects of treatment? @ -No Exacerbation, Progression, or Severe Exacerbation? @ -No Poses a threat to life or bodily function? How? (Chest pain, [place], [place], pneumonia, PE, COPD, DKA, ARF, appy, cholecystitis, CVA, Diverticulitis, Homicidal, Suicidal, threat to staff... and all critical care pts) @ -Yes this patient does have intracranial bleed - Lab Data Result diagrams: 10/18/23 11:08 10/18/23 11:08 Lab Results 10/18/23 10/18/23 10/18/23 Range/Units 11:05 11:07 11:08 WBC 4.3 (3.8-10.6) k/uL RBC 3.82 L (4.30-5.90) m/uL Hgb 12.4 L (13.0-17.5) gm/dL Hct 37.5 L (39.0-53.0) % MCV 98.2 (80.0-100.0) fL MCH 32.5 (25.0-35.0) pg MCHC 33.1 (31.0-37.0) g/dL RDW 13.0 (11.5-15.5) % Plt Count 227 (150-450) k/uL MPV 7.5 Neutrophils % 69 % Lymphocytes % 15 % Monocytes % 8 % Eosinophils % 5 % Basophils % 0 % Neutrophils # 3.0 (1.3-7.7) k/uL Lymphocytes # 0.6 L (1.0-4.8) k/uL Monocytes # 0.3 (0-1.0) k/uL Eosinophils # 0.2 (0-0.7) k/uL Basophils # 0.0 (0-0.2) k/uL PT (10.0-12.5) sec INR (<1.2) APTT (22.0-30.0) sec Sodium (137-145) mmol/L Potassium (3.5-5.1) mmol/L Chloride (98-107) mmol/L Carbon Dioxide (22-30) mmol/L Anion Gap mmol/L BUN (9-20) mg/dL Creatinine (0.66-1.25) mg/dL Est GFR (CKD-EPI)AfAm (>60 ml/min/1.73 sqM) Est GFR (CKD-EPI)NonAf (>60 ml/min/1.73 sqM) Glucose (74-99) mg/dL POC Glucose (mg/dL) 116 H (70-110) mg/dL POC Glu Architectural Representative ID Jose Gupta Calcium (8.4-10.2) mg/dL Total Bilirubin (0.2-1.3) mg/dL AST (17-59) U/L ALT (4-49) U/L Alkaline Phosphatase (38-126) U/L Troponin I (0.000-0.034) ng/mL Total Protein (6.3-8.2) g/dL Albumin (3.5-5.0) g/dL Serum Alcohol mg/dL Blood Type A Negative Blood Type Confirm Blood Type Recheck No Previous Record Bld Type Recheck Status CABO Indicated Antibody Screen NEGATIVE Spec Expiration Date 10/21/2023 - 230710/18/23 10/18/23 10/18/23 Range/Units 11:08 11:08 11:08 WBC (3.8-10.6) k/uL RBC (4.30-5.90) m/uL Hgb (13.0-17.5) gm/dL Hct (39.0-53.0) % MCV (80.0-100.0) fL MCH (25.0-35.0) pg MCHC (31.0-37.0) g/dL RDW (11.5-15.5) % Plt Count (150-450) k/uL MPV Neutrophils % % Lymphocytes % % Monocytes % % Eosinophils % % Basophils % % Neutrophils # (1.3-7.7) k/uL Lymphocytes # (1.0-4.8) k/uL Monocytes # (0-1.0) k/uL Eosinophils # (0-0.7) k/uL Basophils # (0-0.2) k/uL PT 10.5 (10.0-12.5) sec INR 1.0 (<1.2) APTT 25.2 (22.0-30.0) sec Sodium 139 (137-145) mmol/L Potassium 4.3 (3.5-5.1) mmol/L Chloride 108 H (98-107) mmol/L Carbon Dioxide 22 (22-30) mmol/L Anion Gap 9 mmol/L BUN 24 H (9-20) mg/dL Creatinine 1.04 (0.66-1.25) mg/dL Est GFR (CKD-EPI)AfAm 78 (>60 ml/min/1.73 sqM) Est GFR (CKD-EPI)NonAf 67 (>60 ml/min/1.73 sqM) Glucose 115 H (74-99) mg/dL POC Glucose (mg/dL) (70-110) mg/dL POC Glu Architectural Representative ID Calcium 9.1 (8.4-10.2) mg/dL Total Bilirubin 0.4 (0.2-1.3) mg/dL AST 24 (17-59) U/L ALT 18 (4-49) U/L Alkaline Phosphatase 62 (38-126) U/L Troponin I <0.012 (0.000-0.034) ng/mL Total Protein 7.5 (6.3-8.2) g/dL Albumin 4.1 (3.5-5.0) g/dL Serum Alcohol <10 mg/dL Blood Type Blood Type Confirm Blood Type Recheck Bld Type Recheck Status Antibody Screen Spec Expiration Date 10/18/23 Range/Units 11:10 WBC (3.8-10.6) k/uL RBC (4.30-5.90) m/uL Hgb (13.0-17.5) gm/dL Hct (39.0-53.0) % MCV (80.0-100.0) fL MCH (25.0-35.0) pg MCHC (31.0-37.0) g/dL RDW (11.5-15.5) % Plt Count (150-450) k/uL MPV Neutrophils % % Lymphocytes % % Monocytes % % Eosinophils % % Basophils % % Neutrophils # (1.3-7.7) k/uL Lymphocytes # (1.0-4.8) k/uL Monocytes # (0-1.0) k/uL Eosinophils # (0-0.7) k/uL Basophils # (0-0.2) k/uL PT (10.0-12.5) sec INR (<1.2) APTT (22.0-30.0) sec Sodium (137-145) mmol/L Potassium (3.5-5.1) mmol/L Chloride (98-107) mmol/L Carbon Dioxide (22-30) mmol/L Anion Gap mmol/L BUN (9-20) mg/dL Creatinine (0.66-1.25) mg/dL Est GFR (CKD-EPI)AfAm (>60 ml/min/1.73 sqM) Est GFR (CKD-EPI)NonAf (>60 ml/min/1.73 sqM) Glucose (74-99) mg/dL POC Glucose (mg/dL) (70-110) mg/dL POC Glu Architectural Representative ID Calcium (8.4-10.2) mg/dL Total Bilirubin (0.2-1.3) mg/dL AST (17-59) U/L ALT (4-49) U/L Alkaline Phosphatase (38-126) U/L Troponin I (0.000-0.034) ng/mL Total Protein (6.3-8.2) g/dL Albumin (3.5-5.0) g/dL Serum Alcohol mg/dL Blood Type Blood Type Confirm A Negative Blood Type Recheck Bld Type Recheck Status Antibody Screen Spec Expiration Date Disposition Clinical Impression: Fall, Subdural hemorrhage, Forehead abrasion Disposition: OTHER INSTITUTION NOT DEFINED Condition: Serious Is patient prescribed a controlled substance at d/c from ED?: No Referrals: Get Wright DO [Primary Care Provider] - 1-2 days Time of Disposition: 11:44 - Out of Hospital Transfer - Req. Specs Out of Hospital Transfer - Requested Specifics: Other Emergency Center ([facility]
[2023-10-18 11:49] LABS: Partial Thromboplastin Time 25.2 sec (22.0-30.0); Prothrombin Time 10.5 sec (10.0-12.5)
[2023-10-18 11:50] LABS: ALT 18 U/L (4-49); AST 24 U/L (17-59); African American GFR (CKD) 78 (>60 ml/min/1.73 sqM); Albumin 4.1 g/dL (3.5-5.0); Alcohol <10 mg/dL; Alkaline Phosphatase 62 U/L (38-126); Anion Gap 9 mmol/L; Blood Urea Nitrogen 24 mg/dL (9-20); Calcium 9.1 mg/dL (8.4-10.2); Carbon Dioxide 22 mmol/L (22-30); Chloride 108 mmol/L (98-107); Glucose 115 mg/dL (74-99); Non-African American GFR(CKD) 67 (>60 ml/min/1.73 sqM); Potassium 4.3 mmol/L (3.5-5.1); Sodium 139 mmol/L (137-145); Total Bilirubin 0.4 mg/dL (0.2-1.3); Total Protein 7.5 g/dL (6.3-8.2)
[2023-10-18] MEDS: TRANEXAMIC 1,000 MG/100ML-NACL 1,000 MG in SALINE 1 100ML.BAG IV STA (11:50)
[2023-10-18] MEDS: EMPTY BAG 1 BAG with HUMAN PROTHROMBN CMPL-BALFAXAR 1,840 UNIT IV ONE (11:57)
== END 2023-10-18 12:00 | disposition other institution (70) ==
LOC: EC 10:34
DX: S06.5XAA Traumatic subdural hemorrhage with loss of consciousness status unknown, initial encounter (principal); S00.81XA Abrasion of other part of head, initial encounter; I48.91 Unspecified atrial fibrillation; I26.99 Other pulmonary embolism without acute cor pulmonale; Z79.02 Long term (current) use of antithrombotics/antiplatelets; W10.8XXA Fall (on) (from) other stairs and steps, initial encounter
CPT/HCPCS: 36415; 70450; 71045; 72125; 80053; 80320; 84484; 85025; 85610; 85730; 86850; 86900; 86901; 93005; 96374; 96375; 99291

== ENCOUNTER 2023-11-05 21:32 | Emergency (ER) | payer MEDICARE ==
[2023-11-05 21:42] VITALS: TEMP 99
--- NOTE | 2023-11-05 21:48 | ED ---
Fall HPI - General Chief Complaint: Fall Stated Complaint: Fall Time Seen by Provider: 11/05/23 21:35 Source: EMS Mode of arrival: EMS - History of Present Illness Initial Comments: This patient is an 83-year-old man sent from the [facility], who is here to have evaluation for suspected ground-level fall. The patient was found lying on the ground in his room. The patient was conscious. He had history of having some sort of "brain bleed" previously so he is sent to have evaluation. Patient has history of atrial fibrillation and is on Eliquis. When I interviewed the patient, he denies any complaints. He denies pain. The patient is disoriented but denies all symptoms. No dyspnea. No nausea or vomiting. MD Complaint: fall When Fall Occurred: unsure Fall Witnessed: no Place Fall Occurred: intermediate/SNF Loss of Consciousness: unsure Prolonged Down Time?: unclear Severity scale (1-10): 0 Associated Symptoms: denies - Related Data Home Medications Medication Instructions Recorded Confirmed Cevimeline [Evoxac] 30 mg PO TID@,,04/07/16 11/06/23 Acetaminophen [Tylenol 8 Hour] 650 mg PO Q4H PRN 11/06/23 11/06/23 Clopidogrel [Plavix] 75 mg PO HS 11/06/23 11/06/23 Losartan Potassium 100 mg PO DAILY 11/06/23 11/06/23 NIFEdipine XL [Procardia XL] 90 mg PO DAILY 11/06/23 11/06/23 Pantoprazole [Protonix] 40 mg PO DAILY 11/06/23 11/06/23 Sennosides [Senokot] 8.6 mg PO BID 11/06/23 11/06/23 Spironolactone [Aldactone] 50 mg PO DAILY 11/06/23 11/06/23 bisacodyL [Dulcolax] 10 mg RECTAL DAILY PRN 11/06/23 11/06/23 carvediloL [Coreg] 6.25 mg PO BID 11/06/23 11/06/23 polyethylene glycoL 3350 [Miralax] 17 gm PO BID 11/06/23 11/06/23 Previous Rx's Medication Instructions Recorded Atorvastatin [Lipitor] 40 mg PO HS #30 tab 09/26/22 Cyanocobalamin [Vitamin B-12] 500 mcg PO DAILY tab 11/10/23 Nystatin 100,000 Unit/gm Powd 1 applic TOPICAL BID each 11/10/23 [Mycostatin Powder] Allergies Allergy/AdvReac Type Severity Reaction Status Date / Time No Known Allergies Allergy Verified 10/18/23 10:38 Review of Systems ROS Statement: Those systems with pertinent positive or pertinent negative responses have been documented in the HPI. ROS Other: All systems not noted in ROS Statement are negative. 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 Absent: scleral icterus, conjunctival injection ENT exam: Present: normal oropharynx Neck exam: Present: normal inspection, other (Cervical collar). Absent: tenderness Respiratory exam: Present: normal lung sounds bilaterally. Absent: respiratory distress, wheezes, rales, rhonchi, stridor, chest wall tenderness, accessory muscle use Cardiovascular Exam: Present: regular rate, irregular rhythm, normal heart sounds. Absent: systolic murmur, diastolic murmur, rubs, gallop GI/Abdominal exam: Present: soft. Absent: distended, tenderness, guarding, rebound, rigid, mass Extremities exam: Present: normal inspection, normal capillary refill. Absent: pedal edema, calf tenderness Back exam: Present: normal inspection. Absent: vertebral tenderness Neurological exam: Present: alert, CN II-XII intact. Absent: oriented X3, motor sensory deficit Skin exam: Present: warm, dry, intact, normal color. Absent: rash Course Vital Signs 11/05/23 11/06/23 21:35 01:31 Temperature 99.0 F Pulse Rate 102 H 75 Respiratory 18 17 Rate Blood Pressure 107/85 135/108 O2 Sat by Pulse 95 99 Oximetry Medical Decision Making - Medical Decision Making The patient had CT scan of the brain and C-spine that I interpreted as negative for acute bony injury, negative for acute intracranial hemorrhage or mass effect. Was pt. sent in by a medical professional or institution (, PA, HYDRAULIC MODELING ENGINEER, urgent care, hospital, or intermediate...) When possible be specific @ -[No] Did you speak to anyone other than the patient for history (EMS, parent, family, police, friend...)? What history was obtained from this source @ -[No] Did you review nursing and triage notes (agree or disagree)? Why? @ -[I reviewed and agree with nursing and triage notes] Were old charts reviewed (outside hosp., previous admission, EMS record, old EKG, old radiological studies, urgent care reports/EKG's, intermediate records)? Report findings @ -[No old charts were reviewed] Differential Diagnosis (chest pain, altered mental status, abdominal pain women, abdominal pain men, vaginal bleeding, weakness, fever, dyspnea, syncope, headache, dizziness, GI bleed, back pain, seizure, CVA, palpatations, mental health, musculoskeletal)? @ -[Differential Musculoskeletal Muscular strain, contusion, ligament sprain, fracture, arthritis, septic arthritis, bursitis, cellulitis, muscle spasm, nerve compression, DVT, arterial occlusion, herpes zoster, electrolyte abnormality, tumor.... This is not meant to be in all inclusive list EKG interpreted by me (3pts min.). @ -[As above] X-rays interpreted by me (1pt min.). @ -[None done] CT interpreted by me (1pt min.). @ -[I interpreted as above U/S interpreted by me (1pt. min.). @ -[None done] What testing was considered but not performed or refused? (CT, X-rays, U/S, labs)? Why? @ -[None] What meds were considered but not given or refused? Why? @ -[None] Did you discuss the management of the patient with other professionals (professionals i.e. , USMAN, HYDRAULIC MODELING ENGINEER, lab, RT, psych nurse, health care social worker, field handyman, teacher, escrow officer, complex case manager)? Give summary @ -[No] Was smoking cessation discussed for >3mins.? @ -[No] Was critical care preformed (if so, how long)? @ -[No] Were there social determinants of health that impacted care today? How? (Homelessness, low income, unemployed, alcoholism, drug addiction, transportation, low edu. Level, literacy, decrease access to med. care, penitentiary, rehab)? @ -[No] Was there de-escalation of care discussed even if they declined (Discuss DNR or withdrawal of care, Hospice)? DNR status @ -[No] What co-morbidities impacted this encounter? (DM, HTN, Smoking, COPD, CAD, Cancer, CVA, ARF, Chemo, Hep., AIDS, mental health diagnosis, sleep apnea, morbid obesity)? @ -[None] Was patient admitted / discharged? Hospital course, mention meds given and route, prescriptions, significant lab abnormalities, going to OR and other pertinent info. @ -[hospital course] Undiagnosed new problem with uncertain prognosis? @ -[No] Drug Therapy requiring intensive monitoring for toxicity (Heparin, Nitro, Insulin, Cardizem)? @ -[No] Were any procedures done? @ -[No] Diagnosis/symptom? @ -[Acute closed head injury Acute, or Chronic, or Acute on Chronic? @ -[Acute Uncomplicated (without systemic symptoms) or Complicated (systemic symptoms)? @ -[Uncomplicated Side effects of treatment? @ -[No] Exacerbation, Progression, or Severe Exacerbation? @ -[No] Poses a threat to life or bodily function? How? (Chest pain, [place], [place], pneumonia, PE, COPD, DKA, ARF, appy, cholecystitis, CVA, Diverticulitis, Homicidal, Suicidal, threat to staff... and all critical care pts) @ -[No] - EKG Data -: EKG Interpreted by Me EKG shows normal: axis (Normal), intervals (Normal), QRS complexes (Normal) Rate: normal Interpretation: other (Interpretation is limited due to a lot of motion artifact but the rhythm appears to be atrial fibrillation rate 80 bpm) Disposition Clinical Impression: Fall, Head injury Disposition: HOME SELF-CARE Condition: Fair Instructions (If sedation given, give patient instructions): Fall Prevention for Older Adults (ED), Head Injury (ED) Is patient prescribed a controlled substance at d/c from ED?: No Referrals: Get Wright DO [Primary Care Provider] - 1-2 days
--- NOTE | 2023-11-06 00:53 | CT ---
EXAM: CT Head Without Intravenous Contrast CLINICAL HISTORY: ITS.REASON CT Reason: fall injury TECHNIQUE: Axial computed tomography images of the head/brain without intravenous contrast. CTDI is 45.2 mGy and DLP is 1079 mGy-cm. This CT exam was performed using one or more of the following dose reduction techniques: automated exposure control, adjustment of the mA and/or kV according to patient size, and/or use of iterative reconstruction technique. COMPARISON: No relevant prior studies available. FINDINGS: No acute intracranial hemorrhage. No midline shift or mass effect. The territorial jara-white matter differentiation is maintained throughout. Age-related cerebral volume loss. Periventricular and subcortical white matter hypoattenuation, consistent with chronic microangiopathy. The visualized orbits appear grossly unremarkable. The calvarium is intact. The visualized paranasal sinuses and mastoid air cells are grossly clear. IMPRESSION: No acute intracranial hemorrhage, midline shift, or mass effect. EXAM: CT Cervical Spine Without Intravenous Contrast CLINICAL HISTORY: ITS.REASON CT Reason: fall injury TECHNIQUE: Axial computed tomography images of the cervical spine without intravenous contrast. CTDI is 24 mGy and DLP is 767.6 mGy-cm. This CT exam was performed using one or more of the following dose reduction techniques: automated exposure control, adjustment of the mA and/or kV according to patient size, and/or use of iterative reconstruction technique. COMPARISON: No relevant prior studies available. FINDINGS: The vertebral body heights are maintained. The craniocervical junction is intact. The atlanto-dens interval is maintained. The dens is intact. There is no spondylolisthesis. Multilevel cervical spondylosis and degenerative disc disease. Straightening of the cervical lordosis. The unenhanced neck soft tissues are grossly unremarkable. The visualized lung apices are grossly clear. IMPRESSION: No acute fracture or subluxation of the cervical spine.
[2023-11-06 01:32] VITALS: BP 135/108; PULSE 75; RESP 17
== END 2023-11-06 02:31 | disposition home or self-care (01) ==
LOC: EC 21:32
CPT/HCPCS: 70450; 72125; 99284

== ENCOUNTER 2023-11-06 17:54 | Inpatient (IN) | payer MEDICARE ==
--- NOTE | 2023-11-06 18:12 | ED ---
General Adult HPI - General Stated complaint: AMS Time Seen by Provider: 11/06/23 17:57 Source: patient, EMS, RN notes reviewed, old records reviewed Mode of arrival: EMS Limitations: altered mental status - History of Present Illness Initial comments: Patient is an 83-year-old male present to the emergency department with concerns for change in mental status. History is from EMS. Patient has no complaints. EMS reports that family has concern that patient has been altered since head injury with intercranial hemorrhage 3 weeks ago. Patient was in the emergency department yesterday with reported fall and had imaging repeated. Patient denies any pain or weakness or confusion. - Related Data Home Medications Medication Instructions Recorded Confirmed Apixaban [Eliquis] 5 mg PO BID 04/07/16 11/06/23 Cevimeline [Evoxac] 30 mg PO TID@07,13,19 04/07/16 11/06/23 Acetaminophen [Tylenol 8 Hour] 650 mg PO Q4H PRN 11/06/23 11/06/23 Clopidogrel [Plavix] 75 mg PO HS 11/06/23 11/06/23 Docusate [Colace] 100 mg PO BID 11/06/23 11/06/23 Losartan Potassium 100 mg PO DAILY 11/06/23 11/06/23 NIFEdipine XL [Procardia XL] 90 mg PO DAILY 11/06/23 11/06/23 Pantoprazole [Protonix] 40 mg PO DAILY 11/06/23 11/06/23 Sennosides [Senokot] 8.6 mg PO BID 11/06/23 11/06/23 Spironolactone [Aldactone] 50 mg PO DAILY 11/06/23 11/06/23 bisacodyL [Dulcolax] 10 mg RECTAL DAILY PRN 11/06/23 11/06/23 carvediloL [Coreg] 6.25 mg PO BID 11/06/23 11/06/23 polyethylene glycoL 3350 [Miralax] 17 gm PO BID 11/06/23 11/06/23 Previous Rx's Medication Instructions Recorded Atorvastatin [Lipitor] 40 mg PO HS #30 tab 09/26/22 Allergies Allergy/AdvReac Type Severity Reaction Status Date / Time No Known Allergies Allergy Verified 10/18/23 10:38 Review of Systems ROS Statement: Those systems with pertinent positive or pertinent negative responses have been documented in the HPI. ROS Other: All systems not noted in ROS Statement are negative. Limitations: ROS unobtainable due to patients medical condition Neurological: Reports: as per HPI, confusion. 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, brain bleed History of Any Multi-Drug Resistant Organisms: None Reported Past Surgical History: Hernia Repair Past Anesthesia/Blood Transfusion Reactions: No Reported Reaction Past Psychological History: No Psychological Hx Reported Smoking Status: Never smoker Past Alcohol Use History: None Reported Past Drug Use History: None Reported - Past Family History Sister(s) Family Medical History: Cancer General Exam Limitations: no limitations General appearance: alert, in no apparent distress Head exam: Present: atraumatic, normocephalic Eye exam: Present: normal appearance, PERRL, EOMI ENT exam: Present: normal oropharynx Neck exam: Present: normal inspection. Absent: tenderness, meningismus Respiratory exam: Present: normal lung sounds bilaterally Cardiovascular Exam: Present: regular rate, normal rhythm GI/Abdominal exam: Present: soft. Absent: tenderness Extremities exam: Present: normal inspection, full ROM. Absent: tenderness Neurological exam: Present: alert, altered, CN II-XII intact. Absent: motor sensory deficit Expanded Neurological exam: Present: protecting the airway Patient oriented to: Present: person. Absent: place, time Speech: Present: fluid speech Cranial nerves: EOM's Intact: Normal Sensory exam: Upper Extremity Light Touch: Normal, Lower Extremity Light Touch: Normal Motor strength exam: RUE: 5, LUE: 5, RLE: 5, LLE: 5 Eye Response: (4) open spontaneously Motor Response: (6) obeys commands Verbal Response: (4) confused conversation Psychiatric exam: Present: normal affect, normal mood Skin exam: Present: normal color Course Vital Signs 11/06/23 11/06/23 11/06/23 17:57 19:21 20:35 Temperature 98.6 F Pulse Rate 75 72 73 Respiratory 16 18 18 Rate Blood Pressure 101/64 102/72 135/77 O2 Sat by Pulse 98 95 94 L Oximetry 11/06/23 11/07/23 11/07/23 21:37 00:52 03:35 Temperature Pulse Rate 73 65 70 Respiratory 18 16 18 Rate Blood Pressure 122/76 143/97 159/101 O2 Sat by Pulse 96 96 95 Oximetry 11/07/23 11/07/23 11/07/23 05:11 07:57 12:39 Temperature Pulse Rate 70 75 64 Respiratory 14 14 16 Rate Blood Pressure 152/109 135/97 141/96 O2 Sat by Pulse 96 97 93 L Oximetry EKG Findings - EKG Results: EKG: interpreted by ANTWAND (First we AV block with a [place] of 243.), sinus rhythm, normal axis, normal QRS, normal ST/T Medical Decision Making - Medical Decision Making Was pt. sent in by a medical professional or institution (, PA, AUTO PARTS CLERK, urgent care, hospital, or senior living...) When possible be specific @ -Patient was sent in by senior living Did you speak to anyone other than the patient for history (EMS, parent, family, police, friend...)? What history was obtained from this source @ -EMS provides history of transport and reason for visit Did you review nursing and triage notes (agree or disagree)? Why? @ -I reviewed and agree with nursing and triage notes Were old charts reviewed (outside hosp., previous admission, EMS record, old EKG, old radiological studies, urgent care reports/EKG's, senior living records)? Report findings @ -Previous chest x-ray reviewed with similar finding Differential Diagnosis (chest pain, altered mental status, abdominal pain women, abdominal pain men, vaginal bleeding, weakness, fever, dyspnea, syncope, headache, dizziness, GI bleed, back pain, seizure, CVA, palpatations, mental health, musculoskeletal)? @ -Differential Altered Mental Status: Hypoglycemia, DKA, hypercapnia, ETOH, overdose, CO poisoning, trauma, myxedema coma, HTN encephalopathy, infection, encephalitis, psychosis, intercranial hemorrhage, hepatic encephalopathy, meningitis, CVA, this is not meant to be an all-inclusive list EKG interpreted by me (3pts min.). @ -As above X-rays interpreted by me (1pt min.). @ -Chest x-ray shows a tortuous aorta, similar to previous x-ray CT interpreted by me (1pt min.). @ -CT brain does not reveal acute abnormality, radiology interpretation pending U/S interpreted by me (1pt. min.). @ -None done What testing was considered but not performed or refused? (CT, X-rays, U/S, labs)? Why? @ -None What meds were considered but not given or refused? Why? @ -None Did you discuss the management of the patient with other professionals (professionals i.e. , PA, AUTO PARTS CLERK, lab, RT, psych nurse, director social welfare, import coordinator, teacher, chief data officer, assistant case manager)? Give summary @ -Case discussed with Dr. Earl will admit covering Dr. perez Was smoking cessation discussed for >3mins.? @ -No Was critical care preformed (if so, how long)? @ -No Were there social determinants of health that impacted care today? How? (Homelessness, low income, unemployed, alcoholism, drug addiction, transportation, low edu. Level, literacy, decrease access to med. care, half-way, rehab)? @ -No Was there de-escalation of care discussed even if they declined (Discuss DNR or withdrawal of care, Hospice)? DNR status @ -No What co-morbidities impacted this encounter? (DM, HTN, Smoking, COPD, CAD, Cancer, CVA, ARF, Chemo, Hep., AIDS, mental health diagnosis, sleep apnea, morbid obesity)? @ -History of previous mental status problems Was patient admitted / discharged? Hospital course, mention meds given and route, prescriptions, significant lab abnormalities, going to OR and other pertinent info. @ -Patient presents with altered mental status over the past few weeks. Patient will be admitted with further evaluation, admission orders written. Patient reevaluated. Patient and family updated. Undiagnosed new problem with uncertain prognosis? @ -No Drug Therapy requiring intensive monitoring for toxicity (Heparin, Nitro, Insulin, Cardizem)? @ -No Were any procedures done? @ -No Diagnosis/symptom? @ -Altered mental status, acute kidney injury Acute, or Chronic, or Acute on Chronic? @ -Acute Uncomplicated (without systemic symptoms) or Complicated (systemic symptoms)? @ -Default Side effects of treatment? @ -No Exacerbation, Progression, or Severe Exacerbation? @ -No Poses a threat to life or bodily function? How? (Chest pain, [place], [place], pneumonia, PE, COPD, DKA, ARF, appy, cholecystitis, CVA, Diverticulitis, Homicidal, Suicidal, threat to staff... and all critical care pts) @ -No - Lab Data Result diagrams: 11/07/23 05:31 11/07/23 05:31 Lab Results 11/06/23 11/06/23 11/06/23 Range/Units 18:40 18:40 18:40 WBC 7.8 (3.8-10.6) k/uL RBC 3.45 L (4.30-5.90) m/uL Hgb 11.4 L (13.0-17.5) gm/dL Hct 33.9 L (39.0-53.0) % MCV 98.1 (80.0-100.0) fL MCH 33.0 (25.0-35.0) pg MCHC 33.6 (31.0-37.0) g/dL RDW 13.3 (11.5-15.5) % Plt Count 341 (150-450) k/uL MPV 8.1 Neutrophils % 82 % Lymphocytes % 10 % Monocytes % 5 % Eosinophils % 2 % Basophils % 0 % Neutrophils # 6.4 (1.3-7.7) k/uL Lymphocytes # 0.8 L (1.0-4.8) k/uL Monocytes # 0.4 (0-1.0) k/uL Eosinophils # 0.1 (0-0.7) k/uL Basophils # 0.0 (0-0.2) k/uL PT 11.2 (10.0-12.5) sec INR 1.0 (<1.2) APTT 26.0 (22.0-30.0) sec Sodium 138 (137-145) mmol/L Potassium 5.0 (3.5-5.1) mmol/L Chloride 109 H (98-107) mmol/L Carbon Dioxide 19 L (22-30) mmol/L Anion Gap 10 mmol/L BUN 36 H (9-20) mg/dL Creatinine 1.51 H (0.66-1.25) mg/dL Est GFR (CKD-EPI)AfAm 50 (>60 ml/min/1.73 sqM) Est GFR (CKD-EPI)NonAf 43 (>60 ml/min/1.73 sqM) Glucose 92 (74-99) mg/dL Calcium 8.9 (8.4-10.2) mg/dL Total Bilirubin 0.7 (0.2-1.3) mg/dL AST 27 (17-59) U/L ALT 22 (4-49) U/L Alkaline Phosphatase 49 (38-126) U/L Troponin I (0.000-0.034) ng/mL Total Protein 7.3 (6.3-8.2) g/dL Albumin 3.8 (3.5-5.0) g/dL 11/06/23 Range/Units 18:40 WBC (3.8-10.6) k/uL RBC (4.30-5.90) m/uL Hgb (13.0-17.5) gm/dL Hct (39.0-53.0) % MCV (80.0-100.0) fL MCH (25.0-35.0) pg MCHC (31.0-37.0) g/dL RDW (11.5-15.5) % Plt Count (150-450) k/uL MPV Neutrophils % % Lymphocytes % % Monocytes % % Eosinophils % % Basophils % % Neutrophils # (1.3-7.7) k/uL Lymphocytes # (1.0-4.8) k/uL Monocytes # (0-1.0) k/uL Eosinophils # (0-0.7) k/uL Basophils # (0-0.2) k/uL PT (10.0-12.5) sec INR (<1.2) APTT (22.0-30.0) sec Sodium (137-145) mmol/L Potassium (3.5-5.1) mmol/L Chloride (98-107) mmol/L Carbon Dioxide (22-30) mmol/L Anion Gap mmol/L BUN (9-20) mg/dL Creatinine (0.66-1.25) mg/dL Est GFR (CKD-EPI)AfAm (>60 ml/min/1.73 sqM) Est GFR (CKD-EPI)NonAf (>60 ml/min/1.73 sqM) Glucose (74-99) mg/dL Calcium (8.4-10.2) mg/dL Total Bilirubin (0.2-1.3) mg/dL AST (17-59) U/L ALT (4-49) U/L Alkaline Phosphatase (38-126) U/L Troponin I <0.012 (0.000-0.034) ng/mL Total Protein (6.3-8.2) g/dL Albumin (3.5-5.0) g/dL Disposition Clinical Impression: Altered mental status, Acute kidney injury Disposition: ADMITTED IP TO THIS HOSP Is patient prescribed a controlled substance at d/c from ED?: No Time of Disposition: 20:30
[2023-11-06 18:53] LABS: Basophils % (A) 0 %; Eosinophils # (A) 0.1 k/uL (0-0.7); Eosinophils % (A) 2 %; HCT 33.9 % (39.0-53.0); HGB 11.4 gm/dL (13.0-17.5); Lymphocytes # (A) 0.8 k/uL (1.0-4.8); Lymphocytes % (A) 10 %; MCHC 33.6 g/dL (31.0-37.0); MCV 98.1 fL (80.0-100.0); Mean Platelet Volume 8.1; Monocytes # (A) 0.4 k/uL (0-1.0); Monocytes % (A) 5 %; Neutrophils # (A) 6.4 k/uL (1.3-7.7); Neutrophils % (A) 82 %; Platelet Count 341 k/uL (150-450); RBC 3.45 m/uL (4.30-5.90); RDW 13.3 % (11.5-15.5); WBC 7.8 k/uL (3.8-10.6)
[2023-11-06 19:01] LABS: Prothrombin Time 11.2 sec (10.0-12.5)
[2023-11-06 19:06] LABS: ALT 22 U/L (4-49); African American GFR (CKD) 50 (>60 ml/min/1.73 sqM); Albumin 3.8 g/dL (3.5-5.0); Anion Gap 10 mmol/L; Blood Urea Nitrogen 36 mg/dL (9-20); Calcium 8.9 mg/dL (8.4-10.2); Carbon Dioxide 19 mmol/L (22-30); Chloride 109 mmol/L (98-107); Glucose 92 mg/dL (74-99); Non-African American GFR(CKD) 43 (>60 ml/min/1.73 sqM); Sodium 138 mmol/L (137-145); Total Bilirubin 0.7 mg/dL (0.2-1.3); Total Protein 7.3 g/dL (6.3-8.2)
[2023-11-06 19:10] LABS: AST 27 U/L (17-59); Alkaline Phosphatase 49 U/L (38-126)
--- NOTE | 2023-11-06 20:09 | XR ---
EXAMINATION TYPE: XR chest 2V DATE OF EXAM: 11/06/2023 7:12 PM CLINICAL INDICATION:Male, 83 years old with history of altered mental status; [facility] COMPARISON: 10/18/2023 TECHNIQUE: XR chest 2V. Frontal and lateral views of the chest.. FINDINGS: Heart appears normal in size. Tortuosity, unfolding and ectatic appearance of the aorta, similar to p revious. Slightly low-lying volumes with mild crowding. No focal consolidation, pleural effusion, or pneumotho rax. Bones and soft tissues show no acute abnormalities. Monitoring leads over the chest. No indwelling lines are seen. IMPRESSION: Overall stable exam. No evidence of acute cardiopulmonary disease. [facility], , 11/06/2023 8:07 PM
[2023-11-06] MEDS ORDERED: ALPRAZolam 0.25 MG TAB PO PRN (21:14)
[2023-11-06] MEDS ORDERED: MELATONIN 3 MG TABLET PO PRN (21:14)
[2023-11-06] MEDS ORDERED: TEMAZEPAM 15 MG CAP PO PRN (21:14)
[2023-11-06] MEDS ORDERED: NALOXONE 0.4 MG/ML 1 ML VIAL IV PRN (21:14)
[2023-11-06] MEDS ORDERED: ACETAMINOPHEN TAB 325 MG TAB PO PRN (21:14)
[2023-11-06] MEDS ORDERED: bisacodyL 10 MG SUPP RECTAL PRN (21:16)
--- NOTE | 2023-11-06 21:40 | CT ---
EXAMINATION TYPE: CT brain wo con CT DLP: 1213.4 mGycm, Automated exposure control for dose reduction was used. DATE OF EXAM: 11/06/2023 7:37 PM COMPARISON: CT 11/05/2023 and 10/18/2023.. CLINICAL INDICATION:Male, 83 years old with history of Altered mental status, AMS TECHNIQUE: Brain: Axial CT images of the brain were obtained with coronal and sagittal reformats created and rev iewed. Contrast used: None. Oral contrast used: None. FINDINGS: Extra-axial spaces: There again appears to be small volume low density extra-axial fluid collection o little the left cerebral hemisphere measuring up to 4 mm in thickness, consistent with chronic subdural. Subtle increased attenuation suggested along the anterior falx and anterior left frontal lobe, appea rs relatively less than 10/18/2023, and probably represents evolving subacute component. Ventricular system: Ventricles appear dilated in proportion to the degree of cerebral atrophy. Cerebral parenchyma: No increased attenuation to suggest acute intraparenchymal hemorrhage. The gra y-white matter interface appears maintained. Moderate to severe generalized brain atrophy. Scattere d hypoattenuating areas are seen within the cerebral white matter, nonspecific but most often seen wi th chronic microvascular ischemic changes; moderate in degree. Cerebellum: No acute abnormality. Mass effect: No evidence of mass effect or midline shift. Intracranial vasculature: Atherosclerotic calcifications of the larger arteries near the skull base. Left vertebral appears especially heavily calcified. Soft tissues: No acute or concerning abnormality. Visualized orbits: Orbital contents appear grossly intact. There has likely been previous lens surg james on the right. Calvarium/osseous structures: No evidence of calvarial fracture. Paranasal sinuses and mastoid air cells: Clear. MRI is more sensitive for detecting acute processes such as infarct, and may be considered if clinica lly warranted. 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 * No significant mass effect or midline shift. * No new acute intracranial abnormality. * Atrophy and chronic microvascular ischemic white matter changes. [facility], , 11/06/2023 9:38 PM
[2023-11-06 22:18] LABS: Appearance,Urine Cloudy (Clear); Bacteria,Urine Occasional /hpf; Bilirubin,Urine Negative (Negative); Blood,Urine Negative (Negative); Color,Urine Colorless; Glucose,Urine (UA) Negative (Negative); Hyaline Casts,Urine 2 /lpf (0-2); Ketones,Urine Negative (Negative); Leukocyte Esterase,Urine Moderate (Negative); Mucus,Urine Rare /hpf; Nitrite,Urine Positive (Negative); PH, Urine 6.5 (5.0-8.0); Protein,Urine Negative (Negative); RBC,Urine 2 /hpf (0-5); Specific Gravity,Urine 1.013 (1.001-1.035); Squamous Epithelial Cell,Urine 2 /hpf (0-4); Urobilinogen,Urine <2.0 mg/dL (<2.0); WBC,Urine 24 /hpf (0-5)
[2023-11-06] MEDS: SODIUM CHLORIDE 0.9% 1,000 ML IV SCH (22:39)
[2023-11-07 06:27] LABS: Basophils % (A) 0 %; Eosinophils # (A) 0.1 k/uL (0-0.7); Eosinophils % (A) 2 %; HCT 34.2 % (39.0-53.0); HGB 11.1 gm/dL (13.0-17.5); Lymphocytes # (A) 0.6 k/uL (1.0-4.8); Lymphocytes % (A) 12 %; MCH 32.1 pg (25.0-35.0); MCHC 32.4 g/dL (31.0-37.0); MCV 99.1 fL (80.0-100.0); Mean Platelet Volume 7.5; Monocytes # (A) 0.4 k/uL (0-1.0); Monocytes % (A) 7 %; Neutrophils # (A) 4.1 k/uL (1.3-7.7); Neutrophils % (A) 76 %; Platelet Count 348 k/uL (150-450); RBC 3.45 m/uL (4.30-5.90); RDW 12.9 % (11.5-15.5); WBC 5.4 k/uL (3.8-10.6)
[2023-11-07 06:36] LABS: ALT 20 U/L (4-49); AST 20 U/L (17-59); African American GFR (CKD) 57 (>60 ml/min/1.73 sqM); Albumin 3.6 g/dL (3.5-5.0); Alkaline Phosphatase 73 U/L (38-126); Anion Gap 4 mmol/L; Blood Urea Nitrogen 28 mg/dL (9-20); Calcium 9.4 mg/dL (8.4-10.2); Carbon Dioxide 24 mmol/L (22-30); Chloride 113 mmol/L (98-107); Glucose 90 mg/dL (74-99); Non-African American GFR(CKD) 50 (>60 ml/min/1.73 sqM); Potassium 4.4 mmol/L (3.5-5.1); Sodium 141 mmol/L (137-145); Total Bilirubin 0.7 mg/dL (0.2-1.3)
[2023-11-07] MEDS: carvediloL 6.25 MG TAB PO SCH (08:44)
[2023-11-07] MEDS: NIFEdipine XL 90 MG TAB.ER.24 PO SCH (08:44)
[2023-11-07] MEDS: DOCUSATE 100 MG CAP PO SCH (08:45)
[2023-11-07] MEDS: LOSARTAN 50 MG TAB PO SCH (08:45)
[2023-11-07] MEDS: PANTOPRAZOLE 40 MG TABLET PO SCH (08:45)
[2023-11-07] MEDS: SPIRONOLACTONE 25 MG TAB PO SCH (08:46)
[2023-11-07] MEDS: SENNOSIDES 8.6 MG TAB PO SCH (08:46)
[2023-11-07] MEDS: polyethylene glycoL 3350 17 GM POWD.PACK PO SCH (08:48)
--- NOTE | 2023-11-07 10:32 | P.CNNES ---
History of Present Illness Consult date: 11/07/23 Requesting physician: Aryan Leyva Reason for Consult: ams History of Present Illness: This is an 83-year-old gentleman with history of stroke, atrial fibrillation on Eliquis, hypertension presented emergency department on 11/06/2023 because of altered mental status. History is obtained from medical record since patient is unable to provide the history. Per the ED note it seems that the patient has been altered since his head injury with intraparenchymal hemorrhage 3 weeks ago. Seems the patient had a recent visit to our emergency department under 11/05/2023 for report of fall and had head imaging. Patient did acknowledge that he does not have any headache. Otherwise he is unable to provide history for me Our team seen the patient last in September 25, 2022 and at that time the patient had pyrexia with encephalopathy and elevated ESR and it was questionable encephalitis and cannot rule out vasculitis and does not appear meningitis. Patient had MRI which showed right meningeal enhancement and the confusion is resolved. The CSF study was nuclear cell was 1. He has acute ischemic stroke in the past over the right parietal region and the left MCA stenosis that is severe but is asymptomatic. The was on board. Please refer to our notes for further details. Some of the workup during this hospital visit consisted of: Patient is afebrile. White blood cell is within normal limits AST ALT is within normal limits. Serum and calcium is within normal limits Creatinine is 1.51 and the repeat is 1.[address] of the head is reported as small chronic left cerebral convexity subdural with tiny superimposed subacute component shows some evaluation since 10/18/2023. No significant mass effect or midline shift. No new acute intracranial abnormality. Atrophy and chronic microvascular ischemic white ma tter changes. Personally reviewed the CT and I do not feel there is any acute or subacute stroke. Regarding the left subdural I do not see any acute or subacute in my opinion. Review of Systems Limited but positive and negative as per HPI. Past Medical History Past Medical History: Atrial Fibrillation, CVA/TIA, Hypertension Additional Past Medical History / Comment(s): SJORGENS SYN. HX OF PULMONARY F IBROSIS IN PAST, brain bleed History of Any Multi-Drug Resistant Organisms: None Reported Past Surgical History: Hernia Repair Past Anesthesia/Blood Transfusion Reactions: No Reported Reaction Past Psychological History: No Psychological Hx Reported Smoking Status: Never smoker Past Alcohol Use History: None Reported Past Drug Use History: None Reported - Past Family History Sister(s) Family Medical History: Cancer Medications and Allergies Home Medications Medication Instructions Recorded Confirmed Type Apixaban [Eliquis] 5 mg PO BID 04/07/16 11/06/23 History Cevimeline [Evoxac] 30 mg PO TID@07,13,19 04/07/16 11/06/23 History Atorvastatin [Lipitor] 40 mg PO HS #30 tab 09/26/22 11/06/23 Rx Acetaminophen [Tylenol 8 Hour] 650 mg PO Q4H PRN 11/06/23 11/06/23 History Clopidogrel [Plavix] 75 mg PO HS 11/06/23 11/06/23 History Docusate [Colace] 100 mg PO BID 11/06/23 11/06/23 History Losartan Potassium 100 mg PO DAILY 11/06/23 11/06/23 History NIFEdipine XL [Procardia XL] 90 mg PO DAILY 11/06/23 11/06/23 History Pantoprazole [Protonix] 40 mg PO DAILY 11/06/23 11/06/23 History Sennosides [Senokot] 8.6 mg PO BID 11/06/23 11/06/23 History Spironolactone [Aldactone] 50 mg PO DAILY 11/06/23 11/06/23 History bisacodyL [Dulcolax] 10 mg RECTAL DAILY PRN 11/06/23 11/06/23 History carvediloL [Coreg] 6.25 mg PO BID 11/06/23 11/06/23 History polyethylene glycoL 3350 [Miralax] 17 gm PO BID 11/06/23 11/06/23 History Allergies Allergy/AdvReac Type Severity Reaction Status Date / Time No Known Allergies Allergy Verified 10/18/23 10:38 Physical Examination - Vital Signs Vital Signs: Vital Signs Temp Pulse Resp BP Pulse Ox 11/07/23 07:57 75 14 135/97 97 11/07/23 05:11 70 14 152/109 96 11/07/23 03:35 70 18 159/101 95 11/07/23 00:52 65 16 143/97 96 11/06/23 21:37 73 18 122/76 96 11/06/23 20:35 73 18 135/77 94 L 11/06/23 19:21 72 18 102/72 95 11/06/23 17:57 98.6 F 75 16 101/64 98 Intake and Output 11/06/23 11/07/23 11/07/23 22:59 06:59 14:59 Other: Weight 90.718 kg General: Lying in bed and not in acute distress. HENT: Supple neck. Neuro: Limited. Is awake alert he correctly stated that he is in the hospital and he stated this is October correctly. He did not know the year. He is following few simple commands and I had to repeat the same command for him to follow it. Unable to assess pupillary reflex because of his cooperation. The visual kenney are full to confrontation. No facial weakness. No dysarthria. Motor unable to assess individual muscle strength but he was able to lift up all extremities above gravity. Symmetrical Reflexes is 2+ in the upper and the lowers is 1+. Plantars are mute Results - Laboratory Findings CBC and BMP: 11/07/23 05:31 11/07/23 05:31 Abnormal Lab Findings: Abnormal Labs 11/06/23 11/06/23 11/06/23 18:40 18:40 21:30 RBC 3.45 L Hgb 11.4 L Hct 33.9 L Lymphocytes # 0.8 L Chloride 109 H Carbon Dioxide 19 L BUN 36 H Creatinine 1.51 H Ur Leukocyte Esterase Moderate H Urine WBC 24 H Urine Bacteria Occasional H Urine Mucus Rare H 11/07/23 11/07/23 05:31 05:31 RBC 3.45 L Hgb 11.1 L Hct 34.2 L Lymphocytes # 0.6 L Chloride 113 H Carbon Dioxide BUN 28 H Creatinine 1.34 H Ur Leukocyte Esterase Urine WBC Urine Bacteria Urine Mucus Assessment and Plan Assessment: This is an 83-year-old gentleman who presents emergency department on 11/06/2023 for altered mental status. Per the ED team family feels the patient is altered since head injury with intracranial hemorrhage 3 weeks ago. Patient presents our emergency department the day prior (11/05/2023) for a fall. Patient was seen by our neurology team last on 09/25/2022 and there is a suspicion for pyrexia with encephalopathy with elevated ESR and there is a concern for questionable encephalitis and cannot rule out vasculitis. MRI patient had right meningeal enhancement. 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 Atrial fibrillation on long-term treatment with Eliquis Hypertension Plan: I ordered MRI of the brain with and without I ordered MRA of the head I ordered routine EEG Currently patient does not have any fever and white blood cell is normal. For his underlying history of atrial fibrillation he is on Eliquis which was not resumed. I consulted cardiology team because of his recurrent fall since with anticoagulation there is increased risk of further bleeds. From a neurologic perspective, avoid anticoagulation because of his recurrent falls with bleed but if the benefit outweighed the risk and the family is aware of the risk of brain bleed then resume anticoagulation. I ordered TSH, vitamin B12, folate, ammonia level I consulted PT and OT Continue neurochecks Will defer the rest of the medical management to primary and other specialist Plan discussed with the patient's nurse Thank you for the consultation Dr. Dailey will resume neurology service tomorrow AM Time with Patient: Greater than 30
[2023-11-07] MEDS ORDERED: ACETAMINOPHEN TAB 325 MG TAB PO PRN (12:31)
--- NOTE | 2023-11-07 12:33 | P.CRDCN ---
History of Present Illness Consult date: 11/07/23 History of present illness: History of Present Illness: The patient is an 83-year-old male, followed by Dr. Medley with a history of paroxysmal atrial fibrillation, hypertension, hyperlipidemia who recently had a fall and according to the family intracranial bleed, was transferred to [facility] and subsequently was transferred to [facility] for rehab but had 2 more f alls there according to the and has been feeling weak with episode of confusion. Cardiology consultation was requested for anticoagulation issues. The patient is in sinus mechanism. He has a preserved systolic function in the past and no history of obstructive CAD according to the records. He underwent a DON in September 2022 that showed a preserved systolic function. 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 The patient has no change in his breathing pattern, no peripheral edema, no PND or orthopnea but he has been feeling quite weak and very limited in his physical activity. The patient has a history of hypertension and hyperlipidemia Medications: Eliquis 5 mg twice a day, Coreg 6.5 mg twice a day, Aldactone 50 mg daily, Plavix 75 mg daily, Procardia 90 mg daily, losartan 100 mg daily, Lipitor 40 mg daily Review of Systems: Limited and obtained from the Respiratory: He has dyspnea on exertion but no recent wheezing GI: No nausea or vomiting . No history of peptic ulcer disease. No recent GI bleed. : No hematuria or dysuria. Nervous System: He has prior history of stroke and subdural hematoma Physical Examination: 83-year-old male alert, not able to answer all the questions, weak,Blood pressure 135/97, Heart rate 75 Head: Normocephalic. Eyes: Sclerae nonicteric. Neck: Good carotid upstroke, no bruit, no jugular venous distention. Lungs: Clear to auscultation. Heart: Regular rate and rhythm, S1-S2, no S3, no rub. Systolic ejection murmur. Abdomen: Soft nontender, positive bowel sounds no organomegaly. Extremities: No edema, intact distal pulses. Labs: BUN/creatinine on admission 36 and 1.51, today 28 and 1.34. Potassium 4.4. Hemoglobin 11.1. Troponin less than 0.012. Chest x-ray with no acute infiltrate EKG: Sinus mechanism with first-degree AV block otherwise no acute ST segment changes Impression: 1. Symptoms of fatigue, change in mental status after recent fall and subdural hematoma 2. Paroxysmal atrial fibrillation, maintaining sinus mechanism, anticoagulated 3. History of hypertension 4. Prior history of stroke 5. History of hyperlipidemia 6. Evidence to suggest dehydration with improvement in the acute renal injury Plan: 1. We will try to obtain the records from [facility] to review his workup 2. The issue of anticoagulation was discussed at length with the . In view of his recurrent falls, history of stroke, history of subdural hematoma he will be a good candidate for left atrial appendage closure device. I discussed was finding, the risk and the benefit with the 3. Hold anticoagulation for now pending further workup 4. Follow blood pressure and renal function 5. Depending on his progress further recommendations will be made, thank you for this consult we will follow with you. Past Medical History Past Medical History: Atrial Fibrillation, CVA/TIA, Hypertension Additional Past Medical History / Comment(s): ANA LUISA SYN. 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, brain bleed History of Any Multi-Drug Resistant Organisms: None Reported Past Surgical History: Hernia Repair Past Anesthesia/Blood Transfusion Reactions: No Reported Reaction Past Psychological History: No Psychological Hx Reported Smoking Status: Never smoker Past Alcohol Use History: None Reported Past Drug Use History: None Reported - Past Family History Sister(s) Family Medical History: Cancer Medications and Allergies Home Medications Medication Instructions Recorded Confirmed Type Apixaban [Eliquis] 5 mg PO BID 04/07/16 11/06/23 History Cevimeline [Evoxac] 30 mg PO TID@07,13,19 04/07/16 11/06/23 History Atorvastatin [Lipitor] 40 mg PO HS #30 tab 09/26/22 11/06/23 Rx Acetaminophen [Tylenol 8 Hour] 650 mg PO Q4H PRN 11/06/23 11/06/23 History Clopidogrel [Plavix] 75 mg PO HS 11/06/23 11/06/23 History Docusate [Colace] 100 mg PO BID 11/06/23 11/06/23 History Losartan Potassium 100 mg PO DAILY 11/06/23 11/06/23 History NIFEdipine XL [Procardia XL] 90 mg PO DAILY 11/06/23 11/06/23 History Pantoprazole [Protonix] 40 mg PO DAILY 11/06/23 11/06/23 History Sennosides [Senokot] 8.6 mg PO BID 11/06/23 11/06/23 History Spironolactone [Aldactone] 50 mg PO DAILY 11/06/23 11/06/23 History bisacodyL [Dulcolax] 10 mg RECTAL DAILY PRN 11/06/23 11/06/23 History carvediloL [Coreg] 6.25 mg PO BID 11/06/23 11/06/23 History polyethylene glycoL 3350 [Miralax] 17 gm PO BID 11/06/23 11/06/23 History Allergies Allergy/AdvReac Type Severity Reaction Status Date / Time No Known Allergies Allergy Verified 10/18/23 10:38 Physical Exam Vitals: Vital Signs Temp Pulse Resp BP Pulse Ox 11/07/23 07:57 75 14 135/97 97 11/07/23 05:11 70 14 152/109 96 11/07/23 03:35 70 18 159/101 95 11/07/23 00:52 65 16 143/97 96 11/06/23 21:37 73 18 122/76 96 11/06/23 20:35 73 18 135/77 94 L 11/06/23 19:21 72 18 102/72 95 11/06/23 17:57 98.6 F 75 16 101/64 98 Intake and Output 11/06/23 11/07/23 11/07/23 22:59 06:59 14:59 Other: Weight 90.718 kg Results 11/07/23 05:31 11/07/23 05:31 Cardiac Enzymes 11/06/23 11/06/23 11/07/23 Range/Units 18:40 18:40 05:31 AST 27 20 (17-59) U/L Troponin I <0.012 (0.000-0.034) ng/mL Coagulation 11/06/23 Range/Units 18:40 PT 11.2 (10.0-12.5) sec APTT 26.0 (22.0-30.0) sec CBC 11/06/23 11/07/23 Range/Units 18:40 05:31 WBC 7.8 5.4 (3.8-10.6) k/uL RBC 3.45 L 3.45 L (4.30-5.90) m/uL Hgb 11.4 L 11.1 L (13.0-17.5) gm/dL Hct 33.9 L 34.2 L (39.0-53.0) % Plt Count 341 348 (150-450) k/uL Comprehensive Metabolic Panel 11/06/23 11/07/23 Range/Units 18:40 05:31 Sodium 138 141 (137-145) mmol/L Potassium 5.0 4.4 (3.5-5.1) mmol/L Chloride 109 H 113 H (98-107) mmol/L Carbon Dioxide 19 L 24 (22-30) mmol/L BUN 36 H 28 H (9-20) mg/dL Creatinine 1.51 H 1.34 H (0.66-1.25) mg/dL Glucose 92 90 (74-99) mg/dL Calcium 8.9 9.4 (8.4-10.2) mg/dL AST 27 20 (17-59) U/L ALT 22 20 (4-49) U/L Alkaline Phosphatase 49 73 (38-126) U/L Total Protein 7.3 7.0 (6.3-8.2) g/dL Albumin 3.8 3.6 (3.5-5.0) g/dL Current Medications Generic Name Dose Route Start Last Admin Trade Name Freq PRN Reason Stop Dose Admin Acetaminophen 650 mg 11/06/23 21:14 Acetaminophen Tab 325 Mg Tab PO Q6HR PRN Mild Pain or Fever > 100.5 Alprazolam 0.25 mg 11/06/23 21:14 Alprazolam 0.25 Mg Tab PO Q6HR PRN Anxiety Atorvastatin Calcium 40 mg 11/07/23 21:00 Atorvastatin 40 Mg Tab PO HS KALEIGH Bisacodyl 10 mg 11/06/23 21:16 Bisacodyl 10 Mg Supp RECTAL DAILY PRN Constipation Carvedilol 6.25 mg 11/07/23 07:30 11/07/23 08:44 Carvedilol 6.25 Mg Tab PO 6.25 mg BID-W/MEALS KALEIGH Administration Cevimeline HCl 30 mg 11/07/23 07:00 Cevimeline 30 Mg Cap PO TID@07,13,19 [facility] Docusate Sodium 100 mg 11/07/23 09:00 11/07/23 08:45 Docusate 100 Mg Cap PO 100 mg BID KALEIGH Administration Sodium Chloride 1,000 mls @ 75 mls/hr 11/06/23 21:15 11/06/23 22:39 Saline 0.9% IV 75 mls/hr .[id number] KALEIGH Administration Losartan Potassium 100 mg 11/07/23 09:00 11/07/23 08:45 Losartan 50 Mg Tab PO 100 mg DAILY KALEIGH Administration Melatonin 3 mg 11/06/23 21:14 Melatonin 3 Mg Tablet PO HS PRN Insomnia Naloxone HCl 0.2 mg 11/06/23 21:14 Naloxone 0.4 Mg/Ml 1 Ml Vial IV Q2M PRN Opioid Reversal Nifedipine 90 mg 11/07/23 09:00 11/07/23 08:44 Nifedipine Xl 90 Mg Tab.Er.24 PO 90 mg DAILY KALEIGH Administration Pantoprazole Sodium 40 mg 11/07/23 09:00 11/07/23 08:45 Pantoprazole 40 Mg Tablet PO 40 mg DAILY KALEIGH Administration Polyethylene Glycol 17 gm 11/07/23 09:00 11/07/23 08:48 Polyethylene Glycol 3350 17 Gm Powd.Pack PO 17 gm BID KALEIGH Administration Senna 8.6 mg 11/07/23 09:00 11/07/23 08:46 Sennosides 8.6 Mg Tab PO 8.6 mg BID KALEIGH Administration Spironolactone 50 mg 11/07/23 09:00 11/07/23 08:46 Spironolactone 25 Mg Tab PO 50 mg DAILY KALEIGH Administration Temazepam 15 mg 11/06/23 21:14 Temazepam 15 Mg Cap PO HS PRN Insomnia Intake and Output 11/06/23 11/07/23 11/07/23 22:59 06:59 14:59 Other: Weight 90.718 kg 11/07/23 05:31 11/07/23 05:31
[2023-11-07] MEDS: CEVIMELINE 30 MG CAP PO SCH (15:14)
--- NOTE | 2023-11-07 19:20 | P.HPIM ---
History of Present Illness H&P Date: 11/07/23 Chief Complaint: Falls Pleasant 83-year-old patient, follows Dr. Wright. Stroke, atrial flutter fibrillation. Sjogren's, hypertension. Pulmonary fibrosis. Brain bleed. History is obtained by the at the bedside. On October 17 patient presented to hospital here in ER with a fall. CT scan showed acute intracranial hemorrhage with subdural hemorrhage layering along bilateral frontal lobes. Left greater than right in the falx.-Fallen backwards going down the entire flight of steps which are wooden. And hardwood at the bottom. Subsequently patient was transferred out to [facility]. He was there for 3 weeks. As per the he was managed conservatively. About 10 days ago he was transferred to [facility]. He was there for 2 days. Patient fell that twice. really got concerned about the care then decided to bring him to the ER. Because of his falls. He was brought to our ER on November [address] Winslow. Reported a suspected ground-level fall. Patient was conscious. Not able to give very good answers. He was discharged. When he was brought in yesterday. CT scan of the brain did not show any acute event in terms of bleed. Except for a tiny superimposed subacute component. According to patient was a bit more confused at the half-way in ER. States patient doing much better this morning. Patient has been forgetful. But since his recent fall has affected his memory more. Patient did not eat well this morning. At the [facility] patient was being moved on a wheelchair. Patient himself can only can give a limited history. He thinks he still in . Cannot tell me the year or the president. But able to answer the simple questions. Review of systems: GEN.: [None] EYES: [None] HEENT: [None] NECK: [None] RESPIRATORY: [None] CARDIOVASCULAR: [None] GASTROINTESTINAL: [None] GENITOURINARY: [None] MUSCULOSKELETAL: [Some joint pains] LYMPHATICS: [None] HEMATOLOGICAL: [None] PSYCHIATRY: [Forgetful] NEUROLOGICAL: [No focal weakness Past medical history to include: Atrial flutter fibrillation, stroke, hypertension, Sjogren's, cardioversion. Subdural hematoma Social history: . No smoking and no alcohol. Crop carroll Physical examination: VITAL SIGNS: 99, 102, 18, 107 x 85, 95% room air GENERAL: Laying in bed, appears comfortable EYES: Pupils equal. Conjunctiva normal. HEENT: External appearance of nose and ears normal, oral cavity grossly normal. NECK: JVD not raised; masses not palpable. HEART: First and second heart sounds are normal; no edema. LUNGS: Respiratory rate normal; clear to auscultation. ABDOMEN: Soft, nontender, liver spleen not palpable, no masses palpable. PSYCH: Patient knows that in the hospital but cannot tell me the name. Does not know the year. Cannot tell me the president. Able to answer some of the simple questions. MUSCULOSKELETAL:No Clubbing/cyanosis;muscles-grossly intact. OA NEUROLOGICAL: Cranial nerves grossly intact; no facial asymmetry, power and sensation grossly intact. INVESTIGATIONS, reviewed in the clinical context: November 06: White count 5.4 hemoglobin 11.1 platelets 348 sodium 141 potassium 4.4 BUN 28 creatinine 1.34 November 05: BUN 36 creatinine 1.51 [address]icarb [address]. TSH 1.5 [address] scan brain: No new bleed EKG tracing personally reviewed by me-normal sinus rhythm. Chest x-ray film personally reviewed by me-some unfolding of the aorta. Assessment and plan: -Recurrent falls added 2 days at the rehab. Patient with there for 2 days being discharged from acute facility in [facility] following brain bleed. Secondary to fall. Check orthostatics. PT OT. -Recent subdural hemorrhage bifrontal lobe secondary to fall on October 18, 2023. Patient had 2 falls since then. Per the CT scan did not show any acute progression. -Multi-infarct dementia, including patient having subdural hematoma in the area of the frontal lobe. Prior parietal lobe stroke. -Acute medical debility following recent subdural hematoma. Patient was admitted to rehab LDL. Has 2 further falls. PT OT. Social work to look into another place of rehab as does not want to return to [facility] -Paroxysmal atrial flutter fibrillation. Currently in sinus rhythm. Given his frequent falls. Hand intracranial hemorrhage.-Eliquis will be di scontinued -Essential hypertension Coreg. Aldactone. Losartan -Primary osteoarthritis Tylenol as needed -Sjogren's syndrome. -Medical power of attorney law clerk: . Leah -Only CPR no intubation. No shocks. Discussed at length with the . 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, brain bleed History of Any Multi-Drug Resistant Organisms: None Reported Past Surgical History: Hernia Repair Past Anesthesia/Blood Transfusion Reactions: No Reported Reaction Past Psychological History: No Psychological Hx Reported Smoking Status: Never smoker Past Alcohol Use History: None Reported Past Drug Use History: None Reported - Past Family History Sister(s) Family Medical History: Cancer Medications and Allergies Home Medications Medication Instructions Recorded Confirmed Type Apixaban [Eliquis] 5 mg PO BID 04/07/16 11/06/23 History Cevimeline [Evoxac] 30 mg PO TID@07,13,04/07/16 11/06/23 History Atorvastatin [Lipitor] 40 mg PO HS #30 tab 09/26/22 11/06/23 Rx Acetaminophen [Tylenol 8 Hour] 650 mg PO Q4H PRN 11/06/23 11/06/23 History Clopidogrel [Plavix] 75 mg PO HS 11/06/23 11/06/23 History Docusate [Colace] 100 mg PO BID 11/06/23 11/06/23 History Losartan Potassium 100 mg PO DAILY 11/06/23 11/06/23 History NIFEdipine XL [Procardia XL] 90 mg PO DAILY 11/06/23 11/06/23 History Pantoprazole [Protonix] 40 mg PO DAILY 11/06/23 11/06/23 History Sennosides [Senokot] 8.6 mg PO BID 11/06/23 11/06/23 History Spironolactone [Aldactone] 50 mg PO DAILY 11/06/23 11/06/23 History bisacodyL [Dulcolax] 10 mg RECTAL DAILY PRN 11/06/23 11/06/23 History carvediloL [Coreg] 6.25 mg PO BID 11/06/23 11/06/23 History polyethylene glycoL 3350 [Miralax] 17 gm PO BID 11/06/23 11/06/23 History Allergies Allergy/AdvReac Type Severity Reaction Status Date / Time No Known Allergies Allergy Verified 10/18/23 10:38 Physical Exam Vitals: Vital Signs Temp Pulse Resp BP Pulse Ox 11/07/23 07:57 75 14 135/97 97 11/07/23 05:11 70 14 152/109 96 11/07/23 03:35 70 18 159/101 95 11/07/23 00:52 65 16 143/97 96 11/06/23 21:37 73 18 122/76 96 11/06/23 20:35 73 18 135/77 94 L 11/06/23 19:21 72 18 102/72 95 11/06/23 17:57 98.6 F 75 16 101/64 98 Intake and Output 11/06/23 11/07/23 11/07/23 22:59 06:59 14:59 Other: Weight 90.718 kg Results CBC & Chem 7: 11/07/23 05:31 11/07/23 05:31 Labs: Abnormal Lab Results - Last 24 Hours (Table) 11/06/23 11/06/23 11/06/23 Range/Units 18:40 18:40 21:30 RBC 3.45 L (4.30-5.90) m/uL Hgb 11.4 L (13.0-17.5) gm/dL Hct 33.9 L (39.0-53.0) % Lymphocytes # 0.8 L (1.0-4.8) k/uL Chloride 109 H (98-107) mmol/L Carbon Dioxide 19 L (22-30) mmol/L BUN 36 H (9-20) mg/dL Creatinine 1.51 H (0.66-1.25) mg/dL Ur Leukocyte Esterase Moderate H (Negative) Urine WBC 24 H (0-5) /hpf Urine Bacteria Occasional H (None) /hpf Urine Mucus Rare H (None) /hpf 11/07/23 11/07/23 Range/Units 05:31 05:31 RBC 3.45 L (4.30-5.90) m/uL Hgb 11.1 L (13.0-17.5) gm/dL Hct 34.2 L (39.0-53.0) % Lymphocytes # 0.6 L (1.0-4.8) k/uL Chloride 113 H (98-107) mmol/L Carbon Dioxide (22-30) mmol/L BUN 28 H (9-20) mg/dL Creatinine 1.34 H (0.66-1.25) mg/dL Ur Leukocyte Esterase (Negative) Urine WBC (0-5) /hpf Urine Bacteria (None) /hpf Urine Mucus (None) /hpf
[2023-11-07] MEDS: ATORVASTATIN 40 MG TAB PO SCH (21:10)
[2023-11-08 04:38] LABS: African American GFR (CKD) 72 (>60 ml/min/1.73 sqM); Anion Gap 6 mmol/L; Blood Urea Nitrogen 24 mg/dL (9-20); Calcium 8.7 mg/dL (8.4-10.2); Carbon Dioxide 19 mmol/L (22-30); Chloride 115 mmol/L (98-107); Glucose 98 mg/dL (74-99); Non-African American GFR(CKD) 62 (>60 ml/min/1.73 sqM); Potassium 4.2 mmol/L (3.5-5.1); Sodium 140 mmol/L (137-145)
--- NOTE | 2023-11-08 09:37 | P.PN ---
Subjective Progress Note Date: 11/08/23 History of Present Illness: The patient is an 83-year-old male, followed by Dr. Medley with a history of par oxysmal atrial fibrillation, hypertension, hyperlipidemia who recently had a fall and according to the family intracranial bleed, was transferred to [facility] and subsequently was transferred to [facility] for rehab but had 2 more falls there according to the and has been feeling weak with episode of confusion. Cardiology consultation was requested for anticoagulation issues. The patient is in sinus mechanism. He has a preserved systolic function in the past and no history of obstructive CAD according to the records. He underwent a DON in September 2022 that showed a preserved systolic function. 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 The patient has no change in his breathing pattern, no peripheral edema, no PND or orthopnea but he has been feeling quite weak and very limited in his physical activity. The patient has a history of hypertension and hyperlipidemia Medications: Eliquis 5 mg twice a day, Coreg 6.5 mg twice a day, Aldactone 50 mg daily, Plavix 75 mg daily, Procardia 90 mg daily, losartan 100 mg daily, Lipitor 40 mg daily Labs: BUN/creatinine on admission 36 and 1.51, today 28 and 1.34. Potassium 4.4. Hemoglobin 11.1. Troponin less than 0.012. Chest x-ray with no acute infiltrate EKG: Sinus mechanism with first-degree AV block otherwise no acute ST segment changes 11/07 Patient is seen today in follow-up. Medical records from [facility] have not been obtained. Patient denies any symptoms today, no chest pain or shortness of breath. Patient appears to be oriented to person and place. Blood pressure 106/73, heart rate 82, pulse ox 97% on room air. Repeat blood work reveals sodium 140, potassium 4.2, BUN 24 and creatinine 1.11 Physical Examination: 83-year-old male alert, patient is awake and alert and able to answer some simple questions Head: Normocephalic. Eyes: Sclerae nonicteric. Neck: Good carotid upstroke, no bruit, no jugular venous distention. Lungs: Clear to auscultation. Heart: Regular rate and rhythm, S1-S2, no S3, no rub. Systolic ejection murmur. Abdomen: Soft nontender, positive bowel sounds no organomegaly. Extremities: No edema, intact distal pulses. Impression: Symptoms of fatigue, change in mental status after recent fall and subdural hematoma Paroxysmal atrial fibrillation, maintaining sinus mechanism, anticoagulated Acute kidney injury, resolved History of hypertension Prior history of stroke History of hyperlipidemia Plan: 1. We will try to obtain the records from [facility] to review his workup 2. The issue of anticoagulation was discussed at length with the . In view of his recurrent falls, history of stroke, history of subdural hematoma he will be a good candidate for left atrial appendage closure device. I discussed was finding, the risk and the benefit with the . Patient will follow-up with Dr. Medley in the office to further discuss this in detail 3. Hold anticoagulation for now pending further workup 4. Follow blood pressure and renal function 5. Depending on his progress further recommendations will be made, thank you for this consult we will follow with you. Nurse practitioner note has been reviewed, I agree with documented findings and plan of care. Patient was seen and examined. Objective - Vital Signs Vital signs: Vital Signs Temp 98.7 F 11/08/23 07:29 Pulse 82 11/08/23 07:29 Resp 17 11/08/23 07:29 BP 106/73 11/08/23 07:29 Pulse Ox 97 11/08/23 07:29 FiO2 Intake & Output 11/07/23 11/08/23 11/08/23 18:59 06:59 18:59 Intake Total 425 Output Total 450 Balance 425 -450 Weight 90.718 kg Intake: Intake, IV Titration 225 Amount Sodium Chloride 0.9% 1, 225 000 ml @ 75 mls/hr IV . [id number] [facility] Rx#:[id number] Oral 200 Output: Urine 450 Other: Voiding Method External Catheter # Voids 1 - Labs CBC & Chem 7: 11/07/23 05:31 11/08/23 03:03 Labs: Abnormal Lab Results - Last 24 Hours (Table) 11/08/23 Range/Units 03:03 Chloride 115 H (98-107) mmol/L Carbon Dioxide 19 L (22-30) mmol/L BUN 24 H (9-20) mg/dL
--- NOTE | 2023-11-08 19:34 | P.PN ---
Progress Note - Text Progress Note Date: 11/08/23 Chief Complaint: Falls Pleasant 83-year-old patient, follows Dr. Wright. Stroke, atrial flutter fibrillation. Sjogren's, hypertension. Pulmonary fibrosis. Brain bleed. History is obtained by the at the bedside. On October 17 patient presented to hospital here in ER with a fall. CT scan showed acute intracranial hemorrhage with subdural hemorrhage layering along bilateral frontal lobes. Left greater than right in the falx.-Fallen backwards going down the entire flight of steps which are wooden. And hardwood at the bottom. Subsequently patient was transferred out to [facility]. He was there for 3 weeks. As per the he was managed conservatively. About 10 days ago he was transferred to [facility]. He was there for 2 days. Patient fell that twice. really got concerned about the care then decided to bring him to the ER. Because of his falls. He was brought to our ER on November [address] Winslow. Reported a suspected ground-level fall. Patient was conscious. Not able to give very good answers. He was discharged. When he was brought in yesterday. CT scan of the brain did not show any acute event in terms of bleed. Except for a tiny superimposed subacute component. According to patient was a bit more confused at the long-term in ER. States patient doing much better this morning. Patient has been forgetful. But since his recent fall has affected his memory more. Patient did not eat well this morning. At the [facility] patient was being moved on a wheelchair. Patient himself can only can give a limited history. He thinks he still in [place]. Cannot tell me the year or the president. But able to answer the simple questions. November 07: Saw the patient this morning. Getting EEG. Able to answer simple questions. He was ordered a MRI and MRI of the brain by neurology. Decision has been made to discontinue his Eliquis because of falls. Cardiology is [place] have the patient see Dr. Medley in the office for left atrial appendage closure device. Otherwise patient eating well. Patient also felt of acute metabolic encephalopathy from acute kidney injury. Creatinine is improving. Active Medications Acetaminophen (Acetaminophen Tab 325 Mg Tab) 650 mg PO Q4H PRN PRN Reason: Pain or Fever > 100.5 Alprazolam (Alprazolam 0.25 Mg Tab) 0.25 mg PO Q6HR PRN PRN Reason: Anxiety Atorvastatin Calcium (Atorvastatin 40 Mg Tab) 40 mg PO HS [facility] Last Admin: 11/07/23 21:10 Dose: 40 mg Bisacodyl (Bisacodyl 10 Mg Supp) 10 mg RECTAL DAILY PRN PRN Reason: Constipation Carvedilol (Carvedilol 6.25 Mg Tab) 6.25 mg PO BID-W/MEALS [facility] Last Admin: 11/08/23 17:14 Dose: 6.25 mg Cevimeline HCl (Cevimeline 30 Mg Cap) 30 mg PO TID@07,13,19 [facility] Last Admin: 11/08/23 13:07 Dose: 30 mg Clopidogrel Bisulfate (Clopidogrel 75 Mg Tab) 75 mg PO HS [facility] Docusate Sodium (Docusate 100 Mg Cap) 100 mg PO BID [facility] Last Admin: 11/08/23 09:42 Dose: 100 mg Sodium Chloride (Saline 0.9%) 1,000 mls @ 75 mls/hr IV .[id number] [facility] Last Admin: 11/08/23 06:50 Dose: 75 mls/hr Losartan Potassium (Losartan 50 Mg Tab) 100 mg PO DAILY [facility] Last Admin: 11/08/23 09:42 Dose: 100 mg Melatonin (Melatonin 3 Mg Tablet) 3 mg PO HS PRN PRN Reason: Insomnia Naloxone HCl (Naloxone 0.4 Mg/Ml 1 Ml Vial) 0.2 mg IV Q2M PRN PRN Reason: Opioid Reversal Nifedipine (Nifedipine Xl 90 Mg Tab.Er.24) 90 mg PO DAILY [facility] Last Admin: 11/08/23 09:42 Dose: 90 mg Pantoprazole Sodium (Pantoprazole 40 Mg Tablet) 40 mg PO DAILY [facility] Last Admin: 11/08/23 09:42 Dose: 40 mg Polyethylene Glycol (Polyethylene Glycol 3350 17 Gm Powd.Pack) 17 gm PO BID [facility] Last Admin: 11/08/23 09:43 Dose: 17 gm Senna (Sennosides 8.6 Mg Tab) 8.6 mg PO BID [facility] Last Admin: 11/08/23 09:42 Dose: 8.6 mg Spironolactone (Spironolactone 25 Mg Tab) 50 mg PO DAILY [facility] Last Admin: 11/08/23 09:42 Dose: 50 mg Temazepam (Temazepam 15 Mg Cap) 15 mg PO HS PRN PRN Reason: Insomnia Past medical history to include: Atrial flutter fibrillation, stroke, hypertension, Sjogren's, cardioversion. Subdural hematoma Social history: . No smoking and no alcohol. Crop carroll Physical examination: VITAL SIGNS: 97.9, 88, 17, 118 x 77, 96% room GENERAL: In a recliner. Getting EEG. EYES: Pupils equal. Conjunctiva normal. HEENT: External appearance of nose and ears normal, oral cavity grossly normal. NECK: JVD not raised; masses not palpable. HEART: First and second heart sounds are normal; no edema. LUNGS: Respiratory rate normal; clear to auscultation. ABDOMEN: Soft, nontender, liver spleen not palpable, no masses palpable. PSYCH: Patient knows that in the hospital but cannot tell me the name. Does not know the year. Cannot tell me the president. Able to answer some of the simple questions. MUSCULOSKELETAL:No Clubbing/cyanosis;muscles-grossly intact. OA NEUROLOGICAL: Cranial nerves grossly intact; no facial asymmetry, power and sensation grossly intact. INVESTIGATIONS, reviewed in the clinical context: November 07: Potassium 4.2 BUN 24 creatinine 1.11 November 06: White count 5.4 hemoglobin 11.1 platelets 348 sodium 141 potassium 4.4 BUN 28 creatinine 1.34 November 05: BUN 36 creatinine 1.51 bicarb [address]. TSH 1.5 [address] scan brain: No new bleed EKG tracing personally reviewed by me-normal sinus rhythm. Chest x-ray film personally reviewed by me-some unfolding of the aorta. Assessment and plan: -Acute metabolic encephalopathy likely from renal failure. According to the patient's mentation has cleared up for more. -Recurrent falls added 2 days at the rehab. Patient with there for 2 days being discharged from acute facility in [facility] following brain bleed. Secondary to fall. Check orthostatics. PT OT. Being followed by Dr. Blount from neurology MRI, MRA, EEG of the brain -Recent subdural hemorrhage bifrontal lobe secondary to fall on October 18, 2023. Patient had 2 falls since then. Per the CT scan did not show any acute progression. -Multi-infarct dementia, including patient having subdural hematoma in the area of the frontal lobe. Prior parietal lobe stroke. -Acute medical debility following recent subdural hematoma. Patient was admitted to rehab [facility]. Has 2 further falls. PT OT. Social work to look into another place of rehab as does not want to return to [facility] -Paroxysmal atrial flutter fibrillation. Currently in sinus rhythm. Given his frequent falls. Hand intracranial hemorrhage.-Eliquis will be dis continued Patient to follow-up outpatient with Dr. Medley for left atrial appendage closure device -Essential hypertension Coreg. Aldactone. Losartan -Primary osteoarthritis Tylenol as needed -Sjogren's syndrome. -Medical power of civil attorney: . Leah -Only CPR no intubation. No shocks. Discussed with the . Follow-up with neurology. Past Medical History Past Medical History: Atrial Fibrillation, CVA/TIA, Hypertension Additional Past Medical History / Comment(s): ANA LUISA SYN. 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, brain bleed History of Any Multi-Drug Resistant Organisms: None Reported Past Surgical History: Hernia Repair Past Anesthesia/Blood Transfusion Reactions: No Reported Reaction Past Psychological History: No Psychological Hx Reported Smoking Status: Never smoker Past Alcohol Use History: None Reported Past Drug Use History: None Reported
[2023-11-08] MEDS: CLOPIDOGREL 75 MG TAB PO SCH (20:06)
--- NOTE | 2023-11-08 20:12 | P.PN ---
Subjective Progress Note Date: 11/08/23 Patient was initially seen by Dr. Toñito Blount. Please refer to his note for details. Patient is a 83-year-old male with altered mental status and had a recent fall. He has chronic left subdural and reported small subacute in addition. He was seen by myself in September 2022 and encephalitis was ruled out. As per nursing report, patient suffered from a fall, and a "brain bleed". He was hospitalized at [facility] from 10/18/2023 and discharged on 11/05/2023. He was transferred to [facility], that he suffered from a fall. He was sent back to [facility]. Patient used to be on Plavix and Eliquis, but Eliquis is on hold. Some of the workup during this hospital visit consisted of: Patient is afebrile. White blood cell is within normal limits AST ALT is within normal limits. Serum and calcium is within normal limits Creatinine is 1.51 and the repeat is 1.[address] of the head is reported as small chronic left cerebral convexity subdural with tiny superimposed subacute component shows some evaluation since 10/18/2023. No significant mass effect or midline shift. No new acute intracranial abnormality. Atrophy and chronic microvascular ischemic white m atter changes. Personally reviewed the CT and I do not feel there is any acute or subacute stroke. Regarding the left subdural I do not see any acute or subacute in my opinion. Workup on previous admission in September 2022: * DON 09/18/2022 showed no evidence of infective endocarditis identified. Normal left-ventricular systolic function. Dilated aortic root. Small cir cumferential pericardial effusion. * MRI of the brain revealed acute 1 cm focus of increased signal within the posterior right parietal cortical region on diffusion-weighted images suggestive of acute embolic process. I personally reviewed MRI, agree with the findings. * MRA of the brain revealed high-grade stenosis noted left MCA M1 segment alondra uring approximately 5.4 mm in length. Estimated stenosis at its most critical point is greater than 95%. I personally reviewed MRA agree with the findings. * 2-D echo revealed normal left-ventricular size and systolic function with mild concentric LVH. EF is 55%. Left atrial size is normal. Moderate aortic insufficiency, enlarged aortic root of 4.6 cm. * CSF WBC 1, RBC 1, protein 114, glucose 44. CSF VDRL nonreactive. West Nile virus negative, HSV 1 and HSV-2 PCR negative in the CSF. I am titer negative. * EEG was abnormal due to background slowing of mild degree, suggestive of encephalopathy. No epileptiform activity was seen. * CTA of head and neck reveals short segment of high-grade stenosis of the left MCA M1 segment measuring approximately 6 mm in length with at least 90% sten osis. No evidence of dissection of the cervical internal carotid arteries or vertebral arteries or any evidence of significant stenosis of the carotid bifurcation. No evidence of intracranial aneurysm. Dominant left vertebral artery. * Recommend patient follow up outpatient follow-up with neuro intervention for left MCA stenosis. * Hemoglobin A1c 5.8, fasting lipid panel cholesterol 83, LDL 37, HDL 33 and triglycerides 61. Continue Lipitor 40 mg daily. Objective - Vital Signs Vital signs: Vital Signs Temp 97.9 F 11/08/23 14:05 Pulse 88 11/08/23 14:05 Resp 17 11/08/23 14:05 BP 118/77 11/08/23 14:05 Pulse Ox 96 11/08/23 14:05 FiO2 Intake & Output 11/07/23 11/08/23 11/08/23 18:59 06:59 18:59 Intake Total 425 560 Output Total 450 300 Balance 425 -450 260 Weight 90.718 kg Intake: Intake, IV Titration 225 Amount Sodium Chloride 0.9% 1, 225 000 ml @ 75 mls/hr IV . [id number] [facility] Rx#:[id number] Oral 200 560 Output: Urine 450 300 Other: Voiding Method External Catheter External Catheter # Voids 1 2 # Bowel Movements 1 - Exam Patient is an elderly male, who is slightly groggy. He does become alert and awake. Patient knows his full name, and that he is 83 years old. He states current month and year is . He could not tell what city he lives in although he knows that he is in [place]. Patient has some hesitant speech, some expressive aphasia. He was able to name knuckles, and year, but for the earlobe patient said "side of the ear". He cannot repeat very well. He states current president is Trump. On cranial examination pupils are equal, round and reacting, visual kenney are full, face has very mild right-sided asymmetry. Tongue protrudes to midline. On muscle strength testing patient has mild right pronator drift about 20 degr ee. His biceps are normal, child care aide is about 4 bilaterally. Deltoids are 5, but he has pain in the right shoulder from previous issues. Hip flexion 4, ankle dorsiflexion 5 bilaterally. Sensory to touch is equal with no neglect. No ataxia for [id number] testing. - Labs CBC & Chem 7: 11/07/23 05:31 11/08/23 03:03 Labs: Abnormal Lab Results - Last 24 Hours (Table) 11/08/23 Range/Units 03:03 Chloride 115 H (98-107) mmol/L Carbon Dioxide 19 L (22-30) mmol/L BUN 24 H (9-20) mg/dL Assessment and Plan Assessment: This is an 83-year-old gentleman who presents emergency department on 11/06/2023 for altered mental status. Per the ED team family feels the patient is altered since head injury with intracranial hemorrhage 3 weeks ago. Chronic left subdural hematoma with questionable subacute component since 10/18/[address], likely due to the fall. 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 Atrial fibrillation on long-term treatment with Eliquis, currently on hold. Hypertension Plan: Await MRI of the brain with and without Await MRA of the head Await records from [facility]. Routine EEG was abnormal due to mild to moderate background slowing, suggestive of encephalopathy. No focal, lateralized or epileptiform activity was seen. Currently patient does not have any fever and white blood cell is normal. Patient has history of atrial fibrillation. Eliquis has been on hold because of frequent falls and subdural hematoma. Cardiology on board. Patient is on Plavix. Reviewed notes of Dr. Toñito Blount. B12 372, folate 19.2, TSH 1.5 and ammonia <9. We will start B12 1000 mcg orally daily. PT and OT Continue neurochecks Will defer the rest of the medical management to primary and other specialist
--- NOTE | 2023-11-08 22:24 | EEG ---
ELECTROENCEPHALOGRAM REPORT PREAMBLE: This is an 83-year-old male with altered mental status. The patient has been altered since his head injury with intraparenchymal hemorrhage 3 weeks prior. The patient has history of stroke, TIA, atrial fibrillation, and hypertension. MEDICATIONS: Currently, the patient is on, 1. Xanax. 2. Lipitor. 3. Colace. 4. Protonix. 5. Cozaar. 6. MiraLAX. 7. Restoril. 8. Aldactone. EEG FINDINGS: This is a 21-channel digital EEG recorded with video component, utilizing 10/20 international system with referential and bipolar montages. The background was moderately well-developed, but not very well regulated, mixed frequencies of 8 to 9 hertz alpha, mixed with some 6 to 7 hertz theta activity seen in bihemispheric region. Background is posterior dominant and seems to be minimally reactive to eye opening or closing. Photic driving response was not seen. Different stages of sleep were not clearly seen. No focal or generalized epileptiform activity was seen. IMPRESSION: This is an abnormal EEG due to background slowing of mild to moderate degree. This is suggestive of generalized cerebral dysfunction as can be seen with toxic metabolic encephalopathy or related to diffuse structural brain abnormality. Clinical correlation is recommended. No epileptiform activity was seen. MMODL / IJN: [id number] /
[2023-11-09] MEDS: CYANOCOBALAMIN 500 MCG TAB PO SCH (09:58)
--- NOTE | 2023-11-09 10:52 | P.PN ---
Subjective Progress Note Date: 11/09/23 History of Present Illness: The patient is an 83-year-old male, followed by Dr. Medley with a history of par oxysmal atrial fibrillation, hypertension, hyperlipidemia who recently had a fall and according to the family intracranial bleed, was transferred to [facility] and subsequently was transferred to [facility] for rehab but had 2 more falls there according to the and has been feeling weak with episode of confusion. Cardiology consultation was requested for anticoagulation issues. The patient is in sinus mechanism. He has a preserved systolic function in the past and no history of obstructive CAD according to the records. He underwent a DON in September 2022 that showed a preserved systolic function. 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 The patient has no change in his breathing pattern, no peripheral edema, no PND or orthopnea but he has been feeling quite weak and very limited in his physical activity. The patient has a history of hypertension and hyperlipidemia Medications: Eliquis 5 mg twice a day, Coreg 6.5 mg twice a day, Aldactone 50 mg daily, Plavix 75 mg daily, Procardia 90 mg daily, losartan 100 mg daily, Lipitor 40 mg daily Labs: BUN/creatinine on admission 36 and 1.51, today 28 and 1.34. Potassium 4.4. Hemoglobin 11.1. Troponin less than 0.012. Chest x-ray with no acute infiltrate EKG: Sinus mechanism with first-degree AV block otherwise no acute ST segment changes 11/07 Patient is seen today in follow-up. Medical records from [facility] have not been obtained. Patient denies any symptoms today, no chest pain or shortness of breath. Patient appears to be oriented to person and place. Blood pressure 106/73, heart rate 82, pulse ox 97% on room air. Repeat blood work reveals sodium 140, potassium 4.2, BUN 24 and creatinine 1.11 11/08 Patient is seen today in follow-up. Medical records from [facility] have not been obtained and there is an issue with consent. Patient is waiting for placement. Anticoagulation remains on hold. Blood pressure 123/85, heart rate 81, pulse ox 96% on room air. No repeat blood work today. Patient denies any new concerns. No chest pain or shortness of breath no dizziness. Physical Examination: 83-year-old male alert, patient is awake and alert and able to answer some simple questions Head: Normocephalic. Eyes: Sclerae nonicteric. Neck: Good carotid upstroke, no bruit, no jugular venous distention. Lungs: Clear to auscultation. Heart: Regular rate and rhythm, S1-S2, no S3, no rub. Systolic ejection murmur. Abdomen: Soft nontender, positive bowel sounds no organomegaly. Extremities: No edema, intact distal pulses. Impression: Symptoms of fatigue, change in mental status after recent fall and subdural hematoma Paroxysmal atrial fibrillation, maintaining sinus mechanism, anticoagulated Acute kidney injury, resolved History of hypertension Prior history of stroke History of hyperlipidemia Plan: 1. We will try to obtain the records from [facility] to review his workup 2. The issue of anticoagulation was discussed at length with the . In view of his recurrent falls, history of stroke, history of subdural hematoma he will be a good candidate for left atrial appendage closure device. I discussed was finding, the risk and the benefit with the . Patient will follow-up with Dr. Medley in the office to further discuss this in detail 3. Hold anticoagulation for now 4. Follow blood pressure and renal function 5. Depending on his progress further recommendations will be made, thank you for this consult we will follow with you. Nurse practitioner note has been reviewed, I agree with documented findings and plan of care. Patient was seen and examined. Objective - Vital Signs Vital signs: Vital Signs Temp 98.7 F 11/09/23 01:32 Pulse 83 11/09/23 06:28 Resp 18 11/09/23 01:32 BP 139/89 11/09/23 06:28 Pulse Ox 95 11/09/23 01:32 FiO2 Intake & Output 11/08/23 11/09/23 11/09/23 18:59 06:59 18:59 Intake Total 560 Output Total 300 Balance 260 Intake: Oral 560 Output: Urine 300 Other: Voiding Method External Catheter External Catheter # Voids 2 0 # Bowel Movements 1 - Labs CBC & Chem 7: 11/07/23 05:31 11/08/23 03:03
[2023-11-09] MEDS: NYSTATIN 100,000 UNIT/GM POWD 15 GM TOPICAL SCH (11:46)
--- NOTE | 2023-11-09 14:12 | MR ---
EXAMINATION TYPE: MR brain wo/w con, MR angio head wo con DATE OF EXAM: 11/09/2023 1:12 PM COMPARISON: 09/16/2022 HISTORY: AMS, stroke. CONTRAST: Patient received 9 mL intravenous Gadavist gadolinium contrast. Multiplanar and multispin-echo imaging of the brain was performed . Pre and post contrast enhanced i mages are obtained. The ventricles, basal cisterns and sulci overlying the cerebral convexities are mildly enlarged. There is evidence of mild periventricular white matter ischemic demyelination. Remote deep white matter insults are also noted. There is no evidence for midline shift or mass effect. Nonacute subdural hematomas are noted bilaterally left slightly greater than right with maximal thick ness on the left of 0.6 mm and on the right 2 mm. There is interhemispheric tiny nonacute subdural h ematoma. There are also left paramedian foci of increased signal with peripheral decreased signal fel t to reflect nonacute parenchymal hemorrhage with hemosiderin deposition both within the left frontal lobe the largest of which measures 1.5 cm. Diffusion-weighted imaging demonstrates additional tiny subcortical foci of increased signal within the left parietal and left parietal-occipital regions cou ld reflect small foci of petechial hemorrhage versus acute insult. No enhancing lesions are seen. The paranasal sinuses and mastoid air cells are well-aerated. IMPRESSION: 1.Nonacute subdural hematomas are noted bilaterally left slightly greater than right with maximal thi ckness on the left of 0.6 mm and on the right 2 mm. There is interhemispheric tiny nonacute subdural hematoma. 2.There are also left paramedian foci of increased signal with peripheral decreased signal felt to re flect nonacute parenchymal hemorrhage with hemosiderin deposition both within the left frontal lobe t he largest of which measures 1.5 cm. 3.Diffusion-weighted imaging demonstrates additional tiny subcortical foci of increased signal withi n the left parietal and left parietal-occipital regions could reflect small foci of petechial hemorrh age versus acute vascular insult. 4. Absence of flow-void left internal carotid artery and intracranial component. EXAMINATION TYPE: MR brain wo/w con, MR angio head wo con DATE OF EXAM: 11/09/2023 COMPARISON: 09/16/2022 HISTORY: AMS, stroke. TECHNIQUE: Time of flight images focusing on the [place] of [place] were performed without contrast.. 2-D and 3-D postprocessing imaging is performed. FINDINGS: There is nonvisualization of the intracranial component of the left ICA. Diminutive branch pattern left MCA. High-grade stenosis noted left MCA M1 segment. Right internal carotid artery is pat ent as are its anterior, middle and posterior branches. Basilar artery and vertebral arteries appear to be patent. No sizable aneurysm identified. IMPRESSION: There is nonvisualization of the intracranial component of the left ICA. Diminutive branc h pattern left MCA. [facility], , 11/09/2023 2:10 PM
--- NOTE | 2023-11-09 15:22 | P.PN ---
Progress Note - Text Progress Note Date: 11/09/23 Chief Complaint: Falls Pleasant 83-year-old patient, follows Dr. Wright. Stroke, atrial flutter fibrillation. Sjogren's, hypertension. Pulmonary fibrosis. Brain bleed. History is obtained by the at the bedside. On October 17 patient presented to hospital here in ER with a fall. CT scan showed acute intracranial hemorrhage with subdural hemorrhage layering along bilateral frontal lobes. Left greater than right in the falx.-Fallen backwards going down the entire flight of steps which are wooden. And hardwood at the bottom. Subsequently patient was transferred out to [facility]. He was there for 3 weeks. As per the he was managed conservatively. About 10 days ago he was transferred to [facility]. He was there for 2 days. Patient fell that twice. really got concerned about the care then decided to bring him to the ER. Because of his falls. He was brought to our ER on November [address] Winslow. Reported a suspected ground-level fall. Patient was conscious. Not able to give very good answers. He was discharged. When he was brought in yesterday. CT scan of the brain did not show any acute event in terms of bleed. Except for a tiny superimposed subacute component. According to patient was a bit more confused [facility] the [facility] ER. States patient doing much better this morning. Patient has been forgetful. But since his recent fall has affected his memory more. Patient did not eat well this morning. At the [facility] patient was being moved on a wheelchair. Patient himself can only can give a limited history. He thinks he still in [place]. Cannot tell me the year or the president. But able to answer the simple questions. November 07: Saw the patient this morning. Getting EEG. Able to answer simple questions. He was ordered a MRI and MRI of the brain by neurology. Decision has been made to discontinue his Eliquis because of falls. Cardiology is [place] have the patient see Dr. Medley in the office for left atrial appendage closure device. Otherwise patient eating well. Patient also felt of acute metabolic encephalopathy from acute kidney injury. Creatinine is improving. November 08: Up in a chair. Appears comfortable. Can answer simple questions but does not know exactly where he is. He thinks he is at [facility]. Not sure about the year. Eating fairly well. at the bedside. Patient had his MRI and MRI today. Nonvisualization of the intracranial component on the left ICA.: Chronic changes. Could be small foci of petechial hemorrhage versus acute vascular insult. Note that patient was on Eliquis after presentation. Clinically the patient is better than presentation. Except for cognitive impairment. Will await final input from neurology. Spoke to case sealer Maria Luisa. Looking into rehab and getting authorization. Active Medications Acetaminophen (Acetaminophen Tab 325 Mg Tab) 650 mg PO Q4H PRN PRN Reason: Pain or Fever > 100.5 Alprazolam (Alprazolam 0.25 Mg Tab) 0.25 mg PO Q6HR PRN PRN Reason: Anxiety Atorvastatin Calcium (Atorvastatin 40 Mg Tab) 40 mg PO HS [facility] Last Admin: 11/08/23 20:06 Dose: 40 mg Bisacodyl (Bisacodyl 10 Mg Supp) 10 mg RECTAL DAILY PRN PRN Reason: Constipation Carvedilol (Carvedilol 6.25 Mg Tab) 6.25 mg PO BID-W/MEALS [facility] Last Admin: 11/09/23 06:28 Dose: 6.25 mg Cevimeline HCl (Cevimeline 30 Mg Cap) 30 mg PO TID@07,13,19 [facility] Last Admin: 11/09/23 12:15 Dose: 30 mg Clopidogrel Bisulfate (Clopidogrel 75 Mg Tab) 75 mg PO HS [facility] Last Admin: 11/08/23 20:06 Dose: 75 mg Cyanocobalamin (Cyanocobalamin 500 Mcg Tab) 500 mcg PO DAILY [facility] Last Admin: 11/09/23 09:58 Dose: 500 mcg Docusate Sodium (Docusate 100 Mg Cap) 100 mg PO BID [facility] Last Admin: 11/09/23 09:57 Dose: 100 mg Sodium Chloride (Saline 0.9%) 1,000 mls @ 75 mls/hr IV .[id number] [facility] Last Admin: 11/08/23 19:46 Dose: 75 mls/hr Losartan Potassium (Losartan 50 Mg Tab) 100 mg PO DAILY [facility] Last Admin: 11/09/23 09:58 Dose: 100 mg Melatonin (Melatonin 3 Mg Tablet) 3 mg PO HS PRN PRN Reason: Insomnia Naloxone HCl (Naloxone 0.4 Mg/Ml 1 Ml Vial) 0.2 mg IV Q2M PRN PRN Reason: Opioid Reversal Nifedipine (Nifedipine Xl 90 Mg Tab.Er.24) 90 mg PO DAILY [facility] Last Admin: 11/09/23 09:57 Dose: 90 mg Nystatin (Nystatin 100,000 Unit/Gm Powd 15 Gm) 1 applic TOPICAL BID [facility]; Protocol Last Admin: 11/09/23 11:46 Dose: 1 applic Pantoprazole Sodium (Pantoprazole 40 Mg Tablet) 40 mg PO DAILY [facility] Last Admin: 11/09/23 09:58 Dose: 40 mg Polyethylene Glycol (Polyethylene Glycol 3350 17 Gm Powd.Pack) 17 gm PO BID [facility] Last Admin: 11/09/23 09:58 Dose: 17 gm Senna (Sennosides 8.6 Mg Tab) 8.6 mg PO BID [facility] Last Admin: 11/09/23 09:57 Dose: 8.6 mg Spironolactone (Spironolactone 25 Mg Tab) 50 mg PO DAILY [facility] Last Admin: 11/09/23 09:58 Dose: 50 mg Temazepam (Temazepam 15 Mg Cap) 15 mg PO HS PRN PRN Reason: Insomnia Past medical history to include: Atrial flutter fibrillation, stroke, hypertension, Sjogren's, cardioversion. Subdural hematoma Social history: . No smoking and no alcohol. Crop carroll Physical examination: VITAL SIGNS: 97.8, 82, 17, 112 x 79, 99% room air GENERAL: Sitting up, looking pleasant comfortable. EYES: Pupils equal. Conjunctiva normal. HEENT: External appearance of nose and ears normal, oral cavity grossly normal. NECK: JVD not raised; masses not palpable. HEART: First and second heart sounds are normal; no edema. LUNGS: Respiratory rate normal; clear to auscultation. ABDOMEN: Soft, nontender, liver spleen not palpable, no masses palpable. PSYCH: Can answer some simple very questions. He thinks it is [facility]. Unable to tell me the season of the year. MUSCULOSKELETAL:No Clubbing/cyanosis;muscles-grossly intact. OA NEUROLOGICAL: Cranial nerves grossly intact; no facial asymmetry, power and sensation grossly intact. INVESTIGATIONS, reviewed in the clinical context: EEG: No epileptiform activity. Generalized cerebral dysfunction. Brain MRI: No acute nonacute subdural hematomas are noted bilaterallyLeft greater than right. Left 0.6 mm. Right 2 mm. Also left paramedian foci of increased signal. With evidence of nonacute parenchymal hemorrhage with hemosiderin deposition. Within the left frontal lobe largest of which measures 1.5 cm. Tiny subcortical foci of increased signal within the left parietal and left parieto-occipital region that could reflect small foci of petechial hemorrhage versus acute vascular insult. Absent of flow-void left internal carotid artery and intracranial component. November 07: Potassium 4.2 BUN 24 creatinine 1.11 November 06: White count 5.4 hemoglobin 11.1 platelets 348 sodium 141 potassium 4.4 BUN 28 creatinine 1.34 November 05: BUN 36 creatinine 1.51 bicarb [address]. TSH 1.5 [address] scan brain: No new bleed EKG tracing personally reviewed by me-normal sinus rhythm. Chest x-ray film personally reviewed by me-some unfolding of the aorta. Assessment and plan: -Acute metabolic encephalopathy likely from renal failure. According to the patient's mentation has cleared up since presentation. -Recurrent falls added 2 days at the rehab. Patient with there for 2 days being discharged from acute facility in [facility] following brain bleed. Secondary to fall. Negative orthostatics. PT OT. Being followed by Dr. Blount from neurology EEG negative for seizure activity. MRI MRI of the brain results as above -Recent subdural hemorrhage bifrontal lobe secondary to fall on October 18, 2023. Patient had 2 falls since then. Per the CT scan did not show any acute progression. -Multi-infarct dementia, including patient having subdural hematoma in the area of the frontal lobe. Prior parietal lobe stroke. -Acute medical debility following recent subdural hematoma. Patient was admitted to rehab LDL. Has 2 further falls. PT OT. Social work to look into another place of rehab as does not want to return to [facility] workers' compensation magistrate looking into rehab placement -Paroxysmal atrial flutter fibrillation. Currently in sinus rhythm. Given his frequent falls. Hand intracranial hemorrhage.-Eliquis will be discontinued Patient to follow-up outpatient with Dr. Medley for left atrial appendage closure device -Essential hypertension Coreg. Aldactone. Losartan -Primary osteoarthritis Tylenol as needed -Sjogren's syndrome. -Medical power of quality assurance: . Leah -Only CPR no intubation. No shocks. Discussed with . water resources project manager Maria Luisa. Await further input from neurology for the MRI results. 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, brain bleed History of Any Multi-Drug Resistant Organisms: None Reported Past Surgical History: Hernia Repair Past Anesthesia/Blood Transfusion Reactions: No Reported Reaction Past Psychological History: No Psychological Hx Reported Smoking Status: Never smoker Past Alcohol Use History: None Reported Past Drug Use History: None Reported
[2023-11-10 03:13] VITALS: RESP 17; TEMP 98.3
[2023-11-10 08:05] VITALS: BP 134/67; PULSE 79
--- NOTE | 2023-11-10 09:54 | P.PN ---
Subjective Progress Note Date: 11/09/23 11/09/2023: Patient was seen for a follow-up. Patient denies any headache or dizziness. Patient is laying comfortably in the bed. 11/08/2023: Patient was initially seen by Dr. Toñito Blount. Please refer to his note for details. Patient is a 83-year-old male with altered mental status and had a recent fall. He has chronic left subdural and reported small subacute in addition. He was seen by myself in September 2022 and encephalitis was ruled out. As per nursing report, patient suffered from a fall, and a "brain bleed". He was hospitalized at [facility] from 10/18/2023 and discharged on 11/05/2023. He was transferred to [facility], that he suffered from a fall. He was sent back to [facility]. Patient used to be on Plavix and Eliquis, but Eliquis is on hold. Some of the workup during this hospital visit consisted of: Patient is afebrile. White blood cell is within normal limits AST ALT is within normal limits. Serum and calcium is within normal limits Creatinine is 1.51 and the repeat is 1.[address] of the head is reported as small chronic left cerebral convexity subdural with tiny superimposed subacute component shows some evaluation since 10/18/2023. No significant mass effect or midline shift. No new acute intracra nial abnormality. Atrophy and chronic microvascular ischemic white matter changes. Personally reviewed the CT and I do not feel there is any acute or subacute stroke. Regarding the left subdural I do not see any acute or subacute in my opinion. Workup on previous admission in September 2022: * DON 09/18/2022 showed no evidence of infective endocarditis identified. Normal left-ventricular systolic function. Dilated aortic root. Small circumferential pericardial effusion. * MRI of the brain revealed acute 1 cm focus of increased signal within the posterior right parietal cortical region on diffusion-weighted images suggestive of acute embolic process. I personally reviewed MRI, agree with the findings. * MRA of the brain revealed high-grade stenosis noted left MCA M1 segment measuring approximately 5.4 mm in length. Estimated stenosis at its most critical point is greater than 95%. I personally reviewed MRA agree with the findings. * 2-D echo revealed normal left-ventricular size and systolic function with mild concentric LVH. EF is 55%. Left atrial size is normal. Moderate aortic insufficiency, enlarged aortic root of 4.6 cm. * CSF WBC 1, RBC 1, protein 114, glucose 44. CSF VDRL nonreactive. West Nile virus negative, HSV 1 and HSV-2 PCR negative in the CSF. I am titer negative. * EEG was abnormal due to background slowing of mild degree, suggestive of encephalopathy. No epileptiform activity was seen. * CTA of head and neck reveals short segment of high-grade stenosis of the left MCA M1 segment measuring approximately 6 mm in length with at least 90% stenosis. No evidence of dissection of the cervical internal carotid arteries or vertebral arteries or any evidence of significant stenosis of the carotid bifurcation. No evidence of intracranial aneurysm. Dominant left vertebral artery. * Recommend patient follow up outpatient follow-up with neuro intervention for left MCA stenosis. * Hemoglobin A1c 5.8, fasting lipid panel cholesterol 83, LDL 37, HDL 33 and triglycerides 61. Continue Lipitor 40 mg daily. Objective - Vital Signs Vital signs: Vital Signs Temp 97.8 F 11/09/23 14:00 Pulse 82 11/09/23 14:00 Resp 17 11/09/23 14:00 BP 112/79 11/09/23 14:00 Pulse Ox 99 11/09/23 14:00 FiO2 Intake & Output 11/09/23 11/09/23 11/10/23 06:59 18:59 06:59 Intake Total 400 Balance 400 Intake: Oral 400 Other: Voiding Method External Catheter External Catheter # Voids 0 2 # Bowel Movements 2 - Exam Patient is an elderly male, alert and awake. Patient knows his full name, and that he is 83 years old. On cranial examination pupils are equal, round and reacting, visual kenney are full, face has very mild right-sided asymmetry. Tongue protrudes to midline. On muscle strength testing patient has mild right pronator drift about 20 degree. 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 Deltoids are 5, but he has pain in the right shoulder from previous issues. Hip flexion 4, an kle dorsiflexion 5 bilaterally. Sensory to touch is equal with no neglect. No ataxia for [id number] testing. - Labs CBC & Chem 7: 11/07/23 05:31 11/08/23 03:03 Assessment and Plan Assessment: This is an 83-year-old gentleman who presents emergency department on 11/06/2023 for altered mental status. Per the ED team family feels the patient is altered since head injury with intracranial hemorrhage 3 weeks ago. Chronic left subdural hematoma with questionable subacute component since 10/18/[address], likely due to the fall. 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 Atrial fibrillation on long-term treatment with Eliquis, currently on hold. Hypertension Plan: * MRI of the brain with and without revealed non-acute subdural hematomas are noted bilaterally, left slightly greater than the right with maximal thickness on the left of 6 mm and on the right 2 mm. There is interhemispheric tiny nonacute subdural hematoma. There is also left paramedian foci of increased signal with peripheral decreased signal felt to reflect nonacute parenchymal hemorrhage with hemosiderin deposition both within the left frontal lobe, the largest of which measures 1.5 cm. Diffusion-weighted imaging demonstrates additional tiny subcortical foci of increased signal within the left parietal and left parietal occipital region, could reflect small foci of petechial hemorrhage versus acute vascular insult. Absence of flow void left ICA and intracranial competent. * Repeat CT head in the morning to evaluate for worsening subdural hematoma. * MRA of the head revealed nonvisualization of the intracranial component of the left ICA. Diminutive branch patent left MCA. * Await records from [facility]. Need to assess if subdural hematoma is worse or better. * Routine EEG was abnormal due to mild to moderate background slowing, suggestive of encephalopathy. No focal, lateralized or epileptiform activity was seen. * Currently patient does not have any fever and white blood cell is normal. * Patient has history of atrial fibrillation. Eliquis has been on hold because of frequent falls and subdural hematoma. Cardiology on board. Patient is on Plavix. Reviewed notes of Dr. Toñito Blount. * B12 372, folate 19.2, TSH 1.5 and ammonia <9. We will start B12 1000 mcg orally daily. * PT and OT * Continue neurochecks * Will defer the rest of the medical management to primary and other specialist
--- NOTE | 2023-11-10 11:46 | P.PN ---
Subjective Progress Note Date: 11/10/23 11/10/2023: Patient was seen for a follow-up. Records obtained from [facility]. * MRI of the brain with and without contrast on 10/24/2023 revealed trace amount of hemorrhage in the left lateral ventricle. Overall impression Limited examination secondary to motion. Essentially stable subdural hemorrhage. * CT head on 10/18/2023 revealed no evidence of acute intracranial pathology. * CT head from 10/19/2023 revealed small acute subdural hemorrhage along the left frontal convexity and anterior falx. Measurement is 3.5 mm in thickness along the left frontal convexity. CT head from 10/20/2023 10:44 AM revealed subdural hematoma with maximal thickness measuring 10.5 mm asymmetric to the left of the falx and previously measured approximately 5 mm. Small acute subdural hematoma along the left frontal cerebral convexity which is not significantly changed measuring approximately 3.5 mm in thickness. * CT head from 10/20/2023 at 10:15 PM revealed redemonstration of an acute subd ural hematoma along the anterior falx which is increased in the interim measuring 15 mm in thickness and previously measured 10.5 mm in thickness. Redemonstration of a small subdural hematoma along the left cerebral convexity which is unchanged. * CT head from 10/22/2023 1:57 AM revealed unchanged subdural hematoma along the falx and left frontal convexity. New trace intraventricular hemorrhage in the left lateral ventricle. * CT head 10/23/2023 revealed stable appearance of the subdural hematoma along the falx and about the left cerebral convexity. CSF collection about the right cerebral convexity also noted. * CT head from 11/02/2023 revealed nearly resolved parafalcine and left frontal subdural hemorrhage. Patient was evaluated by neurocritical care and interventional neurology and was diagnosed with acute traumatic bilateral subdural hematoma, history of left occipital stroke, history of left MCA severe stenosis, Eliquis coagulopathy. Keppra 500 mg twice daily was recommended, EEG, systolic blood pressure to be less than 180. Neurosurgery Dr. Nails (and COOPER APPRENTICE Kanika Mays) saw the patient, who agreed bilateral subdural hematoma left more than right. Hold ant icoagulants, SCDs for DVT. Systolic blood pressure less than 160. Patient was also seen by neurologist Omayra Izaguirre MD. Long-term EEG was obtained while patient was in the ICU, and no epileptiform discharges or seizures were seen. Hemoglobin A1c 5.9. Ammonia 77 that came down to 35. Keppra recommended 500 mg twice daily for 7 days. Status post IV TXA while in [place]. I discussed with patient's who was present by the bedside. She mentions that patient was admitted to [facility] on 10/18/2023 after he suffered from a fall, 16 steps down. That they he was not feeling well, has low blood pressure, but still he worked out and when he was going up steps, he fell backwards and landed down 16 steps. He was discharged on 11/04/2023. Apparently 2 days prior to the discharge, perhaps on 11/02/2023, he was resumed on Eliquis. Patient suffered from falls x 2, in [facility]. He was brought back and patient has slight recurrence of subdural hematoma. His Eliquis has been put on hold since arrival to the hospital. 11/09/2023: Patient was seen for a follow-up. Patient denies any headache or dizziness. Patient is laying comfortably in the bed. 11/08/2023: Patient was initially seen by Dr. Toñito Blount. Please refer to his note for details. Patient is a 83-year-old male with altered mental status and had a recent fall. He has chronic left subdural and reported small subacute in addition. He was seen by myself in September 2022 and encephalitis was ruled out. As per nursing report, patient suffered from a fall, and a "brain bleed". He was hospitalized at [facility] from 10/18/2023 and discharged on 11/05/2023. He was transferred to [facility], that he suffered from a fall. He was sent back to [facility]. Patient used to be on Plavix and Eliquis, but Eliquis is on hold. Some of the workup during this hospital visit consisted of: Patient is afebrile. White blood cell is within normal limits AST ALT is within normal limits. Serum and calcium is within normal limits Creatinine is 1.51 and the repeat is 1.[address] of the head is reported as small chronic left cerebral convexity subdural with tiny superimposed subacute component shows some evaluation since 10/18/2023. No significant mass effect or midline shift. No new acute intracranial abnormality. Atrophy and chronic microvascular ischemic white matter changes. Personally reviewed the CT and I do not feel there is any acute or subacute stroke. Regarding the left subdural I do not see any acute or subacute in my opinion. Workup on previous admission in September 2022: * DON 09/18/2022 showed no evidence of infective endocarditis identified. Normal left-ventricular systolic function. Dilated aortic root. Small circumferential pericardial effusion. * MRI of the brain revealed acute 1 cm focus of increased signal within the posterior right parietal cortical region on diffusion-weighted images suggestive of acute embolic process. I personally reviewed MRI, agree with the findings. * MRA of the brain revealed high-grade stenosis noted left MCA M1 segment measuring approximately 5.4 mm in length. Estimated stenosis at its most critical point is greater than 95%. I personally reviewed MRA agree with the findings. * 2-D echo revealed normal left-ventricular size and systolic function with mild concentric LVH. EF is 55%. Left atrial size is normal. Moderate aortic insufficiency, enlarged aortic root of 4.6 cm. * CSF WBC 1, RBC 1, protein 114, glucose 44. CSF VDRL nonreactive. West Nile virus negative, HSV 1 and HSV-2 PCR negative in the CSF. I am titer negative. * EEG was abnormal due to background slowing of mild degree, suggestive of encephalopathy. No epileptiform activity was seen. * CTA of head and neck reveals short segment of high-grade stenosis of the left MCA M1 segment measuring approximately 6 mm in length with at least 90% stenosis. No evidence of dissection of the cervical internal carotid arteries or vertebral arteries or any evidence of significant stenosis of the carotid bifurcation. No evidence of intracranial aneurysm. Dominant left vertebral artery. * Recommend patient follow up outpatient follow-up with neuro intervention for left MCA stenosis. * Hemoglobin A1c 5.8, fasting lipid panel cholesterol 83, LDL 37, HDL 33 and triglycerides 61. Continue Lipitor 40 mg daily. Objective - Vital Signs Vital signs: Vital Signs Temp 98.3 F 11/10/23 07:12 Pulse 79 11/10/23 07:12 Resp 17 11/10/23 07:12 BP 134/67 11/10/23 07:12 Pulse Ox 96 11/10/23 07:12 FiO2 Intake & Output 11/09/23 11/10/23 11/10/23 18:59 06:59 18:59 Intake Total 400 Output Total 900 Balance 400 -900 Intake: Oral 400 Output: Urine 900 Other: Voiding Method External Catheter Urinal Urinal # Voids 2 4 # Bowel Movements 2 - Exam Patient is an elderly male, alert and awake. Patient is sitting in the recliner. He knows it is November, could not tell the year. He knows that he is in [facility] but does not remember the city. On cranial examination pupils are equal, round and reacting, visual kenney are full, face has very mild right-sided asymmetry. Tongue protrudes to midline. On muscle strength testing patient has mild right pronator drift about 20 degree. 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 Deltoids are 5, but he has pain in the right shoulder from previous issues. Hip flexion 4, ankle dorsiflexion 5 bilaterally. Sensory to touch is equal with no neglect. No ataxia for [id number] testing. - Labs CBC & Chem 7: 11/07/23 05:31 11/08/23 03:03 Assessment and Plan Assessment: This is an 83-year-old gentleman who presents emergency department from [facility] on 11/06/2023 for frequent falls and altered mental status. Patient was found to have subacute bilateral hematoma, left more than right. History of fall downstairs 16 steps 10/18/2023, with bilateral subdural hematoma, treated at [facility] conservatively, and discharged on 11/04/2023. Chronic left subdural hematoma with questionable subacute component since 10/18/[address], likely due to the fall. Encephalopathy likely due to above History of right parietal stroke History of left MCA stenosis that was severe but asymptomatic Atrial fibrillation History of stroke with left MCA occlusion on 07/15/2020 and did not require thrombectomy and patient had very minimal residual deficit with some word finding problem at this time. Atrial fibrillation on long-term treatment with Eliquis, currently on hold. Hypertension Plan: * MRI of the brain with and without revealed non-acute subdural hematomas are noted bilaterally, left slightly greater than the right with maximal thickness on the left of 6 mm and on the right 2 mm. There is interhemispheric tiny nonacute subdural hematoma. There is also left paramedian foci of increased signal with peripheral decreased signal felt to reflect nonacute parenchymal hemorrhage with hemosiderin deposition both within the left frontal lobe, the largest of which measures 1.5 cm. Diffusion-weighted imaging demonstrates additional tiny subcortical foci of increased signal within the left parietal and left parietal occipital region, could reflect small foci of petechial hemorrhage versus acute vascular insult. Absence of flow void left ICA and intracranial competent. * Patient subdural hematoma has been stable as compared to the CT head from admission. * MRA of the head revealed nonvisualization of the intracranial component of the left ICA. Diminutive branch patent left MCA. * Records from [facility] reviewed, as mentioned above in detail. * Routine EEG was abnormal due to mild to moderate background slowing, suggestiv e of encephalopathy. No focal, lateralized or epileptiform activity was seen. * Because of subdural hematoma, we will continue to hold Eliquis. Continue Plavix, as patient has severe stenosis of the left MCA, and patient needs antiplatelet medication to prevent recurrent strokes, and Plavix may help with some A-fib as well. * Recommend repeating CT head without contrast in 7 days, on Wednesday11/17/2023 and follow-up with his neurologist Dr. Hernnádez the following day on or Wednesday. * B12 372, folate 19.2, TSH 1.5 and ammonia <9. We will start B12 1000 mcg orally daily. * PT and OT * Continue neurochecks * Neurologically clear for discharge to [facility]. * Recommend return to hospital, if any worsening of symptoms in the interim. * Strongly recommend to avoid further falls. * Discussed with primary physician Dr. Earl in detail. Agreed with the plan.
--- NOTE | 2023-11-10 13:10 | P.PN ---
Subjective Progress Note Date: 11/10/23 History of Present Illness: The patient is an 83-year-old male, followed by Dr. Medley with a history of par oxysmal atrial fibrillation, hypertension, hyperlipidemia who recently had a fall and according to the family intracranial bleed, was transferred to [facility] and subsequently was transferred to [facility] for rehab but had 2 more falls there according to the and has been feeling weak with episode of confusion. Cardiology consultation was requested for anticoagulation issues. The patient is in sinus mechanism. He has a preserved systolic function in the past and no history of obstructive CAD according to the records. He underwent a DON in September 2022 that showed a preserved systolic function. 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 The patient has no change in his breathing pattern, no peripheral edema, no PND or orthopnea but he has been feeling quite weak and very limited in his physical activity. The patient has a history of hypertension and hyperlipidemia Medications: Eliquis 5 mg twice a day, Coreg 6.5 mg twice a day, Aldactone 50 mg daily, Plavix 75 mg daily, Procardia 90 mg daily, losartan 100 mg daily, Lipitor 40 mg daily Labs: BUN/creatinine on admission 36 and 1.51, today 28 and 1.34. Potassium 4.4. Hemoglobin 11.1. Troponin less than 0.012. Chest x-ray with no acute infiltrate EKG: Sinus mechanism with first-degree AV block otherwise no acute ST segment changes 11/07 Patient is seen today in follow-up. Medical records from [facility] have not been obtained. Patient denies any symptoms today, no chest pain or shortness of breath. Patient appears to be oriented to person and place. Blood pressure 106/73, heart rate 82, pulse ox 97% on room air. Repeat blood work reveals sodium 140, potassium 4.2, BUN 24 and creatinine 1.11 11/08 Patient is seen today in follow-up. Medical records from [facility] have not been obtained and there is an issue with consent. Patient is waiting for placement. Anticoagulation remains on hold. Blood pressure 123/85, heart rate 81, pulse ox 96% on room air. No repeat blood work today. Patient denies any new concerns. No chest pain or shortness of breath no dizziness. 11/09 Patient is sitting up in chair. Plan is for discharge to rehab today. Reviewed documents from [facility] regarding acute subdural hemorrhage in the anterior falx and left frontal, blunt head trauma secondary to fall, encephalopathy. Patient underwent MRI of the brain yesterday which revealed nonacute subdural hematomas are noted bilaterally left slightly greater than right. Discussed in detail with the patient's that patient is not an appropriate candidate at this time for anticoagulation. She does understand that this increases the patient's risk for stroke. Physical Examination: 83-year-old male alert, patient is awake and alert and able to answer some simple questions Head: Normocephalic. Eyes: Sclerae nonicteric. Neck: Good carotid upstroke, no bruit, no jugular venous distention. Lungs: Clear to auscultation. Heart: Regular rate and rhythm, S1-S2, no S3, no rub. Systolic ejection murmur. Abdomen: Soft nontender, positive bowel sounds no organomegaly. Extremities: No edema, intact distal pulses. Impression: Symptoms of fatigue, change in mental status after recent fall and subdural hematoma Paroxysmal atrial fibrillation, maintaining sinus mechanism, anticoagulated Acute kidney injury, resolved History of hypertension Prior history of stroke History of hyperlipidemia Plan: The issue of anticoagulation was discussed at length with the by Dr. Cooper. In view of his recurrent falls, history of stroke, subdural hematomas bilaterally, he will be a good candidate for left atrial appendage closure device. I discussed was finding, the risk and the benefit with the . Patient will follow-up with Dr. Medley in the office to further discuss this in detail. Continue to hold anticoagulation. Patient is cleared for discharge from cardiology and will follow-up with Dr. Medley in 2 weeks. Cardiology will sign off this case and follow on an as-needed basis. Please re consult for any new concerns. Nurse practitioner note has been reviewed, I agree with documented findings and plan of care. Patient was seen and examined. Objective - Vital Signs Vital signs: Vital Signs Temp 98.3 F 11/10/23 07:12 Pulse 79 11/10/23 07:12 Resp 17 11/10/23 07:12 BP 134/67 11/10/23 07:12 Pulse Ox 96 11/10/23 07:12 FiO2 Intake & Output 11/09/23 11/10/2311/09/24 18:59 06:59 18:59 Intake Total 400 Output Total 900 Balance 400 -900 Intake: Oral 400 Output: Urine 900 Other: Voiding Method External Catheter Urinal Urinal # Voids 2 4 # Bowel Movements 2 - Labs CBC & Chem 7: 11/07/23 05:31 11/08/23 03:03
--- NOTE | 2023-11-10 13:43 | P.DS ---
Providers Date of admission: 11/06/23 21:18 Expected date of discharge: 11/10/23 Attending physician: Deshaun Earl Consults: 11/06/23 21:14 Consult Physician Routine Consulting Provider: Toñito Blount Consult Reason/Comments: ams Do you want consulting provider notified?: Yes 11/07/23 10:20 Consult Physician Routine Consulting Provider: Ricardo Rosas Consult Reason/Comments: hx of atrial fibrillation on eliquis but has recurrent falls and subdural. Do you want consulting provider notified?: Yes Primary care physician: Get [facility] Course: Chief Complaint: Falls Pleasant 83-year-old patient, follows Dr. Wright. Stroke, atrial flutter fibrillation. Sjogren's, hypertension. Pulmonary fibrosis. Brain bleed. History is obtained by the at the bedside. On October 17 patient presented to hospital here in ER with a fall. CT scan showed acute intracranial hemorrhage with subdural hemorrhage layering along bilateral frontal lobes. Left greater than right in the falx.-Fallen backwards going down the entire flight of steps which are wooden. And hardwood at the bottom. Subsequently patient was transferred out to [facility]. He was there for 3 weeks. As per the he was managed conservatively. About 10 days ago he was transferred to [facility]. He was there for 2 days. Patient fell that twice. really got concerned about the care then decided to bring him to the ER. Because of his falls. He was brought to our ER on November [address] Winslow. Reported a suspected ground-level fall. Patient was conscious. Not able to give very good answers. He was discharged. When he was brought in yesterday. CT scan of the brain did not show any acute e vent in terms of bleed. Except for a tiny superimposed subacute component. According to patient was a bit more confused at the halfway in ER. States patient doing much better this morning. Patient has been forgetful. But since his recent fall has affected his memory more. Patient did not eat well this morning. At the [facility] patient was being moved on a wheelchair. Patient himself can only can give a limited history. He thinks he still in [facility]. Cannot tell me the year or the president. But able to answer the simple questions. November 07: Saw the patient this morning. Getting EEG. Able to answer simple questions. He was ordered a MRI and MRI of the brain by neurology. Decision has been made to discontinue his Eliquis because of falls. Cardiology is [place] have the patient see Dr. Medley in the office for left atrial appendage closure device. Otherwise patient eating well. Patient also felt of acute metabolic encephalopathy from acute kidney injury. Creatinine is improving. November 08: Up in a chair. Appears comfortable. Can answer simple questions but does not know exactly where he is. He thinks he is at [facility]. Not sure about the year. Eating fairly well. at the bedside. Patient had his MRI and MRI today. Nonvisualization of the intracranial component on the left ICA.: Chronic changes. Could be small foci of petechial hemorrhage versus acute vascular insult. Note that patient was on Eliquis after presentation. Clinically the patient is better than presentation. Except for cognitive impairment. Will await final input from neurology. Spoke to skilled nursing case manager Maria Luisa. Looking into rehab and getting authorization. November 09: Up in chair. Awake. The cognitive impairment significant. Viola to be from stroke and bleeds. Discussed length with Dr. Dailey from neurology. Patient to have a repeat CT scan next week. And then patient follow-up with Dr. Hernández from neurology with whom he follows end of next week. Patient to continue on his Plavix and Eliquis will be discontinued because of bleed as above. Discussed with . Patient also follow-up with Dr. Medley outpatient for left atrial appendage closure device. Discussion and discharge planning more than 35 minutes Past medical history to include: Atrial flutter fibrillation, stroke, hypertension, Sjogren's, cardioversion. Subdural hematoma Social history: . No smoking and no alcohol. Crop carroll Physical examination: VITAL SIGNS: 98.3, 79, 17, 134 x 67, 96% room air GENERAL: Sitting up, looking pleasant comfortable. EYES: Pupils equal. Conjunctiva normal. HEENT: External appearance of nose and ears normal, oral cavity grossly normal. NECK: JVD not raised; masses not palpable. HEART: First and second heart sounds are normal; no edema. LUNGS: Respiratory rate normal; clear to auscultation. ABDOMEN: Soft, nontender, liver spleen not palpable, no masses palpable. PSYCH: Can answer some simple very questions. He thinks it is [facility]. Unable to tell me the season of the year. MUSCULOSKELETAL:No Clubbing/cyanosis;muscles-grossly intact. OA NEUROLOGICAL: Cranial nerves grossly intact; no facial asymmetry, power and sensation grossly intact. INVESTIGATIONS, reviewed in the clinical context: EEG: No epileptiform activity. Generalized cerebral dysfunction. Brain MRI: No acute nonacute subdural hematomas are noted bilaterallyLeft greater than right. Left 0.6 mm. Right 2 mm. Also left paramedian foci of increased signal. With evidence of nonacute parenchymal hemorrhage with hemosiderin deposition. Within the left frontal lobe largest of which measures 1.5 cm. Tiny subcortical foci of increased signal within the left parietal and left parieto-occipital region that could reflect small foci of petechial hemorrhage versus acute vascular insult. Absent of flow-void left internal carotid artery and intracranial component. November 07: Potassium 4.2 BUN 24 creatinine 1.11 November 06: White count 5.4 hemoglobin 11.1 platelets 348 sodium 141 potassium 4.4 BUN 28 creatinine 1.34 November 05: BUN 36 creatinine 1.51 [address] TSH 1.[address] scan brain: No new bleed EKG tracing personally reviewed by me-normal sinus rhythm. Chest x-ray film personally reviewed by me-some unfolding of the aorta. Assessment and plan: -Acute metabolic encephalopathy likely from renal failure. According to the patient's mentation has cleared up since presentation. -Recurrent falls added 2 days at the rehab. Patient with there for 2 days being discharged from acute facility in [facility] following brain bleed. Secondary to fall. Negative orthostatics. PT OT. Being seen by from neurology. EEG negative for seizure activity. MRI MRI of the brain results as above- -Recent subdural hemorrhage bifrontal lobe secondary to fall on October 18, 2023. Patient had 2 falls since then, on Eliquis, which was resumed when patient was discharged from [facility] and when patient went to [facility]. Eliquis has been discontinued. MRI showed small hemorrhage. Repeat CT scan on November 16, outpatient and follow-up with Dr. Hernández -Multi-infarct dementia, including patient having subdural hematoma in the area of the frontal lobe. Prior parietal lobe stroke. -Acute medical debility following recent subdural hematoma. Patient was admitted to rehab LDL. Has 2 further falls. PT OT. Social work to look into another place of rehab as does not want to return to [facility] # To rehab -Paroxysmal atrial flutter fibrillation. Currently in sinus rhythm. Given his frequent falls. Hand intracranial hemorrhage.-Eliquis - discontinued Patient to follow-up outpatient with Dr. Medley for left atrial appendage closure device Plavix to continue -Essential hypertension Coreg. Aldactone. Losartan -Primary osteoarthritis Tylenol as needed -Sjogren's syndrome. -Medical power of environmental attorney: . Leah -Only CPR no intubation. No cardioversion [facility] 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, brain bleed History of Any Multi-Drug Resistant Organisms: None Reported Past Surgical History: Hernia Repair Past Anesthesia/Blood Transfusion Reactions: No Reported Reaction Past Psychological History: No Psychological Hx Reported Smoking Status: Never smoker Past Alcohol Use History: None Reported Past Drug Use History: None Reported Plan - Discharge Summary Discharge Rx Participant: Yes New Discharge Prescriptions: New Nystatin 100,000 Unit/gm Powd [Mycostatin Powder] 1 applic TOPICAL BID each Cyanocobalamin [Vitamin B-12] 500 mcg PO DAILY tab Continue Cevimeline [Evoxac] 30 mg PO TID@ Atorvastatin [Lipitor] 40 mg PO HS #30 tab carvediloL [Coreg] 6.25 mg PO BID Losartan Potassium 100 mg PO DAILY NIFEdipine XL [Procardia XL] 90 mg PO DAILY Pantoprazole [Protonix] 40 mg PO DAILY Sennosides [Senokot] 8.6 mg PO BID Acetaminophen [Tylenol 8 Hour] 650 mg PO Q4H PRN PRN Reason: Pain Or Fever > 100.5 bisacodyL [Dulcolax] 10 mg RECTAL DAILY PRN PRN Reason: Constipation Clopidogrel [Plavix] 75 mg PO HS polyethylene glycoL 3350 [Miralax] 17 gm PO BID Spironolactone [Aldactone] 50 mg PO DAILY Discontinued Apixaban [Eliquis] 5 mg PO BID Docusate [Colace] 100 mg PO BID Discharge Medication List Cevimeline [Evoxac] 30 mg PO TID@,04/07/16 [History] Atorvastatin [Lipitor] 40 mg PO HS #30 tab 09/26/22 [Rx] Acetaminophen [Tylenol 8 Hour] 650 mg PO Q4H PRN 11/06/23 [History] Clopidogrel [Plavix] 75 mg PO HS 11/06/23 [History] Losartan Potassium 100 mg PO DAILY 11/06/23 [History] NIFEdipine XL [Procardia XL] 90 mg PO DAILY 11/06/23 [History] Pantoprazole [Protonix] 40 mg PO DAILY 11/06/23 [History] Sennosides [Senokot] 8.6 mg PO BID 11/06/23 [History] Spironolactone [Aldactone] 50 mg PO DAILY 11/06/23 [History] bisacodyL [Dulcolax] 10 mg RECTAL DAILY PRN 11/06/23 [History] carvediloL [Coreg] 6.25 mg PO BID 11/06/23 [History] polyethylene glycoL 3350 [Miralax] 17 gm PO BID 11/06/23 [History] Cyanocobalamin [Vitamin B-12] 500 mcg PO DAILY tab 11/10/23 [Rx] Nystatin 100,000 Unit/gm Powd [Mycostatin Powder] 1 applic TOPICAL BID each 11/10/23 [Rx] Follow up Appointment(s)/Referral(s): Chelo Villa DO [REFERRING] - 1-2 days Demetris Medley MD [STAFF PHYSICIAN] - 2 Weeks Toñito Hernández MD [STAFF PHYSICIAN] - 11/19/23 Patient Instructions/Handouts: Acute Kidney Injury (DC), Fall Prevention (DC) Activity/Diet/Wound Care/Special Instructions: CT brain without contrast - 11/16 (f/u brain bleed)
[2023-11-12 11:55] LABS: Glucose,Whole Blood 101 mg/dL (70-110)
== END 2023-11-10 15:15 | DRG 682 ==
LOC: EC 17:54 → 4SSUR 21:14 → OBSVTOIN 21:18 → 4SSUR 11-07 01:22
PROVIDERS: ADMIT Hospitalist; ATTEND Hospitalist
PROC: 4A10X4Z Monitoring of Central Nervous Electrical Activity, External Approach (ICD-10-PCS; principal; 2023-11-08)
DX: N17.9 Acute kidney failure, unspecified (principal); G93.41 Metabolic encephalopathy; I48.92 Unspecified atrial flutter; I31.39 Other pericardial effusion (noninflammatory); I48.0 Paroxysmal atrial fibrillation; Z79.01 Long term (current) use of anticoagulants; S06.5XAD Traumatic subdural hemorrhage with loss of consciousness status unknown, subsequent encounter; S06.2XAD Diffuse traumatic brain injury with loss of consciousness status unknown, subsequent encounter; I69.318 Other symptoms and signs involving cognitive functions following cerebral infarction; R29.6 Repeated falls; F01.50 Vascular dementia, unspecified severity, without behavioral disturbance, psychotic disturbance, mood disturbance, and anxiety; R53.81 Other malaise; I44.0 Atrioventricular block, first degree; M35.00 Sjogren syndrome, unspecified; M19.91 Primary osteoarthritis, unspecified site; E78.5 Hyperlipidemia, unspecified; I10 Essential (primary) hypertension; I66.02 Occlusion and stenosis of left middle cerebral artery; I77.810 Thoracic aortic ectasia; J84.10 Pulmonary fibrosis, unspecified; Z79.02 Long term (current) use of antithrombotics/antiplatelets; Z79.899 Other long term (current) drug therapy; Z91.81 History of falling
CPT/HCPCS: 36415; 70450; 70544; 70553; 71046; 80048; 80053; 81001; 82140; 82607; 82746; 84443; 84484; 85025; 85610; 85730; 93005; 95816; 96360; 96361; 99285

== ENCOUNTER 2023-11-12 12:16 | Observation (INO) | payer MEDICARE ==
[2023-11-12] MEDS: SODIUM CHLORIDE 0.9% 1,000 ML IV STA (12:20)
[2023-11-12 12:31] LABS: Basophils % (A) 0 %; Eosinophils # (A) 0.2 k/uL (0-0.7); Eosinophils % (A) 3 %; HCT 32.2 % (39.0-53.0); HGB 10.6 gm/dL (13.0-17.5); Lymphocytes # (A) 0.6 k/uL (1.0-4.8); Lymphocytes % (A) 12 %; MCH 32.7 pg (25.0-35.0); MCV 99.1 fL (80.0-100.0); Mean Platelet Volume 8.1; Monocytes # (A) 0.4 k/uL (0-1.0); Monocytes % (A) 8 %; Neutrophils # (A) 3.6 k/uL (1.3-7.7); Neutrophils % (A) 75 %; Platelet Count 231 k/uL (150-450); RBC 3.25 m/uL (4.30-5.90); RDW 13.3 % (11.5-15.5); WBC 4.7 k/uL (3.8-10.6)
--- NOTE | 2023-11-12 12:35 | ED ---
General Adult HPI - General Chief complaint: Neuro Symptoms/Deficit Stated complaint: Stroke Symp Time Seen by Provider: 11/12/23 12:16 Source: patient, EMS, RN notes reviewed, old records reviewed Mode of arrival: EMS Limitations: no limitations - History of Present Illness Initial comments: This is an 83-year-old male who presents to the emergency department because staff and family thought he had some facial droop and right-sided weakness. About a month ago patient was diagnosed with a subdural hematoma. Patient was found to have the facial droop and right arm weakness at the nursing facility however no timeframe was given as to when they thought it began. Patient currently has no weakness in the arm he does have slight facial droop in the right side. Patient himself has no complaints. Patient is not on any blood thinners - Related Data Home Medications Medication Instructions Recorded Confirmed Cevimeline [Evoxac] 30 mg PO TID@0800,1200,1700 04/07/16 11/12/23 Clopidogrel [Plavix] 75 mg PO HS@209911/06/23 11/12/23 Pantoprazole [Protonix] 40 mg PO DAILY@0800 11/06/23 11/12/23 Spironolactone [Aldactone] 50 mg PO DAILY@0800 11/06/23 11/12/23 bisacodyL [Dulcolax] 10 mg RECTAL DAILY PRN 11/06/23 11/12/23 carvediloL [Coreg] 6.25 mg PO BID@0800,1700 11/06/23 11/12/23 polyethylene glycoL 3350 [Miralax] 17 gm PO BID@0800,1700 11/06/23 11/12/23 Acetaminophen Tab [Tylenol] 650 mg PO Q4H PRN 11/12/23 11/12/23 Alfuzosin HCl [Alfuzosin HCl ER] 10 mg PO HS@209911/12/23 11/12/23 Atorvastatin [Lipitor] 40 mg PO HS@209911/12/23 11/12/23 Cyanocobalamin [Vitamin B-12] 500 mcg PO DAILY@0800 11/12/23 11/12/23 Losartan [Cozaar] 50 mg PO DAILY@0800 11/12/23 11/12/23 Magnesium Hydroxide [Milk of 7,200 mg PO DAILY PRN 11/12/23 11/12/23 Magnesia Concentrate] NIFEdipine XL [Procardia Xl] 90 mg PO HS@2100 11/12/23 11/12/23 Na Phos,M-B/Na Phos,Di-Ba [Fleet 133 ml RECTAL DAILY PRN 11/12/23 11/12/23 Adult] Sennosides/Docusate Sodium 1 tab PO BID@0800,1700 11/12/23 11/12/23 [Senna-S 8.6-50 mg Tablet] Previous Rx's Medication Instructions Recorded Nystatin 100,000 Unit/gm Powd 1 applic TOPICAL BID each 11/10/23 [Mycostatin Powder] Allergies Allergy/AdvReac Type Severity Reaction Status Date / Time No Known Allergies Allergy Verified 11/12/23 13:26 Review of Systems ROS Statement: Those systems with pertinent positive or pertinent negative responses have been documented in the HPI. ROS Other: All systems not noted in ROS Statement are negative. 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, brain bleed History of Any Multi-Drug Resistant Organisms: None Reported Past Surgical History: Hernia Repair Past Anesthesia/Blood Transfusion Reactions: No Reported Reaction Past Psychological History: No Psychological Hx Reported Smoking Status: Never smoker Past Alcohol Use History: None Reported Past Drug Use History: None Reported - Past Family History Sister(s) Family Medical History: Cancer General Exam - General Exam Comments Initial Comments: GENERAL: Patient is well-developed and well-nourished. Patient is nontoxic and well- hydrated and is in no acute distress. ENT: Neck is soft and supple. No significant lymphadenopathy is noted. Oropharynx is clear. Moist mucous membranes. Neck has full range of motion without eliciting any pain. EYES: The sclera were anicteric and conjunctiva were pink and moist. Extraocular movements were intact and pupils were equal round and reactive to light. Eyel ids were unremarkable. PULMONARY: Unlabored respirations. Good breath sounds bilaterally. No audible rales rhonchi or wheezing was noted. CARDIOVASCULAR: There is a regular rate and rhythm without any murmurs gallops or rubs. ABDOMEN: Soft and nontender with normal bowel sounds. SKIN: Skin is clear with no lesions or rashes and otherwise unremarkable. NEUROLOGIC: Patient is alert and oriented x3. Has slight facial droop on the right side. Motor and sensory are also intact. Normal speech, volume and content. Symmetrical smile. Patient has no drift. Patient has an NIH of 1 MUSCULOSKELETAL: Normal extremities with adequate strength and full range of motion. No lower extremity swelling or edema. LYMPHATICS: No significant lymphadenopathy is noted PSYCHIATRIC: Normal psychiatric evaluation. Limitations: no limitations Course Vital Signs 11/12/23 11/12/23 11/12/23 12:20 12:31 12:48 Temperature 98.5 F Pulse Rate 74 70 67 Respiratory 12 18 14 Rate Blood Pressure 94/72 94/63 108/77 O2 Sat by Pulse 96 99 Oximetry 11/12/23 11/12/23 13:13 13:25 Temperature 97.9 F Pulse Rate 75 75 Respiratory 18 14 Rate Blood Pressure 107/72 108/81 O2 Sat by Pulse 99 98 Oximetry Medical Decision Making - Medical Decision Making EKG is interpreted by myself. EKG shows atrial fibrillation at 73 bpm QRS is 97 QT interval 388 QTc is 414. Patient's EKG shows no ST segment ovation or depression. Was pt. sent in by a medical professional or institution (, PA, MEDICAL LANGUAGE SPECIALIST, urgent care, hospital, or senior living...) When possible be specific @ -Sent the patient Did you speak to anyone other than the patient for history (EMS, parent, family, police, friend...)? What history was obtained from this source @ -I spoke with the neurologist here and she gave the history of what was going on this more Did you review nursing and triage notes (agree or disagree)? Why? @ -Yes Were old charts reviewed (outside hosp., previous admission, EMS record, old EKG, old radiological studies, urgent care reports/EKG's, senior living records)? Report findings @ -I reviewed the nursing notes from the senior living and the medications that he was given today so Differential Diagnosis? @ -Differential CVA Ischemic stroke, hemorrhagic stroke, brain tumor, atypical migraine, Wernicke's encephalopathy, seizure, multiple sclerosis, meningitis, encephalitis, hypoglycemia, Guillain-Hatch, electrolytes disturbance, myasthenia gravis.... This is not meant to be an all-inclusive list EKG interpreted by me (3pts min.). @ -As above X-rays interpreted by me (1pt min.). @ -Chest x-ray shows no acute CT interpreted by me (1pt min.). @ -CT of the brain shows no acute abnormality U/S interpreted by me (1pt. min.). @ -None done What testing was considered but not performed or refused? (CT, X-rays, U/S, labs)? Why? @ -None What meds were considered but not given or refused? Why? @ -None Did you discuss the management of the patient with other professionals (professionals i.e. , PA, MEDICAL LANGUAGE SPECIALIST, lab, RT, psych nurse, social welfare research worker, hiv cts specialist, teacher, deputy juvenile officer, case assistant)? Give summary @ -I spoke with Dr. Earl he agreed to admit the patient admit the patient I consulted neurology Was smoking cessation discussed for >3mins.? @ -No Was critical care preformed (if so, how long)? @ -No Were there social determinants of health that impacted care today? How? (Homelessness, low income, unemployed, alcoholism, drug addiction, transportation, low edu. Level, literacy, decrease access to med. care, assisted, rehab)? @ -No Was there de-escalation of care discussed even if they declined (Discuss DNR or withdrawal of care, Hospice)? DNR status @ -No What co-morbidities impacted this encounter? (DM, HTN, Smoking, COPD, CAD, Cancer, CVA, ARF, Chemo, Hep., AIDS, mental health diagnosis, sleep apnea, morbid obesity)? @ -None Was patient admitted / discharged? Hospital course, mention meds given and route, prescriptions, significant lab abnormalities, going to OR and other pertinent info. @ -Patient's CT no acute abnormality. I went back to reevaluate the patient his symptoms seem to completely of resolved and was in agreement with this. Patient will be admitted to Dr. Earl and neurology will be consulted Undiagnosed new problem with uncertain prognosis? @ -No Drug Therapy requiring intensive monitoring for toxicity (Heparin, Nitro, Insulin, Cardizem)? @ -No Were any procedures done? @ -No Diagnosis/symptom? @ -TIA Acute, or Chronic, or Acute on Chronic? @ -Acute Uncomplicated (without systemic symptoms) or Complicated (systemic symptoms)? @ -Complicated Side effects of treatment? @ -No Exacerbation, Progression, or Severe Exacerbation? @ -No Poses a threat to life or bodily function? How? (Chest pain, USA, DC, pneumonia, PE, COPD, DKA, ARF, appy, cholecystitis, CVA, Diverticulitis, Homicidal, Azul icidal, threat to staff... and all critical care pts) @ -This this can lead to significant CVA and - Lab Data Result diagrams: 11/12/23 12:11/12/23 12: Lab Results 11/12/23 11/12/23 11/12/23 Range/Units 12:26 12: 12: WBC 4.7 (3.8-10.6) k/uL RBC 3.25 L (4.30-5.90) m/uL Hgb 10.6 L (13.0-17.5) gm/dL Hct 32.2 L (39.0-53.0) % MCV 99.1 (80.0-100.0) fL MCH 32.7 (25.0-35.0) pg MCHC 33.0 (31.0-37.0) g/dL RDW 13.3 (11.5-15.5) % Plt Count 231 (150-450) k/uL MPV 8.1 Neutrophils % 75 % Lymphocytes % 12 % Monocytes % 8 % Eosinophils % 3 % Basophils % 0 % Neutrophils # 3.6 (1.3-7.7) k/uL Lymphocytes # 0.6 L (1.0-4.8) k/uL Monocytes # 0.4 (0-1.0) k/uL Eosinophils # 0.2 (0-0.7) k/uL Basophils # 0.0 (0-0.2) k/uL PT 10.9 (10.0-12.5) sec INR 1.0 (<1.2) APTT 23.2 (22.0-30.0) sec Sodium 142 (137-145) mmol/L Potassium 4.2 (3.5-5.1) mmol/L Chloride 114 H (98-107) mmol/L Carbon Dioxide 21 L (22-30) mmol/L Anion Gap 7 mmol/L BUN 27 H (9-20) mg/dL Creatinine 1.20 (0.66-1.25) mg/dL Est GFR (CKD-EPI)AfAm 65 (>60 ml/min/1.73 sqM) Est GFR (CKD-EPI)NonAf 57 (>60 ml/min/1.73 sqM) Glucose 83 (74-99) mg/dL POC Glucose (mg/dL) (70-110) mg/dL POC Glu Geography Instructor ID Calcium 8.5 (8.4-10.2) mg/dL Total Bilirubin 0.4 (0.2-1.3) mg/dL AST 17 (17-59) U/L ALT 13 (4-49) U/L Alkaline Phosphatase 48 (38-126) U/L Creatine Kinase 54 L (55-170) U/L Troponin I (0.000-0.034) ng/mL Total Protein 6.4 (6.3-8.2) g/dL Albumin 3.2 L (3.5-5.0) g/dL 11/12/23 11/12/23 Range/Units 12:26 12:27 WBC (3.8-10.6) k/uL RBC (4.30-5.90) m/uL Hgb (13.0-17.5) gm/dL Hct (39.0-53.0) % MCV (80.0-100.0) fL MCH (25.0-35.0) pg MCHC (31.0-37.0) g/dL RDW (11.5-15.5) % Plt Count (150-450) k/uL MPV Neutrophils % % Lymphocytes % % Monocytes % % Eosinophils % % Basophils % % Neutrophils # (1.3-7.7) k/uL Lymphocytes # (1.0-4.8) k/uL Monocytes # (0-1.0) k/uL Eosinophils # (0-0.7) k/uL Basophils # (0-0.2) k/uL PT (10.0-12.5) sec INR (<1.2) APTT (22.0-30.0) sec Sodium (137-145) mmol/L Potassium (3.5-5.1) mmol/L Chloride (98-107) mmol/L Carbon Dioxide (22-30) mmol/L Anion Gap mmol/L BUN (9-20) mg/dL Creatinine (0.66-1.25) mg/dL Est GFR (CKD-EPI)AfAm (>60 ml/min/1.73 sqM) Est GFR (CKD-EPI)NonAf (>60 ml/min/1.73 sqM) Glucose (74-99) mg/dL POC Glucose (mg/dL) 91 (70-110) mg/dL POC Glu Geography Instructor ID Zarina Villarreal Calcium (8.4-10.2) mg/dL Total Bilirubin (0.2-1.3) mg/dL AST (17-59) U/L ALT (4-49) U/L Alkaline Phosphatase (38-126) U/L Creatine Kinase (55-170) U/L Troponin I <0.012 (0.000-0.034) ng/mL Total Protein (6.3-8.2) g/dL Albumin (3.5-5.0) g/dL Disposition Clinical Impression: Transient cerebral ischemia Disposition: ADMITTED IP TO THIS HOSP Referrals: Get Wright DO [Primary Care Provider] - 1-2 days Time of Disposition: 13:41
[2023-11-12 12:40] LABS: Glucose,Whole Blood 91 mg/dL (70-110)
[2023-11-12 12:40] LABS: Partial Thromboplastin Time 23.2 sec (22.0-30.0); Prothrombin Time 10.9 sec (10.0-12.5)
[2023-11-12 12:44] LABS: ALT 13 U/L (4-49); AST 17 U/L (17-59); African American GFR (CKD) 65 (>60 ml/min/1.73 sqM); Albumin 3.2 g/dL (3.5-5.0); Alkaline Phosphatase 48 U/L (38-126); Anion Gap 7 mmol/L; Blood Urea Nitrogen 27 mg/dL (9-20); Calcium 8.5 mg/dL (8.4-10.2); Carbon Dioxide 21 mmol/L (22-30); Chloride 114 mmol/L (98-107); Creatine Kinase 54 U/L (55-170); Glucose 83 mg/dL (74-99); Non-African American GFR(CKD) 57 (>60 ml/min/1.73 sqM); Potassium 4.2 mmol/L (3.5-5.1); Sodium 142 mmol/L (137-145); Total Bilirubin 0.4 mg/dL (0.2-1.3); Total Protein 6.4 g/dL (6.3-8.2)
--- NOTE | 2023-11-12 12:45 | CT ---
EXAMINATION TYPE: CT brain wo con DATE OF EXAM: 11/12/2023 COMPARISON: 10/29/2023 HISTORY: ams CT DLP: 1125.4 mGycm Automated exposure control for dose reduction was used. Findings: The ventricles, basal cisterns and sulci are moderately enlarged consistent with moderate generalized atrophy but appropriate for the patient's age. There is a small remote lacunar infarct in the anterior aspect of the insula on the left. The previously described extra-axial fluid collection along the left frontal convexity is stable and most likely represents a tiny chronic subdural hemorrhage. There is no acute intra or extra-axial hem orrhage. There is no mass effect or shift of midline structures. Posterior fossa is grossly normal. The intraorbital contents appear normal and symmetric. Visualized paranasal sinuses and mastoid air c ells are well aerated. IMPRESSION: 1. No acute bleed or mass effect. 2. Tiny chronic left frontal subdural hematoma. 3. Small remote lacunar infarct in the left insula [facility], , 11/12/2023 12:43 PM
--- NOTE | 2023-11-12 13:01 | XR ---
EXAMINATION TYPE: XR chest 1V portable DATE OF EXAM: 11/12/2023 12:50 PM COMPARISON: Chest radiographs from 11/06/2023 TECHNIQUE: XR chest 1V portable Portable AP radiograph of the chest. CLINICAL INDICATION:Male, 83 years old with history of altered mental status; FINDINGS: Patient is rotated which limits evaluation. Lungs/Pleura: There is no evidence of pleural effusion, focal consolidation, or pneumothorax. Pulmonary vascularity: Unremarkable. Heart/mediastinum: Cardiomediastinal silhouette is stable. Ectatic appearance of the aorta redemonst rated. Musculoskeletal: No acute osseous pathology. IMPRESSION: No acute cardiopulmonary disease/process. Stable exam. [facility], , 11/12/2023 12:58 PM
[2023-11-12] MEDS ORDERED: MAGNESIUM HYDROXIDE 2,400 MG/30 ML CUP PO PRN (16:03)
[2023-11-12] MEDS ORDERED: bisacodyL 10 MG SUPP RECTAL PRN (16:03)
[2023-11-12] MEDS ORDERED: NA PHOS,M-B/NA PHOS,DI-BA 133 ML ENEMA RECTAL PRN (16:03)
[2023-11-12] MEDS ORDERED: ACETAMINOPHEN TAB 325 MG TAB PO PRN (16:03)
--- NOTE | 2023-11-12 16:10 | P.HPIM ---
History of Present Illness H&P Date: 11/12/23 Chief Complaint: Questionable right arm weakness. Pleasant 83-year-old patient, follows Dr. Wright. Stroke, atrial flutter fibrillation. Sjogren's, hypertension. Pulmonary fibrosis. Brain bleed. History is obtained by the at the bedside. On October 17 patient presented to hospital here in ER with a fall. CT scan showed acute intracranial hemorrhage with subdural hemorrhage layering along bilateral frontal lobes. Left greater than right in the falx.-Fallen backwards going down the entire flight of steps which are wooden. And hardwood at the bottom. Subsequently patient was transferred out to [facility]. He was there for 3 weeks. As per the he was managed conservatively. About 10 days ago he was transferred to [facility]. He was there for 2 days. Patient fell that twice. really got concerned about the care then decided to bring him to the ER. Because of his falls. He was brought to our ER on November [address] Winslow. Reported a suspected ground-level fall. Patient was conscious. Not able to give very good answers. He was discharged. Admitted to the hospital from November 06 through November 09. Had had 2-week stay at [facility]. Was then discharged to rehab in [place]. Patient had couple of falls there. Patient's MRI here showed very tiny bleed. Patient had been resumed on Eliquis when he was discharged from [facility]. He is also on his Plavix. Patient seen by neurology Dr. Pearl. It was decided to discontinue the Eliquis because of high risk of falls and minute bleed. 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 Plavix was continued because of underlying A-fib. Blood pressure recorded when discharged from here was 134/67. According to the patient was a bit more lethargic again. Noticed the blood pressure running low, between 70 and 90 systolic. There is questionable some right-sided weakness. In the ER patient does not have any right-sided weakness. Questionable facial droop numbness. No trouble swallowing.'s no change in speech. Patient at the bedside in the ER. Review of systems: GEN.: None EYES: None HEENT: None NECK: None RESPIRATORY: None CARDIOVASCULAR: None GASTROINTESTINAL: None GENITOURINARY: None MUSCULOSKELETAL: Some joint pains LYMPHATICS: None HEMATOLOGICAL: None PSYCHIATRY: Forgetful NEUROLOGICAL: [No focal weakness Past medical history to include: Atrial flutter fibrillation, stroke, hypertension, Sjogren's, cardioversion. 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 No smoking and no alcohol. Crop carroll Physical examination: VITAL SIGNS: 98.5, 74, 12, 94/72, 96% room air GENERAL: Reclining bed awake comfortable. EYES: Pupils equal. Conjunctiva normal. HEENT: External appearance of nose and ears normal, oral cavity grossly normal. NECK: JVD not raised; masses not palpable. HEART: First and second heart sounds are normal; no edema. LUNGS: Respiratory rate normal; clear to auscultation. ABDOMEN: Soft, nontender, liver spleen not palpable, no masses palpable. PSYCH: Can answer some simple very questions. Mentation awake MUSCULOSKELETAL:No Clubbing/cyanosis;muscles-grossly intact. OA NEUROLOGICAL: Cranial nerves grossly intact; no facial asymmetry, power and sensation grossly intact. INVESTIGATIONS, reviewed in the clinical context: November 11: White count 4.7 hemoglobin 10.6 platelets 231 sodium 142 potassium 4.2 BUN 27 creatinine 1.20 EKG tracing personally reviewed by me-atrial fibrillation. Rate 73 CT scan of the brain without contrast [November 11] no acute bleed or mass effect. Chronic left frontal subdural hematoma tiny. Small remote lacunar infarct in the left insula Investigations November 06 through November 10, 2023 EEG: No epileptiform activity. Generalized cerebral dysfunction. Brain MRI: No acute nonacute subdural hematomas are noted bilaterallyLeft greater than right. Left 0.6 mm. Right 2 mm. Also left paramedian foci of i ncreased signal. With evidence of nonacute parenchymal hemorrhage with hemosiderin deposition. Within the left frontal lobe largest of which measures 1.5 cm. Tiny subcortical foci of increased signal within the left parietal and left parieto-occipital region that could reflect small foci of petechial hemorrhage versus acute vascular insult. Absent of flow-void left internal carotid artery and intracranial component. November 07: Potassium 4.2 BUN [address] scan brain: No new bleed Assessment and plan: -Acute metabolic encephalopathy, probably from hypotension -Hypotension., Symptomatic Will continue home medication dose of Coreg and Cozaar. Hold off Procardia XL. Also cut back Aldactone to 25 mg. -Recurrent falls added 2 days at the rehab. Patient with there for 2 days being discharged from acute facility in [facility] following brain bleed. Sec ondary to fall. Negative orthostatics. PT OT. Being seen by from neurology. EEG negative for seizure activity. MRI MRI of the brain results as above- -Recent subdural hemorrhage bifrontal lobe secondary to fall on October 18, 2023. Patient had 2 falls since then, on Eliquis, had to rehab in [facility]. Eliquis was stopped on November 06 upon admission to [facility]. MRI showed small hemorrhage. Plan was for repeat CT scan on November 16, outpatient and follow-up with Dr. Hernández -Multi-infarct dementia, including patient having subdural hematoma in the area of the frontal lobe. Prior parietal lobe stroke. -Acute medical debility following recent subdural hematoma. Patient was sent to rehab -Paroxysmal atrial flutter fibrillation. In and out of flutter fibrillation. Given his frequent falls. intracranial hemorrhage.-Eliquis - discontinued Patient to follow-up outpatient with Dr. Medley for left atrial appendage closure device Plavix to continue -Essential hypertension Coreg. Aldactone. Losartan -Primary osteoarthritis Tylenol as needed - -Sjogren's syndrome. -Medical power of corporate attorney: . Leah -Only CPR no intubation. No cardioversion Care discussed with at the bedside. Stop Procardia XL. Current Bachtel of Aldactone. Other medications to continue. Patient significantly improved since improvement as well as blood pressure. Past Medical History Past Medical History: Atrial Fibrillation, CVA/TIA, Hypertension Additional Past Medical History / Comment(s): ANA LUISA SYN. 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, brain bleed History of Any Multi-Drug Resistant Organisms: None Reported Past Surgical History: Hernia Repair Past Anesthesia/Blood Transfusion Reactions: No Reported Reaction Past Psychological History: No Psychological Hx Reported Smoking Status: Never smoker Past Alcohol Use History: None Reported Past Drug Use History: None Reported - Past Family History Sister(s) Family Medical History: Cancer Medications and Allergies Home Medications Medication Instructions Recorded Confirmed Type Cevimeline [Evoxac] 30 mg PO TID@0800,1200,1700 04/07/16 11/12/23 History Clopidogrel [Plavix] 75 mg PO HS@209911/06/23 11/12/23 History Pantoprazole [Protonix] 40 mg PO DAILY@0800 11/06/23 11/12/23 History Spironolactone [Aldactone] 50 mg PO DAILY@0800 11/06/23 11/12/23 History bisacodyL [Dulcolax] 10 mg RECTAL DAILY PRN 11/06/23 11/12/23 History carvediloL [Coreg] 6.25 mg PO BID@0800,1700 11/06/23 11/12/23 History polyethylene glycoL 3350 [Miralax] 17 gm PO BID@0800,1700 11/06/23 11/12/23 History Nystatin 100,000 Unit/gm Powd 1 applic TOPICAL BID each 11/10/23 11/12/23 Rx [Mycostatin Powder] Acetaminophen Tab [Tylenol] 650 mg PO Q4H PRN 11/12/23 11/12/23 History Alfuzosin HCl [Alfuzosin HCl ER] 10 mg PO HS@209911/12/23 11/12/23 History Atorvastatin [Lipitor] 40 mg PO HS@209911/12/23 11/12/23 History Cyanocobalamin [Vitamin B-12] 500 mcg PO DAILY@0800 11/12/23 11/12/23 History Losartan [Cozaar] 50 mg PO DAILY@0800 11/12/23 11/12/23 History Magnesium Hydroxide [Milk of 7,200 mg PO DAILY PRN 11/12/23 11/12/23 History Magnesia Concentrate] NIFEdipine XL [Procardia Xl] 90 mg PO HS@209911/12/23 11/12/23 History Na Phos,M-B/Na Phos,Di-Ba [Fleet 133 ml RECTAL DAILY PRN 11/12/23 11/12/23 History Adult] Sennosides/Docusate Sodium 1 tab PO BID@0800,1700 11/12/23 11/12/23 History [Senna-S 8.6-50 mg Tablet] Allergies Allergy/AdvReac Type Severity Reaction Status Date / Time No Known Allergies Allergy Verified 11/12/23 13:26 Physical Exam Vitals: Vital Signs Temp Pulse Resp BP Pulse Ox 11/12/23 14:19 80 20 118/80 99 11/12/23 13:25 75 14 108/81 98 11/12/23 13:13 97.9 F 75 18 107/72 99 11/12/23 12:48 67 14 108/77 11/12/23 12:31 70 18 94/63 99 11/12/23 12:20 98.5 F 74 12 94/72 96 Intake and Output 11/12/23 11/12/23 11/12/23 06:59 14:59 22:59 Other: Weight 82.1 kg Results CBC & Chem 7: 11/12/23 12:26 11/12/23 12:26 Labs: Abnormal Lab Results - Last 24 Hours (Table) 11/12/23 11/12/23 Range/Units 12:26 12:26 RBC 3.25 L (4.30-5.90) m/uL Hgb 10.6 L (13.0-17.5) gm/dL Hct 32.2 L (39.0-53.0) % Lymphocytes # 0.6 L (1.0-4.8) k/uL Chloride 114 H (98-107) mmol/L Carbon Dioxide 21 L (22-30) mmol/L BUN 27 H (9-20) mg/dL Creatine Kinase 54 L (55-170) U/L Albumin 3.2 L (3.5-5.0) g/dL
[2023-11-12] MEDS: SENNOSIDES-DOCUSATE SODIUM 1 EACH TAB PO SCH (18:22)
[2023-11-12] MEDS: CEVIMELINE 30 MG CAP PO SCH (18:22)
[2023-11-12] MEDS: carvediloL 6.25 MG TAB PO SCH (18:22)
[2023-11-12] MEDS: polyethylene glycoL 3350 17 GM POWD.PACK PO SCH (18:22)
[2023-11-12] MEDS: TAMSULOSIN 0.4 MG CAP.ER.24H PO SCH (19:47)
[2023-11-12] MEDS: ATORVASTATIN 40 MG TAB PO SCH (19:47)
[2023-11-12] MEDS: NYSTATIN 100,000 UNIT/GM POWD 15 GM TOPICAL SCH (20:28)
[2023-11-12] MEDS: CLOPIDOGREL 75 MG TAB PO SCH (20:28)
[2023-11-12] MEDS ORDERED: NIFEdipine XL 90 MG TAB.ER.24 PO SCH (21:00)
[2023-11-13] MEDS: PANTOPRAZOLE 40 MG TABLET PO SCH (08:51)
[2023-11-13] MEDS: SPIRONOLACTONE 25 MG TAB PO SCH (08:51)
[2023-11-13] MEDS: LOSARTAN 50 MG TAB PO SCH (08:51)
[2023-11-13] MEDS: CYANOCOBALAMIN 500 MCG TAB PO SCH (08:51)
--- NOTE | 2023-11-13 09:54 | P.CNNES ---
History of Present Illness Consult date: 11/12/23 Requesting physician: Abhilash Angel Reason for Consult: TIA History of Present Illness: Patient is a 83-year-old male, who was just discharged from the hospital on 11/10/2023, now was readmitted for possible TIA. Patient is not a good historian. EMS flow sheet not available and the chart. As per ED records, staff and family thought that patient has some facial droop and right-sided weakness. Therefore he was sent to the hospital. Patient at present states that he is feeling well. Offers no complaints. Denies any pain, denies headache or dizziness. Vital signs on arrival blood pressure 94/72, pulse rate 74 temperature 98.5. Blood test shows normal WBC hemoglobin 10.6, platelets 231. PT/PTT normal. E lectrolytes are normal. BUN is slightly elevated 27 with normal creatinine 1.20. Hepatic panel is normal. Troponin negative. EKG showed atrial fibrillation chest x-ray showed no acute cardiopulmonary disease/process. CT head revealed no acute bleed or mass effect. Tiny chronic left frontal subdural hematoma. Small remote lacunar infarct in the left insula. I reviewed patient's CT head from the one performed on 11/06/2023, and there is no change in the size of subdural hematoma. Records obtained from [facility]. * MRI of the brain with and without contrast on 10/24/2023 revealed trace amount of hemorrhage in the left lateral ventricle. Overall impression Limited examination secondary to motion. Essentially stable subdural hemorrhage. * CT head on 10/18/2023 revealed no evidence of acute intracranial pathology. * CT head from 10/19/2023 revealed small acute subdural hemorrhage along the left frontal convexity and anterior falx. Measurement is 3.5 mm in thickness along the left frontal convexity. CT head from 10/20/2023 10:44 AM revealed subdural hematoma with maximal thickness measuring 10.5 mm asymmetric to the left of the falx and previously measured approximately 5 mm. Small acute subdural hematoma along the left frontal cerebral convexity which is not significantly changed measuring approximately 3.5 mm in thickness. * CT head from 10/20/2023 at 10:15 PM revealed redemonstration of an acute subdural hematoma along the anterior falx which is increased in the interim measuring 15 mm in thickness and previously measured 10.5 mm in thickness. Redemonstration of a small subdural hematoma along the left cerebral convexity which is unchanged. * CT head from 10/22/2023 1:57 AM revealed unchanged subdural hematoma along the falx and left frontal convexity. New trace intraventricular hemorrhage in the left lateral ventricle. * CT head 10/23/2023 revealed stable appearance of the subdural hematoma along the falx and about the left cerebral convexity. CSF collection about the right cerebral convexity also noted. * CT head from 11/02/2023 revealed nearly resolved parafalcine and left frontal subdural hemorrhage. Patient was evaluated by neurocritical care and interventional neurology and was diagnosed with acute traumatic bilateral subdural hematoma, history of left occipital stroke, history of left MCA severe stenosis, Eliquis coagulopathy. Keppra 500 mg twice daily was recommended, EEG, systolic blood pressure to be less than 180. Neurosurgery Dr. Nails (and TRANSPORTATION SPECIALIST Kanika Mays) saw the patient, who agreed bilateral subdural hematoma left more than right. Hold anticoagulants, SCDs for DVT. Systolic blood pressure less than 160. Patient was also seen by neurologist Omayra Izaguirre MD. Long-term EEG was obtained while patient was in the ICU, and no epileptiform discharges or seizures were seen. Hemoglobin A1c 5.9. Ammonia 77 that came down to 35. Keppra recommended 500 mg twice daily for 7 days. Status post IV TXA while in [place]. Patient's has mentioned on the last admission that patient was admitted to [facility] on 10/18/2023 after he suffered from a fall, 16 steps down. That day he was not feeling well, has low blood pressure, but still he worked out and when he was going up steps, he fell backwards and landed down 16 steps. He was diagnosed with subdural hematoma as above. He was discharged on 11/04/2023. Apparently 2 days prior to the discharge, perhaps on 11/02/2023, he was resumed on Eliquis. Patient suffered from falls x 2, in [facility]. He was brought back to the hospital on 11/06/2023 and patient has slight recurrence of subdural hematoma. His Eliquis has been put on hold since arrival to the hospital. Review of Systems All pertinent positive and negatives mentioned HPI. 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, brain bleed History of Any Multi-Drug Resistant Organisms: None Reported Past Surgical History: Hernia Repair Past Anesthesia/Blood Transfusion Reactions: No Reported Reaction Past Psychological History: No Psychological Hx Reported Smoking Status: Never smoker Past Alcohol Use History: None Reported Past Drug Use History: None Reported - Past Family History Sister(s) Family Medical History: Cancer Medications and Allergies Home Medications Medication Instructions Recorded Confirmed Type Cevimeline [Evoxac] 30 mg PO TID@0800,1200,1700 04/07/16 11/12/23 History Clopidogrel [Plavix] 75 mg PO HS@209911/06/23 11/12/23 History Pantoprazole [Protonix] 40 mg PO DAILY@0800 11/06/23 11/12/23 History Spironolactone [Aldactone] 50 mg PO DAILY@0800 11/06/23 11/12/23 History bisacodyL [Dulcolax] 10 mg RECTAL DAILY PRN 11/06/23 11/12/23 History carvediloL [Coreg] 6.25 mg PO BID@0800,1700 11/06/23 11/12/23 History polyethylene glycoL 3350 [Miralax] 17 gm PO BID@0800,1700 11/06/23 11/12/23 History Nystatin 100,000 Unit/gm Powd 1 applic TOPICAL BID each 11/10/23 11/12/23 Rx [Mycostatin Powder] Acetaminophen Tab [Tylenol] 650 mg PO Q4H PRN 11/12/23 11/12/23 History Alfuzosin HCl [Alfuzosin HCl ER] 10 mg PO HS@209911/12/23 11/12/23 History Atorvastatin [Lipitor] 40 mg PO HS@209911/12/23 11/12/23 History Cyanocobalamin [Vitamin B-12] 500 mcg PO DAILY@0800 11/12/23 11/12/23 History Losartan [Cozaar] 50 mg PO DAILY@0800 11/12/23 11/12/23 History Magnesium Hydroxide [Milk of 7,200 mg PO DAILY PRN 11/12/23 11/12/23 History Magnesia Concentrate] NIFEdipine XL [Procardia Xl] 90 mg PO HS@2100 11/12/23 11/12/23 History Na Phos,M-B/Na Phos,Di-Ba [Fleet 133 ml RECTAL DAILY PRN 11/12/23 11/12/23 History Adult] Sennosides/Docusate Sodium 1 tab PO BID@0800,1700 11/12/23 11/12/23 History [Senna-S 8.6-50 mg Tablet] Allergies Allergy/AdvReac Type Severity Reaction Status Date / Time No Known Allergies Allergy Verified 11/12/23 13:26 Physical Examination - Vital Signs Vital Signs: Vital Signs Temp Pulse Pulse Resp BP BP Pulse Ox 11/12/23 15:10 98.1 F 70 112/76 98 11/12/23 14:19 80 20 118/80 99 11/12/23 13:25 75 14 108/81 98 11/12/23 13:13 97.9 F 75 18 107/72 99 11/12/23 12:48 67 14 108/77 11/12/23 12:31 70 18 94/63 99 11/12/23 12:20 98.5 F 74 12 94/72 96 Intake and Output 11/12/23 11/12/23 11/12/23 06:59 14:59 22:59 Other: Weight 82.1 kg Patient is an elderly male, very pleasant, in no acute distress. He has some dyskinesias, restlessness, which has been present previously as well. Patient is alert awake. Patient states that he is in "[facility]", in [facility]. Patient knows it is the month of November. Patient's speech is somewhat hesitant. However he is still fluent. Patient can name and repeat very well. Attention, concentration is slightly decreased and fund of knowledge is also mild to moderately decreased. On cranial nerve examination, pupils are equal, round and reacting to light, visual kenney are full on confrontation, with no neglect on double simultaneous stimulation. Extraocular muscles are intact with no nystagmus. Patient has slightly flat right nasolabial fold. His tongue protrudes to the midline. Palatal elevation and sensation normal, hearing is at least moderately decreased and shoulder shrug normal, facial sensation normal. On muscle strength testing, there is right pronator drift about 20. The strength is normal in arms and legs distally and proximally. right shoulder not checked because of pain from previous surgery. His online marketing manager is 5 bilaterally. Strength is normal in the lower limbs. Deep tendon reflexes are 2+ in the upper and 1+ in the lower and plantars are mute. Sensory to touch is equal with no neglect on double simultaneous stimulation. Cerebellar function showed mild ataxia for [id number] testing, only on the right side. No obvious ataxia for ocnn-of-zsno testing on either side, although he was performing it very poorly on the side of the leg, rather than on the top of the hernández. Tone and bulk of muscles normal. Gait deferred.. On general examination, there is no carotid bruit or murmur, S1-S2 audible. Chest is clear on consultation. Abdomen is soft nontender. No organomegaly, bowel sounds present. Peripheral pulses are present. No peripheral edema. Results - Laboratory Findings CBC and BMP: 11/12/23 12:26 11/12/23 12:26 Abnormal Lab Findings: Abnormal Labs 11/12/23 11/12/23 12:26 12:26 RBC 3.25 L Hgb 10.6 L Hct 32.2 L Lymphocytes # 0.6 L Chloride 114 H Carbon Dioxide 21 L BUN 27 H Creatine Kinase 54 L Albumin 3.2 L Assessment and Plan Assessment: * 83-year-old male, transferred from [facility] for possible TIA with right facial droop and right arm weakness. This was noted on last admission as well, and is not a new finding. No evidence of a new stroke. * Status post recent admission to [facility] from 11/06/2023 to 11/12/2023 for recurrence of subdural hematoma. Treated conservatively. * History of fall downstairs 16 steps 10/18/2023, with bilateral subdural hematoma, treated at [facility] conservatively, and discharged on 11/04/2023. * Encephalopathy likely due to above. Patient may have developed vascular dementia. 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 Atrial fibrillation on long-term treatment with Eliquis, currently on hold. * Hypertension Plan: * Patient's neurological examination is stable as compared to the last admission. Patient's computed tomography scan again shows about 6-7 mm left subdural hematoma, which has been stable. However it is not improving either. * Repeat CT head on Wednesday. * MRI of the brain with and without 11/09/2023 revealed non-acute subdural hematomas are noted bilaterally, left slightly greater than the right with maximal thickness on the left of 6 mm and on the right 2 mm. There is interhemispheric tiny nonacute subdural hematoma. There is also left paramedian foci of increased signal with peripheral decreased signal felt to reflect nonacute parenchymal hemorrhage with hemosiderin deposition both within the left frontal lobe, the largest of which measures 1.5 cm. Diffusion-weighted imaging demonstrates additional tiny subcortical foci of increased signal within the left parietal and left parietal occipital region, could reflect small foci of petechial hemorrhage versus acute vascular insult. Absence of flow void left ICA and intracranial competent. * MRA of the head on 02/27/2023 revealed nonvisualization of the intracranial component of the left ICA. Diminutive branch patent left MCA. * Routine EEG 11/08/2023 was abnormal due to mild to moderate background slowing, suggestive of encephalopathy. No focal, lateralized or epileptiform activity was seen. * Because of subdural hematoma, we will continue to hold Eliquis. Continue Plavix, as patient has severe stenosis of the left MCA, and patient needs antiplatelet medication to prevent recurrent strokes, and Plavix may help with some A-fib as well. * Repeat CT head on Wednesday to follow-up on subdural hematoma. * B12 372, folate 19.2, TSH 1.5 and ammonia <9. Patient on B12 1000 mcg orally daily. * PT and OT * Continue neurochecks * Strongly recommend to avoid further falls. * Discussed with primary physician Dr. Earl in detail. Agreed with the plan. * Thank you for consultation.
[2023-11-13 10:13] LABS: Chol/HDL Ratio 3.67 Ratio; LDL Cholesterol,Calculated 33.6 mg/dL (0.0-131.0)
--- NOTE | 2023-11-13 17:05 | P.PN ---
Progress Note - Text Progress Note Date: 11/13/23 Chief Complaint: Questionable right arm weakness. Pleasant 83-year-old patient, follows Dr. Wright. Stroke, atrial flutter fibrillation. Sjogren's, hypertension. Pulmonary fibrosis. Brain bleed. History is obtained by the at the bedside. On October 17 patient presented to hospital here in ER with a fall. CT scan showed acute intracranial hemorrhage with subdural hemorrhage layering along bilateral frontal lobes. Left greater than right in the falx.-Fallen backwards going down the entire flight of steps which are wooden. And hardwood at the bottom. Subsequently patient was transferred out to [facility]. He was there for 3 weeks. As per the he was managed conservatively. About 10 days ago he was transferred to [facility]. He was there for 2 days. Patient fell that twice. really got concerned about the care then decided to bring him to the ER. Because of his falls. He was brought to our ER on November [address] Winslow. Reported a suspected ground-level fall. Patient was conscious. Not able to give very good answers. He was discharged. Admitted to the hospital from November 06 through November 09. Had had 2-week stay at [facility]. Was then discharged to rehab in [place]. Patient had couple of falls there. Patient's MRI here showed very tiny bleed. Patient had been resumed on Eliquis when he was discharged from [facility]. He is also on his Plavix. Patient seen by neurology Dr. Pearl. It was decided to discontinue the Eliquis because of high risk of falls and minute bleed. 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 Plavix was continued because of underlying A-fib. Blood pressure recorded when discharged from here was 134/67. According to the patient was a bit more lethargic again. Noticed the blood pressure running low, between 70 and 90 systolic. There is questionable some right-sided weakness. In the ER patient does not have any right-sided weakness. Questionable facial droop numbness. No trouble swallowing.'s no change in speech. Patient at the bedside in the ER. November 12: Reclining. at the bedside. No change. Cognitive impairment. Blood pressure stable. Change of blood pressure medications discussed with the . ECF cannot take the patient back today. Active Medications Acetaminophen (Acetaminophen Tab 325 Mg Tab) 650 mg PO Q4H PRN PRN Reason: Fever and/ or Pain Atorvastatin Calcium (Atorvastatin 40 Mg Tab) 40 mg PO HS@2100 [facility] Last Admin: 11/12/23 19:47 Dose: 40 mg Bisacodyl (Bisacodyl 10 Mg Supp) 10 mg RECTAL DAILY PRN PRN Reason: Constipation Carvedilol (Carvedilol 6.25 Mg Tab) 6.25 mg PO BID@0800,1700 [facility] Last Admin: 11/13/23 16:09 Dose: 6.25 mg Cevimeline HCl (Cevimeline 30 Mg Cap) 30 mg PO TID@0800,1200,1700 [facility] Last Admin: 11/13/23 16:09 Dose: 30 mg Clopidogrel Bisulfate (Clopidogrel 75 Mg Tab) 75 mg PO HS@2100 [facility] Last Admin: 11/12/23 20:28 Dose: 75 mg Cyanocobalamin (Cyanocobalamin 500 Mcg Tab) 500 mcg PO DAILY@0800 [facility] Last Admin: 11/13/23 08:51 Dose: 500 mcg Losartan Potassium (Losartan 50 Mg Tab) 50 mg PO DAILY@0800 [facility] Last Admin: 11/13/23 08:51 Dose: 50 mg Magnesium Hydroxide (Magnesium Hydroxide 2,400 Mg/30 Ml Cup) 2,400 mg PO DAILY PRN PRN Reason: Constipation Nystatin (Nystatin 100,000 Unit/Gm Powd 15 Gm) 1 applic TOPICAL BID [facility]; Protocol Last Admin: 11/13/23 08:51 Dose: 1 applic Pantoprazole Sodium (Pantoprazole 40 Mg Tablet) 40 mg PO DAILY@0800 [facility] Last Admin: 11/13/23 08:51 Dose: 40 mg Polyethylene Glycol (Polyethylene Glycol 3350 17 Gm Powd.Pack) 17 gm PO BID@0800,1700 [facility] Last Admin: 11/13/23 16:09 Dose: 17 gm Senna/Docusate Sodium (Sennosides-Docusate Sodium 1 Each Tab) 1 each PO BID@0800,1700 [facility] Last Admin: 11/13/23 16:09 Dose: 1 each Sodium Biphosphate/Sodium Phosphate (Na Phos,M-B/Na Phos,Di-Ba 133 Ml Enema) 133 ml RECTAL DAILY PRN PRN Reason: Constipation Spironolactone (Spironolactone 25 Mg Tab) 25 mg PO DAILY@0800 [facility] Last Admin: 11/13/23 08:51 Dose: 25 mg Tamsulosin HCl (Tamsulosin 0.4 Mg Cap.Er.24h) 0.4 mg PO HS@2100 [facility] Last Admin: 11/12/23 19:47 Dose: 0.4 mg Past medical history to include: Atrial flutter fibrillation, stroke, hypertension, Sjogren's, cardioversion. 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 No smoking and no alcohol. Crop carroll Physical examination: VITAL SIGNS: 98.2, 82, 16, 128 x 97, 96% room air GENERAL: Reclining bed awake comfortable. EYES: Pupils equal. Conjunctiva normal. HEENT: External appearance of nose and ears normal, oral cavity grossly normal. NECK: JVD not raised; masses not palpable. HEART: First and second heart sounds are normal; no edema. LUNGS: Respiratory rate normal; clear to auscultation. ABDOMEN: Soft, nontender, liver spleen not palpable, no masses palpable. PSYCH: Can answer some simple very questions. Mentation awake MUSCULOSKELETAL:No Clubbing/cyanosis;muscles-grossly intact. OA NEUROLOGICAL: Cranial nerves grossly intact; no facial asymmetry, power and sensation grossly intact. INVESTIGATIONS, reviewed in the clinical context: November 11: White count 4.7 hemoglobin 10.6 platelets 231 sodium 142 potassium 4.2 BUN 27 creatinine 1.20 EKG tracing personally reviewed by me-atrial fibrillation. Rate 73 CT scan of the brain without contrast [November 11] no acute bleed or mass effect. Chronic left frontal subdural hematoma tiny. Small remote lacunar infarct in the left insula Investigations November 06 through November 10, 2023 EEG: No epileptiform activity. Generalized cerebral dysfunction. Brain MRI: No acute nonacute subdural hematomas are noted bilaterallyLeft greater than right. Left 0.6 mm. Right 2 mm. Also left paramedian foci of increased signal. With evidence of nonacute parenchymal hemorrhage with hemosiderin deposition. Within the left frontal lobe largest of which measures 1.5 cm. Tiny subcortical foci of increased signal within the left parietal and left parieto-occipital region that could reflect small foci of petechial hemorrhage versus acute vascular insult. Absent of flow-void left internal car otid artery and intracranial component. November 07: Potassium 4.2 BUN [address] scan brain: No new bleed Assessment and plan: -Acute metabolic encephalopathy, probably from hypotension: Resolved -Hypotension., Symptomatic: Improved Will continue home medication dose of Coreg and Cozaar. Stop Procardia XL. Also cut back Aldactone to 25 mg. -Recurrent falls added 2 days at the rehab. Patient with there for 2 days being discharged from acute facility in [facility] following brain bleed. Secondary to fall. Negative orthostatics. PT OT. Being seen by from neurology. EEG negative for seizure activity. MRI MRI of the brain results as above- -Recent subdural hemorrhage bifrontal lobe secondary to fall on October 18, 2023. Patient had 2 falls since then, on Eliquis, had to rehab in [facility]. Eliquis was stopped on November 06 upon admission to [facility]. MRI showed small hemorrhage. Plan was for repeat CT scan on November 16, outpatient and follow-up with Dr. Hernández -Multi-infarct dementia, including patient having subdural hematoma in the area of the frontal lobe. Prior parietal lobe stroke. -Acute medical debility following recent subdural hematoma. Patient was sent to rehab -Paroxysmal atrial flutter fibrillation. In and out of flutter fibrillation. Given his frequent falls. intracranial hemorrhage.-Eliquis - discontinued Patient to follow-up outpatient with Dr. Medley for left atrial appendage closure device Plavix to continue -Essential hypertension Coreg. Aldactone. Losartan -Primary osteoarthritis Tylenol as needed - -Sjogren's syndrome. -Medical power of environmental attorney: . Leah -Only CPR no intubation. No cardioversion Medication discussed with the . Patient stable. ECF cannot take the patient today. Hence Wednesday 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, brain bleed History of Any Multi-Drug Resistant Organisms: None Reported Past Surgical History: Hernia Repair Past Anesthesia/Blood Transfusion Reactions: No Reported Reaction Past Psychological History: No Psychological Hx Reported Smoking Status: Never smoker Past Alcohol Use History: None Reported Past Drug Use History: None Reported
--- NOTE | 2023-11-14 20:57 | P.PN ---
Progress Note - Text Progress Note Date: 11/14/23 Chief Complaint: Questionable right arm weakness. Pleasant 83-year-old patient, follows Dr. Wright. Stroke, atrial flutter fibrillation. Sjogren's, hypertension. Pulmonary fibrosis. Brain bleed. History is obtained by the at the bedside. On October 17 patient presented to hospital here in ER with a fall. CT scan showed acute intracranial hemorrhage with subdural hemorrhage layering along bilateral frontal lobes. Left greater than right in the falx.-Fallen backwards going down the entire flight of steps which are wooden. And hardwood at the bottom. Subsequently patient was transferred out to [facility]. He was there for 3 weeks. As per the he was managed conservatively. About 10 days ago he was transferred to [facility]. He was there for 2 days. Patient fell that twice. really got concerned about the care then decided to bring him to the ER. Because of his falls. He was brought to our ER on November [address] Winslow. Reported a suspected ground-level fall. Patient was conscious. Not able to give very good answers. He was discharged. Admitted to the hospital from November 06 through November 09. Had had 2-week stay at [facility]. Was then discharged to rehab in [place]. Patient had couple of falls there. Patient's MRI here showed very tiny bleed. Patient had been resumed on Eliquis when he was discharged from [facility]. He is also on his Plavix. Patient seen by neurology Dr. Pearl. It was decided to discontinue the Eliquis because of high risk of falls and minute bleed. 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 Plavix was continued because of underlying A-fib. Blood pressure recorded when discharged from here was 134/67. According to the patient was a bit more lethargic again. Noticed the blood pressure running low, between 70 and 90 systolic. There is questionable some right-sided weakness. In the ER patient does not have any right-sided weakness. Questionable facial droop numbness. No trouble swallowing.'s no change in speech. Patient at the bedside in the ER. November 13: Comfortable. Tolerating diet. Blood pressure well-controlled. Return to [facility] tomorrow. Active Medications Acetaminophen (Acetaminophen Tab 325 Mg Tab) 650 mg PO Q4H PRN PRN Reason: Fever and/ or Pain Atorvastatin Calcium (Atorvastatin 40 Mg Tab) 40 mg PO HS@2100 [facility] Last Admin: 11/14/23 19:45 Dose: 40 mg Bisacodyl (Bisacodyl 10 Mg Supp) 10 mg RECTAL DAILY PRN PRN Reason: Constipation Carvedilol (Carvedilol 6.25 Mg Tab) 6.25 mg PO BID@0800,1700 [facility] Last Admin: 11/14/23 16:22 Dose: 6.25 mg Cevimeline HCl (Cevimeline 30 Mg Cap) 30 mg PO TID@0800,1200,1700 [facility] Last Admin: 11/14/23 16:22 Dose: 30 mg Clopidogrel Bisulfate (Clopidogrel 75 Mg Tab) 75 mg PO HS@2100 [facility] Last Admin: 11/14/23 19:45 Dose: 75 mg Cyanocobalamin (Cyanocobalamin 500 Mcg Tab) 500 mcg PO DAILY@0800 [facility] Last Admin: 11/14/23 08:27 Dose: 500 mcg Losartan Potassium (Losartan 50 Mg Tab) 50 mg PO DAILY@0800 [facility] Last Admin: 11/14/23 08:27 Dose: 50 mg Magnesium Hydroxide (Magnesium Hydroxide 2,400 Mg/30 Ml Cup) 2,400 mg PO DAILY PRN PRN Reason: Constipation Nystatin (Nystatin 100,000 Unit/Gm Powd 15 Gm) 1 applic TOPICAL BID [facility]; Protocol Last Admin: 11/14/23 19:45 Dose: 1 applic Pantoprazole Sodium (Pantoprazole 40 Mg Tablet) 40 mg PO DAILY@0800 [facility] Last Admin: 11/14/23 08:27 Dose: 40 mg Polyethylene Glycol (Polyethylene Glycol 3350 17 Gm Powd.Pack) 17 gm PO BID@0800,1700 [facility] Last Admin: 11/14/23 16:22 Dose: 17 gm Senna/Docusate Sodium (Sennosides-Docusate Sodium 1 Each Tab) 1 each PO BID@0800,1700 [facility] Last Admin: 11/14/23 16:22 Dose: 1 each Sodium Biphosphate/Sodium Phosphate (Na Phos,M-B/Na Phos,Di-Ba 133 Ml Enema) 133 ml RECTAL DAILY PRN PRN Reason: Constipation Spironolactone (Spironolactone 25 Mg Tab) 25 mg PO DAILY@0800 [facility] Last Admin: 11/14/23 08:27 Dose: 25 mg Tamsulosin HCl (Tamsulosin 0.4 Mg Cap.Er.24h) 0.4 mg PO HS@2100 [facility] Last Admin: 11/14/23 19:45 Dose: 0.4 mg Past medical history to include: Atrial flutter fibrillation, stroke, hypertension, Sjogren's, cardioversion. 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 EYES: Pupils equal. Conjunctiva normal. HEENT: External appearance of nose and ears normal, oral cavity grossly normal. NECK: JVD not raised; masses not palpable. HEART: First and second heart sounds are normal; no edema. LUNGS: Respiratory rate normal; clear to auscultation. ABDOMEN: Soft, nontender, liver spleen not palpable, no masses palpable. PSYCH: Can answer some simple very questions. Mentation awake MUSCULOSKELETAL:No Clubbing/cyanosis;muscles-grossly intact. OA NEUROLOGICAL: Cranial nerves grossly intact; no facial asymmetry, power and sensation grossly intact. INVESTIGATIONS, reviewed in the clinical context: November 11: White count 4.7 hemoglobin 10.6 platelets 231 sodium 142 potassium 4.2 BUN 27 creatinine 1.20 EKG tracing personally reviewed by me-atrial fibrillation. Rate 73 CT scan of the brain without contrast [November 11] no acute bleed or mass effect. Chronic left frontal subdural hematoma tiny. Small remote lacunar infarct in the left insula Investigations November 06 through November 10, 2023 EEG: No epileptiform activity. Generalized cerebral dysfunction. Brain MRI: No acute nonacute subdural hematomas are noted bilaterallyLeft greater than right. Left 0.6 mm. Right 2 mm. Also left paramedian foci of increased signal. With evidence of nonacute parenchymal hemorrhage with hemosiderin deposition. Within the left frontal lobe largest of which measures 1.5 cm. Tiny subcortical foci of increased signal within the left parietal and left parieto-occipital region that could reflect small foci of petechial hemorrhage versus acute vascular insult. Absent of flow-void left internal carotid artery and intracranial component. November 07: Potassium 4.2 BUN [address] scan brain: No new bleed Assessment and plan: -Acute metabolic encephalopathy, probably from hypotension: Improved -Hypotension., Symptomatic: Improved Will continue home medication dose of Coreg and Cozaar. Hold off Procardia XL. Also cut back Aldactone to 25 mg. -Recurrent falls added 2 days at the rehab. Patient with there for 2 days being discharged from acute facility in [facility] following brain bleed. Secondary to fall. Negative orthostatics. PT OT. Being seen by from neurology. EEG negative for seizure activity. MRI MRI of the brain results as above- -Recent subdural hemorrhage bifrontal lobe secondary to fall on October 18, 2023. Patient had 2 falls since then, on Eliquis, had to rehab in [facility]. Eliquis was stopped on November 06 upon admission to [facility]. MRI showed small hemorrhage. Repeat CT scan tomorrow morning, follow-up with Dr. Hernández -Multi-infarct dementia, including patient having subdural hematoma in the area of the frontal lobe. Prior parietal lobe stroke. -Acute medical debility following recent subdural hematoma. Patient was sent to rehab -Paroxysmal atrial flutter fibrillation. In and out of flutter fibrillation. Given his frequent falls. intracranial hemorrhage.-Eliquis - discontinued Patient to follow-up outpatient with Dr. Medley for left atrial appendage closure device Plavix to continue -Essential hypertension Coreg. Aldactone. Losartan -Primary osteoarthritis Tylenol as needed - -Sjogren's syndrome. -Medical power of mergers and acquisitions attorney: . Leah -Only CPR no intubation. No cardioversion Repeat CT scan tomorrow morning. Can be discharged to [facility] tomorrow Past Medical History Past Medical History: Atrial Fibrillation, CVA/TIA, Hypertension Additional Past Medical History / Comment(s): ANA LUISA SYN. 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, brain bleed History of Any Multi-Drug Resistant Organisms: None Reported Past Surgical History: Hernia Repair Past Anesthesia/Blood Transfusion Reactions: No Reported Reaction Past Psychological History: No Psychological Hx Reported Smoking Status: Never smoker Past Alcohol Use History: None Reported Past Drug Use History: None Reported
[2023-11-15 01:24] VITALS: RESP 17
--- NOTE | 2023-11-15 09:01 | CT ---
EXAMINATION TYPE: CT brain wo con DATE OF EXAM: 11/15/2023 COMPARISON: 11/12/2023 HISTORY: "I guess I passed out," reports he passed out and was super sweaty, was unresponsive fo r 2-5 minutes. No event like this previous. States his chest and arm feel "warm and sore." Unenhanced CT of the brain was performed. The ventricles, basal cisterns and sulci overlying the cerebral convexities demonstrate mild enlargem ent. Chronic left-sided subdural hygroma or chronic subdural hematoma is unchanged. There is no evidence for intracranial hemorrhage or sulcal effacement. There is decreased attenuation about the periventricular white matter and deep white matter of both c erebral hemispheres, compatible with chronic small vessel ischemia. Differential diagnosis does inclu de demyelination. No mass effects are seen.No midline shift. Osseous calvarium is intact. If symptoms persist consider MRI. IMPRESSION: 1. Chronic left-sided subdural hygroma or chronic subdural hematoma is unchanged. No acute process se en. [facility], , 11/15/2023 8:58 AM
--- NOTE | 2023-11-15 15:14 | P.DS ---
Providers Date of admission: 11/12/23 13:43 Expected date of discharge: 11/15/23 Attending physician: Deshaun Earl Consults: 11/12/23 13:43 Consult Physician Urgent Consulting Provider: Liya Dailey Consult Reason/Comments: TIA Do you want consulting provider notified?: Yes [facility] Course: Chief Complaint: Questionable right arm weakness. Pleasant 83-year-old patient, follows Dr. Wright. Stroke, atrial flutter fibrillation. Sjogren's, hypertension. Pulmonary fibrosis. Brain bleed. History is obtained by the at the bedside. On October 17 patient presented to hospital here in ER with a fall. CT scan showed acute intracranial hemorrhage with subdural hemorrhage layering along bilateral frontal lobes. Left greater than right in the falx.-Fallen backwards going down the entire flight of steps which are wooden. And hardwood at the bottom. Subsequently patient was transferred out to [facility]. He was there for 3 weeks. As per the he was managed conservatively. About 10 days ago he was transferred to [place] rehab. He was there for 2 days. Patient fell that twice. really got concerned about the care then decided to bring him to the ER. Because of his falls. He was brought to our ER on November [address] Winslow. Reported a suspected ground-level fall. Patient was conscious. Not able to give very good answers. He was discharged. Admitted to the hospital from November 06 through November 09. Had had 2-week stay at [facility]. Was then discharged to rehab in [place]. Patient had couple of falls there. Patient's MRI here showed very tiny bleed. Patient had been resumed on Eliquis when he was discharged from [facility]. He is also on his Plavix. Patient seen by neurology Dr. Pearl. It was decided to discontinue the Eliquis because of high risk of falls and minute bleed. 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 Plavix was continued because of underlying A-fib. Blood pressure recorded when discharged from here was 134/67. According to the patient was a bit more lethargic again. Noticed the blood pressure running low, between 70 and 90 systolic. There is questionable some right-sided weakness. In the ER patient does not have any right-sided weakness. Questionable facial droop numbness. No trouble swallowing.'s no change in speech. Patient at the bedside in the ER. November 13: Comfortable. Tolerating diet. Blood pressure well-controlled. Return to [facility] tomorrow. November 14: Comfortable. Blood pressure is good. at the bedside. Discussed. Patient did receive authorization to return to [facility]. Blood pres sure medication discussed with the . CT scan of brain done today unchanged. Patient had a CT scan scheduled from last week for coming Wednesday-not to be done anymore. Dark outpatient neurology, follow-up with Dr. Medley cardiology for left atrial appendage closure Discussion and discharge planning more than 35 minutes Past medical history to include: Atrial flutter fibrillation, stroke, hypertension, Sjogren's, cardioversion. 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 No smoking and no alcohol. Crop carroll Physical examination: VITAL SIGNS: 97.6, 77, 17, 119 x 84, 87% room air GENERAL: Reclining bed awake comfortable. EYES: Pupils equal. Conjunctiva normal. HEENT: External appearance of nose and ears normal, oral cavity grossly normal. NECK: JVD not raised; masses not palpable. HEART: First and second heart sounds are normal; no edema. LUNGS: Respiratory rate normal; clear to auscultation. ABDOMEN: Soft, nontender, liver spleen not palpable, no masses palpable. PSYCH: Can answer some simple very questions. Mentation awake MUSCULOSKELETAL:No Clubbing/cyanosis;muscles-grossly intact. OA NEUROLOGICAL: Cranial nerves grossly intact; no facial asymmetry, power and sensation grossly intact. INVESTIGATIONS, reviewed in the clinical context: November 11: White count 4.7 hemoglobin 10.6 platelets 231 sodium 142 potassium 4.2 BUN 27 creatinine 1.20 EKG tracing personally reviewed by me-atrial fibrillation. Rate 73 CT scan of the brain without contrast [November 11] no acute bleed or mass effect. Chronic left frontal subdural hematoma tiny. Small remote lacunar infarct in the left insula Investigations November 06 through November 10, 2023 EEG: No epileptiform activity. Generalized cerebral dysfunction. Brain MRI: No acute nonacute subdural hematomas are noted bilaterallyLeft greater than right. Left 0.6 mm. Right 2 mm. Also left paramedian foci of increased signal. With evidence of nonacute parenchymal hemorrhage with hemosiderin deposition. Within the left frontal lobe largest of which measures 1.5 cm. Tiny subcortical foci of increased signal within the left parietal and left parieto-occipital region that could reflect small foci of petechial hemorrhage versus acute vascular insult. Absent of flow-void left internal carotid artery and intracranial component. November 07: Potassium 4.2 BUN [address] scan brain: No new bleed Assessment and plan: -Acute metabolic encephalopathy, probably from hypotension: Improved -Hypotension., Symptomatic: Improved Will continue home medication dose of Coreg and Cozaar. Procardia XL-discontinued. Also cut back Aldactone to 25 mg. -Recurrent falls after 2 days at the rehab. being discharged from acute facility in [facility] following brain bleed. Resulting in the admission prior to this. Negative orthostatics. PT OT. Being seen by from neurology. EEG negative for seizure activity. MRI MRI of the brain results as above- -Recent subdural hemorrhage bifrontal lobe secondary to fall on October 18, 2023. Patient had 2 falls since then, on Eliquis, while at rehab in [facility] Prior to recent admission here Eliquis was stopped on November 06 upon admission to [facility]. MRI showed small hemorrhage. follow-up with Dr. Hernández, neurology outpatient -Multi-infarct dementia, including patient having subdural hematoma in the area of the frontal lobe. Prior parietal lobe stroke. -Acute medical debility following recent subdural hematoma. Patient was sent to rehab -Paroxysmal atrial flutter fibrillation. In and out of flutter fibrillation. Given his frequent falls. intracranial hemorrhage.-Eliquis - discontinued Patient to follow-up outpatient with Dr. Medley for left atrial appendage closure device Plavix to continue -Essential hypertension Coreg. Aldactone. Losartan -Primary osteoarthritis Tylenol as needed -Sjogren's syndrome. -Medical power of trademark attorney: . Leah -Only CPR no intubation. No cardioversion Disposition: [facility] 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, brain bleed History of Any Multi-Drug Resistant Organisms: None Reported Past Surgical History: Hernia Repair Past Anesthesia/Blood Transfusion Reactions: No Reported Reaction Past Psychological History: No Psychological Hx Reported Smoking Status: Never smoker Past Alcohol Use History: None Reported Past Drug Use History: None Reported Plan - Discharge Summary Discharge Rx Participant: No New Discharge Prescriptions: New Spironolactone [Aldactone] 25 mg PO DAILY@0800 tab Continue Cevimeline [Evoxac] 30 mg PO TID@0800,1200,1700 carvediloL [Coreg] 6.25 mg PO BID@0800,1700 Pantoprazole [Protonix] 40 mg PO DAILY@0800 Nystatin 100,000 Unit/gm Powd [Mycostatin Powder] 1 applic TOPICAL BID each Na Phos,M-B/Na Phos,Di-Ba [Fleet Adult] 133 ml RECTAL DAILY PRN PRN Reason: Constipation Losartan [Cozaar] 50 mg PO DAILY@0800 Atorvastatin [Lipitor] 40 mg PO HS@2100 Alfuzosin HCl [Alfuzosin HCl ER] 10 mg PO HS@2100 Magnesium Hydroxide [Milk of Magnesia Concentrate] 7,200 mg PO DAILY PRN PRN Reason: Constipation bisacodyL [Dulcolax] 10 mg RECTAL DAILY PRN PRN Reason: Constipation Clopidogrel [Plavix] 75 mg PO HS@2100 polyethylene glycoL 3350 [Miralax] 17 gm PO BID@0800,1700 Acetaminophen Tab [Tylenol] 650 mg PO Q4H PRN PRN Reason: Fever And/ Or Pain Sennosides/Docusate Sodium [Senna-S 8.6-50 mg Tablet] 1 tab PO BID@0800,1700 Cyanocobalamin [Vitamin B-12] 500 mcg PO DAILY@0800 Discontinued NIFEdipine XL [Procardia Xl] 90 mg PO HS@2100 Spironolactone [Aldactone] 50 mg PO DAILY@0800 Discharge Medication List Cevimeline [Evoxac] 30 mg PO TID@0800,1200,1700 04/07/16 [History] Clopidogrel [Plavix] 75 mg PO HS@2100 11/06/23 [History] Pantoprazole [Protonix] 40 mg PO DAILY@0800 11/06/23 [History] bisacodyL [Dulcolax] 10 mg RECTAL DAILY PRN 11/06/23 [History] carvediloL [Coreg] 6.25 mg PO BID@0800,1700 11/06/23 [History] polyethylene glycoL 3350 [Miralax] 17 gm PO BID@0800,1700 11/06/23 [History] Nystatin 100,000 Unit/gm Powd [Mycostatin Powder] 1 applic TOPICAL BID each 11/10/23 [Rx] Acetaminophen Tab [Tylenol] 650 mg PO Q4H PRN 11/12/23 [History] Alfuzosin HCl [Alfuzosin HCl ER] 10 mg PO HS@209911/12/23 [History] Atorvastatin [Lipitor] 40 mg PO HS@209911/12/23 [History] Cyanocobalamin [Vitamin B-12] 500 mcg PO DAILY@0800 11/12/23 [History] Losartan [Cozaar] 50 mg PO DAILY@0800 11/12/23 [History] Magnesium Hydroxide [Milk of Magnesia Concentrate] 7,200 mg PO DAILY PRN 11/12/23 [History] Na Phos,M-B/Na Phos,Di-Ba [Fleet Adult] 133 ml RECTAL DAILY PRN 11/12/23 [History] Sennosides/Docusate Sodium [Senna-S 8.6-50 mg Tablet] 1 tab PO BID@0800,1700 11/12/23 [History] Spironolactone [Aldactone] 25 mg PO DAILY@0800 tab 11/15/23 [Rx] Follow up Appointment(s)/Referral(s): Get Wright DO [Primary Care Provider] - 1-2 days
[2023-11-15 15:25] VITALS: BP 132/88; PULSE 71; TEMP 98.4
== END 2023-11-15 16:50 ==
LOC: EC 12:16 → 6NMEDSUR 13:43
PROVIDERS: ADMIT Hospitalist; ATTEND Hospitalist
DX: G93.41 Metabolic encephalopathy (principal); I95.9 Hypotension, unspecified; R53.81 Other malaise; S06.5XAD Traumatic subdural hemorrhage with loss of consciousness status unknown, subsequent encounter; W19.XXXD Unspecified fall, subsequent encounter; F01.50 Vascular dementia, unspecified severity, without behavioral disturbance, psychotic disturbance, mood disturbance, and anxiety; I10 Essential (primary) hypertension; M35.00 Sjogren syndrome, unspecified; I48.20 Chronic atrial fibrillation, unspecified; I48.92 Unspecified atrial flutter; J84.10 Pulmonary fibrosis, unspecified; M19.91 Primary osteoarthritis, unspecified site; R29.6 Repeated falls; Z79.899 Other long term (current) drug therapy; Z91.81 History of falling; Z79.02 Long term (current) use of antithrombotics/antiplatelets
CPT/HCPCS: 96360; 99285; 36415; 93005; 97530; 97161; 97166; 80061; 80053; 82550; 84484; 85025; 85610; 85730; 71045; 70450 ×2; G0378 ×4

== ENCOUNTER → 2023-12-13 | Outpatient (CLI) | payer MEDICARE ==
[2023-12-13 12:26] LABS: African American GFR (CKD) 73 (>60 ml/min/1.73 sqM); Blood Urea Nitrogen 21 mg/dL (9-20); Non-African American GFR(CKD) 63 (>60 ml/min/1.73 sqM)
--- NOTE | 2023-12-13 14:33 | CT ---
EXAMINATION TYPE: CT angio chest CT DLP: 698.3 mGycm, Automated exposure control for dose reduction was used. DATE OF EXAM: 12/13/2023 1:54 PM COMPARISON: CT chest 09/22/2022 CLINICAL INDICATION:Male, 83 years old with history of I77.819 AORTIC ECTASIA, UNSPECIFIED SITE; f/u aneurysm TECHNIQUE/CONTRAST: CTA scan of the thorax is performed without and with IV Contrast, patient injected with 100 ml mL of Isovue 370, pulmonary embolism protocol. MIP images are created and reviewed. FINDINGS: Pulmonary Artery: There is no evidence for a filling defect within the pulmonary vasculature to sugge st acute pulmonary embolism. The pulmonary artery is of normal size. Lungs/Pleura: No evidence of focal consolidation, pleural effusion or pneumothorax. Mild bilateral lo wer lobe dependent sinus atelectasis. Scattered pulmonary cysts within the right lung. Airway: Large airways are patent. Heart: The heart is mildly enlarged for size.. Small pericardial effusion. Vasculature: No intramural hematoma or dissection. Conventional aortic arch. Aortic root measures up to 3.6 cm. The ascending thoracic aorta measures up to 4.4 cm which is stable. Descending thoracic ao rta measures up to 3.8 cm it is stable. Mild atherosclerotic calcification of the aorta and its branc hes. No pulmonary embolism visualized. Mediastinum: No gross evidence of adenopathy. Musculoskeletal: Right anterior fourth and fifth rib fractures with callus formation at the costochon dral junction. Remote ununited sternal fracture with approximately 1.2 cm of posterior displacement o f the superior aspect of the sternum. Soft Tissues: Unremarkable. Lower neck: No significant findings. Upper Abdomen: Right renal superior pole 5.8 cm cyst. Cholelithiasis. 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 No evidence of intramural hematoma or dissection. [facility], , 12/13/2023 2:30 PM
== END | disposition home or self-care (01) ==
LOC: RADCTMAIN 11:36
PROVIDERS: ATTEND Internal Medicine Interventional Cardiology
DX: I71.23 Aneurysm of the descending thoracic aorta, without rupture (principal); I71.21 Aneurysm of the ascending aorta, without rupture
CPT/HCPCS: 82565; 84520; 71275; 36415; Q9967

== ENCOUNTER 2024-01-19 21:41 | Emergency (ER) | payer MEDICARE ==
--- NOTE | 2024-01-19 22:05 | ED ---
Male Urogenital HPI - General Chief complaint: Urogenital Stated complaint: UTI Time Seen by Provider: 01/19/24 22:04 Source: patient, family (), RN notes reviewed Mode of arrival: ambulatory Limitations: no limitations - History of Present Illness Initial comments: 83-year-old male presenting to the ER for evaluation of dysuria. Patient reports from 230 this afternoon he has been reporting a burning sensation with urination. He states he is also "leaking urine". He does state he was recently treated for a UTI unknown antibiotic. Patient states nephrology put him on this antibiotic. He is seeing nephrology due to hypertension. He denies any fevers, chills, nausea, vomiting, abdominal pain, constipation/diarrhea. No concern of STDs. No other complaints. No pain with defecation or scrotal pain. - Related Data Home Medications Medication Instructions Recorded Confirmed Cevimeline [Evoxac] 30 mg PO TID@0800,1200,1700 04/07/16 11/12/23 Clopidogrel [Plavix] 75 mg PO HS@209911/06/23 11/12/23 Pantoprazole [Protonix] 40 mg PO DAILY@0800 11/06/23 11/12/23 bisacodyL [Dulcolax] 10 mg RECTAL DAILY PRN 11/06/23 11/12/23 carvediloL [Coreg] 6.25 mg PO BID@0800,1700 11/06/23 11/12/23 polyethylene glycoL 3350 [Miralax] 17 gm PO BID@0800,1700 11/06/23 11/12/23 Acetaminophen Tab [Tylenol] 650 mg PO Q4H PRN 11/12/23 11/12/23 Alfuzosin HCl [Alfuzosin HCl ER] 10 mg PO HS@209911/12/23 11/12/23 Atorvastatin [Lipitor] 40 mg PO HS@209911/12/23 11/12/23 Cyanocobalamin [Vitamin B-12] 500 mcg PO DAILY@0800 11/12/23 11/12/23 Losartan [Cozaar] 50 mg PO DAILY@0800 11/12/23 11/12/23 Magnesium Hydroxide [Milk of 7,200 mg PO DAILY PRN 11/12/23 11/12/23 Magnesia Concentrate] Na Phos,M-B/Na Phos,Di-Ba [Fleet 133 ml RECTAL DAILY PRN 11/12/23 11/12/23 Adult] Sennosides/Docusate Sodium 1 tab PO BID@0800,1700 11/12/23 11/12/23 [Senna-S 8.6-50 mg Tablet] Previous Rx's Medication Instructions Recorded Nystatin 100,000 Unit/gm Powd 1 applic TOPICAL BID each 11/10/23 [Mycostatin Powder] Spironolactone [Aldactone] 25 mg PO DAILY@0800 tab 11/15/23 Sulfamethox-Tmp 800-160Mg [Bactrim 1 tab PO Q12HR 10 Days #20 tab 01/20/24 DS 800-160 mg] Allergies Allergy/AdvReac Type Severity Reaction Status Date / Time No Known Allergies Allergy Verified 11/12/23 13:26 Review of Systems ROS Statement: Those systems with pertinent positive or pertinent negative responses have been documented in the HPI. ROS Other: All systems not noted in ROS Statement are negative. 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, brain bleed History of Any Multi-Drug Resistant Organisms: None Reported Past Surgical History: Hernia Repair Past Anesthesia/Blood Transfusion Reactions: No Reported Reaction Past Psychological History: No Psychological Hx Reported Smoking Status: Never smoker Past Alcohol Use History: None Reported Past Drug Use History: None Reported - Past Family History Sister(s) Family Medical History: Cancer General Exam Limitations: no limitations General appearance: alert, in no apparent distress Respiratory exam: Present: normal lung sounds bilaterally. Absent: respiratory distress, wheezes, rales, rhonchi, stridor Cardiovascular Exam: Present: regular rate, normal rhythm, normal heart sounds. Absent: systolic murmur, diastolic murmur, rubs, gallop, clicks GI/Abdominal exam: Present: soft, normal bowel sounds. Absent: distended, tenderness, guarding, rebound, rigid exam: Present: normal inspection, other (No testicular tenderness. No rashes or wounds.) Back exam: Present: normal inspection Neurological exam: Present: alert, oriented X3, CN II-XII intact Skin exam: Present: warm, dry, intact, normal color. Absent: rash Course Vital Signs 01/19/24 01/20/24 21:46 00:30 Temperature 98 F 98.6 F Pulse Rate 83 74 Respiratory 18 16 Rate Blood Pressure 129/82 125/78 O2 Sat by Pulse 98 100 Oximetry - Reevaluation(s) Reevaluation #1: Scrotal exam chaperoned by Rosa Fleming RN. Medical Decision Making - Medical Decision Making Was pt. sent in by a medical professional or institution (, [facility], [facility], urgent care, hospital, or fdc...) When possible be specific @ -No Did you speak to anyone other than the patient for history (EMS, parent, family, police, friend...)? What history was obtained from this source @ -, at bedside, aiding in HPI and past medical history. Did you review nursing and triage notes (agree or disagree)? Why? @ -I reviewed and agree with nursing and triage notes Were old charts reviewed (outside hosp., previous admission, EMS record, old EKG, old radiological studies, urgent care reports/EKG's, fdc records)? Report findings @ -No old charts were reviewed Differential Diagnosis (chest pain, altered mental status, abdominal pain women, abdominal pain men, vaginal bleeding, weakness, fever, dyspnea, syncope, heada olivia, dizziness, GI bleed, back pain, seizure, CVA, palpatations, mental health, musculoskeletal)? @ -UTI,Pyelonephritis, sepsis This list is not meant to be all-inclusive EKG interpreted by me (3pts min.). @ -None done X-rays interpreted by me (1pt min.). @ -None done CT interpreted by me (1pt min.). @ -None done U/S interpreted by me (1pt. min.). @ -None done What testing was considered but not performed or refused? (CT, X-rays, U/S, labs)? Why? @ -None What meds were considered but not given or refused? Why? @ -None Did you discuss the management of the patient with other professionals (professionals i.e. USMAN Cartwright, [facility], lab, RT, psych nurse, social work assistant, furniture and bedding inspector, teacher, contracting officer, high risk case manager)? Give summary @ -No Was smoking cessation discussed for >3mins.? @ -No Was critical care preformed (if so, how long)? @ -No Were there social determinants of health that impacted care today? How? (Homelessness, low income, unemployed, alcoholism, drug addiction, transportation, low edu. Level, literacy, decrease access to med. care, assisted, rehab)? @ -No Was there de-escalation of care discussed even if they declined (Discuss DNR or withdrawal of care, Hospice)? DNR status @ -No What co-morbidities impacted this encounter? (DM, HTN, Smoking, COPD, CAD, Cancer, CVA, ARF, Chemo, Hep., AIDS, mental health diagnosis, sleep apnea, morbid obesity)? @ -None Was patient admitted / discharged? Hospital course, mention meds given and route, prescriptions, significant lab abnormalities, going to OR and other pertinent info. @ -Discharge. 83-year-old male presented to ER for evaluation of dysuria. History and physical exam completed. Vitals stable. Patient in no signs of acute distress nontoxic-appearing. No abdominal tenderness. No scrotal tenderness or pain with defecation. Laboratory studies obtained showing a hemoglobin of 12.1 which appears to be chronic in nature. CMP unremarkable. Urinalysis concerning for infection with trace blood, large leukocyte esterases and 171 WBCs. Patient will be started on Bactrim, first dose in the ER. Patient is stable for discharge. Advise close follow-up with urology, referral given, for reoccurring UTIs. Strict return parameters discussed. Patient discharged in stable condition with follow-up to PCP. Patient verbally expressed understanding and agreement with care plan. Case discussed with ED attending, . Undiagnosed new problem with uncertain prognosis? @ -No Drug Therapy requiring intensive monitoring for toxicity (Heparin, Nitro, Insulin, Cardizem)? @ -No Were any procedures done? @ -No Diagnosis/symptom? @ -UTI Acute, or Chronic, or Acute on Chronic? @ -Acute Uncomplicated (without systemic symptoms) or Complicated (systemic symptoms)? @ -Uncomplicated Side effects of treatment? @ -No Exacerbation, Progression, or Severe Exacerbation? @ -No Poses a threat to life or bodily function? How? (Chest pain, [place], [place], pneumonia, PE, COPD, DKA, ARF, appy, cholecystitis, CVA, Diverticulitis, Homicidal, Suicidal, threat to staff... and all critical care pts) @ -No - Lab Data Result diagrams: 01/19/24 22:04 01/19/24 22:04 Lab Results 01/19/24 01/19/24 01/19/24 Range/Units 22:03 22:04 22:04 WBC 5.2 (3.8-10.6) k/uL RBC 3.69 L (4.30-5.90) m/uL Hgb 12.1 L (13.0-17.5) gm/dL Hct 36.2 L (39.0-53.0) % MCV 98.1 (80.0-100.0) fL MCH 32.9 (25.0-35.0) pg MCHC 33.5 (31.0-37.0) g/dL RDW 14.2 (11.5-15.5) % Plt Count 191 (150-450) k/uL MPV 7.5 Neutrophils % 68 % Lymphocytes % 17 % Monocytes % 8 % Eosinophils % 4 % Basophils % 1 % Neutrophils # 3.5 (1.3-7.7) k/uL Lymphocytes # 0.9 L (1.0-4.8) k/uL Monocytes # 0.4 (0-1.0) k/uL Eosinophils # 0.2 (0-0.7) k/uL Basophils # 0.0 (0-0.2) k/uL Sodium 140 (137-145) mmol/L Potassium 4.2 (3.5-5.1) mmol/L Chloride 109 H (98-107) mmol/L Carbon Dioxide 25 (22-30) mmol/L Anion Gap 6 mmol/L BUN 18 (9-20) mg/dL Creatinine 1.05 (0.66-1.25) mg/dL Est GFR (CKD-EPI)AfAm 77 (>60 ml/min/1.73 sqM) Est GFR (CKD-EPI)NonAf 67 (>60 ml/min/1.73 sqM) Glucose 102 H (74-99) mg/dL Calcium 8.9 (8.4-10.2) mg/dL Total Bilirubin 0.4 (0.2-1.3) mg/dL AST 23 (17-59) U/L ALT 25 (4-49) U/L Alkaline Phosphatase 59 (38-126) U/L Total Protein 7.4 (6.3-8.2) g/dL Albumin 4.2 (3.5-5.0) g/dL Urine Color Colorless Urine Appearance Cloudy (Clear) Urine pH 6.5 (5.0-8.0) Ur Specific Monson 1.009 (1.001-1.035) Urine Protein Negative (Negative) Urine Glucose (UA) Negative (Negative) Urine Ketones Negative (Negative) Urine Blood Trace H (Negative) Urine Nitrite Negative (Negative) Urine Bilirubin Negative (Negative) Urine Urobilinogen <2.0 (<2.0) mg/dL Ur Leukocyte Esterase Large H (Negative) Urine RBC 1 (0-5) /hpf Urine WBC 171 H (0-5) /hpf Urine Yeast (Budding) Few H (None) /hpf Disposition Clinical Impression: UTI (urinary tract infection) Disposition: HOME SELF-CARE Condition: Stable Instructions (If sedation given, give patient instructions): Urinary Tract Infection in Men (ED) Additional Instructions: Complete full course of antibiotics. Follow-up with PCP who may want you to follow-up with urology. Return to the ER for any new or worsening concerns. Prescriptions: Sulfamethox-Tmp 800-160Mg [Bactrim DS 800-160 mg] 1 tab PO Q12HR 10 Days #20 tab Is patient prescribed a controlled substance at d/c from ED?: No Referrals: Get Wright DO [Primary Care Provider] - 1-2 days Kamaljit Freeman MD [STAFF PHYSICIAN] - 1-2 days Time of Disposition: 00:11
[2024-01-19 22:41] LABS: Basophils % (A) 1 %; Eosinophils # (A) 0.2 k/uL (0-0.7); Eosinophils % (A) 4 %; HCT 36.2 % (39.0-53.0); HGB 12.1 gm/dL (13.0-17.5); Lymphocytes # (A) 0.9 k/uL (1.0-4.8); Lymphocytes % (A) 17 %; MCH 32.9 pg (25.0-35.0); MCHC 33.5 g/dL (31.0-37.0); MCV 98.1 fL (80.0-100.0); Mean Platelet Volume 7.5; Monocytes # (A) 0.4 k/uL (0-1.0); Monocytes % (A) 8 %; Neutrophils # (A) 3.5 k/uL (1.3-7.7); Neutrophils % (A) 68 %; Platelet Count 191 k/uL (150-450); RBC 3.69 m/uL (4.30-5.90); RDW 14.2 % (11.5-15.5); WBC 5.2 k/uL (3.8-10.6)
[2024-01-19 23:13] LABS: ALT 25 U/L (4-49); AST 23 U/L (17-59); African American GFR (CKD) 77 (>60 ml/min/1.73 sqM); Albumin 4.2 g/dL (3.5-5.0); Alkaline Phosphatase 59 U/L (38-126); Anion Gap 6 mmol/L; Blood Urea Nitrogen 18 mg/dL (9-20); Calcium 8.9 mg/dL (8.4-10.2); Carbon Dioxide 25 mmol/L (22-30); Chloride 109 mmol/L (98-107); Glucose 102 mg/dL (74-99); Non-African American GFR(CKD) 67 (>60 ml/min/1.73 sqM); Potassium 4.2 mmol/L (3.5-5.1); Sodium 140 mmol/L (137-145); Total Bilirubin 0.4 mg/dL (0.2-1.3); Total Protein 7.4 g/dL (6.3-8.2)
[2024-01-19 23:33] LABS: Appearance,Urine Cloudy (Clear); Bilirubin,Urine Negative (Negative); Blood,Urine Trace (Negative); Budding Yeast,Urine Few /hpf; Color,Urine Colorless; Glucose,Urine (UA) Negative (Negative); Ketones,Urine Negative (Negative); Leukocyte Esterase,Urine Large (Negative); Nitrite,Urine Negative (Negative); PH, Urine 6.5 (5.0-8.0); Protein,Urine Negative (Negative); RBC,Urine 1 /hpf (0-5); Specific Gravity,Urine 1.009 (1.001-1.035); Urobilinogen,Urine <2.0 mg/dL (<2.0); WBC,Urine 171 /hpf (0-5)
[2024-01-19] MEDS: CLOPIDOGREL 75 MG TAB PO STA (23:38)
[2024-01-20] MEDS ORDERED: cefTRIAXone IN SWFI 1,000 MG/10 ML SYRINGE IVP STA (00:09)
[2024-01-20 00:32] VITALS: BP 125/78; PULSE 74; RESP 16; TEMP 98.6
== END 2024-01-20 00:31 | disposition home or self-care (01) ==
LOC: EC 21:41
DX: N39.0 Urinary tract infection, site not specified (principal); Z86.73 Personal history of transient ischemic attack (TIA), and cerebral infarction without residual deficits
CPT/HCPCS: 36415; 80053; 81001; 85025; 87077; 87086; 87186; 99283

== ENCOUNTER 2024-05-30 19:32 | Emergency (ER) | payer MEDICARE ==
--- NOTE | 2024-05-30 19:53 | ED ---
General Adult HPI - General Chief complaint: Head Injury Stated complaint: Fall Head Injury-Blood thinner Time Seen by Provider: 05/30/24 19:40 Source: patient, RN notes reviewed, old records reviewed Mode of arrival: ambulatory Limitations: no limitations - History of Present Illness Initial comments: 83-year-old presenting for evaluation of mechanical fall with head injury. No loss consciousness. Patient is on Plavix. He reports a mild headache at the site of injury. No neck pain. No other injury reported. No chest or abdominal pain. Patient has prior history of intracranial hemorrhage from fall. - Related Data Home Medications Medication Instructions Recorded Confirmed Cevimeline [Evoxac] 30 mg PO TID@0800,1200,1700 04/07/16 11/12/23 Clopidogrel [Plavix] 75 mg PO HS@209911/06/23 11/12/23 Pantoprazole [Protonix] 40 mg PO DAILY@0800 11/06/23 11/12/23 bisacodyL [Dulcolax] 10 mg RECTAL DAILY PRN 11/06/23 11/12/23 carvediloL [Coreg] 6.25 mg PO BID@0800,1700 11/06/23 11/12/23 polyethylene glycoL 3350 [Miralax] 17 gm PO BID@0800,1700 11/06/23 11/12/23 Acetaminophen Tab [Tylenol] 650 mg PO Q4H PRN 11/12/23 11/12/23 Alfuzosin HCl [Alfuzosin HCl ER] 10 mg PO HS@209911/12/23 11/12/23 Atorvastatin [Lipitor] 40 mg PO HS@209911/12/23 11/12/23 Cyanocobalamin [Vitamin B-12] 500 mcg PO DAILY@0800 11/12/23 11/12/23 Losartan [Cozaar] 50 mg PO DAILY@0800 11/12/23 11/12/23 Magnesium Hydroxide [Milk of 7,200 mg PO DAILY PRN 11/12/23 11/12/23 Magnesia Concentrate] Na Phos,M-B/Na Phos,Di-Ba [Fleet 133 ml RECTAL DAILY PRN 11/12/23 11/12/23 Adult] Sennosides/Docusate Sodium 1 tab PO BID@0800,1700 11/12/23 11/12/23 [Senna-S 8.6-50 mg Tablet] Previous Rx's Medication Instructions Recorded Nystatin 100,000 Unit/gm Powd 1 applic TOPICAL BID each 11/10/23 [Mycostatin Powder] Spironolactone [Aldactone] 25 mg PO DAILY@0800 tab 11/15/23 Sulfamethox-Tmp 800-160Mg [Bactrim 1 tab PO Q12HR 10 Days #20 tab 01/20/24 DS 800-160 mg] Allergies Allergy/AdvReac Type Severity Reaction Status Date / Time No Known Allergies Allergy Verified 05/30/24 19:38 Review of Systems ROS Statement: Those systems with pertinent positive or pertinent negative responses have been documented in the HPI. ROS Other: All systems not noted in ROS Statement are negative. 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, brain bleed History of Any Multi-Drug Resistant Organisms: None Reported Past Surgical History: Hernia Repair Past Anesthesia/Blood Transfusion Reactions: No Reported Reaction Past Psychological History: No Psychological Hx Reported Smoking Status: Never smoker Past Alcohol Use History: None Reported Past Drug Use History: None Reported - Past Family History Sister(s) Family Medical History: Cancer General Exam Limitations: no limitations General appearance: alert, in no apparent distress Head exam: Present: other (Left frontal hematoma) Eye exam: Present: normal appearance, PERRL, periorbital swelling. Absent: periorbital tenderness Neck exam: Present: normal inspection. Absent: tenderness, meningismus Respiratory exam: Present: normal lung sounds bilaterally. Absent: respiratory distress, wheezes Cardiovascular Exam: Present: regular rate, irregular rhythm GI/Abdominal exam: Present: soft. Absent: distended, tenderness, guarding Extremities exam: Present: normal inspection, normal capillary refill Neurological exam: Present: alert, oriented X3, CN II-XII intact. Absent: motor sensory deficit Psychiatric exam: Present: normal affect, normal mood Skin exam: Present: warm, dry, intact Course Vital Signs 05/30/24 19:34 Temperature 97.9 F Pulse Rate 166 H Respiratory 20 Rate Blood Pressure 169/99 O2 Sat by Pulse 95 Oximetry Medical Decision Making - Medical Decision Making Was pt. sent in by a medical professional or institution (, PA, ECHOCARDIOLOGIST, urgent care, hospital, or residential...) When possible be specific @ -No Did you speak to anyone other than the patient for history (EMS, parent, family, police, friend...)? What history was obtained from this source @ -No Did you review nursing and triage notes (agree or disagree)? Why? @ -I reviewed and agree with nursing and triage notes Were old charts reviewed (outside hosp., previous admission, EMS record, old EKG, old radiological studies, urgent care reports/EKG's, residential records)? Report findings @ -No old charts were reviewed Differential Diagnosis: Traumatic injury from fall, intracranial hemorrhage, cervical fracture or subluxation, skull fracture EKG interpreted by me (3pts min.). @Atrial fibrillation rate of 89, QRS duration 94, QTc [address] segment elevation. X-rays interpreted by me (1pt min.). @ -None done CT interpreted by me (1pt min.). @CT brain shows chronic left-sided hygroma no acute intracranial hemorrhage U/S interpreted by me (1pt. min.). @ -None done What testing was considered but not performed or refused? (CT, X-rays, U/S, lab s)? Why? @ -None What meds were considered but not given or refused? Why? @ -None Did you discuss the management of the patient with other professionals (professionals i.e. , PA, ECHOCARDIOLOGIST, lab, RT, psych nurse, social economist, bus system operator, teacher, senior vice president and chief information officer, insurance case manager)? Give summary @ -No Was smoking cessation discussed for >3mins.? @ -No Was critical care preformed (if so, how long)? @ -No Were there social determinants of health that impacted care today? How? (Homelessness, low income, unemployed, alcoholism, drug addiction, transportation, low edu. Level, literacy, decrease access to med. care, snf, rehab)? @ -No Was there de-escalation of care discussed even if they declined (Discuss DNR or withdrawal of care, Hospice)? DNR status @ -No What co-morbidities impacted this encounter? (DM, HTN, Smoking, COPD, CAD, Cancer, CVA, ARF, Chemo, Hep., AIDS, mental health diagnosis, sleep apnea, morbid obesity)? @On Plavix, history of intracranial hemorrhage Was patient admitted / discharged? Hospital course, mention meds given and route, prescriptions, significant lab abnormalities, going to OR and other pertinent info. 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 No loss conscious. He has a hematoma over the left frontal. Patient well-appearing otherwise with no other complaints. 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 Patient stable for discharge at this time. Patient instructed to hold Plavix dose this evening Undiagnosed new problem with uncertain prognosis? @ -No Drug Therapy requiring intensive monitoring for toxicity (Heparin, Nitro, Insulin, Cardizem)? @ -No Were any procedures done? @ -No Diagnosis/symptom? @Fall, concussion Acute, or Chronic, or Acute on Chronic? @ -Acute Uncomplicated (without systemic symptoms) or Complicated (systemic symptoms)? @ -Default Side effects of treatment? @ -No Exacerbation, Progression, or Severe Exacerbation? @ -No Poses a threat to life or bodily function? How? (Chest pain, [place], [place], pneumonia, PE, COPD, DKA, ARF, appy, cholecystitis, CVA, Diverticulitis, Homicidal, Suicidal, threat to staff... and all critical care pts) @ -No Disposition Clinical Impression: Fall, Concussion Disposition: HOME SELF-CARE Condition: Fair Instructions (If sedation given, give patient instructions): Concussion (ED) Is patient prescribed a controlled substance at d/c from ED?: No Referrals: Get Wright DO [Primary Care Provider] - 1-2 days Time of Disposition: 20:35
--- NOTE | 2024-05-30 20:17 | CT ---
EXAMINATION TYPE: CT brain jackie wo con DATE OF EXAM: 05/30/2024 8:07 PM COMPARISON: 11/15/2023 CLINICAL INDICATION: Male, 83 years old with history of fall on thinner, Code coag, fall on thinners. , pain TECHNIQUE: CT of the brain is performed utilizing 3 mm thick sections through the posterior fossa and 3 mm thick sections through the remaining calvarium. Study is performed within 24 hours of arrival to the hospital. Contrast used: mL of , (none if empty) CT DLP: 1338.8 mGycm, Automated exposure control for dose reduction was used. FINDINGS: No abnormal hyperdensity is present to suggest an acute intracranial hemorrhage. There is a chronic l eft subdural hematoma with minimal mass effect on the adjacent left cerebrum. 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 No acute infarcts are evident. Ventricles and sulci are mildly prominent for the patient age. Paranasal sinuses and mastoid air cells within the [id number] are clear. IMPRESSIONS: 1. No acute intracranial process. Follow-up MRI can be performed as clinically indicated. 2. Chronic stable appearing left subdural hematoma CT cervical spine. COMPARISON: None TECHNIQUE: CT of the cervical spine is performed in the axial plane at 2 mm thick sections. Reconstr ucted images in the coronal, and sagittal plane are reviewed on the computer. FINDINGS: No acute fractures are evident. Vertebral body alignment is normal. Disc heights are preserved. Vertebral body heights are preserved. No spinal canal stenosis is evident. Some left foraminal narrowing from uncovertebral hypertrophy is present at C4-5 level IMPRESSION: 1. No acute osseous abnormality cervical spine [facility], , 05/30/2024 8:15 PM
[2024-05-30 20:48] VITALS: BP 151/84; PULSE 79; RESP 18; TEMP 98.3
== END 2024-05-30 20:48 | disposition home or self-care (01) ==
LOC: EC 19:32
DX: S06.5XAA Traumatic subdural hemorrhage with loss of consciousness status unknown, initial encounter (principal); Z79.02 Long term (current) use of antithrombotics/antiplatelets; W19.XXXA Unspecified fall, initial encounter
CPT/HCPCS: 70450; 72125; 93005; 99284